=== PATIENT | female | born 1960 | race Caucasian/White ===

== ENCOUNTER → 2017-03-14 11:00 | Outpatient (POV) | payer MEDICAID, SELFPAY ==
[2017-03-14 11:15] VITALS: BP 161/52; PULSE 84; RESP 18; O2SAT 98; BMI 35.5
--- NOTE | 2017-03-14 11:36 | HMH.PAINSOAP ---
[facility] Pain Management SOAP Note Subjective:: Patient is a very pleasant 6-year-old white female that returns our pain clinic today with complaint of extreme pain in the left hip. She describes the pain as constant, sharp, stabbing. She rates pain 9/10. Patient reports the pain intensifies significantly when sitting. Also, when standing for any length of time. Patient was denied by insurance left SI joint injection. We will attempt approval again for left SI joint injection. She has extreme point tenderness over the left SI joint. She had significant relief in terms of her right hip pain after receiving right SI joint injection. Patient has tried and failed conservative measures such as physical therapy, care management assistant, NSAIDs. She continues with home exercise program. Objective:: Patient is awake alert oriented ?3. No acute distress. Flexion extension lumbar spine somewhat guarded secondary to pain. Deep tendon reflexes upper and lower extremities normal. Motor strength upper and lower extremities normal. There is no gross sensory deficit. Gait is normal. Assessment:: Degenerative disc disease lumbar spine multiple levels. Bilateral sacroiliitis per Plan:: We will plan left SI joint injection. Again, patient is failed conservative measures to help get rid of this pain. Patient's trying to continue working. However, due to the pain she has had a difficult time with this. She does continue with home exercise program.
== END ==
PROVIDERS: Family Provider Internal Medicine Adolescent Medicine; PCP Internal Medicine Adolescent Medicine; Visit Provider Nurse Anesthetist, Certified Registered
DX: M46.1 Sacroiliitis, not elsewhere classified (principal); M51.16 Intervertebral disc disorders with radiculopathy, lumbar region
CPT/HCPCS: 99212

== ENCOUNTER → 2017-04-29 15:59 | Day surgery (SDC) | payer MEDICAID, SELFPAY ==
[2017-04-29 16:53] VITALS: BP 161/65; PULSE 77; RESP 18; TEMP 36.7; O2SAT 98; BMI 35.5
[2017-04-29 16:57] LABS: POC Glucose,Bedside 106 mg/dL (70-110)
[2017-04-29 17:03] VITALS: BP 191/90; PULSE 98; RESP 18; O2SAT 100
[2017-04-29 17:04] VITALS: BP 149/88; BP 170/66; PULSE 86; PULSE 87; RESP 18; TEMP 36.6; O2SAT 98
--- NOTE | 2017-04-29 17:11 | P.PCN_ITS ---
- Procedure Date: 04/29/17 Time: 17:08 Anesthesiologist:: Case Yung MD Complications:: None Pre-procedure Diagnosis:: Sacroiliitis Post-procedure Diagnosis:: Same Indications for Procedure:: This patient is a pleasant 56-year-old white female who we are treating for left -sided hip pain. She is tender over her left SI joint. She has a positive Gavin's test on the left side. We will do a left SI joint injection under fluoroscopy to see if this gives her some relief. She did previously benefit from a right SI joint injection and has minimal to minimal pain over her right side. Procedure Details:: Left SI joint injection under fluoroscopy Informed consent was obtained and the risks and benefits of the procedure was going to the patient. Patient was taken to the procedure room. Patient was placed prone on the procedure table. The left hip was prepped using ChloraPrep. The skin and subcutaneous tissues were anesthetized using lidocaine. I placed a 22-gauge spinal needle into the inferior aspect of the left SI joint. Needle placement was confirmed with dye. After this we injected 5 mL bupivacaine 0.25% and Depo-Medrol 40 mg into the left SI joint. The patient tolerated the procedure well with no complication. Plan and Disposition:: We will follow-up with her in 2 weeks. We will reevaluate her symptoms at that time.
== END ==
PROVIDERS: Family Provider Internal Medicine Adolescent Medicine; PCP Internal Medicine Adolescent Medicine; Visit Provider Anesthesiology
DX: M46.1 Sacroiliitis, not elsewhere classified (principal)
CPT/HCPCS: 27096; 82962; G0260; J1040; Q9966

== ENCOUNTER → 2017-05-23 10:40 | Outpatient (POV) | payer MEDICAID, SELFPAY ==
[2017-05-23 11:33] VITALS: BP 185/51; PULSE 87; RESP 20; O2SAT 95; BMI 35.5
--- NOTE | 2017-05-23 16:31 | P.CONS_ITS ---
[facility] Pain Management SOAP Note Subjective:: This patient is a pleasant 56-year-old white female who we are treating for left -sided hip pain. She had previous left SI joint injections with good relief of her pain symptoms. She was 80% better for a few weeks. Her pain is just now starting to come back. We will seek approval and plan on a repeat left SI joint injection under fluoroscopy. She does have a positive Gavin's test on the left side. Objective:: Alert and oriented ?3 in no acute distress. Patient has an antalgic gait. She is tender over the left SI joint. Positive Gavin's test on left side. Motor strength of the lower extremities is 5/5. There is no gross sensory deficit. Assessment:: Sacroiliitis. Degenerative disc disease of lumbar spine multiple levels. Plan:: We will seek approval and plan on a repeat left SI joint injection under fluoroscopy.
== END ==
PROVIDERS: Family Provider Internal Medicine Adolescent Medicine; PCP Internal Medicine Adolescent Medicine; Visit Provider Anesthesiology
DX: M46.1 Sacroiliitis, not elsewhere classified (principal); M51.36 Other intervertebral disc degeneration, lumbar region
CPT/HCPCS: 99212

== ENCOUNTER → 2017-05-26 07:33 | Outpatient (CLI) | payer MEDICAID, SELFPAY ==
[2017-05-26 12:16] LABS: Basophils # 0.1 K/mm3 (0-0.2); Basophils % 0.9 % (0.1-2.0); Eosinophils # 0.4 K/mm3 (0.0-0.4); Eosinophils % 3.3 % (0.1-12.0); Hematocrit 32.2 % (37.0-47.0); Hemoglobin 9.3 g/dL (12.2-16.2); Lymphocytes # 3.6 K/mm3 (0.7-4.5); Lymphocytes % 34.1 K/mm3 (10-50); Mean Corpuscular HGB Conc 28.9 g/dL (31.8-35.4); Mean Corpuscular Hemoglobin 21.3 pg (27.0-31.2); Mean Corpuscular Volume 73.6 fl (81-99); Mean Platelet Volume 7.7 fl (7.4-10.4); Monocytes # 0.5 K/mm3 (0.1-1.0); Monocytes % 4.7 % (1.7-9.3); Neutrophils # 6.1 K/mm3 (1.8-7.8); Platelet Count 398 K/mm3 (142-424); Red Blood Count 4.38 M/mm3 (4.20-5.40); Red Cell Distribution Width 17.3 % (11.5-17.5); White Blood Count 10.7 K/mm3 (4.8-10.8)
[2017-05-26 12:27] LABS: Alanine Aminotransferase 23 U/L (12-78); Albumin Level 3.6 gm/dL (3.4-5.0); Albumin/Globulin Ratio 0.9 (1.1-1.8); Alkaline Phosphatase 117 U/L (46-116); Aspartate Amino Transferase 10 U/L (15-37); Bilirubin,Total 0.3 mg/dL (0.2-1.0); Blood Urea Nitrogen 14 mg/dL (7-18); Calcium 8.9 mg/dL (8.5-10.1); Carbon Dioxide 24 mmol/L (21.0-32.0); Chloride 104 mmol/L (98-107); Chol/HDL Ratio 2.9 (1-3.5); Cholesterol 173 mg/dL (140-200); Creatinine,Serum 0.64 mg/dL (0.55-1.02); Estimated Glomerular Filt Rate 96 ml/min (>60); GFR (African American) 116 ML/MIN (>60); Globulin 4.2 gm/dl (1.3-3.2); Glucose 122 mg/dL (74-106); HDL Cholesterol 59 mg/dL (29-89); LDL Cholesterol 91 mg/dL (0-130); Sodium 140 mmol/L (136-145); Total Protein,Serum 7.8 gm/dL (6.4-8.2); Triglycerides 113 mg/dL (30-200); VLDL Cholesterol 23 mg/dL (0-40)
== END ==
PROVIDERS: Visit Provider Internal Medicine Adolescent Medicine
DX: I25.10 Atherosclerotic heart disease of native coronary artery without angina pectoris (principal); E11.9 Type 2 diabetes mellitus without complications
CPT/HCPCS: 36415; 80053; 80061; 83036; 85025

== ENCOUNTER → 2017-06-20 06:42 | Outpatient (CLI) | payer MEDICAID, SELFPAY ==
--- NOTE | 2017-06-20 07:16 | NM_ITS ---
CARDIOLITE SPECT MYOCARDIAL PERFUSION SCAN, REST AND STRESS: EXERCISE STRESS [facility] REVIEW QGS EF AND WALL MOTION EVALUATION: QPS - PERFUSION EVALUATION HISTORY: CAD, HTN, DM, Tobacco use, Chest pain, SOB DOSE: 10.67 mCi technetium 99m mibi intravenously at rest followed by 29.7 mCi technetium 99m mibi following the intravenous ministration of 0.4 mg of Lexiscan. Resting blood pressure is 172/87. Stress blood pressure 181/94. FINDINGS: Ejection fraction is calculated to be 46%. Stress images reveal decreased activity throughout the inferior wall and inferior wall. There is severe left ventricular dilatation. Rest images reveal worsening activity in the anterior wall with improved activity in the inferior wall with mildly less left ventricular dilatation IMPRESSION: High risk abnormal stress test. Previous anterior myocardial infarction with reverse redistribution. Reversible ischemia in the inferior wall. Inferior and anterior wall hypokinesis with reduced ejection fraction
--- NOTE | 2017-06-20 07:36 | HMH.ITSHM ---
INVOKANA METOPROLOL ASA METFORMIN ASTROV OMEPRAZOLE SPIRIVA VENTOLIN MUSCLE RELAXER
== END ==
PROVIDERS: Family Provider Internal Medicine Adolescent Medicine; PCP Internal Medicine Adolescent Medicine; Visit Provider Internal Medicine Adolescent Medicine
DX: R07.9 Chest pain, unspecified (principal)
CPT/HCPCS: 78452; 93017; A9502; J2785

== ENCOUNTER → 2017-06-20 10:08 | Outpatient (POV) | payer MEDICAID, SELFPAY ==
[2017-06-20 10:31] VITALS: BP 144/74; PULSE 72; RESP 20; O2SAT 96; BMI 37.1
--- NOTE | 2017-06-20 12:20 | HMH.PAINSOAP ---
[facility] Pain Management SOAP Note Subjective:: She is a pleasant 56-year-old white female who we are treating for sacroiliitis. Patient is following up after left SI joint injection. Patient states she is doing significantly better. Patient states all of her pain is controlled with Tylenol. She had discussed potential epidural steroid injections however she would like to hold off on this until her pain worsens. Patient currently doing well rating her pain a 6 out of 10 today only because she did not take her Tylenol. ROS General: no recent weight change, no fever, no sleep disturbances Respiratory: no cough, no shortness of air, no recurring pulmonary infections Cardiovascular/Peripheral Vascular: No chest pain, No palpitations, no edema, no shortness of breath. Gastrointestinal: no incontinence, normal bowel movements reported Genitourinary: no incontinence Musculoskeletal: Sacroiliitis Psychiatric: normal mood/ affect, [denies depression], [denies anxiety] Neurological: [denies weakness in extremities], [denies balance issues] Objective:: Physical Exam General: Alert and oriented x3, no acute distress, pleasant and cooperative, [on room air] Lungs: Resps E/U, Symmetrical chest expansion, Eyes: PERRL Musculoskeletal: Flexion and extension of lumbar spine somewhat guarded secondary to pain, deep tendon reflexes normal, strength in upper and lower extremities [5/5], antalgic gait noted, tenderness over left SI joint Neurological: speech clear, manufacturing lab technician equal, no gross sensory deficits Assessment:: Sacroiliitis Plan:: We will follow-up with this patient on an as-needed basis. Patient is doing well after her last set of injections. Patient is uninterested in pursuing back injections at this time. Patient is currently managing her pain with Tylenol. This note was dictated using voice recognition software and may contain errors or omissions
--- NOTE | 2017-06-20 12:23 | P.CONS_ITS ---
[facility] [place] Pain Management SOAP Note Subjective:: She is a pleasant 56-year-old white female who we are treating for sacroiliitis. Patient is following up after left SI joint injection. Patient states she is doing significantly better. Patient states all of her pain is controlled with Tylenol. She had discussed potential epidural steroid injections however she would like to hold off on this until her pain worsens. Patient currently doing well rating her pain a 6 out of 10 today only because she did not take her Tylenol. ROS General: no recent weight change, no fever, no sleep disturbances Respiratory: no cough, no shortness of air, no recurring pulmonary infections Cardiovascular/Peripheral Vascular: No chest pain, No palpitations, no edema, no shortness of breath. Gastrointestinal: no incontinence, normal bowel movements reported Genitourinary: no incontinence Musculoskeletal: Sacroiliitis Psychiatric: normal mood/ affect, [denies depression], [denies anxiety] Neurological: [denies weakness in extremities], [denies balance issues] Objective:: Physical Exam General: Alert and oriented x3, no acute distress, pleasant and cooperative, [ on room air] Lungs: Resps E/U, Symmetrical chest expansion, Eyes: PERRL Musculoskeletal: Flexion and extension of lumbar spine somewhat guarded secondary to pain, deep tendon reflexes normal, strength in upper and lower extremities [5/5], antalgic gait noted, tenderness over left SI joint Neurological: speech clear, certified coder equal, no gross sensory deficits Assessment:: Sacroiliitis Plan:: We will follow-up with this patient on an as-needed basis. Patient is doing well after her last set of injections. Patient is uninterested in pursuing back injections at this time. Patient is currently managing her pain with Tylenol. This note was dictated using voice recognition software and may contain errors or omissions
== END ==
PROVIDERS: Family Provider Internal Medicine Adolescent Medicine; PCP Internal Medicine Adolescent Medicine; Visit Provider Clinical Nurse Specialist Family Health
DX: M46.1 Sacroiliitis, not elsewhere classified (principal)
CPT/HCPCS: 99212

== ENCOUNTER → 2017-07-11 12:27 | Outpatient (CLI) | payer MEDICAID, SELFPAY ==
[2017-07-11 13:57] LABS: Anion Gap 15.9 mEq/L (5-15); Blood Urea Nitrogen 22 mg/dL (7-18); Carbon Dioxide 23 mmol/L (21.0-32.0); Chloride 103 mmol/L (98-107); Creatinine,Serum 0.71 mg/dL (0.55-1.02); Estimated Glomerular Filt Rate 85 ml/min (>60); GFR (African American) 103 ML/MIN (>60); Glucose 145 mg/dL (74-106); Potassium 4.9 mmoL/L (3.5-5.1); Sodium 137 mmol/L (136-145)
== END ==
PROVIDERS: Visit Provider Nurse Practitioner Family
DX: R94.31 Abnormal electrocardiogram [ECG] [EKG] (principal); I10 Essential (primary) hypertension; I20.9 Angina pectoris, unspecified; I63.9 Cerebral infarction, unspecified; E11.8 Type 2 diabetes mellitus with unspecified complications; I25.118 Atherosclerotic heart disease of native coronary artery with other forms of angina pectoris; R06.09 Other forms of dyspnea; E78.4 Other hyperlipidemia
CPT/HCPCS: 36415; 80048

== ENCOUNTER → 2017-07-18 09:02 | Outpatient (CLI) | payer MEDICAID, SELFPAY ==
[2017-07-18 09:49] LABS: Anion Gap 16.5 mEq/L (5-15); Blood Urea Nitrogen 17 mg/dL (7-18); Carbon Dioxide 23 mmol/L (21.0-32.0); Chloride 104 mmol/L (98-107); Creatinine,Serum 0.76 mg/dL (0.55-1.02); Estimated Glomerular Filt Rate 78 ml/min (>60); GFR (African American) 95 ML/MIN (>60); Glucose 209 mg/dL (74-106); Potassium 4.5 mmoL/L (3.5-5.1); Sodium 139 mmol/L (136-145)
== END ==
PROVIDERS: Visit Provider Physician Assistant
DX: I10 Essential (primary) hypertension (principal); E78.5 Hyperlipidemia, unspecified; K21.9 Gastro-esophageal reflux disease without esophagitis; I63.9 Cerebral infarction, unspecified; E11.9 Type 2 diabetes mellitus without complications
CPT/HCPCS: 36415; 80048

== ENCOUNTER → 2017-07-22 16:21 | Outpatient (CLI) | payer MEDICAID, SELFPAY ==
[2017-07-22 17:07] LABS: Anion Gap 15.5 mEq/L (5-15); Blood Urea Nitrogen 21 mg/dL (7-18); Carbon Dioxide 24 mmol/L (21.0-32.0); Chloride 106 mmol/L (98-107); Estimated Glomerular Filt Rate 65 ml/min (>60); GFR (African American) 78 ML/MIN (>60); Glucose 141 mg/dL (74-106); Potassium 4.5 mmoL/L (3.5-5.1); Sodium 141 mmol/L (136-145)
== END ==
PROVIDERS: Visit Provider Physician Assistant
DX: E78.5 Hyperlipidemia, unspecified (principal); I10 Essential (primary) hypertension; E11.9 Type 2 diabetes mellitus without complications; I63.9 Cerebral infarction, unspecified; K21.9 Gastro-esophageal reflux disease without esophagitis
CPT/HCPCS: 36415; 80048

== ENCOUNTER → 2017-08-08 14:53 | Outpatient (CLI) | payer MEDICAID, SELFPAY ==
[2017-08-08 16:00] LABS: Alanine Aminotransferase 31 U/L (12-78); Albumin Level 3.9 gm/dL (3.4-5.0); Alkaline Phosphatase 118 U/L (46-116); Anion Gap 16.2 mEq/L (5-15); Aspartate Amino Transferase 18 U/L (15-37); Bilirubin,Total 0.2 mg/dL (0.2-1.0); Blood Urea Nitrogen 30 mg/dL (7-18); Calcium 9.6 mg/dL (8.5-10.1); Carbon Dioxide 22 mmol/L (21.0-32.0); Chloride 104 mmol/L (98-107); Creatinine,Serum 1.07 mg/dL (0.55-1.02); Estimated Glomerular Filt Rate 53 ml/min (>60); GFR (African American) 64 ML/MIN (>60); Globulin 3.8 gm/dl (1.3-3.2); Glucose 171 mg/dL (74-106); Potassium 5.2 mmoL/L (3.5-5.1); Sodium 137 mmol/L (136-145); Total Protein,Serum 7.7 gm/dL (6.4-8.2)
[2017-08-08 16:02] LABS: Basophils # 0.1 K/mm3 (0-0.2); Basophils % 0.8 % (0.1-2.0); Eosinophils # 0.3 K/mm3 (0.0-0.4); Eosinophils % 2.3 % (0.1-12.0); Hematocrit 34.9 % (37.0-47.0); Hemoglobin 9.7 g/dL (12.2-16.2); Lymphocytes # 4.5 K/mm3 (0.7-4.5); Mean Corpuscular HGB Conc 27.7 g/dL (31.8-35.4); Mean Corpuscular Hemoglobin 20.8 pg (27.0-31.2); Mean Platelet Volume 7.5 fl (7.4-10.4); Monocytes # 0.5 K/mm3 (0.1-1.0); Monocytes % 4.3 % (1.7-9.3); Neutrophils # 6.2 K/mm3 (1.8-7.8); Neutrophils % 53.6 % (37.0-80.0); Platelet Count 475 K/mm3 (142-424); Red Blood Count 4.66 M/mm3 (4.20-5.40); Red Cell Distribution Width 18.7 % (11.5-17.5); White Blood Count 11.5 K/mm3 (4.8-10.8)
[2017-08-08 16:44] LABS: Hemoglobin A1C 7.2 % (0.0-7.0)
== END ==
PROVIDERS: Visit Provider Internal Medicine Adolescent Medicine
DX: I25.10 Atherosclerotic heart disease of native coronary artery without angina pectoris (principal); E11.9 Type 2 diabetes mellitus without complications
CPT/HCPCS: 36415; 80053; 83036; 85025

== ENCOUNTER → 2017-11-29 09:18 | Outpatient (POV) | payer MEDICAID, SELFPAY ==
[2017-11-29 09:37] VITALS: BP 178/68; PULSE 70; RESP 18; O2SAT 98; BMI 37.1
--- NOTE | 2017-11-29 09:45 | HMH.PAINSOAP ---
[facility] Pain Management SOAP Note Subjective:: Patient is a pleasant 57-year-old white female who we are treating for sacroiliitis. Patient has done extremely well after her bilateral SI joint injections back in June. Patient states she is just starting to flare back up at this time. Patient states the pain is intermittent. She rates the pain a 7 out of 10 when it flared up. Patient is doing well otherwise. Patient states she had 90% relief of her SI joint pain over the last 4 months. Patient also was continuing home therapy with her swimming pool. ROS General: no recent weight change, no fever, no sleep disturbances Respiratory: no cough, no shortness of air, no recurring pulmonary infections Cardiovascular/Peripheral Vascular: No chest pain, No palpitations, no edema, no shortness of breath. Gastrointestinal: no incontinence, normal bowel movements reported Genitourinary: no incontinence Musculoskeletal: Sacroiliitis Psychiatric: normal mood/ affect Neurological: [denies weakness in extremities], [denies balance issues] Objective:: Physical Exam General: Alert and oriented x3, no acute distress, pleasant and cooperative, [on room air] Lungs: Resps E/U, Symmetrical chest expansion, Eyes: PERRL Musculoskeletal: Flexion and extension of lumbar spine somewhat guarded secondary to pain, deep tendon reflexes normal, strength in upper and lower extremities [5/5], slightly antalgic gait noted, positive Gavin's test bilaterally Neurological: speech clear, toddler caregiver equal, no gross sensory deficits Assessment:: Sacroiliitis Plan:: We will schedule a bilateral SI joint injection for the patient. Patient may determine that she just wants to do the left side if it acting up at the time. Patient states the pain is worse on the side. I will follow-up with the patient after her injection. I believe it would be beneficial given the efficacy of the last one. This note was dictated using voice recognition software and may contain errors or omissions
== END ==
PROVIDERS: Family Provider Internal Medicine Adolescent Medicine; PCP Internal Medicine Adolescent Medicine; Visit Provider Clinical Nurse Specialist Family Health
DX: M46.1 Sacroiliitis, not elsewhere classified (principal)
CPT/HCPCS: 99213

== ENCOUNTER 2018-02-22 08:52 | Inpatient (IN) ==
--- NOTE | 2018-02-22 09:10 | Emergency Department Note ---
ED Disposition Clinical Impression: Blood loss anemia, Precordial chest pain, Occult blood positive stool Disposition: Still a Patient Condition on Discharge: Fair Referrals: Cortez Gagnon MD [Primary Care Provider] - - Critical Care Critical Care Time: No Attestation: On , the high probability of a clinically significant, sudden or life threatening deterioration of the following system(s) required my full and direct attention, intervention and personal management. The time I documented below is in addition to time spent performing reported procedures but includes the following listed in this critical care notation. Medical Decision Making - Candelario Inquiry Pt receiving controlled substance: No Vital Signs: 02/22/18 08:55 Temperature 97.5 F L Temperature Source Oral Pulse Rate [Left Radial] 93 H Respiratory Rate 20 Blood Pressure [Right Arm] 143/99 H Blood Pressure Mean [Right Arm] 113 Blood Pressure Source [Right Arm] Automatic Cuff Blood Pressure Position [Right Arm] Sitting 02 Sat by Pulse Oximetry 99 Oxygen Delivery Method Room Air - Lab Data Lab Results 02/22/18 08:55: WBC 12.0 H, RBC 2.93 L, Hgb 5.0 L*, Hct 19.1 L*, MCV 65.3 L, MCH 17.0 L, MCHC 26.1 L, RDW 18.9 H, Plt Count 589 H, MPV 6.5 L, Neut % (Auto) 72.8, Lymph % (Auto) 22.4, [place] % (Auto) 3.5, Eos % (Auto) 0.5, Baso % (Auto) 0.8, Neut # (Auto) 8.7 H, Lymph # (Auto) 2.7, [place] # (Auto) 0.4, Eos # (Auto) 0.1, Baso # (Auto) 0.1 02/22/18 08:55: Sodium 135 L, Potassium 3.9, Chloride 100, Carbon Dioxide 16 L, Anion Gap 22.9 H, BUN 19 H, Creatinine 1.17 H, Estimated Creat Clear 86, Estimated GFR 48 L, Est GFR ( Amer) 57 L, Glucose 218 H, Calcium 8.8, Troponin I 0.03 02/22/18 09:30: Stool Occult Blood Positive A Result diagrams: 02/22/18 08:55 02/22/18 08:55 Orders (Tests/Meds): ED MEDICATIONS Discontinued Medications Generic Name Dose Route Start Last Admin Trade Name Caprice PRN Reason Stop Dose Admin Aspirin 243 mg 02/22/18 08:57 02/22/18 09:02 Aspirin 81mg Chewable Tablet PO 02/22/18 08:58 243 mg ONCE ONE Administration ORDERS Category Date Time Status Occult Blood,Stool Stat Lab 02/22/18 09:30 Ordered ECG Request by /Mnoy Stat Y 02/22/18 08:57 Ordered - Radiology Data #1 Image(s): Chest Image Reviewed: Yes I reviewed the patient's radiology image Preliminary Findings: Normal/NAD - ECG Data Tracing #1 EKG interpreted by Mich Talbot MD: Rhythm: sinus Rate: 100 [place]: normal Ectopy: Premature atrial contractions Conduction: normal ST Segment Changes: Nonspecific T Wave Changes: Nonspecific Q Waves: none Prior electrocardiagrams reviewed. No change from prior tracings. - Physician Consults Physician Consulted: Chelsi Time: 10:09 Reason -: Admission Comment/Response: Agrees to admit the patient to the hospital. We discussed the patient's clinical information, including history, exam, laboratory and radiology results and ED course. Per hospital procedure, I will write temporary bridge inpatient orders on the patient. Specific orders requested by the admitting physician: Surgery consult, transfuse 2 units packed red blood cells Additional Consult: Serge Time: 10:36 Reason -: Surgical Eval/Care Comment/Response: IV Protonix twice daily, clear liquids, then n.p.o. after midnight. Hold aspirin, may take other meds. Medical Decision Narrative: Reviewed prior results, mild anemia in the past, but not severe. No history of GI bleeds in the past. Discussed hemoglobin result with patient. Initially res istant to the idea of a transfusion, but eventually consents. Patient is not a drinker of alcohol, used to be on arthritis medications but none now. States that she takes an 81 mg aspirin daily. No vomiting of blood. Stool is a little dark for a week, but not black. No blood in urine, no vaginal bleeding. No history of prior transfusions. No history of GI bleed. General Adult HPI - General Chief complaint: Chest Pain Stated complaint: CHEST PAIN Time Seen by Provider: 02/22/18 09:25 Mode of Arrival: Wheelchair Limitations: No Limitations Description of Symptoms (Recalled from ER Triage Doc. by RN): Started with increased chest pain last night that goes into her left side of her neck and down her left neck with some SOA.She took nitro at home but states this has not helped. States when she sits up the pain would getting better but then come back. - History of Present Illness HPI narrative: Complains of chest pain that began yesterday. Constant until it went away 10 minutes ago. Describes a diffuse anterior chest pain going into her neck and down her arm. Short of breath. Nausea, but no vomiting. No diaphoresis. Lightheadedness for 1 year. - Related Data Home Medications Medication Instructions Recorded Confirmed albuterol sulfate HFA 90 2 puff INHALATION DAILY 25 Days #18 04/03/17 02/22/18 mcg/actuation aerosol inhaler aspirin 81 mg tablet,delayed 81 mg PO QDAY 90 Days #90 tab 04/03/17 02/22/18 release canagliflozin 300 mg tablet 300 mg PO QAM 04/03/17 02/22/18 metformin 1,000 mg tablet 1,000 mg PO BID 30 Days #60 tab 04/03/17 02/22/18 omeprazole 20 mg capsule,delayed 20 mg PO QDAY 30 Days #30 cap 04/03/17 02/22/18 release tiotropium bromide 1.25 2 puff INHALATION QDAY 04/03/17 02/22/18 mcg/actuation mist for inhalation tizanidine 4 mg tablet 4 mg PO QHS 30 Days #30 tab 04/03/17 02/22/18 acetaminophen 500 mg tablet 1,000 mg PO BID 06/24/17 02/22/18 diclofenac sodium 75 mg 75 mg PO BID PRN 06/24/17 02/22/18 tablet,delayed release atorvastatin 40 mg tablet 40 mg PO HS 30 Days #30 tab 11/28/17 02/22/18 Bisoprolol Fumarate [Bisoprolol 5 mg PO DAILY 01/23/18 02/22/18 5mg Tablet] Lisinopril [Prinivil 20mg Tablet] 10 mg PO DAILY 01/23/18 02/22/18 Varenicline Tartrate [Chantix 1mg 1 mg PO BID 01/23/18 02/22/18 tablet] Gabapentin [Gabapentin 100mg Cap] 100 mg PO TID 02/22/18 02/22/18 Previous Rx's Medication Instructions Recorded nitroglycerin 0.4 mg sublingual 0.4 mg SUBLINGUAL Q5M PRN #30 tab 06/27/17 tablet montelukast 10 mg tablet 10 mg PO QPM #90 tab 02/13/18 Allergies Allergy/AdvReac Type Severity Reaction Status Date / Time No Known Allergies Allergy Verified 12/29/17 14:31 [facility] History - Hepatitis A Screen Drug use history?: No High risk sexual behaviors?: No History of sexually transmitted infection?: No Currently employed?: No Childcare worker?: No Do you have indoor plumbing?: Yes Do you have electricity?: Yes Attestation statement:: This patient has been screened for Hepatitis A risk factors. I have reviewed the patient's past medical history: Yes Medical History: Reports:: Congestive Heart Failure, Chronic Obstructive Pu lmonary Disease (COPD), Diabetes Mellitus Type 2, Hyperlipidemia, Hypertension Denies:: Cancer, Diabetes Mellitus Type 1, Internal Pacemaker, MRSA, Seizures Other Medical History: Reports: Other. Denies: Blood Transfusion Reaction Laterality Cases: Bilateral: Other Other Surgeries: Yes: Angioplasty (06/29/17), Cardiac Catheterization, Cardiac Surgery, Cholecystectomy, Coronary Stent (heart x2), Tubal Ligation, Other. No: Pacemaker Amputation: No Fractures: No - Social History Smoking Status: Current every day smoker Tobacco Type: cigarettes # Packs/Day (cigarettes): 1 #Yrs smoked (if former smoker): 45 Alcohol Intake: never Alcohol Intake Frequency:: other Substance Use Type: denies use Occupational Status: unemployed Housing: house Household Members: significant other - Psychiatric History Expresses thoughts of harming self/others: None Suicide Plan Description: No Plan Family Hx:: Coronary Artery Disease, Heart Attack ROS Obtained: Yes All systems reviewed & no additional complaints - Constitutional Constitutional: Denies fever(s), Reports weakness - Cardiovascular Cardiovascular: Reports chest pain, Reports dyspnea on exertion - Respiratory Respiratory: Yes dyspnea - Gastrointestinal Gastrointestingal: Reports: dyspepsia. Denies: abdominal pain, vomiting blood, black, tarry stools Physical Exam - General General appearance: alert, in no apparent distress - Head Head exam: atraumatic, normocephalic, normal inspection - Eye Eye exam: Present: normal appearance, PERRL, EOMI, other (Pale conjunctiva) - ENT ENT exam: Present: mucous membranes moist - Neck Neck exam: Present: normal inspection, full ROM, trachea midline. Absent: meningismus, lymphadenopathy - Chest Chest inspection: Present: normal inspection, symmetric chest wall rise - Respiratory Respiratory exam: Present: normal lung sounds bilaterally. Absent: respiratory distress - Cardiovascular Cardiovascular exam: Present: regular rate, normal rhythm. Absent: JVD - Abdominal Exam Abdominal exam: Present: soft, normal bowel sounds. Absent: distention, tenderness, guarding - Rectal Exam Rectal exam: Present: normal inspection, normal rectal tone. Absent: black stool, bloody stool, fecal impaction, mass, tenderness - Extremities Exam Extremities exam: Present: normal inspection, full ROM, normal capillary refill. Absent: calf tenderness - Neurological Exam Neurological exam: Present: alert, oriented X3 - Psychiatric Psychiatric exam: Present: normal affect, normal mood - Skin Skin exam: Present: warm, dry, intact, pallor
[2018-02-22 09:15] LABS: Basophils # 0.1 K/mm3 (0-0.2); Basophils % 0.8 % (0.1-2.0); Eosinophils # 0.1 K/mm3 (0.0-0.4); Eosinophils % 0.5 % (0.1-12.0); Lymphocytes # 2.7 K/mm3 (0.7-4.5); Lymphocytes % 22.4 % (10-50); Mean Corpuscular HGB Conc 26.1 g/dL (31.8-35.4); Mean Corpuscular Volume 65.3 fl (81-99); Mean Platelet Volume 6.5 fl (7.4-10.4); Monocytes # 0.4 K/mm3 (0.1-1.0); Monocytes % 3.5 % (1.7-9.3); Neutrophils # 8.7 K/mm3 (1.8-7.8); Neutrophils % 72.8 % (37.0-80.0); Platelet Count 589 K/mm3 (142-424); Red Blood Count 2.93 M/mm3 (4.20-5.40); Red Cell Distribution Width 18.9 % (11.5-17.5)
[2018-02-22 09:22] LABS: Hematocrit 19.1 % (37.0-47.0)
[2018-02-22 09:30] LABS: Anion Gap 22.9 mEq/L (5-15); Calcium 8.8 mg/dL (8.5-10.1); Potassium 3.9 mmoL/L (3.5-5.1)
--- NOTE | 2018-02-22 13:18 | Pharmacy Consult Notes ---
[facility] Pharmacy VTE Monitoring - Patient Demographics Admission date: 02/22/18 Report Date: 02/22/18 Time: 13:18 Allergies/Adverse Reactions: Patient Allergies meloxicam Adverse Reaction (Verified 02/22/18 12:51) Height: 1.68 m Weight: 105.687 kg Patient Problems: Current Active Problems Blood loss anemia (Acute) Precordial chest pain (Acute) Occult blood positive stool (Acute) - VTE Risk Labs: VTE Related Lab Results Hgb 5.0 g/dL (12.2-16.2) L* 02/22/18 08:55 Hct 19.1 % (37.0-47.0) L* 02/22/18 08:55 Plt Count 589 K/mm3 (142-424) H 02/22/18 08:55 BUN 19 mg/dL (7-18) H 02/22/18 08:55 Creatinine 1.17 mg/dL (0.55-1.02) H 02/22/18 08:55 Estimated Creat Clear 86 mL/min (50-200) 02/22/18 08:55 Was VTE Risk Assessment Performed: Yes VTE Score: 2 VTE Risk Level: Low Risk Clinical Trial Participant: No - Prophylaxis VTE Prophylaxis Ordered?: Yes Types of VTE Prophylaxis: TEDS Knee High
--- NOTE | 2018-02-22 13:42 | Consult Report ---
*Admission Date: 02/22/18 *Chief complaint: Chest pain and shortness of air *History of present illness: This is a 57-year-old female seen in consultation from Dr. Gagnon after being admitted with severe anemia. She presented to the emergency department with vague chest pain, shortness of air and chronic weakness. Evaluation revealed Hemoccult positive stool and severe anemia. The surgical service was consulted for possible endoscopic evaluation. Review of Systems - Constitutional Reports weakness - Eyes Denies change in vision - ENT Denies change in voice - *Cardiovascular Reports chest pain - *Respiratory Reports shortness of breath with activity - *Gastrointestinal Reports nausea, Denies vomiting blood, Denies bright, red blood in stools, Denies black, tarry stools, Denies vomiting - *Genitourinary Denies abnormal vaginal bleeding - *Musculoskeletal Denies abnormal walking - Integumentary/Breasts Denies bleeding lesions - *Neurologic Reports weakness, Denies abnormal movements - Psychiatric Denies anxiety - Endocrine Denies flushing - Hematologic/Lymphatic Denies easy bleeding - Allergic/Immunologic Denies GI upset with certain foods [facility] History Medical History: Reports:: Congestive Heart Failure, Chronic Obstructive Pulmonary Disease (COPD), Diabetes Mellitus Type 2, Hyperlipidemia, Hypertension Denies:: Cancer, Diabetes Mellitus Type 1, Internal Pacemaker, MRSA, Seizures Other Medical History: Reports: Anemia, Other. Denies: Blood Transfusion Reaction Laterality Cases: Bilateral: Other Other Surgeries: Yes: Angioplasty (06/29/17), Cardiac Catheterization, Cardiac Surgery, Cholecystectomy, Coronary Stent (heart x2), Tubal Ligation, Other. No: Pacemaker Amputation: No Fractures: No - *Social History Smoking Status: Current every day smoker Tobacco Type: cigarettes # Packs/Day (cigarettes): 5 #Yrs smoked (if former smoker): 45 Alcohol Intake: never Alcohol Intake Frequency:: other Substance Use Type: denies use Occupational Status: unemployed Housing: house Household Members: significant other - Psychiatric History Expresses thoughts of harming self/others: None Suicide Plan Description: No Plan *Family Hx:: Anemia, Cancer, Coronary Artery Disease, Diabetes, Heart Attack, Hyperlipidemia, Hypertension, Stroke Meds Home Medications Medication Instructions Recorded Confirmed Type albuterol sulfate HFA 90 2 puff INHALATION DAILY 25 Days #18 04/03/17 02/22/18 History mcg/actuation aerosol inhaler aspirin 81 mg tablet,delayed 81 mg PO QDAY 90 Days #90 tab 04/03/17 02/22/18 History release canagliflozin 300 mg tablet 300 mg PO QAM 04/03/17 02/22/18 History metformin 1,000 mg tablet 1,000 mg PO BID 30 Days #60 tab 04/03/17 02/22/18 History omeprazole 20 mg capsule,delayed 20 mg PO QDAY 30 Days #30 cap 04/03/17 02/22/18 History release tiotropium bromide 1.25 2 puff INHALATION QDAY 04/03/17 02/22/18 History mcg/actuation mist for inhalation tizanidine 4 mg tablet 4 mg PO QHS 30 Days #30 tab 04/03/17 02/22/18 History acetaminophen 500 mg tablet 1,000 mg PO BID 06/24/17 02/22/18 History atorvastatin 40 mg tablet 40 mg PO HS 30 Days #30 tab 11/28/17 02/22/18 History Bisoprolol Fumarate [Bisoprolol 5 mg PO DAILY 01/23/18 02/22/18 History 5mg Tablet] Lisinopril [Prinivil 20mg Tablet] 10 mg PO DAILY 01/23/18 02/22/18 History Varenicline Tartrate [Chantix 1mg 1 mg PO BID 01/23/18 02/22/18 History tablet] Isosorbide Mononitrate [Isosorbide 30 mg PO DAILY 02/22/18 02/22/18 History Mononitrate ER] Allergies Allergy/AdvReac Type Severity Reaction Status Date / Time meloxicam AdvReac Verified 02/22/18 12:51 Exam Vital signs and Labs for Last 24 Hours: Temp Pulse Resp BP Pulse Ox 98.6 F 83 18 116/70 94 L 02/22/18 12:51 02/22/18 12:51 02/22/18 12:51 02/22/18 12:51 02/22/18 12:20 Laboratory Results - last 24 hr 02/22/18 08:55: WBC 12.0 H, RBC 2.93 L, Hgb 5.0 L*, Hct 19.1 L*, MCV 65.3 L, MCH 17.0 L, MCHC 26.1 L, RDW 18.9 H, Plt Count 589 H, MPV 6.5 L, Neut % (Auto) 72.8, Lymph % (Auto) 22.4, [place] % (Auto) 3.5, Eos % (Auto) 0.5, Baso % (Auto) 0.8, Neut # (Auto) 8.7 H, Lymph # (Auto) 2.7, [place] # (Auto) 0.4, Eos # (Auto) 0.1, Baso # (Auto) 0.1 02/22/18 08:55: Sodium 135 L, Potassium 3.9, Chloride 100, Carbon Dioxide 16 L, Anion Gap 22.9 H, BUN 19 H, Creatinine 1.17 H, Estimated Creat Clear 86, Estimated GFR 48 L, Est GFR ( Amer) 57 L, Glucose 218 H, Calcium 8.8, Troponin I 0.03 02/22/18 09:30: Stool Occult Blood Positive A 02/22/18 12:10: Blood Type O Positive, Antibody Screen Negative, Crossmatch (AHG) See Detail 02/22/18 13:20: POC Glucose 187 H I & O for Last 24 hours: Intake & Output 02/20/18 02/21/18 02/22/18 02/23/18 11:59 11:59 11:59 11:59 Intake Total 600 / 600 Balance 600 / 600 Weight 230 lb 233 lb - Constitutional no acute distress - *Routine Respiratory Exam Absent: respiratory distress - *Routine Cardiovascular Exam Present: RRR - *Routine Abdominal Exam Present: soft Results - Labs 02/22/18 08:55 02/22/18 08:55 Laboratory Results - last 24 hr 02/22/18 08:55: WBC 12.0 H, RBC 2.93 L, Hgb 5.0 L*, Hct 19.1 L*, MCV 65.3 L, MCH 17.0 L, MCHC 26.1 L, RDW 18.9 H, Plt Count 589 H, MPV 6.5 L, Neut % (Auto) 72.8, Lymph % (Auto) 22.4, [place] % (Auto) 3.5, Eos % (Auto) 0.5, Baso % (Auto) 0.8, Neut # (Auto) 8.7 H, Lymph # (Auto) 2.7, [place] # (Auto) 0.4, Eos # (Auto) 0.1, Baso # (Auto) 0.1 02/22/18 08:55: Sodium 135 L, Potassium 3.9, Chloride 100, Carbon Dioxide 16 L, Anion Gap 22.9 H, BUN 19 H, Creatinine 1.17 H, Estimated Creat Clear 86, Estimated GFR 48 L, Est GFR ( Amer) 57 L, Glucose 218 H, Calcium 8.8, Troponin I 0.03 02/22/18 09:30: Stool Occult Blood Positive A 02/22/18 12:10: Blood Type O Positive, Antibody Screen Negative, Crossmatch (AHG) See Detail 02/22/18 13:20: POC Glucose 187 H Assessment and Plan (1) Blood loss anemia Current visit: Yes Status: Acute Category: Medical Code(s): D50.0 - Iron deficiency anemia secondary to blood loss (chronic) Blood transfusion as per primary service PPI Clear liquids for now NPO after midnight for esophagogastroduodenoscopy in the morning (2) Occult blood positive stool Current visit: Yes Status: Acute Category: Medical Code(s): R19.5 - Other fecal abnormalities
--- NOTE | 2018-02-22 17:53 | History & Physical Report ---
*Admission Date: 02/22/18 *Chief complaint: Fatigue and chest pain *History of present illness: 57-year-old white female with known coronary disease, status post stent placement but relatively stable over the past several months who this morning woke up with anginal type chest pain spreading across her chest. This had resolved by the time she came to the emergency department but she noted that she been very fatigued and laboratory workup showed a hemoglobin of 5 g. She is admitted for transfusion and further evaluation. She reports dark/tarry stools. Reports some epigastric pain recently. She has been using NSAIDs in the past. He has a history of heavy smoking. [facility] History I have reviewed the patient's past medical history: Yes Medical History: Reports:: Congestive Heart Failure, Chronic Obstructive Pulmonary Disease (COPD), Diabetes Mellitus Type 2, Hyperlipidemia, Hypertension Denies:: Cancer, Diabetes Mellitus Type 1, Internal Pacemaker, MRSA, Seizures Other Medical History: Reports: Anemia, Other. Denies: Blood Transfusion Reaction Laterality Cases: Bilateral: Other Other Surgeries: Yes: Angioplasty (06/29/17), Cardiac Catheterization, Cardiac Surgery, Cholecystectomy, Coronary Stent (heart x2), Tubal Ligation, Other. No: Pacemaker Amputation: No Fractures: No - *Social History Smoking Status: Current every day smoker Tobacco Type: cigarettes # Packs/Day (cigarettes): 5 #Yrs smoked (if former smoker): 45 Alcohol Intake: never Alcohol Intake Frequency:: other Substance Use Type: denies use Occupational Status: unemployed Housing: house Household Members: significant other - Psychiatric History Expresses thoughts of harming self/others: None Suicide Plan Description: No Plan *Family Hx:: Anemia, Cancer, Coronary Artery Disease, Diabetes, Heart Attack, Hyperlipidemia, Hypertension, Stroke Review of Systems - Review of Systems Review of systems:: pertinent systems reviewed and negative unless documented below - Constitutional Reports anorexia, Denies body ache(s), Denies chills - Eyes Denies blind spots, Denies blurry vision, Denies change in vision - ENT Denies abnormal hearing, Denies bleeding gums, Denies change in voice - *Cardiovascular Reports chest pain, Reports chest pain at rest, Reports chest pain with activity, Reports shortness of breath, Reports shortness of breath with activity, Denies irregular heart rhythm, Denies leg swelling, Denies leg sores, Denies shortness of breath when lying down, Denies rapid, pounding, or irregular heartbeat - *Respiratory Denies change in phlegm color, Denies chest congestion, Denies excessive phlegm production - *Gastrointestinal Reports abdominal pain, Reports belching, Reports change in bowel habits, Reports change in stools - *Musculoskeletal Denies abnormal walking, Denies joint pain, Denies decreased muscle mass - *Neurologic Reports weakness, Denies abnormal walking, Denies abnormal movements - Psychiatric Denies abnormal sleep pattern - Endocrine Denies cold intolerance, Denies excessive sweating - Hematologic/Lymphatic Denies easy bleeding Meds Home Medications Medication Instructions Recorded Confirmed Type albuterol sulfate HFA 90 2 puff INHALATION QIDP PRN 25 Days 04/03/17 02/22/18 History mcg/actuation aerosol inhaler #18 aspirin 81 mg tablet,delayed 81 mg PO DAILY 90 Days #90 tab 04/03/17 02/22/18 History release canagliflozin 300 mg tablet 300 mg PO QAM 04/03/17 02/22/18 History metformin 1,000 mg tablet 1,000 mg PO BID 30 Days #60 tab 04/03/17 02/22/18 History omeprazole 20 mg capsule,delayed 20 mg PO DAILY 30 Days #30 cap 04/03/17 02/22/18 History release tiotropium bromide 1.25 2 puff INHALATION DAILY 04/03/17 02/22/18 History mcg/actuation mist for inhalation tizanidine 4 mg tablet 4 mg PO TIDP PRN 30 Days #30 tab 04/03/17 02/22/18 History acetaminophen 500 mg tablet 1,000 mg PO BID 06/24/17 02/22/18 History nitroglycerin 0.4 mg sublingual 0.4 mg SUBLINGUAL Q5M PRN #30 tab 06/27/1702/22 Rx tablet atorvastatin 40 mg tablet 40 mg PO HS 30 Days #30 tab 11/28/17 02/22/18 History Bisoprolol Fumarate [Bisoprolol 5 mg PO DAILY 01/23/18 02/22/18 History 5mg Tablet] Lisinopril [Prinivil 20mg Tablet] 10 mg PO DAILY 01/23/18 02/22/18 History Varenicline Tartrate [Chantix 1mg 1 mg PO BID 01/23/18 02/22/18 History tablet] Celecoxib 200 mg PO BID 02/22/18 02/22/18 History Fluticasone Propionate 1 spr NS BID 02/22/18 02/22/18 History Isosorbide Mononitrate [Isosorbide 30 mg PO DAILY 02/22/18 02/22/18 History Mononitrate ER] Montelukast Sodium [Montelukast 10 mg PO HS 02/22/18 02/22/18 History 10mg Tab] Allergies Allergy/AdvReac Type Severity Reaction Status Date / Time meloxicam AdvReac Verified 02/22/18 12:51 Exam Vital signs and Labs for Last 24 Hours: Temp Pulse Resp BP Pulse Ox 98.1 F 85 20 147/44 H 97 02/22/18 17:25 02/22/18 17:25 02/22/18 17:25 02/22/18 17:25 02/22/18 17:25 Laboratory Results - last 24 hr 02/22/18 08:55: WBC 12.0 H, RBC 2.93 L, Hgb 5.0 L*, Hct 19.1 L*, MCV 65.3 L, MCH 17.0 L, MCHC 26.1 L, RDW 18.9 H, Plt Count 589 H, MPV 6.5 L, Neut % (Auto) 72.8, Lymph % (Auto) 22.4, [place] % (Auto) 3.5, Eos % (Auto) 0.5, Baso % (Auto) 0.8, Neut # (Auto) 8.7 H, Lymph # (Auto) 2.7, [place] # (Auto) 0.4, Eos # (Auto) 0.1, Baso # (Auto) 0.1 02/22/18 08:55: Sodium 135 L, Potassium 3.9, Chloride 100, Carbon Dioxide 16 L, Anion Gap 22.9 H, BUN 19 H, Creatinine 1.17 H, Estimated Creat Clear 86, Estimated GFR 48 L, Est GFR ( Amer) 57 L, Glucose 218 H, Calcium 8.8, Troponin I 0.03 02/22/18 09:30: Stool Occult Blood Positive A 02/22/18 12:10: Blood Type O Positive, Antibody Screen Negative, Crossmatch (AHG) See Detail 02/22/18 13:20: Troponin I 0.09 H 02/22/18 13:20: Blood Type Confirm O Positive 02/22/18 13:20: POC Glucose 187 H 02/22/18 16:25: POC Glucose 121 H 02/22/18 16:45: Troponin I 0.16 H I & O for Last 24 hours: Intake & Output 02/20/18 02/21/18 02/22/18 02/23/18 11:59 11:59 11:59 11:59 Intake Total 870 / 870 Balance 870 / 870 Weight 230 lb 233 lb Narrative: Patient appears pale. Otherwise is in good spirits. Morbid obesity limits exam accuracy and complicates all aspects of her care. Pharynx slightly pale, no JVD. Lungs are clear. Heart rate regular with no murmurs. Abdomen is soft, nontender. Obese. No clubbing, no cyanosis. No edema. Cranial nerves intact, power is equal in all 4 extremities. Assessment and Plan (1) Blood loss anemia Current visit: Yes Status: Acute Category: Medical Code(s): D50.0 - Iron deficiency anemia secondary to blood loss (chronic) Appreciate surgical consultation. Transfusion through the day and evening. Agree with EGD tomorrow morning (2) Occult blood positive stool Current visit: Yes Status: Acute Category: Medical Code(s): R19.5 - Other fecal abnormalities (3) BMI 37.0-37.9, adult Current visit: Yes Status: Acute Category: Medical Code(s): Z68.37 - Body mass index (BMI) 37.0-37.9, adult Obesity complicates all aspects of her care (4) CAD (coronary artery disease) Current visit: No Status: Chronic Category: Medical Code(s): I25.10 - Atherosclerotic heart disease of [place] coronary artery without angina pectoris Chest pain is completely resolved with the initiation of transfusion. Possibly related to low flow state. Watch symptoms carefully (5) Diabetes mellitus type 2, noninsulin dependent Current visit: Yes Status: Acute Category: Medical Code(s): E11.9 - Type 2 diabetes mellitus without complications Hold p.o. medications. Sliding scale insulin while in hospital
[2018-02-22 20:53] LABS: Hematocrit 24.5 % (37.0-47.0)
[2018-02-22 20:59] LABS: Hemoglobin 6.9 g/dL (12.2-16.2)
[2018-02-23 05:26] LABS: Hemoglobin 8.9 g/dL (12.2-16.2)
--- NOTE | 2018-02-23 06:37 | Progress Note ---
Subjective Patient reports: feels better Exam Vital signs and Labs for Last 24 Hours: Temp Pulse Resp BP Pulse Ox 98.2 F 79 18 128/72 97 02/23/18 04:59 02/23/18 04:59 02/23/18 04:59 02/23/18 04:59 02/23/18 04:59 Laboratory Results - last 24 hr 02/22/18 08:55: WBC 12.0 H, RBC 2.93 L, Hgb 5.0 L*, Hct 19.1 L*, MCV 65.3 L, MCH 17.0 L, MCHC 26.1 L, RDW 18.9 H, Plt Count 589 H, MPV 6.5 L, Neut % (Auto) 72.8, Lymph % (Auto) 22.4, [place] % (Auto) 3.5, Eos % (Auto) 0.5, Baso % (Auto) 0.8, Neut # (Auto) 8.7 H, Lymph # (Auto) 2.7, [place] # (Auto) 0.4, Eos # (Auto) 0.1, Baso # (Auto) 0.1 02/22/18 08:55: Sodium 135 L, Potassium 3.9, Chloride 100, Carbon Dioxide 16 L, Anion Gap 22.9 H, BUN 19 H, Creatinine 1.17 H, Estimated Creat Clear 86, Estimated GFR 48 L, Est GFR ( Amer) 57 L, Glucose 218 H, Calcium 8.8, Troponin I 0.03 02/22/18 09:30: Stool Occult Blood Positive A 02/22/18 12:10: Blood Type O Positive, Antibody Screen Negative, Crossmatch (AHG) See Detail 02/22/18 13:20: Troponin I 0.09 H 02/22/18 13:20: Blood Type Confirm O Positive 02/22/18 13:20: POC Glucose 187 H 02/22/18 16:25: POC Glucose 121 H 02/22/18 16:45: Troponin I 0.16 H 02/22/18 20:16: Hgb 6.9 L* D, Hct 24.5 L 02/22/18 20:18: POC Glucose 135 H 02/23/18 05:05: Hgb 8.9 L D, Hct 29.0 L 02/23/18 05:05: POC Glucose 128 H I & O for Last 24 hours: Intake & Output 02/20/18 02/21/18 02/22/18 02/23/18 11:59 11:59 11:59 11:59 Intake Total 2600 / 2600 Balance 2600 / 2600 Weight 230 lb 233 lb - Constitutional no acute distress - *Routine Respiratory Exam Absent: respiratory distress - *Routine Cardiovascular Exam Present: RRR - *Routine Abdominal Exam Present: soft Progress Note: A&P (1) Blood loss anemia Status: Acute Current Visit: Yes (2) Occult blood positive stool Status: Acute Assessment and plan: The patient has responded nicely to 4 units packed red blood cells. She feels much better and her hemoglobin has responded appropriately. Continue current medical therapy. Esophagogastroduodenoscopy this a.m. Current Visit: Yes (3) BMI 37.0-37.9, adult Status: Acute Current Visit: Yes (4) CAD (coronary artery disease) Status: Chronic Current Visit: No (5) Diabetes mellitus type 2, noninsulin dependent Status: Acute Current Visit: Yes
--- NOTE | 2018-02-23 07:26 | Procedure Note ---
- Procedure: Date: 02/23/18 Procedure Performed:: Esophagogastroduodenoscopy with biopsy and polypectomy by means other than snare Indications:: Heme positive stool Anemia Performing Provider:: Hakeem Valentine MD Referring Provider:: Dr. Gagnon Sedation:: Monitored anesthesia care Procedure:: After informed consent was obtained the patient was taken to the endoscopy suite. Sedation ensued after the patient was transferred to the left lateral decubitus position. Pulse, blood pressure, and oxygen saturation were monitored throughout the procedure. The endoscope was advanced beyond the duodenal bulb. Retroflexion within the gastric lumen was accomplished. The gastroscope was carefully removed and the patient was transferred to recovery in stable condition. Please see "findings" and "specimens" below for detail. Findings:: Gastroesophageal junction at 40 cm Gastric cardia polyps Mild gastritis Mild bile reflux No obvious ulceration No sign of active or recent hemorrhage Specimens:: Antral biopsy Gastric cardia polyp Recommendations:: Follow-up pending pathology. Ongoing evaluation regarding heme positive stool and anemia (colonoscopy in near future). Complications:: No immediate Estimated blood obtained (mL): 1
--- NOTE | 2018-02-23 07:26 | Progress Note ---
[facility] Anesthesia Checklist - Patient Identification Patient Identification: Arm Band, Verbal (Name & ) - Structural Data Admitted From: Inpatient Planned Operative Procedure/s: EGD Consent for Planned Operative Procedure(s) Verified: Yes Verified Documents: Surgical Consent, History and Physical - NPO Status Verified Time NPO: 00:00 - Chart Verification Results Verified: H & H - Additional verifications Patient : No Anesthesia Reactions: No - Airway Assessment C-Spine Mobility Assessed: Yes TMJ Mobility Assessed: Yes Dentition: Edentulous - Neurological Assessment Level of Consciousness: Awake Hx Seizures: No Numbness or tingling in extremities: No - Anesthesia Plan Anesthesia Risk discussed: Yes Anesthesia Plan: Verified ASA Class: III Anesthesia Type: MAC [facility] History I have reviewed the patient's past medical history: Yes Medical History: Reports:: Congestive Heart Failure, Chronic Obstructive Pulmonary Disease (COPD), Diabetes Mellitus Type 2, Gastroesophageal Reflux Disease(GERD), Hyperlipidemia, Hypertension Denies:: Cancer, Diabetes Mellitus Type 1, Internal Pacemaker, MRSA, Seizures Other Medical History: Reports: Anemia, Unexplained Bleeding, Other. Denies: Blood Transfusion Reaction Laterality Cases: Bilateral: Other Other Surgeries: Yes: Angioplasty (06/29/17), Cardiac Catheterization, Cardiac Surgery, Cholecystectomy, Coronary Stent (heart x2), Tubal Ligation, Other. No: Pacemaker Amputation: No Fractures: No - *Social History Smoking Status: Current every day smoker Tobacco Type: cigarettes # Packs/Day (cigarettes): 5 #Yrs smoked (if former smoker): 45 Alcohol Intake: never Alcohol Intake Frequency:: other Substance Use Type: denies use Occupational Status: unemployed Housing: house Household Members: significant other - Psychiatric History Expresses thoughts of harming self/others: None Suicide Plan Description: No Plan *Family Hx:: Anemia, Cancer, Coronary Artery Disease, Diabetes, Heart Attack, Hyperlipidemia, Hypertension, Stroke
--- NOTE | 2018-02-23 08:47 | Progress Note ---
Internal Medicine - PN: Subj *Date: 02/23/18 *Time: 08:46 Interval history: Feels great after her endoscopy. Awake, alert. Eating breakfast vigorously. Exam Vital signs and Labs for Last 24 Hours: Temp Pulse Resp BP Pulse Ox 97.6 F 76 18 143/72 H 98 02/23/18 07:42 02/23/18 07:42 02/23/18 07:42 02/23/18 07:42 02/23/18 08:33 Laboratory Results - last 24 hr 02/22/18 08:55: WBC 12.0 H, RBC 2.93 L, Hgb 5.0 L*, Hct 19.1 L*, MCV 65.3 L, MCH 17.0 L, MCHC 26.1 L, RDW 18.9 H, Plt Count 589 H, MPV 6.5 L, Neut % (Auto) 72.8, Lymph % (Auto) 22.4, [place] % (Auto) 3.5, Eos % (Auto) 0.5, Baso % (Auto) 0.8, Neut # (Auto) 8.7 H, Lymph # (Auto) 2.7, [place] # (Auto) 0.4, Eos # (Auto) 0.1, Baso # (Auto) 0.1 02/22/18 08:55: Sodium 135 L, Potassium 3.9, Chloride 100, Carbon Dioxide 16 L, Anion Gap 22.9 H, BUN 19 H, Creatinine 1.17 H, Estimated Creat Clear 86, Estimated GFR 48 L, Est GFR ( Amer) 57 L, Glucose 218 H, Calcium 8.8, Troponin I 0.03 02/22/18 09:30: Stool Occult Blood Positive A 02/22/18 12:10: Blood Type O Positive, Antibody Screen Negative, Crossmatch (AHG) See Detail 02/22/18 13:20: Troponin I 0.09 H 02/22/18 13:20: Blood Type Confirm O Positive 02/22/18 13:20: POC Glucose 187 H 02/22/18 16:25: POC Glucose 121 H 02/22/18 16:45: Troponin I 0.16 H 02/22/18 20:16: Hgb 6.9 L* D, Hct 24.5 L 02/22/18 20:18: POC Glucose 135 H 02/23/18 05:05: Hgb 8.9 L D, Hct 29.0 L 02/23/18 05:05: POC Glucose 128 H I & O for Last 24 hours: Intake & Output 02/20/18 02/21/18 02/22/18 02/23/18 11:59 11:59 11:59 11:59 Intake Total 3050 / 3050 Balance 3050 / 3050 Weight 230 lb 233 lb Narrative: Color looks much better, lungs are clear, heart rate regular. Abdomen soft, oropharynx clear. Assessment and Plan (1) Blood loss anemia Current visit: Yes Status: Acute Category: Medical Code(s): D50.0 - Iron deficiency anemia secondary to blood loss (chronic) (2) Occult blood positive stool Current visit: Yes Status: Acute Category: Medical Code(s): R19.5 - Other fecal abnormalities (3) BMI 37.0-37.9, adult Current visit: Yes Status: Acute Category: Medical Code(s): Z68.37 - Body mass index (BMI) 37.0-37.9, adult (4) CAD (coronary artery disease) Current visit: No Status: Chronic Category: Medical Code(s): I25.10 - Atherosclerotic heart disease of [place] coronary artery without angina pectoris (5) Diabetes mellitus type 2, noninsulin dependent Current visit: Yes Status: Acute Category: Medical Code(s): E11.9 - Type 2 diabetes mellitus without complications - Assessment and plan all Dx Assessment and Plan for all problems:: EGD essentially nondiagnostic. Plan will be to check hemoglobin around 2:00 today. If stable
[2018-02-23 15:51] LABS: Basophils # 0.1 K/mm3 (0-0.2); Basophils % 0.6 % (0.1-2.0); Eosinophils # 0.1 K/mm3 (0.0-0.4); Eosinophils % 1.1 % (0.1-12.0); Hematocrit 30.6 % (37.0-47.0); Hemoglobin 9.1 g/dL (12.2-16.2); Lymphocytes # 2.7 K/mm3 (0.7-4.5); Lymphocytes % 28.2 % (10-50); Mean Corpuscular HGB Conc 29.8 g/dL (31.8-35.4); Mean Corpuscular Hemoglobin 22.5 pg (27.0-31.2); Mean Corpuscular Volume 75.5 fl (81-99); Mean Platelet Volume 6.7 fl (7.4-10.4); Monocytes # 0.5 K/mm3 (0.1-1.0); Monocytes % 5.2 % (1.7-9.3); Neutrophils # 6.2 K/mm3 (1.8-7.8); Neutrophils % 64.9 % (37.0-80.0); Platelet Count 370 K/mm3 (142-424); Red Blood Count 4.06 M/mm3 (4.20-5.40); Red Cell Distribution Width 22.2 % (11.5-17.5); White Blood Count 9.6 K/mm3 (4.8-10.8)
--- NOTE | 2018-02-23 16:10 | Discharge Summary ---
General - General Admission date:: 02/22/18 Discharge date: 02/23/18 HPI HPI: 57-year-old white female with known coronary disease, status post stent placement but relatively stable over the past several months who this morning woke up with anginal type chest pain spreading across her chest. This had resolved by the time she came to the emergency department but she noted that she been very fatigued and laboratory workup showed a hemoglobin of 5 g. She is admitted for transfusion and further evaluation. She reports dark/tarry stools. Reports some epigastric pain recently. She has been using NSAIDs in the past. He has a history of heavy smoking. Hospital Course Hospital Course: Patient was admitted to hospital, she received 4 units of packed red blood cells and hemoglobin kulwant to 8.9 g. She was subjected to EGD which was nondiagnostic as far as realistic sources of bleeding, gastric polyp was noted and was biopsied. She had no further episodes of bleeding, and her hemoglobin spontaneously kulwant to 9.1 g this afternoon. She feels much better and wishes to go home. I think that is reasonable. She is very reliable as far as follow-up goes and I made an appointment with her for tomorrow afternoon my office. We will get a CBC at that point. She will see surgery next week to follow-up for colonoscopy evaluation. Objective Vital signs: Temp Pulse Resp BP Pulse Ox 97.6 F 70 18 143/72 H 98 02/23/18 07:42 02/23/18 12:00 02/23/18 07:42 02/23/18 07:42 02/23/18 08:33 Narrative: Patient is pleasant, talkative, heart rate regular, lungs clear. Abdomen soft and nontender, no edema, no clubbing, much less pale. Neurologic exam intact. Results Labs on day of discharge: Labs from last 24 hours 02/23/18 02/23/18 02/23/18 14:00 05:05 05:05 WBC 9.6 RBC 4.06 L D Hgb 9.1 L 8.9 L D Hct 30.6 L 29.0 L MCV 75.5 L MCH 22.5 L D MCHC 29.8 L RDW 22.2 H Plt Count 370 D MPV 6.7 L Neut % (Auto) 64.9 Lymph % (Auto) 28.2 Kerr % (Auto) 5.2 Eos % (Auto) 1.1 Baso % (Auto) 0.6 Neut # (Auto) 6.2 Lymph # (Auto) 2.7 Kerr # (Auto) 0.5 Eos # (Auto) 0.1 Baso # (Auto) 0.1 POC Glucose 128 H Troponin I Blood Type Antibody Screen Crossmatch ([facility]) 02/22/18 02/22/18 02/22/18 20:18 20:16 16:45 WBC RBC Hgb 6.9 L* D Hct 24.5 L MCV MCH MCHC RDW Plt Count MPV Neut % (Auto) Lymph % (Auto) Kerr % (Auto) Eos % (Auto) Baso % (Auto) Neut # (Auto) Lymph # (Auto) Kerr # (Auto) Eos # (Auto) Baso # (Auto) POC Glucose 135 H Troponin I 0.16 H Blood Type Antibody Screen Crossmatch ([facility]) 02/22/18 02/22/18 16:25 12:10 WBC RBC Hgb Hct MCV MCH MCHC RDW Plt Count MPV Neut % (Auto) Lymph % (Auto) Kerr % (Auto) Eos % (Auto) Baso % (Auto) Neut # (Auto) Lymph # (Auto) Kerr # (Auto) Eos # (Auto) Baso # (Auto) POC Glucose 121 H Troponin I Blood Type O Positive Antibody Screen Negative Crossmatch ([facility]) See Detail DS: Diagnosis - Discharge Diagnosis (1) Blood loss anemia Status: Resolved (2) Occult blood positive stool Status: Acute (3) BMI 37.0-37.9, adult Status: Chronic (4) CAD (coronary artery disease) Status: Chronic (5) Diabetes mellitus type 2, noninsulin dependent Status: Chronic Discharge Plan - Patient Discharge Instructions ACTIVITY: Continue current activity DIET: continue same diet - Follow up Plan Follow up with: Hakeem Valentine MD [Staff Physician] - 03/01/18 Cortez Gagnon MD [Primary Care Provider] - 02/24/18 3:00 pm Disposition: Home, Self-Custodial Medications: Home Medications Medication Instructions Recorded Confirmed Type albuterol sulfate HFA 90 2 puff INHALATION QIDP PRN 25 Days 04/03/17 02/22/18 History mcg/actuation aerosol inhaler #18 aspirin 81 mg tablet,delayed 81 mg PO DAILY 90 Days #90 tab 04/03/17 02/22/18 History release canagliflozin 300 mg tablet 300 mg PO QAM 04/03/17 02/22/18 History metformin 1,000 mg tablet 1,000 mg PO BID 30 Days #60 tab 04/03/17 02/22/18 History omeprazole 20 mg capsule,delayed 20 mg PO DAILY 30 Days #30 cap 04/03/17 02/22/18 History release tiotropium bromide 1.25 2 puff INHALATION DAILY 04/03/17 02/22/18 History mcg/actuation mist for inhalation tizanidine 4 mg tablet 4 mg PO TIDP PRN 30 Days #30 tab 04/03/17 02/22/18 History acetaminophen 500 mg tablet 1,000 mg PO BID 06/24/17 02/22/18 History nitroglycerin 0.4 mg sublingual 0.4 mg SUBLINGUAL Q5M PRN #30 tab 06/27/17 02/22/18 Rx tablet atorvastatin 40 mg tablet 40 mg PO HS 30 Days #30 tab 11/28/17 02/22/18 History Bisoprolol Fumarate [Bisoprolol 5 mg PO DAILY 01/23/18 02/22/18 History 5mg Tablet] Lisinopril [Prinivil 20mg Tablet] 10 mg PO DAILY 01/23/18 02/22/18 History Celecoxib 200 mg PO BID 02/22/18 02/22/18 History Fluticasone Propionate 1 spr NS BID 02/22/18 02/22/18 History Isosorbide Mononitrate [Isosorbide 30 mg PO DAILY 02/22/18 02/22/18 History Mononitrate ER] Montelukast Sodium [Montelukast 10 mg PO HS 02/22/18 02/22/18 History 10mg Tab] Varenicline Tartrate [Chantix 1mg 1 mg PO BID #60 tablet 02/23/18 Rx tablet] Prescriptions/Medication Reconciliation: Continue metformin 1,000 mg tablet 1,000 mg PO BID 30 Days #60 tab aspirin 81 mg tablet,delayed release 81 mg PO DAILY 90 Days #90 tab tizanidine 4 mg tablet 4 mg PO TIDP PRN 30 Days #30 tab PRN Reason: MUSCLE SPASMS omeprazole 20 mg capsule,delayed release 20 mg PO DAILY 30 Days #30 cap albuterol sulfate HFA 90 mcg/actuation aerosol inhaler 2 puff INHALATION QIDP PRN 25 Days #18 PRN Reason: Shortness Of Breath tiotropium bromide 1.25 mcg/actuation mist for inhalation 2 puff INHALATION DAILY canagliflozin 300 mg tablet 300 mg PO QAM atorvastatin 40 mg tablet 40 mg PO HS 30 Days #30 tab acetaminophen 500 mg tablet 1,000 mg PO BID nitroglycerin 0.4 mg sublingual tablet 0.4 mg SUBLINGUAL Q5M PRN #30 tab PRN Reason: chest pain Bisoprolol Fumarate [Bisoprolol 5mg Tablet] 5 mg PO DAILY Isosorbide Mononitrate [Isosorbide Mononitrate ER] 30 mg PO DAILY Montelukast Sodium [Montelukast 10mg Tab] 10 mg PO HS Varenicline Tartrate [Chantix 1mg tablet] 1 mg PO BID #60 tablet Lisinopril [Prinivil 20mg Tablet] 10 mg PO DAILY Fluticasone Propionate 1 spr NS BID Discontinued Celecoxib 200 mg PO BID Other Amb Orders: Basic Metabolic Panel Time Frame: 1 Day, Location: None Selected Complete Blood Count Auto Diff Time Frame: 1 Day, Location: None Selected
== END 2018-02-23 16:45 | disposition home or self-care (01) ==
LOC: ER 08:52 → 2ND 11:10
PROVIDERS: ADMIT Internal Medicine Adolescent Medicine; ATTEND Internal Medicine Adolescent Medicine

== ENCOUNTER → 2018-02-24 14:03 | Outpatient (CLI) | payer MEDICAID, SELFPAY ==
[2018-02-24 15:46] LABS: Basophils # 0.1 K/mm3 (0-0.2); Basophils % 0.7 % (0.1-2.0); Eosinophils # 0.1 K/mm3 (0.0-0.4); Eosinophils % 1.2 % (0.1-12.0); Hematocrit 31.3 % (37.0-47.0); Hemoglobin 9.1 g/dL (12.2-16.2); Lymphocytes # 1.8 K/mm3 (0.7-4.5); Lymphocytes % 19.5 % (10-50); Mean Corpuscular Hemoglobin 21.9 pg (27.0-31.2); Mean Corpuscular Volume 75.3 fl (81-99); Mean Platelet Volume 7.4 fl (7.4-10.4); Monocytes # 0.5 K/mm3 (0.1-1.0); Monocytes % 5.3 % (1.7-9.3); Neutrophils # 6.7 K/mm3 (1.8-7.8); Neutrophils % 73.4 % (37.0-80.0); Platelet Count 406 K/mm3 (142-424); Red Blood Count 4.16 M/mm3 (4.20-5.40); Red Cell Distribution Width 22.3 % (11.5-17.5); White Blood Count 9.1 K/mm3 (4.8-10.8)
[2018-02-24 15:59] LABS: Anion Gap 15.2 mEq/L (5-15); Blood Urea Nitrogen 13 mg/dL (7-18); Calcium 8.6 mg/dL (8.5-10.1); Carbon Dioxide 22 mmol/L (21.0-32.0); Chloride 107 mmol/L (98-107); Creatinine,Serum 0.95 mg/dL (0.55-1.02); Estimated Glomerular Filt Rate 60 ml/min (>60); GFR (African American) 73 ML/MIN (>60); Glucose 136 mg/dL (74-106); Potassium 4.2 mmoL/L (3.5-5.1); Sodium 140 mmol/L (136-145)
== END ==
PROVIDERS: PCP Internal Medicine Adolescent Medicine; Visit Provider Internal Medicine Adolescent Medicine
DX: D50.0 Iron deficiency anemia secondary to blood loss (chronic) (principal)
CPT/HCPCS: 36415; 80048; 85025

== ENCOUNTER → 2018-03-24 15:07 | Outpatient (CLI) | payer MEDICAID, SELFPAY ==
--- NOTE | 2018-03-24 15:10 | MR_ITS ---
MR shoulder RT wo con Ordering Physician: Cortez Gagnon MD Patient Age: 57 years: Female HISTORY: ITS.REASON: INTERNAL IMPINGEMENT OF RIGHT SHOULDER, ROTATOR CUFF SYNDROM Right shoulder pain. Right scapula extends to right arm and down to right elbow. Limited range of motion with pain is severe. No known injury. TECHNIQUE: Multiplanar multisequence imaging on 1.5 Anjelica MRI COMPARISON :Plain films right shoulder from 01/24/1980 FINDINGS Prominent AC joint hypertrophy, arthropathy. There is spurring about the AC joint including inferiorly directed spurs which impinge upon the supraspinatus as it passes beneath of the AC joint through the medial outlet. . Only slight narrowing subacromial space of the subacromial space however remains generous at the 8 mm beneath tip of acromion. Appears to be Biceps tendinopathy.. There is notable thickening, enlargement the biceps tendon, with increased signal centrally throughout biceps tendon as it passes over the humeral head.., ( sagittal images 11-8 and corresponding coronal images). Rotator Cuff: Components: Mild supraspinatus tendinopathy only slight increased signal and thickness supraspinatus tendon. Slight increased signal at its insertion at its attachment upon tuberosity.Small insertional erosion, beneath this area area .. No definitive supraspinatus tendon tear.. Certainly no full-thickness tear. No fluid in subdeltoid subacromial bursa. . Subscapularis tendon with likely mild subscapularis tendinopathy noting increased signal at superior aspect subscapularis tendon. Infraspinatus tendon appears intac . muscles of rotator cuff are fairly well-maintained.No fluid in subdeltoid subacromial bursa to suggest RCT or bursitis here. Would note what appears to be slight increased in region of superior labrum. Question some mild irregularity possible some mild undercutting or fraying at its attachment.. Equivocal observation warrants clinical correlation.... (This region is just inferior to the generous inferior spurring at AC joint) The anterior and posterior labrum appear intact. Glenohumeral joint intact. . No significant joint effusion IMPRESSION . 1. No full-thickness rotator cuff tear nor retraction. . .... Would note Mild Supraspinatus tendinopathy . Adequate subacromial space ... Also Suspect Trace subscapularis tendinopathy.. 2.. Generous AC joint hypertrophy./Arthropathy. Notable Inferior spurring AC joint encroaches upon the supraspinatus at medial outlet 3... Biceps tendinopathy.. The biceps tendon appears enlarged with increased signal as it passes above the bicipital groove & over the humeral head. 4. Suggestion slight increased signal at the superior labrum. & towards biceps anchor . minor signal irregularity here may reflect fraying superior labrum, or possible minimal under cutting tear towards superior labrum. &,Near biceps anchor. . Equivocal observations here but noted. Requires Clinical correlation..
== END ==
PROVIDERS: PCP Internal Medicine Adolescent Medicine; Visit Provider Internal Medicine Adolescent Medicine
DX: M75.41 Impingement syndrome of right shoulder (principal); M75.101 Unspecified rotator cuff tear or rupture of right shoulder, not specified as traumatic
CPT/HCPCS: 73221

== ENCOUNTER → 2018-04-19 09:27 | Outpatient (CLI) | payer MEDICAID, SELFPAY ==
[2018-04-19 10:12] LABS: Hematocrit 36.6 % (37.0-47.0); Hemoglobin 11.2 g/dL (12.2-16.2)
== END ==
PROVIDERS: Visit Provider Surgery
DX: D50.0 Iron deficiency anemia secondary to blood loss (chronic) (principal)
CPT/HCPCS: 36415; 85014; 85018

== ENCOUNTER 2018-04-24 09:05 | Outpatient (RCR) | payer MEDICAID, SELFPAY | END 2018-04-24 09:10 | disposition home or self-care (01) | LOC: PT 09:05 | PROVIDERS: Visit Provider Orthopaedic Surgery | DX: M75.81 Other shoulder lesions, right shoulder (principal) | CPT/HCPCS: 97163 ==

== ENCOUNTER → 2018-05-25 10:47 | Outpatient (CLI) | payer MEDICAID, SELFPAY ==
[2018-05-25 11:22] LABS: Basophils % 0.5 % (0.1-2.0); Eosinophils # 0.2 K/mm3 (0.0-0.4); Eosinophils % 1.7 % (0.1-12.0); Hematocrit 32.9 % (37.0-47.0); Hemoglobin 10.3 g/dL (12.2-16.2); Lymphocytes # 2.9 K/mm3 (0.7-4.5); Lymphocytes % 30.6 % (10-50); Mean Corpuscular HGB Conc 31.5 g/dL (31.8-35.4); Mean Corpuscular Hemoglobin 27.1 pg (27.0-31.2); Mean Corpuscular Volume 86.2 fl (81-99); Mean Platelet Volume 7.9 fl (7.4-10.4); Monocytes # 0.3 K/mm3 (0.1-1.0); Monocytes % 3.7 % (1.7-9.3); Neutrophils % 63.5 % (37.0-80.0); Platelet Count 347 K/mm3 (142-424); Red Blood Count 3.82 M/mm3 (4.20-5.40); Red Cell Distribution Width 17.8 % (11.5-17.5); White Blood Count 9.4 K/mm3 (4.8-10.8)
[2018-05-25 12:33] LABS: Alanine Aminotransferase 25 U/L (12-78); Albumin Level 3.6 gm/dL (3.4-5.0); Alkaline Phosphatase 101 U/L (46-116); Anion Gap 15.8 mEq/L (5-15); Aspartate Amino Transferase 14 U/L (15-37); Bilirubin,Total 0.2 mg/dL (0.2-1.0); Blood Urea Nitrogen 18 mg/dL (7-18); Calcium 9.6 mg/dL (8.5-10.1); Carbon Dioxide 25 mmol/L (21.0-32.0); Chloride 106 mmol/L (98-107); Creatinine,Serum 0.86 mg/dL (0.55-1.02); Estimated Glomerular Filt Rate 68 ml/min (>60); GFR (African American) 82 ML/MIN (>60); Globulin 3.5 gm/dl (1.3-3.2); Glucose 137 mg/dL (74-106); Potassium 4.8 mmoL/L (3.5-5.1); Sodium 142 mmol/L (136-145); Total Protein,Serum 7.1 gm/dL (6.4-8.2)
== END ==
PROVIDERS: Visit Provider Internal Medicine Adolescent Medicine
DX: I25.10 Atherosclerotic heart disease of native coronary artery without angina pectoris (principal)
CPT/HCPCS: 36415; 80053; 85025

== ENCOUNTER → 2018-05-26 17:44 | Outpatient (CLI) | payer MEDICAID, SELFPAY ==
[2018-05-26 18:09] LABS: Basophils % 0.4 % (0.1-2.0); Eosinophils # 0.2 K/mm3 (0.0-0.4); Eosinophils % 1.7 % (0.1-12.0); Hemoglobin 10.3 g/dL (12.2-16.2); Lymphocytes # 3.3 K/mm3 (0.7-4.5); Lymphocytes % 32.8 % (10-50); Mean Corpuscular HGB Conc 32.2 g/dL (31.8-35.4); Mean Corpuscular Hemoglobin 27.3 pg (27.0-31.2); Mean Corpuscular Volume 84.7 fl (81-99); Mean Platelet Volume 7.8 fl (7.4-10.4); Monocytes # 0.4 K/mm3 (0.1-1.0); Monocytes % 3.5 % (1.7-9.3); Neutrophils # 6.3 K/mm3 (1.8-7.8); Neutrophils % 61.7 % (37.0-80.0); Platelet Count 347 K/mm3 (142-424); Red Blood Count 3.77 M/mm3 (4.20-5.40); Red Cell Distribution Width 17.9 % (11.5-17.5); White Blood Count 10.2 K/mm3 (4.8-10.8)
[2018-05-26 18:58] LABS: Alanine Aminotransferase 27 U/L (12-78); Albumin Level 3.7 gm/dL (3.4-5.0); Alkaline Phosphatase 104 U/L (46-116); Anion Gap 12.9 mEq/L (5-15); Aspartate Amino Transferase 16 U/L (15-37); Bilirubin,Total 0.2 mg/dL (0.2-1.0); Blood Urea Nitrogen 17 mg/dL (7-18); Calcium 9.4 mg/dL (8.5-10.1); Carbon Dioxide 27 mmol/L (21.0-32.0); Chloride 103 mmol/L (98-107); Creatinine,Serum 1.06 mg/dL (0.55-1.02); Estimated Glomerular Filt Rate 53 ml/min (>60); GFR (African American) 64 ML/MIN (>60); Globulin 3.6 gm/dl (1.3-3.2); Glucose 156 mg/dL (74-106); Potassium 3.9 mmoL/L (3.5-5.1); Sodium 139 mmol/L (136-145); Total Protein,Serum 7.3 gm/dL (6.4-8.2)
[2018-05-26 19:21] LABS: Erythrocyte Sedimentation Rate 56 mm/hr (0-30)
[2018-05-29 08:25] LABS: Vitamin B12 567 pg/mL (232-1245)
[2018-05-29 14:12] LABS: Anti-Centromere B Antibodies <0.2 AI (0.0-0.9); Anti-Jo-1 <0.2 AI (0.0-0.9); Anti-Smith Antibody <0.2 AI (0.0-0.9); Antichromatin Antibodies <0.2 AI (0.0-0.9); Antiscleroderma-70 Antibodies <0.2 AI (0.0-0.9); RNP Antibodies <0.2 AI (0.0-0.9); Sjogren's Anti-SS-A <0.2 AI (0.0-0.9); Sjogren's Anti-SS-B <0.2 AI (0.0-0.9)
[2018-05-30 06:47] LABS: Anti-DNA (DS) Ab Qn <1 IU/mL (0-9)
== END ==
PROVIDERS: Visit Provider Internal Medicine Adolescent Medicine
DX: R51 Headache (principal); M19.91 Primary osteoarthritis, unspecified site; G62.9 Polyneuropathy, unspecified
CPT/HCPCS: 36415; 80053; 82607; 84443; 85025; 85651; 86225; 86235

== ENCOUNTER → 2018-06-17 09:58 | Outpatient (CLI) | payer MEDICAID, SELFPAY ==
[2018-06-17 10:33] LABS: Basophils % 0.2 % (0.1-2.0); Eosinophils # 0.1 K/mm3 (0.0-0.4); Eosinophils % 0.5 % (0.1-12.0); Hematocrit 31.1 % (37.0-47.0); Hemoglobin 9.8 g/dL (12.2-16.2); Lymphocytes # 3.6 K/mm3 (0.7-4.5); Lymphocytes % 24.9 % (10-50); Mean Corpuscular HGB Conc 31.5 g/dL (31.8-35.4); Mean Corpuscular Hemoglobin 26.1 pg (27.0-31.2); Mean Platelet Volume 7.4 fl (7.4-10.4); Monocytes # 0.6 K/mm3 (0.1-1.0); Monocytes % 3.9 % (1.7-9.3); Neutrophils # 10.1 K/mm3 (1.8-7.8); Neutrophils % 70.5 % (37.0-80.0); Platelet Count 344 K/mm3 (142-424); Red Blood Count 3.75 M/mm3 (4.20-5.40); White Blood Count 14.4 K/mm3 (4.8-10.8)
[2018-06-17 12:06] LABS: Erythrocyte Sedimentation Rate 42 mm/hr (0-30)
[2018-06-17 12:43] LABS: Anion Gap 16.9 mEq/L (5-15); Blood Urea Nitrogen 25 mg/dL (7-18); Calcium 9.3 mg/dL (8.5-10.1); Carbon Dioxide 24 mmol/L (21.0-32.0); Chloride 103 mmol/L (98-107); Creatinine,Serum 1.05 mg/dL (0.55-1.02); Estimated Glomerular Filt Rate 54 ml/min (>60); GFR (African American) 65 ML/MIN (>60); Glucose 149 mg/dL (74-106); Potassium 3.9 mmoL/L (3.5-5.1); Sodium 140 mmol/L (136-145)
== END ==
PROVIDERS: Visit Provider Internal Medicine Adolescent Medicine
DX: M31.6 Other giant cell arteritis (principal)
CPT/HCPCS: 36415; 80048; 85025; 85651

== ENCOUNTER → 2018-08-02 12:52 | Outpatient (CLI) | payer MEDICAID, SELFPAY ==
[2018-08-02 13:59] LABS: Hemoglobin A1C 8.6 % (0.0-7.0)
[2018-08-02 14:46] LABS: Alanine Aminotransferase 37 U/L (12-78); Albumin Level 3.5 gm/dL (3.4-5.0); Albumin/Globulin Ratio 1.2 (1.1-1.8); Alkaline Phosphatase 85 U/L (46-116); Aspartate Amino Transferase 12 U/L (15-37); Bilirubin,Total 0.3 mg/dL (0.2-1.0); Blood Urea Nitrogen 19 mg/dL (7-18); Carbon Dioxide 22 mmol/L (21.0-32.0); Chloride 105 mmol/L (98-107); Creatinine,Serum 1.25 mg/dL (0.55-1.02); Estimated Glomerular Filt Rate 44 ml/min (>60); GFR (African American) 53 ML/MIN (>60); Glucose 219 mg/dL (74-106); Sodium 141 mmol/L (136-145); Total Protein,Serum 6.5 gm/dL (6.4-8.2)
== END ==
PROVIDERS: Visit Provider Internal Medicine Adolescent Medicine
DX: E11.9 Type 2 diabetes mellitus without complications (principal); Z79.84 Long term (current) use of oral hypoglycemic drugs
CPT/HCPCS: 36415; 80053; 83036

== ENCOUNTER → 2018-12-12 10:11 | Outpatient (CLI) | payer MEDICAID, SELFPAY | PROVIDERS: Visit Provider Internal Medicine Adolescent Medicine | DX: D50.0 Iron deficiency anemia secondary to blood loss (chronic) (principal) ==

== ENCOUNTER → 2019-03-13 09:52 | Outpatient (CLI) | payer OTHER, SELFPAY ==
[2019-03-13 10:44] LABS: Basophils # 0.1 K/mm3 (0-0.2); Basophils % 0.4 % (0.1-2.0); Eosinophils # 0.2 K/mm3 (0.0-0.4); Eosinophils % 0.9 % (0.1-12.0); Hematocrit 37.9 % (37.0-47.0); Hemoglobin 12.3 g/dL (12.2-16.2); Lymphocytes # 3.3 K/mm3 (0.7-4.5); Lymphocytes % 19.2 % (10-50); Mean Corpuscular HGB Conc 32.3 g/dL (31.8-35.4); Mean Corpuscular Hemoglobin 27.7 pg (27.0-31.2); Mean Corpuscular Volume 85.5 fl (81-99); Mean Platelet Volume 8.1 fl (7.4-10.4); Monocytes # 0.6 K/mm3 (0.1-1.0); Monocytes % 3.6 % (1.7-9.3); Neutrophils % 75.9 % (37.0-80.0); Platelet Count 441 K/mm3 (142-424); Red Blood Count 4.43 M/mm3 (4.20-5.40); Red Cell Distribution Width 15.3 % (11.5-17.5); White Blood Count 17.1 K/mm3 (4.8-10.8)
[2019-03-13 10:45] LABS: MANUAL DIFFERENTIAL MANUAL DIFFERENTIAL (MANUAL DIFF)
[2019-03-13 11:06] LABS: Eosinophils % 2 % (0-3); Lymphocytes % 16 % (10-50); Monocytes % 2 % (2-9); Neutrophils % 80 % (42-76); Total Cells Counted 100
[2019-03-13 11:07] LABS: RBC Morphology Normal
[2019-03-13 11:08] LABS: Platelet Estimate Slight Increase
[2019-03-13 11:40] LABS: Hemoglobin A1C 6.2 % (0.0-7.0)
[2019-03-13 11:47] LABS: Alanine Aminotransferase 16 U/L (12-78); Albumin Level 3.7 gm/dL (3.4-5.0); Albumin/Globulin Ratio 1.2 (1.1-1.8); Alkaline Phosphatase 105 U/L (46-116); Anion Gap 17.9 mEq/L (5-15); Aspartate Amino Transferase 6 U/L (15-37); Bilirubin,Total 0.2 mg/dL (0.2-1.0); Blood Urea Nitrogen 31 mg/dL (7-18); Calcium 9.2 mg/dL (8.5-10.1); Carbon Dioxide 25 mmol/L (21.0-32.0); Chloride 101 mmol/L (98-107); Chol/HDL Ratio 3.9 (1-3.5); Cholesterol 161 mg/dL (140-200); Estimated Glomerular Filt Rate 57 ml/min (>60); GFR (African American) 69 ML/MIN (>60); Glucose 118 mg/dL (74-106); HDL Cholesterol 41 mg/dL (29-89); LDL Cholesterol 63 mg/dL (0-130); Potassium 3.9 mmoL/L (3.5-5.1); Sodium 140 mmol/L (136-145); Total Protein,Serum 6.7 gm/dL (6.4-8.2); Triglycerides 283 mg/dL (30-200); VLDL Cholesterol 57 mg/dL (0-40)
== END ==
PROVIDERS: Visit Provider Internal Medicine Adolescent Medicine
DX: I25.10 Atherosclerotic heart disease of native coronary artery without angina pectoris (principal); E11.9 Type 2 diabetes mellitus without complications; Z79.84 Long term (current) use of oral hypoglycemic drugs
CPT/HCPCS: 36415; 80053; 80061; 83036; 85007; 85025

== ENCOUNTER → 2019-03-14 10:46 | Outpatient (CLI) | payer OTHER, SELFPAY ==
--- NOTE | 2019-03-14 10:52 | XR_ITS ---
PROCEDURE: XR KNEE LT 3V CLINICAL INDICATION: STRAIN OF LT KNEE Left knee pain COMPARISON: No exams were available for comparison FINDINGS: No fracture or dislocation. No lytic or blastic change. There is normal mineralization. There is only minimal decrease in the medial joint space and minimal spurring along the posterior patella Other findings:Soft tissue calcification is present superior to the patella along the anterior distal thigh nonspecific IMPRESSION: Minimal osteoarthritic change Dictated by: Tyree Vyas MD 03/14/2019 12:43 Electronically signed by Tyree Vyas MD in [place] 03/14/2019 12:43
== END ==
PROVIDERS: PCP Internal Medicine Adolescent Medicine; Visit Provider Internal Medicine Adolescent Medicine
DX: S86.912A Strain of unspecified muscle(s) and tendon(s) at lower leg level, left leg, initial encounter (principal)
CPT/HCPCS: 73562

== ENCOUNTER → 2019-04-25 10:16 | Outpatient (CLI) | payer OTHER, SELFPAY ==
[2019-04-25 11:35] LABS: Basophils # 0.1 K/mm3 (0-0.2); Basophils % 0.8 % (0.1-2.0); Eosinophils # 0.2 K/mm3 (0.0-0.4); Eosinophils % 1.6 % (0.1-12.0); Hematocrit 35.4 % (37.0-47.0); Hemoglobin 11.2 g/dL (12.2-16.2); Lymphocytes # 2.9 K/mm3 (0.7-4.5); Lymphocytes % 31.5 % (10-50); Mean Corpuscular HGB Conc 31.5 g/dL (31.8-35.4); Mean Corpuscular Volume 88.9 fl (81-99); Mean Platelet Volume 8.6 fl (7.4-10.4); Monocytes # 0.4 K/mm3 (0.1-1.0); Monocytes % 4.6 % (1.7-9.3); Neutrophils # 5.7 K/mm3 (1.8-7.8); Neutrophils % 61.5 % (37.0-80.0); Platelet Count 326 K/mm3 (142-424); Red Blood Count 3.98 M/mm3 (4.20-5.40); Red Cell Distribution Width 14.2 % (11.5-17.5); White Blood Count 9.3 K/mm3 (4.8-10.8)
[2019-04-25 11:54] LABS: Chloride 102 mmol/L (98-107); Potassium 5.2 mmoL/L (3.5-5.1); Sodium 138 mmol/L (136-145)
[2019-04-25 11:57] LABS: Alanine Aminotransferase 20 U/L (12-78); Albumin Level 4.3 g/dl (3.5-5.0); Albumin/Globulin Ratio 1.7 (1.1-1.8); Alkaline Phosphatase 78 U/L (38-126); Anion Gap 17.2 mEq/L (5-15); Aspartate Amino Transferase 24 U/L (14-36); Bilirubin,Total 0.3 mg/dl (0.2-1.3); Blood Urea Nitrogen 17 mg/dl (7-17); Carbon Dioxide 24 mmol/L (22.0-30.0); Estimated Glomerular Filt Rate 57 ml/min (>60); GFR (African American) 69 ML/MIN (>60); Globulin 2.5 g/dL (1.3-3.2); Total Protein,Serum 6.8 g/dl (6.3-8.2)
[2019-04-25 11:58] LABS: Calcium 9.9 mg/dl (8.4-10.2); Glucose 109 mg/dl (74-100)
== END ==
PROVIDERS: Visit Provider Internal Medicine Adolescent Medicine
DX: D72.829 Elevated white blood cell count, unspecified (principal)
CPT/HCPCS: 36415; 80053; 85025

== ENCOUNTER → 2019-05-02 06:47 | Outpatient (CLI) | payer OTHER, SELFPAY ==
--- NOTE | 2019-05-02 | CA_ITS ---
APPROVED REPORT Exam: Pharmacologic Technologist: Damari Harrison Ht: 5 ft 6 in Wt: 212 lbs BSA: 2.05 m2 HR: 76 bpm BP: 155/74 mmHg Indications: Chest pain Medical History Medications: Lisinopril,,,,, Omeprazole,,,,, Aspirin,,,,, Metformin,,,,, Atorvastatin,,,,, Albuterol,,,,, BisOPROLOL,,,,, BenzONATATE,,,,, Tizanidine,,,,, Nitroglycerin,,,,, Tiotropium [place],,,,, Caragliflozin,,,,, Stress Test Details Test: LEXISCAN HR Resting HR: 77 bpm Max Heart Rate (APMHR): 161 bpm Max HR Achieved: 120 bpm Target HR (85% APMHR): 136 bpm % of APMHR: 74 Recovery HR: 85 bpm BP Resting BP: 155.0/74.0 mmHg Max BP: 211.0/91.0 mmHg Recovery BP: 172.0/80.0 mmHg ECG Clinical Exercise duration: 04:00 min Highest Stage Achieved: Stress ECG Conclusion Resting ECG: Normal sinus rhythm, LVH, ST-T abnormalities consistent with strain pattern. Symptoms: Shortness of air, malaise, nausea/vomiting. No chest pain Arrhythmias/Ectopy: Rare PAC, occasional PVC ST-T Changes: Exaggeration of baseline ST-T abnormalities. Conclusion: Non-diagnostic Lexiscan stress. Myoview images reported separately. Test Summary RECOVERY 07:00 . . 85 . 194/ 81 . . REST 03:20 . . 77 . 155/ 74 . . Stage 1 . . . . . . . Myoview Injected Stage 1 01:00 . . 97 . . . . Stage 2 01:00 . . 100 . . . . Stage 3 01:00 . . 100 . 191/ 90 . . Stage 4 . . . . . . . Nausea Stage 4 01:00 . . 82 . 185/ 95 . Stop exercise at 04:00 RECOVERY 01:00 . . 111 . . . . RECOVERY 02:00 . . 119 . . . . RECOVERY 03:00 . . 108 . . . . RECOVERY 04:00 . . 102 . . . . RECOVERY 05:00 . . 98 . 211/ 91 . . RECOVERY 06:00 . . 88 . 194/ 81 . . RECOVERY 07:00 . . 85 . 194/ 81 . . RECOVERY 08:00 . . 84 . 172/ 80 . . RECOVERY 09:00 . . 79 . 172/ 80 . . RECOVERY 09:51 . . 85 . 152/ 78 . . Electronically signed by : Asad Murcia, 05/03/2019 15:22:19
--- NOTE | 2019-05-02 06:52 | NM_ITS ---
APPROVED REPORT Exam: Nuclear Stress Test Indication: CAD, 2 STENTS, HTN, D.M., HYPERLIPIDEMIA, TOB USE, FM. HX., C.P., FATIGUE Patient Location: Outpatient Stress Tech: Damari Harrison SD Tech:Kelsie Beasley, ARRT, RT (R)(N) Ht: 5 ft 6 in Wt: 212 lbs HR: 76 bpm BP: 155/74 mmHg BSA: 2.05 m2 BMI: 34.2 History: CAD, 2 STENTS, HTN, D.M., HYPERLIPIDEMIA, TOB USE, FM. HX., C.P., FATIGUE Procedure: Patient received a 0.4 mg of intravenous Lexiscan, resting heart rate 76 bpm, resting blood pressure 155/74 mmHg, with Lexiscan maximum heart rate achived was 103 bpm which is Less than 85 % of the maximum predicted heart rate and blood pressure was 191/90 mmHg. PAC, PVC Electrocardiogram Resting electrocardiogram shows sinus rhythm, with Lexiscan there is less than 1.[address] segment depression noted from the baseline EKG. The EKG portion of the Lexiscan Myoview is nondiagnostic. Cardiac Stress and Resting SPECT Images: Cardiac Stress and Resting SPECT images were obtained using technetium 99m Myoview 32.4 mCi stress and 10.24 mCi at rest. Gated SPECT with analysis of segmental wall motion and calculation of the ejection fraction also done. Cardiac stress and rest SPECT images show fixed defect involving the inferior and inferior apical wall consistent with area of myocardial scarring without significant pako-infarct ischemia. Computer derived ejection fraction is 41% with moderate inferior and inferior apical wall hypokinesis. Right ventricle is normal size and contractility. Conclusion: 1. The EKG portion of the Lexiscan Myoview is nondiagnostic. 2. Scintigraphic evidence of myocardial scarring involving the inferior and inferior apical wall, computer derived ejection fraction is 41% with segmental wall motion abnormality described above, right ventricle is normal size and contractility. 3. Abnormal Lexiscan Myoview study. Electronically signed by : Asad Murcia, 05/03/2019 15:44:00
--- NOTE | 2019-05-02 07:13 | HMH.ITSHM ---
Current Home Medications as stated by this patient Maryse Keith or practice representative. []TIZANIDINE TIOTROPIUM OMEPRAZOLE NITRO METFORMIN LISINOPRIL CANAGLIFLOZIN BISOPROLOL BENZONATATE ATORVASTATIN ASA ALBUTEROL CHANTIX ISOSORBIDE
== END ==
PROVIDERS: PCP Internal Medicine Adolescent Medicine; Visit Provider Internal Medicine Adolescent Medicine
DX: R07.9 Chest pain, unspecified (principal); I25.10 Atherosclerotic heart disease of native coronary artery without angina pectoris
CPT/HCPCS: 78452; 93017; A9502; J2785

== ENCOUNTER → 2019-06-25 10:47 | Outpatient (CLI) | payer OTHER, SELFPAY ==
[2019-06-25 11:37] LABS: Basophils # 0.1 K/mm3 (0-0.2); Basophils % 0.5 % (0.1-2.0); Eosinophils # 0.1 K/mm3 (0.0-0.4); Eosinophils % 1.1 % (0.1-12.0); Hemoglobin 11.4 g/dL (12.2-16.2); Lymphocytes # 2.4 K/mm3 (0.7-4.5); Lymphocytes % 28.1 % (10-50); Mean Corpuscular HGB Conc 32.4 g/dL (31.8-35.4); Mean Corpuscular Hemoglobin 27.7 pg (27.0-31.2); Mean Corpuscular Volume 85.5 fl (81-99); Mean Platelet Volume 8.2 fl (7.4-10.4); Monocytes # 0.4 K/mm3 (0.1-1.0); Monocytes % 4.6 % (1.7-9.3); Neutrophils # 5.7 K/mm3 (1.8-7.8); Neutrophils % 65.7 % (37.0-80.0); Platelet Count 330 K/mm3 (142-424); Red Cell Distribution Width 13.6 % (11.5-17.5); White Blood Count 8.6 K/mm3 (4.8-10.8)
[2019-06-25 12:24] LABS: Alanine Aminotransferase 20 U/L (12-78); Albumin Level 4.3 g/dl (3.5-5.0); Albumin/Globulin Ratio 1.7 (1.1-1.8); Alkaline Phosphatase 92 U/L (38-126); Anion Gap 15.4 mEq/L (5-15); Aspartate Amino Transferase 23 U/L (14-36); Bilirubin,Total 0.3 mg/dl (0.2-1.3); Blood Urea Nitrogen 19 mg/dl (7-17); Calcium 10.1 mg/dl (8.4-10.2); Carbon Dioxide 22 mmol/L (22.0-30.0); Chloride 104 mmol/L (98-107); Estimated Glomerular Filt Rate 64 ml/min (>60); GFR (African American) 78 ML/MIN (>60); Globulin 2.6 g/dL (1.3-3.2); Glucose 119 mg/dl (74-100); Potassium 4.4 mmoL/L (3.5-5.1); Sodium 137 mmol/L (136-145); Total Protein,Serum 6.9 g/dl (6.3-8.2)
[2019-06-25 12:53] LABS: Thyroid Stimulating Hormone 0.69 uIU/mL (0.465-4.68)
[2019-06-25 13:05] LABS: Hemoglobin A1C 5.8 % (4.0-6.0)
[2019-06-26 06:58] LABS: Vitamin D 25 Hydroxy 16.6 ng/mL (30.0-100.0)
[2019-06-26 09:30] LABS: Vitamin B12 480 pg/mL (232-1245)
[2019-06-30 11:16] LABS: Treponema pallidum Ab (FTA-ABS Non Reactive (Non Reactive)
== END ==
PROVIDERS: Visit Provider Internal Medicine Adolescent Medicine
DX: G60.9 Hereditary and idiopathic neuropathy, unspecified (principal); E55.9 Vitamin D deficiency, unspecified
CPT/HCPCS: 36415; 80053; 82607; 82652; 83036; 84443; 85025; 86780

== ENCOUNTER 2019-08-05 10:50 | Observation (INO) | payer OTHER, SELFPAY ==
[2019-08-05 11:01] VITALS: BP 158/93; PULSE 102; RESP 18; TEMP 37; O2SAT 97; BMI 33.9
--- NOTE | 2019-08-05 11:10 | CT_ITS ---
PROCEDURE: CT ABDOMEN PELVIS W CON CLINICAL INDICATION: LLQ PAIN, RECTAL BLEEDING Lower abdominal pain with cramping and rectal bleeding COMPARISON: ABDPELW/O CT ABD PELVIS W/O CONTRAST from 10/28/2016 TECHNIQUE: IV Contrast: 75ML OPTIRAY 350 Oral Contrast none Axial images obtained with sagittal and coronal reformats. All CT scans at the facility use one or more dose reduction, viz: automated exposure control, ma/kV adjustment per patient size (including targeted exams where dose is matched to indication, i.e. head), or iterative reconstruction technique. FINDINGS: LOWER THORAX: There is a 3 mm noncalcified nodule in the left lung base posteriorly. ABDOMEN & PELVIS: Status post cholecystectomy. The liver, spleen, right adrenal gland, and kidneys show no acute finding. There is nodular enlargement of the left adrenal gland not significantly changed. No renal or ureteral calculi. There is some nonspecific low-density changes within the uncinate process of the pancreas and may represent some fatty invagination having a somewhat similar appearance on 10/28/2016. There are some mildly prominent periportal lymph nodes measuring up to 2 cm not significantly changed Unremarkable appendix. There are some scattered fluid-filled loops of small bowel. There is moderate thickening of the descending and sigmoid colon with mild stranding of the pericolic fat. This is consistent with colitis. There is no evidence of diverticulitis. No intestinal obstruction or free air. There is trace amount of fluid in the pelvis. Degenerative changes are present in the lumbar spine with mild kyphosis at T11-T12 with degenerative disc disease at T11-T12. IMPRESSION: 1. Findings compatible with colitis of the descending and sigmoid colon. This could be ischemic or infectious. There are fluid-filled loops of small bowel as well which could also be related to enteritis. 2. Other nonacute findings as described above. Dictated by: Tyree Vyas MD 08/05/2019 12:30 Electronically signed by Tyree Vyas MD in [place] 08/05/2019 12:30
[2019-08-05 11:19] LABS: Microscopic, Urine URINE MICROSCOPIC (MICROSCOPIC)
[2019-08-05 11:27] LABS: Basophils # 0.1 K/mm3 (0-0.2); Basophils % 0.4 % (0.1-2.0); Eosinophils # 0.1 K/mm3 (0.0-0.4); Eosinophils % 0.4 % (0.1-12.0); Hematocrit 36.7 % (37.0-47.0); Hemoglobin 12.4 g/dL (12.2-16.2); Lymphocytes % 9.1 % (10-50); Mean Corpuscular HGB Conc 33.8 g/dL (31.8-35.4); Mean Corpuscular Hemoglobin 28.7 pg (27.0-31.2); Mean Corpuscular Volume 84.8 fl (81-99); Mean Platelet Volume 7.9 fl (7.4-10.4); Monocytes # 0.9 K/mm3 (0.1-1.0); Monocytes % 4.1 % (1.7-9.3); Neutrophils # 19.4 K/mm3 (1.8-7.8); Neutrophils % 86.1 % (37.0-80.0); Platelet Count 375 K/mm3 (142-424); Red Blood Count 4.33 M/mm3 (4.20-5.40); Red Cell Distribution Width 14.5 % (11.5-17.5); White Blood Count 22.6 K/mm3 (4.8-10.8)
[2019-08-05 11:29] LABS: Appearance,Urine CLEAR (Clear); Bilirubin,Urine Negative (Negative); Blood, Urine TRACE-I (Negative); Color,Urine YELLOW (Yellow); Glucose,Urine (UA) 2+ (Negative); Ketones,Urine Negative (Negative); Leukocyte Esterase,Urine Negative (Negative); Nitrate,Urine Negative (Negative); Protein,Urine Negative (Negative); Specific Gravity, Urine 1.025 (1.005-1.030); Urobilinogen,Urine 0.2 EU/dl (0.2)
[2019-08-05 11:29] LABS: MANUAL DIFFERENTIAL MANUAL DIFFERENTIAL (MANUAL DIFF)
[2019-08-05 11:31] LABS: Alanine Aminotransferase 24 U/L (12-78); Albumin Level 4.7 g/dl (3.5-5.0); Albumin/Globulin Ratio 1.4 (1.1-1.8); Alkaline Phosphatase 124 U/L (38-126); Amylase 76 U/L (30-110); Aspartate Amino Transferase 27 U/L (14-36); Bilirubin,Total 0.5 mg/dl (0.2-1.3); Blood Urea Nitrogen 16 mg/dl (7-17); Calcium 9.9 mg/dl (8.4-10.2); Carbon Dioxide 22 mmol/L (22.0-30.0); Chloride 104 mmol/L (98-107); Creatinine Clearance Estimated 101 mL/min (50-200); Estimated Glomerular Filt Rate 64 ml/min (>60); GFR (African American) 78 ML/MIN (>60); Globulin 3.3 g/dL (1.3-3.2); Glucose 151 mg/dl (74-100); Lipase 48 U/L (23-300); Sodium 137 mmol/L (136-145)
--- NOTE | 2019-08-05 11:31 | HMH.EDNVD ---
ED Disposition Clinical Impression: C. difficile colitis, Diabetes mellitus type 2, noninsulin dependent Disposition: Admitted As Inpatient Condition on Discharge: Good Instructions: DI for Acute Abdomen Referrals: Cortez Gagnon MD [Primary Care Provider] - - Critical Care Critical Care Time: No Attestation: On 08/05/19, the high probability of a clinically significant, sudden or life threatening deterioration of the following system(s) required my full and direct attention, intervention and personal management. The time I documented below is in addition to time spent performing reported procedures but includes the following listed in this critical care notation. Medical Decision Making - Medical Records Medical records reviewed: Yes: I reviewed the patient's medical records. - Candel[place] Inquiry Pt receiving controlled substance: No Vital Signs: 08/05/19 11:01 08/05/19 13:47 Temperature 98.6 F Temperature Source Oral Pulse Rate [Right Radial] 102 H 96 H Respiratory Rate 18 18 Blood Pressure [Right Arm] 158/93 H 166/94 H Blood Pressure Mean [Right Arm] 114 118 Blood Pressure Source [Right Arm] Automatic Cuff Automatic Cuff Blood Pressure Position [Right Arm] Sitting Sitting 02 Sat by Pulse Oximetry 97 97 Oxygen Delivery Method Room Air - Lab Data Lab results reviewed: Yes: I reviewed the patient's lab results. Lab Results 08/05/19 11:00: WBC 22.6 H*, RBC 4.33, Hgb 12.4, Hct 36.7 L, MCV 84.8, MCH 28.7, MCHC 33.8, RDW 14.5, Plt Count 375, MPV 7.9, Neut % (Auto) 86.1 H, Lymph % (Auto) 9.1 L, Pierce % (Auto) 4.1, Eos % (Auto) 0.4, Baso % (Auto) 0.4, Neut # (Auto) 19.4 H, Lymph # (Auto) 2.0, Pierce # (Auto) 0.9, Eos # (Auto) 0.1, Baso # (Auto) 0.1, Total Counted 100, Neutrophils % (Manual) 79 H, Band Neutrophils % 2.0, Lymphocytes % (Manual) 14, Monocytes % (Manual) 4, Metamyelocytes % 1.0, Platelet Estimate Normal, RBC Morphology Normal 08/05/19 11:00: Sodium 137, Potassium 4.0, Chloride 104, Carbon Dioxide 22, Anion Gap 15.0, BUN 16, Creatinine 0.90, Estimated Creat Clear 101, Estimated GFR 64, Est GFR ( Amer) 78, Glucose 151 H, Calcium 9.9, Total Bilirubin 0.5, AST 27, ALT 24, Alkaline Phosphatase 124, Total Protein 8.0, Albumin 4.7, Globulin 3.3 H, Albumin/Globulin Ratio 1.4, Amylase 76, Lipase 48 08/05/19 11:10: Urine Color Yellow, Urine Appearance Clear, Urine pH 5.0, Ur Specific [place] 1.025, Urine Protein Negative, Urine Glucose (UA) 2+, Urine Ketones Negative, Urine Blood Trace-i, Urine Nitrate Negative, Urine Bilirubin Negative, Urine Urobilinogen 0.2, Ur Leukocyte Esterase Negative, Urine RBC None, Urine WBC Occasional, Ur Squamous Epith Cells 5-10, Urine Bacteria Trace, Urine Yeast Occasional 08/05/19 11:36: Lactate 1.8 08/05/19 12:50: Stool Occult Blood Positive A 08/05/19 12:50: Stl Aeromonas (PCR) Not detected, Stl C. cayetanensis PCR Not detected, Stool Rotavirus (PCR) Not detected, Stl Adenov F 40/41 PCR Not detected, Stool Astrovirus (PCR) Not detected, Stool Campylobacter PCR Not detected, Stl C.difficile Tox PCR Detected A, Stool Cryptosporidium PCR Not detected, Stl E.coli Shiga Tox PCR Not detected, Stool E coli O157 PCR Not detected, Stl Enterotoxigenic E PCR Not detected, Stool EPEC (PCR) Not detected, Stool EAEC (PCR) Not detected, Stl E. histolytica PCR Not detected, Stool Giardia Lamblia PCR Not detected, Stool Salmonella PCR Not detected, Stool Sapovirus (PCR) Not detected, Stl P. shigelloides PCR Not detected, Stl Shigella/EIEC PCR Not detected, St Y.enterocolitica PCR Not detected, Stool Vibrio (PCR) Not detected, Stl Vibrio cholerae PCR Not detected, Stl Norovirus GI/GII PCR Not detected Result diagrams: 08/05/19 11:00 08/05/19 11:00 Orders (Tests/Meds): ED MEDICATIONS Generic Name Dose Route Start Last Admin Trade Name Freq PRN Reason Stop Dose Admin Sodium Chloride 1,000 mls @ 999 mls/hr 08/05/19 11:30 08/05/19 11:29 Sod Chlor 0.9% 1000ml Bag IV 08/05/19 12:30 999 mls/hr
[2019-08-05 11:39] LABS: Bacteria,Urine Trace /lpf; WBC,Urine Occasional #/hpf (0-3); Yeast,Urine Occasional /lpf
[2019-08-05 11:46] LABS: Lymphocytes % 14 % (10-50); Monocytes % 4 % (2-9); Neutrophils % 79 % (42-76); Platelet Estimate Normal; RBC Morphology Normal; Total Cells Counted 100
[2019-08-05 11:53] LABS: Lactic Acid 1.8 mmol/L (0.7-2.1)
--- NOTE | 2019-08-05 12:05 | PC.NURSE ---
PT RETURNED FROM CT
[2019-08-05 13:04] LABS: Campylobacter Not Detected (NotDetected); Plesimonas Shigalloides, PCR Not Detected (NotDetected); Salmonella, PCR Not Detected (NotDetected)
[2019-08-05 13:05] LABS: Adenovirus F 40/41, stool Not Detected (NotDetected); Astrovirus Not Detected (NotDetected); Cryptosporidium Not Detected (NotDetected); Cyclospora Cayetanesis Not Detected (NotDetected); Entamoeba histolytica Not Detected (NotDetected); Enteroaggregative E coli Not Detected (NotDetected); Enteropathogenic E coli Not Detected (NotDetected); Enterotoxigenic E coli Not Detected (NotDetected); Giardia lamblia Not Detected (NotDetected); Norovirus Not Detected (NotDetected); Rotavirus A Not Detected (NotDetected); Sapovirus Not Detected (NotDetected); Shiga-like toxin E coli Not Detected (NotDetected); Shigella Enterovasive E coli Not Detected (NotDetected); Vibrio Cholerae Not Detected (NotDetected); Vibrio, PCR Not Detected (NotDetected); Yersinia Entercolitica, PCR Not Detected (NotDetected)
[2019-08-05 13:09] LABS: Occult Blood,Stool Positive (Negative)
[2019-08-05 13:47] VITALS: BP 166/94; PULSE 96; RESP 18; O2SAT 97
[2019-08-05 14:54] LABS: Clostridium Difficile A/B, PCR Detected (NotDetected)
--- NOTE | 2019-08-05 15:05 | PC.NURSE ---
CALLED CHARGE NURSE FOR BED ASSIGNMENT. PATIENT WILL BE ADMITTED TO ROOM 203. ER STAFF NOTIFIED AT THIS TIME.
--- NOTE | 2019-08-05 15:07 | HMH.PHACONS ---
- Pharmacy Consult Date: 08/05/19 Time: 15:07 Referring provider: DR. MTZ Reason for Consult:: VANCOMYCIN DOSING Allergies and ADEs:: Allergies Allergy/AdvReac Type Severity Reaction Status Date / Time meloxicam AdvReac Verified 09/20/18 09:00 Home Medications:: Home Medications Medication Instructions Recorded Confirmed Type albuterol sulfate 90 mcg/actuation 2 puff INHALATION QIDP PRN 25 Days 04/03/17 12/21/18 History aerosol inhaler #18 aspirin 81 mg tablet,delayed 81 mg PO DAILY 90 Days #90 tab 04/03/17 12/21/18 History release metformin 1,000 mg tablet 1,000 mg PO BID 30 Days #60 tab 04/03/17 12/21/18 History omeprazole 20 mg capsule,delayed 20 mg PO DAILY 30 Days #30 cap 04/03/17 12/21/18 History release tiotropium bromide 1.25 2 puff INHALATION DAILY 04/03/17 12/21/18 History mcg/actuation mist for inhalation tizanidine 4 mg tablet 4 mg PO TIDP PRN 30 Days #30 tab 04/03/17 12/21/18 History nitroglycerin 0.4 mg sublingual 0.4 mg SUBLINGUAL Q5M PRN #30 tab 06/27/17 12/21/18 Rx tablet atorvastatin 40 mg tablet 40 mg PO HS 30 Days #30 tab 11/28/17 12/21/18 History Isosorbide Mononitrate [Isosorbide 30 mg PO DAILY 02/22/18 12/21/18 History Mononitrate ER] Varenicline Tartrate [Chantix 1mg 1 mg PO BID #60 tab 02/23/18 12/21/18 Rx tablet] bisoprolol fumarate 5 mg tablet 5 mg PO DAILY #30 tab 04/03/18 12/21/18 Rx lisinopril 20 mg tablet 10 mg PO DAILY #30 tab 05/07/19 Rx Gabapentin [Gabapentin 100mg Cap] 200 mg PO BID 08/05/19 08/05/19 History Varenicline Tartrate [Chantix 1mg 1 tab PO BID 08/05/19 08/05/19 History tablet] Height: 1.68 m Weight: 95.254 kg Laboratory Results:: Laboratory Results - last 24 hr 08/05/19 11:00: WBC 22.6 H*, RBC 4.33, Hgb 12.4, Hct 36.7 L, MCV 84.8, MCH 28.7, MCHC 33.8, RDW 14.5, Plt Count 375, MPV 7.9, Neut % (Auto) 86.1 H, Lymph % (Auto) 9.1 L, [place] % (Auto) 4.1, Eos % (Auto) 0.4, Baso % (Auto) 0.4, Neut # (Auto) 19.4 H, Lymph # (Auto) 2.0, [place] # (Auto) 0.9, Eos # (Auto) 0.1, Baso # (Auto) 0.1, Total Counted 100, Neutrophils % (Manual) 79 H, Band Neutrophils % 2.0, Lymphocytes % (Manual) 14, Monocytes % (Manual) 4, Metamyelocytes % 1.0, Platelet Estimate Normal, RBC Morphology Normal 08/05/19 11:00: Sodium 137, Potassium 4.0, Chloride 104, Carbon Dioxide 22, Anion Gap 15.0, BUN 16, Creatinine 0.90, Estimated Creat Clear 101, Estimated GFR 64, Est GFR ( Amer) 78, Glucose 151 H, Calcium 9.9, Total Bilirubin 0.5, AST 27, ALT 24, Alkaline Phosphatase 124, Total Protein 8.0, Albumin 4.7, Globulin 3.3 H, Albumin/Globulin Ratio 1.4, Amylase 76, Lipase 48 08/05/19 11:10: Urine Color Yellow, Urine Appearance Clear, Urine pH 5.0, Ur Specific [place] 1.025, Urine Protein Negative, Urine Glucose (UA) 2+, Urine Ketones Negative, Urine Blood Trace-i, Urine Nitrate Negative, Urine Bilirubin Negative, Urine Urobilinogen 0.2, Ur Leukocyte Esterase Negative, Urine RBC None, Urine WBC Occasional, Ur Squamous Epith Cells 5-10, Urine Bacteria Trace, Urine Yeast Occasional 08/05/19 11:36: Lactate 1.8 08/05/19 12:50: Stool Occult Blood Positive A 08/05/19 12:50: Stl Aeromonas (PCR) Not detected, Stl C. cayetanensis PCR Not detected, Stool Rotavirus (PCR) Not detected, Stl Adenov F 40/41 PCR Not detected, Stool Astrovirus (PCR) Not detected, Stool Campylobacter PCR Not detected, Stl C.difficile Tox PCR Detected A, Stool Cryptosporidium PCR Not detected, Stl E.coli Shiga Tox PCR Not detected, Stool E coli O157 PCR Not detected, Stl Enterotoxigenic E PCR Not detected, Stool EPEC (PCR) Not detected, Stool EAEC (PCR) Not detected, Stl E. histolytica PCR Not detected, Stool Giardia [place] PCR Not detected, Stool Salmonella PCR Not detected, Stool Sapovirus (PCR) Not detected, Stl P. shigelloides PCR Not detected, Stl Shigella/EIEC PCR Not detected, St Y.enterocolitica PCR Not detected, Stool Vibrio (PCR) Not detected, Stl Vibrio cholerae PCR Not detected, Stl Norovirus GI/GII PCR Not detected
[2019-08-05 15:53] VITALS: BP 122/87; PULSE 85; RESP 18; TEMP 36.6; O2SAT 98
[2019-08-05 16:00] VITALS: BP 183/90; PULSE 96; RESP 20; TEMP 37.5; O2SAT 94
[2019-08-05 16:21] VITALS: BMI 35.5
[2019-08-05 16:47] LABS: POC Glucose,Bedside 150 (70-110)
--- NOTE | 2019-08-05 18:25 | PC.NURSE ---
Currently lying in bed resting. PRN morphine given per MAR w/ adequate relief noted. Pt ambulates independently w/ no safety concerns. IVF infusing per MAR. Hospital policies and admission dx reviewed w/ pt as well as proper handwashing and prevention of spread of c. diff, pt verbalized understanding. Pt in contact-enteric precautions. No BM since arriving to floor. Voiding w/o difficulty. Will continue to monitor.
[2019-08-05 19:53] VITALS: BP 147/73; PULSE 96; RESP 16; TEMP 36.8; O2SAT 94
--- NOTE | 2019-08-05 19:56 | PC.NURSE ---
Care provided by Ana MORRIS under my supervision.
[2019-08-05 20:39] LABS: POC Glucose,Bedside 198 (70-110)
[2019-08-06 04:18] VITALS: BP 156/76; PULSE 90; RESP 18; TEMP 36.7; O2SAT 92
--- NOTE | 2019-08-06 04:19 | PC.NURSE ---
Pt has rested comfortably on and off t/o shift. Requested pain medication x2, medications given per MAR. Lung sounds clear and is tolerating RA appropriately. Bowel sounds are hyperactive in all 4 quadrants and abdomen is soft and tender to the touch. This RNA reinforced patient education on the importance of hand washing and how C. Diff is spread. Pt hasn't had a bowel movement during this shift, but has ambulated to the bathroom x3 to urinate. Call light is within reach and all safety precautions are in place. No complaints of discomfort at this time, will continue to monitor for any changes.
--- NOTE | 2019-08-06 05:14 | PC.NURSE ---
Pt has rested comfortably throughout shift. Pt has received Morphine x4 throughout shift per MAY and phenergan x2 per MAY. Pt has +3 edema in bilateral UE and they are both weeping and drainage was noted on pads underneath UE. IV site is still flushing appropriately and there are no signs of infiltration. Pt's family was educated on the importance of changing pt's position to prevent skin breakdown and to help decrease stiffness, but has still refused any care other than pain management and allowing nursing team to change the pads underneath pt's arms that were soaked from drainage. Pt is tolerating 1 L of O2 via NC appropriately and is showing no signs of distress or air hunger. Pt's daughter has remained at pt's bedside during the entire shift. Call light is within reach and all safety measures are in place. No complaints or signs of distress at this time, will continue to monitor for any changes.
[2019-08-06 06:24] LABS: Mean Corpuscular Volume 86.2 fl (81-99); Mean Platelet Volume 7.9 fl (7.4-10.4)
[2019-08-06 06:25] LABS: Chloride 105 mmol/L (98-107); Potassium 4.1 mmoL/L (3.5-5.1); Sodium 136 mmol/L (136-145)
[2019-08-06 06:28] LABS: Anion Gap 11.1 mEq/L (5-15); Blood Urea Nitrogen 12 mg/dl (7-17); Carbon Dioxide 24 mmol/L (22.0-30.0); Creatinine Clearance Estimated 119 mL/min (50-200); Estimated Glomerular Filt Rate 73 ml/min (>60); GFR (African American) 89 ML/MIN (>60); Glucose 144 mg/dl (74-100); Magnesium 1.9 mg/dl (1.6-2.3)
[2019-08-06 06:35] LABS: Basophils % 0.1 % (0.1-2.0); Hematocrit 32.9 % (37.0-47.0); Lymphocytes # 1.3 K/mm3 (0.7-4.5); Lymphocytes % 4.9 % (10-50); Mean Corpuscular HGB Conc 32.6 g/dL (31.8-35.4); Mean Corpuscular Hemoglobin 28.1 pg (27.0-31.2); Monocytes # 0.6 K/mm3 (0.1-1.0); Monocytes % 2.4 % (1.7-9.3); Neutrophils # 24.1 K/mm3 (1.8-7.8); Neutrophils % 92.5 % (37.0-80.0); Platelet Count 321 K/mm3 (142-424); Red Blood Count 3.82 M/mm3 (4.20-5.40); Red Cell Distribution Width 14.5 % (11.5-17.5)
[2019-08-06 06:36] LABS: Hemoglobin 10.7 g/dL (12.2-16.2)
[2019-08-06 06:38] LABS: MANUAL DIFFERENTIAL MANUAL DIFFERENTIAL (MANUAL DIFF)
--- NOTE | 2019-08-06 07:21 | P.CONPHA_ITS ---
[facility] Pharmacy VTE Monitoring - Patient Demographics Admission date: 08/05/19 Report Date: 08/06/19 Time: 07:21 Allergies/Adverse Reactions: Patient Allergies meloxicam Adverse Reaction (Verified 09/20/18 09:00) Height: 1.68 m Weight: 99.932 kg Patient Problems: Current Active Problems Diabetes mellitus type 2, noninsulin dependent (Chronic) C. difficile colitis (Acute) - VTE Risk Labs: VTE Related Lab Results Hgb 10.7 g/dL (12.2-16.2) L D 08/06/19 05:50 Hct 32.9 % (37.0-47.0) L 08/06/19 05:50 Plt Count 321 K/mm3 (142-424) 08/06/19 05:50 BUN 12 mg/dl (7-17) 08/06/19 05:50 Creatinine 0.80 mg/dl (0.52-1.04) 08/06/19 05:50 Estimated Creat Clear 119 mL/min (50-200) 08/06/19 05:50 Was VTE Risk Assessment Performed: Yes VTE Score: 7 VTE Risk Level: Moderate Risk Clinical Trial Participant: No - Prophylaxis VTE Prophylaxis Ordered?: Yes Types of VTE Prophylaxis: TEDS Knee High
[2019-08-06 07:52] VITALS: BP 155/77; PULSE 87; RESP 16; TEMP 36.6; O2SAT 95
--- NOTE | 2019-08-06 08:36 | HMH.HP ---
*Admission Date: 08/05/19 *Chief complaint: Left lower quadrant abdominal pain and hematochezia *History of present illness: 58-year-old white female with diabetes, cardiac disease and hyperlipidemia with obesity who presented to the emergency department with severe left lower quadrant abdominal pain after a couple of days of constipation which transitioned into a couple of hard stools with blood mixed in the stool. Came to the emergency department, found to have leukocytosis, slightly febrile, CT scan of abdomen showed evidence of colitis and stool sample was positive for C. difficile. Patient has no recent antibiotic exposure, unusual food or water exposure or travel exposure. Her is well. There are no other folks in the house. [facility] History I have reviewed the patient's past medical history: Yes Medical History: Reports:: Congestive Heart Failure, Chronic Obstructive Pulmonary Disease (COPD), Coronary Artery Disease, Diabetes Mellitus Type 2, Gastroesophageal Reflux Disease(GERD), Hyperlipidemia, Hypertension, Lung Disease, Myocardial Infarction Denies:: Cancer, Diabetes Mellitus Type 1, Internal Pacemaker, MRSA, Seizures *Have you ever received a pneumonia vaccine?: No *Have you received a flu vaccine this season?: Yes Other Medical History: Reports: Anemia, Unexplained Bleeding, Other. Denies: Blood Transfusion Reaction Laterality Cases: Bilateral: Other Other Surgeries: Yes: Angioplasty, Cardiac Catheterization, Cardiac Surgery, Cholecystectomy, Colonoscopy, Colostomy, Coronary Stent (heart x2), EGD, Tubal Ligation, Other. No: Pacemaker Amputation: No Fractures: No - *Social History Smoking Status: Current some day smoker Tobacco Type: cigarettes # Packs/Day (cigarettes): 1 #Yrs smoked (if former smoker): 45 Alcohol Intake: never Alcohol Intake Frequency:: other Substance Use Type: denies use *Occupational Status:: unemployed Housing: house Household Members: significant other *Travel in the last 8 weeks: None Family Hx:: Cancer, Coronary Artery Disease, Diabetes, Heart Attack, Stroke Review of Systems - Review of Systems Review of systems:: pertinent systems reviewed and negative unless documented below - *Neurologic Denies localized weakness, Denies seizure-like activity Meds Home Medications Medication Instructions Recorded Confirmed Type albuterol sulfate 90 mcg/actuation 2 puff INHALATION QIDP PRN 25 Days 04/03/17 08/05/19 History aerosol inhaler #18 aspirin 81 mg tablet,delayed 81 mg PO DAILY 90 Days #90 tab 04/03/17 08/05/19 History release metformin 1,000 mg tablet 1,000 mg PO BID 30 Days #60 tab 04/03/17 08/05/19 History omeprazole 20 mg capsule,delayed 20 mg PO DAILY 30 Days #30 cap 04/03/17 08/05/19 History release tiotropium bromide 1.25 2 puff INHALATION DAILY 04/03/17 08/05/19 History mcg/actuation mist for inhalation tizanidine 4 mg tablet 4 mg PO TIDP PRN 30 Days #30 tab 04/03/17 08/05/19 History nitroglycerin 0.4 mg sublingual 0.4 mg SUBLINGUAL Q5M PRN #30 tab 06/27/17 08/05/19 Rx tablet atorvastatin 40 mg tablet 40 mg PO HS 30 Days #30 tab 11/28/17 08/05/19 History Isosorbide Mononitrate [Isosorbide 30 mg PO DAILY 02/22/18 08/05/19 History Mononitrate ER] Varenicline Tartrate [Chantix 1mg 1 mg PO BID #60 tab 02/23/18 08/05/19 Rx tablet] bisoprolol fumarate 5 mg tablet 5 mg PO DAILY #30 tab 04/03/18 08/05/19 Rx lisinopril 20 mg tablet 10 mg PO DAILY #30 tab 05/07/19 08/05/19 Rx Gabapentin [Gabapentin 100mg Cap] 200 mg PO BID 08/05/19 08/05/19 History Varenicline Tartrate [Chantix 1mg 1 tab PO BID 08/05/19 08/05/19 History tablet] Allergies Allergy/AdvReac Type Severity Reaction Status Date / Time meloxicam AdvReac Verified 09/20/18 09:00 Exam Vital signs and Labs for Last 24 Hours: Temp Pulse Resp BP Pulse Ox 97.9 F 87 16 155/77 H 95 08/06/19 07:52 08/06/19 07:52 08/06/19 07:52 08/06/19 07:52 08/06/19 07:52 Laboratory Results -
[2019-08-06 09:51] VITALS: BMI 35.4
[2019-08-06 10:00] LABS: Lymphocytes % 4 % (10-50); Monocytes % 1 % (2-9); Neutrophils % 95 % (42-76); Total Cells Counted 100
--- NOTE | 2019-08-06 10:00 | HMH.PHAINT ---
MEDICATION RECONCILIATION COMPLETED ON PATIENT USING EXTERNAL FILL HISTORY FROM PHARMACY AND LIST FROM MD OFFICE. -ELVIE NIXD
[2019-08-06 10:01] LABS: Platelet Estimate Normal; RBC Morphology Normal
[2019-08-06 11:38] LABS: POC Glucose,Bedside 128 (70-110)
[2019-08-06 15:58] VITALS: BP 109/52; PULSE 85; RESP 18; TEMP 36.7; O2SAT 92
[2019-08-06 17:12] LABS: POC Glucose,Bedside 141 (70-110)
--- NOTE | 2019-08-06 18:03 | PC.NURSE ---
patient has done well this shift. minimal complaints of pain in abdomen. one dose of morphine and tylenol given. requested nicotine colten and stated it was okay to order so this was administered. she rings out as needed. independent in room. some complaints of feeling bloated. small bm this morning she states had some red blood in it. vitals stable will continue to monitor.
--- NOTE | 2019-08-06 19:07 | PC.NURSE ---
report given to suze
[2019-08-06 19:29] VITALS: BP 130/73; PULSE 82; RESP 16; TEMP 36.7; O2SAT 94
[2019-08-06 20:30] VITALS: O2SAT 94
[2019-08-06 21:06] LABS: POC Glucose,Bedside 171 (70-110)
--- NOTE | 2019-08-07 02:56 | PC.NURSE ---
A&OX4. PT HAS TOLERATED ROOM AIR WELL THROUGHOUT SHIFT. RESPIRATIONS UNLABORED AND REGULAR. LUNG SOUNDS BILATERALLY CLEAR. HAND SOFTWARE TECHNICIAN EQUAL. +2 PULSES NOTED THROUGHOUT. SOFT TENDER ABDOMEN. ACTIVE BOWEL SOUNDS HEARD IN ALL 4 QUADRANTS. PT REPORTS LAST BM 2 DAYS AGO. PT HASN'T HAD ANY ABDOMINAL PAIN THROUGHOUT SHIFT. SHE DID HAD AN EPISODE OF HAVING A BAD HEADACHE. TYLENOL WAS ADMINISTERED AND SHE STATED IT HELPED EASE THE HEADACHE. NO BM NOTED THIS SHIFT. NO COMPLAINTS OF NAUSEA OR VOMITING THIS SHIFT. PT REMAINED IN CONTACT ENTERIC ISOLATION. WAS EDUCATED ON USE OF PPE AND STRICT HAND WASHING. PT RESTING COMFORTABLY IN BED. BED IN LOWEST POSITION. CALL LIGHT WITHIN REACH. VSS. NO CONCERNS AT THIS TIME. WILL CONTINUE TO MONITOR.
[2019-08-07 03:26] VITALS: BP 139/88; PULSE 84; RESP 16; TEMP 36.8; O2SAT 93
[2019-08-07 05:06] VITALS: BMI 36.2
--- NOTE | 2019-08-07 05:06 | PC.NURSE ---
RN NOTIFIED OF WEIGHT GAIN
[2019-08-07 05:46] LABS: POC Glucose,Bedside 119 (70-110)
[2019-08-07 06:26] LABS: Basophils % 0.2 % (0.1-2.0); Eosinophils # 0.1 K/mm3 (0.0-0.4); Eosinophils % 0.4 % (0.1-12.0); Hematocrit 29.9 % (37.0-47.0); Hemoglobin 9.6 g/dL (12.2-16.2); Lymphocytes # 2.4 K/mm3 (0.7-4.5); Lymphocytes % 15.5 % (10-50); Mean Corpuscular Hemoglobin 28.4 pg (27.0-31.2); Mean Corpuscular Volume 88.5 fl (81-99); Mean Platelet Volume 8.9 fl (7.4-10.4); Monocytes # 0.5 K/mm3 (0.1-1.0); Monocytes % 3.1 % (1.7-9.3); Neutrophils # 12.5 K/mm3 (1.8-7.8); Neutrophils % 80.7 % (37.0-80.0); Platelet Count 274 K/mm3 (142-424); Red Blood Count 3.38 M/mm3 (4.20-5.40); Red Cell Distribution Width 14.4 % (11.5-17.5); White Blood Count 15.5 K/mm3 (4.8-10.8)
[2019-08-07 06:34] LABS: Chloride 107 mmol/L (98-107); Potassium 3.7 mmoL/L (3.5-5.1); Sodium 138 mmol/L (136-145)
[2019-08-07 06:37] LABS: Alanine Aminotransferase 13 U/L (12-78); Albumin Level 3.2 g/dl (3.5-5.0); Albumin/Globulin Ratio 1.2 (1.1-1.8); Alkaline Phosphatase 80 U/L (38-126); Anion Gap 7.7 mEq/L (5-15); Aspartate Amino Transferase 15 U/L (14-36); Bilirubin,Total 0.3 mg/dl (0.2-1.3); Blood Urea Nitrogen 16 mg/dl (7-17); Carbon Dioxide 27 mmol/L (22.0-30.0); Creatinine Clearance Estimated 109 mL/min (50-200); Estimated Glomerular Filt Rate 64 ml/min (>60); GFR (African American) 78 ML/MIN (>60); Globulin 2.7 g/dL (1.3-3.2); Total Protein,Serum 5.9 g/dl (6.3-8.2)
[2019-08-07 06:38] LABS: Calcium 8.5 mg/dl (8.4-10.2); Glucose 114 mg/dl (74-100)
[2019-08-07 06:39] LABS: MANUAL DIFFERENTIAL MANUAL DIFFERENTIAL (MANUAL DIFF)
[2019-08-07 07:28] VITALS: BP 159/76; PULSE 70; RESP 19; TEMP 36.6; O2SAT 97
--- NOTE | 2019-08-07 07:58 | PC.NURSE ---
md lamb aware of weight gain. no new orders.
--- NOTE | 2019-08-07 08:51 | HMH.ACPN2 ---
Internal Medicine - PN: Subj *Date: 08/07/19 *Time: 08:51 Interval history: Patient did well overnight. Still having some abdominal cramping but tolerating good p.o. intake. Afebrile. Having flatus with occasional stool leakage. Still passing stools that have dark blood in them. No bright red blood per rectum that she reports. Given her labs this morning, she has a decrease in her hemoglobin. Improved white cell count however. Shortness of breath, vomiting, chest pain. Overall feels weak. Exam Vital signs and Labs for Last 24 Hours: Temp Pulse Resp BP Pulse Ox 97.9 F 70 19 159/76 H 97 08/07/19 07:28 08/07/19 07:28 08/07/19 07:28 08/07/19 07:28 08/07/19 07:28 Laboratory Results - last 24 hr 08/06/19 05:50: Total Counted 100, Neutrophils % (Manual) 95 H, Lymphocytes % (Manual) 4 L, Monocytes % (Manual) 1 L, Platelet Estimate Normal, RBC Morphology Normal 08/06/19 11:02: POC Glucose 128 H 08/06/19 16:40: POC Glucose 141 H 08/06/19 20:25: POC Glucose 171 H 08/07/19 05:39: POC Glucose 119 H 08/07/19 06:12: WBC 15.5 H D, RBC 3.38 L, Hgb 9.6 L, Hct 29.9 L, MCV 88.5, MCH 28.4, MCHC 32.0, RDW 14.4, Plt Count 274, MPV 8.9, Neut % (Auto) 80.7 H, Lymph % (Auto) 15.5, [place] % (Auto) 3.1, Eos % (Auto) 0.4, Baso % (Auto) 0.2, Neut # (Auto) 12.5 H, Lymph # (Auto) 2.4, [place] # (Auto) 0.5, Eos # (Auto) 0.1, Baso # (Auto) 0.0 08/07/19 06:12: Sodium 138, Potassium 3.7, Chloride 107, Carbon Dioxide 27, Anion Gap 7.7, BUN 16 D, Creatinine 0.90, Estimated Creat Clear 109, Estimated GFR 64, Est GFR ( Amer) 78, Glucose 114 H, Calcium 8.5, Total Bilirubin 0.3, AST 15 D, ALT 13 D, Alkaline Phosphatase 80, Total Protein 5.9 L D, Albumin 3.2 L, Globulin 2.7, Albumin/Globulin Ratio 1.2 I & O for Last 24 hours: Intake & Output 08/04/19 08/05/19 08/06/19 08/07/19 23:59 23:59 23:59 23:59 Intake Total 2483 / 2483 3253 / 4174 1161 / 1161 Output Total 725 / 725 Balance 2483 / 2483 2528 / 3449 1161 / 1161 Weight 99.932 kg 100 kg 102.313 kg Narrative: - *Routine HEENT Exam Head: Present: normocephalic Eye: Present: EOMI, PERRL ENT: Present: mucous membranes moist - *Routine Neck Exam Present: supple. Absent: lymphadenopathy - *Routine Respiratory Exam Present: CTA bilaterally - *Routine Cardiovascular Exam Present: RRR - *Routine Abdominal Exam Present: soft, normoactive bowel sounds, diffuse nonfocal tenderness with minimal palpation. No referred pain. No flank pain. No periumbilical or flank bruising. No rebound or guarding. - *Routine Extremities Exam Absent: cyanosis, clubbing, edema - *Routine Skin Exam Present: warm. Absent: rash - *Routine Neurological Exam Present: alert, oriented X3 Assessment and Plan (1) C. difficile colitis Current visit: Yes Status: Acute Category: Medical Code(s): A04.72 - Enterocolitis due to Clostridium difficile, not specified as recurrent (2) Diabetes mellitus type 2, noninsulin dependent Current visit: Yes Status: Chronic Category: Medical Code(s): E11.9 - Type 2 diabetes mellitus without complications (3) BMI 37.0-37.9, adult Current visit: No Status: Chronic Category: Medical Code(s): Z68.37 - Body mass index (BMI) 37.0-37.9, adult (4) Anemia Current visit: Yes Status: Acute Category: Medical Code(s): D64.9 - Anemia, unspecified Acute on chronic. Blood loss in stool necessitates continued monitoring. Repeat labs in the morning - Assessment and plan all Dx Assessment and Plan for all problems:: Patient improving but not clinically ready for discharge home. Will stop IV fluids, monitor oral tolerance of meds and fluids. Repeat labs in the morning to assess for stable hemoglobin. If passing oral goals with stable hemoglobin, will discharge tomorrow to complete vancomycin regimen for C. difficile
[2019-08-07 09:44] LABS: Lymphocytes % 16 % (10-50); Monocytes % 3 % (2-9); Neutrophils % 81 % (42-76); RBC Morphology Normal; Total Cells Counted 100
[2019-08-07 09:45] LABS: Platelet Estimate Normal
[2019-08-07 11:33] LABS: POC Glucose,Bedside 102 (70-110)
[2019-08-07 15:53] VITALS: BP 139/66; PULSE 89; RESP 17; TEMP 37.1; O2SAT 97
[2019-08-07 16:52] LABS: POC Glucose,Bedside 95 (70-110)
--- NOTE | 2019-08-07 17:01 | PC.NURSE ---
pt has done well. she has passed flatuence this shift. states this has relieved the cramping pain she has. she has had one bm this shift, it was small and brown, and a very tor amount of blood was noted. pt has ambulated t/o room independently. remains in contact enteric. vss. will cont. to monitor.
[2019-08-07 20:00] VITALS: BP 147/74; PULSE 89; RESP 16; TEMP 36.8; O2SAT 97
[2019-08-07 22:25] LABS: POC Glucose,Bedside 136 (70-110)
[2019-08-08 03:52] VITALS: BP 154/78; PULSE 94; RESP 16; TEMP 37.8; O2SAT 93
--- NOTE | 2019-08-08 04:45 | PC.NURSE ---
A&OX4. PT TOLERATING RA WELL. PT UP INDEPENDENTLY IN ROOM. PT HAS HAD 1 LOOSE DARK BROWN BM THIS SHIFT. PT HAS HAD ABD CRAMPS T/O THIS SHIFT, TREATED WITH ZOFRAN AND PAIN MED PER MAY. PT ALSO WAS ENCOURAGED TO GET UP AND WALK AROUND FLOOR FOR 2 LAPS, PT TOLERATED WELL. PT HAS BEEN DRINKING WATER WHILE AWAKE. NO OTHER COMPLAINTS. VSS WILL CONTINUE TO MONITOR.
[2019-08-08 05:06] VITALS: BMI 36.3
[2019-08-08 05:41] LABS: POC Glucose,Bedside 147 (70-110)
[2019-08-08 07:09] LABS: Chloride 105 mmol/L (98-107); Potassium 3.5 mmoL/L (3.5-5.1); Sodium 137 mmol/L (136-145)
[2019-08-08 07:12] LABS: Alanine Aminotransferase 14 U/L (12-78); Albumin Level 3.2 g/dl (3.5-5.0); Albumin/Globulin Ratio 1.1 (1.1-1.8); Alkaline Phosphatase 85 U/L (38-126); Anion Gap 8.5 mEq/L (5-15); Aspartate Amino Transferase 16 U/L (14-36); Bilirubin,Total 0.4 mg/dl (0.2-1.3); Blood Urea Nitrogen 9 mg/dl (7-17); Carbon Dioxide 27 mmol/L (22.0-30.0); Creatinine Clearance Estimated 123 mL/min (50-200); Estimated Glomerular Filt Rate 73 ml/min (>60); GFR (African American) 89 ML/MIN (>60); Globulin 2.8 g/dL (1.3-3.2)
[2019-08-08 07:13] LABS: Basophils % 0.3 % (0.1-2.0); Calcium 8.3 mg/dl (8.4-10.2); Eosinophils # 0.1 K/mm3 (0.0-0.4); Eosinophils % 0.8 % (0.1-12.0); Glucose 129 mg/dl (74-100); Hematocrit 29.8 % (37.0-47.0); Hemoglobin 9.7 g/dL (12.2-16.2); Lymphocytes # 2.1 K/mm3 (0.7-4.5); Mean Corpuscular HGB Conc 32.5 g/dL (31.8-35.4); Mean Corpuscular Hemoglobin 27.7 pg (27.0-31.2); Mean Corpuscular Volume 85.2 fl (81-99); Monocytes # 0.6 K/mm3 (0.1-1.0); Monocytes % 4.3 % (1.7-9.3); Neutrophils # 11.2 K/mm3 (1.8-7.8); Neutrophils % 79.6 % (37.0-80.0); Platelet Count 306 K/mm3 (142-424); Red Cell Distribution Width 14.2 % (11.5-17.5); White Blood Count 14.1 K/mm3 (4.8-10.8)
--- NOTE | 2019-08-08 07:20 | HMH.ACPN ---
Internal Medicine - PN: Subj *Date: 08/08/19 *Time: 07:20 Exam Vital signs and Labs for Last 24 Hours: Temp Pulse Resp BP Pulse Ox 100.0 F H 94 H 16 154/78 H 93 L 08/08/19 03:52 08/08/19 03:52 08/08/19 03:52 08/08/19 03:52 08/08/19 03:52 Laboratory Results - last 24 hr 08/07/19 06:12: Total Counted 100, Neutrophils % (Manual) 81 H, Lymphocytes % (Manual) 16, Monocytes % (Manual) 3, Platelet Estimate Normal, RBC Morphology Normal 08/07/19 11:14: POC Glucose 102 08/07/19 16:44: POC Glucose 95 08/07/19 21:05: POC Glucose 136 H 08/08/19 05:31: POC Glucose 147 H 08/08/19 06:35: WBC 14.1 H, RBC 3.50 L, Hgb 9.7 L, Hct 29.8 L, MCV 85.2, MCH 27.7, MCHC 32.5, RDW 14.2, Plt Count 306, MPV 8.0, Neut % (Auto) 79.6, Lymph % (Auto) 15.0, [place] % (Auto) 4.3, Eos % (Auto) 0.8, Baso % (Auto) 0.3, Neut # (Auto) 11.2 H, Lymph # (Auto) 2.1, [place] # (Auto) 0.6, Eos # (Auto) 0.1, Baso # (Auto) 0.0 08/08/19 06:35: Sodium 137, Potassium 3.5, Chloride 105, Carbon Dioxide 27, Anion Gap 8.5, BUN 9 D, Creatinine 0.80, Estimated Creat Clear 123, Estimated GFR 73, Est GFR ( Amer) 89, Glucose 129 H, Calcium 8.3 L, Total Bilirubin 0.4, AST 16, ALT 14, Alkaline Phosphatase 85, Total Protein 6.0 L, Albumin 3.2 L, Globulin 2.8, Albumin/Globulin Ratio 1.1 I & O for Last 24 hours: Intake & Output 08/05/19 08/06/19 08/07/19 08/08/19 23:59 23:59 23:59 23:59 Intake Total 2483 / 2483 3253 / 4174 1881 / 1881 Output Total 725 / 725 800 / 800 Balance 2483 / 2483 2528 / 3449 1081 / 1081 Weight 99.932 kg 100 kg 102.313 kg 102.767 kg Microbiology Reports for the Last 24 Hours: Microbiology 08/05/19 11:36 Blood Blood Culture - Preliminary NO GROWTH AFTER 48 HOURS 08/05/19 11:36 Blood Blood Culture - Preliminary NO GROWTH AFTER 48 HOURS Assessment and Plan (1) C. difficile colitis Current visit: Yes Status: Acute Category: Medical Code(s): A04.72 - Enterocolitis due to Clostridium difficile, not specified as recurrent (2) Diabetes mellitus type 2, noninsulin dependent Current visit: Yes Status: Chronic Category: Medical Code(s): E11.9 - Type 2 diabetes mellitus without complications (3) BMI 37.0-37.9, adult Current visit: No Status: Chronic Category: Medical Code(s): Z68.37 - Body mass index (BMI) 37.0-37.9, adult (4) Anemia Current visit: Yes Status: Acute Category: Medical Code(s): D64.9 - Anemia, unspecified The patient's infection will respond to the chosen ABx?: Yes Is the patient receiving the right drug, dose, and route?: Yes Could a more targeted ABx be ordered?: No (PO VANC FOR C DIFF)
--- NOTE | 2019-08-08 07:53 | HMH.DCSUM ---
General - General Admission date:: 08/05/19 Discharge date: 08/08/19 HPI HPI: 58-year-old white female with diabetes, cardiac disease and hyperlipidemia with obesity who presented to the emergency department with severe left lower quadrant abdominal pain after a couple of days of constipation which transitioned into a couple of hard stools with blood mixed in the stool. Came to the emergency department, found to have leukocytosis, slightly febrile, CT scan of abdomen showed evidence of colitis and stool sample was positive for C. difficile. Patient has no recent antibiotic exposure, unusual food or water exposure or travel exposure. Her is well. There are no other folks in the house. Hospital Course Hospital Course: Patient was admitted, placed on p.o. vancomycin, tolerated this well. Had to receive some narcotic pain medication because of abdominal cramping. CT scan of abdomen showed no evidence of abscess formation. Over the next couple of days patient improved slowly in a stepwise fashion, leukocytosis resolved, she did have minimal anemia from blood loss but this also spontaneously stopped and hemoglobin stabilized this morning. Her exam improved and she will be discharged home with Tylenol 3 for pain, Flagyl and vancomycin and probiotics, and I will follow her in my office on Tuesday morning. Objective Vital signs: Temp Pulse Resp BP Pulse Ox 100.0 F H 94 H 16 154/78 H 93 L 08/08/19 03:52 08/08/19 03:52 08/08/19 03:52 08/08/19 03:52 08/08/19 03:52 no acute distress - *Routine HEENT Exam Head: Present: normocephalic Eye: Present: EOMI, PERRL ENT: Present: mucous membranes moist - *Routine Neck Exam Present: supple - *Routine Respiratory Exam Present: CTA bilaterally - *Routine Cardiovascular Exam Present: RRR - *Routine Abdominal Exam Present: soft, normoactive bowel sounds, tenderness Comments: Much improved tenderness in lower quadrant, minimal residual tenderness in the left lower side - *Routine Extremities Exam Absent: cyanosis, clubbing, edema - *Routine Skin Exam Present: warm. Absent: rash - Detailed Eye Exam Eyelids: Bilateral normal inspection Results Labs on day of discharge: Labs from last 24 hours 08/08/19 08/08/19 08/08/19 06:35 06:35 05:31 WBC 14.1 H RBC 3.50 L Hgb 9.7 L Hct 29.8 L MCV 85.2 MCH 27.7 MCHC 32.5 RDW 14.2 Plt Count 306 MPV 8.0 Neut % (Auto) 79.6 Lymph % (Auto) 15.0 [place] % (Auto) 4.3 Eos % (Auto) 0.8 Baso % (Auto) 0.3 Neut # (Auto) 11.2 H Lymph # (Auto) 2.1 [place] # (Auto) 0.6 Eos # (Auto) 0.1 Baso # (Auto) 0.0 Total Counted Neutrophils % (Manual) Lymphocytes % (Manual) Monocytes % (Manual) Platelet Estimate RBC Morphology Sodium 137 Potassium 3.5 Chloride 105 Carbon Dioxide 27 Anion Gap 8.5 BUN 9 D Creatinine 0.80 Estimated Creat Clear 123 Estimated GFR 73 Est GFR ( Amer) 89 Glucose 129 H POC Glucose 147 H Calcium 8.3 L Total Bilirubin 0.4 AST 16 ALT 14 Alkaline Phosphatase 85 Total Protein 6.0 L Albumin 3.2 L Globulin 2.8 Albumin/Globulin Ratio 1.1 08/07/19 08/07/19 08/07/19 21:05 16:44 11:14 WBC RBC Hgb Hct MCV MCH MCHC RDW Plt Count MPV Neut % (Auto) Lymph % (Auto) [place] % (Auto) Eos % (Auto) Baso % (Auto) Neut # (Auto) Lymph # (Auto) [place] # (Auto) Eos # (Auto) Baso # (Auto) Total Counted Neutrophils % (Manual) Lymphocytes % (Manual) Monocytes % (Manual) Platelet Estimate RBC Morphology Sodium Potassium Chloride Carbon Dioxide Anion Gap BUN Creatinine Estimated Creat Clear Estimated GFR Est GFR ( Amer) Glucose POC Glucose 136 H 95 102 Calcium Total Bilirubin AST ALT Alkaline Phosp
[2019-08-08 08:00] VITALS: BP 130/62; PULSE 89; RESP 17; TEMP 36.8; O2SAT 95
== END 2019-08-08 09:05 | disposition home or self-care (01) ==
LOC: ER 11:47 → 2ND 15:22
PROVIDERS: Internal Medicine Adolescent Medicine; Admitting Provider Emergency Medicine; Emergency Provider Emergency Medicine; PCP Internal Medicine Adolescent Medicine; Visit Provider Internal Medicine Adolescent Medicine
DX: A04.72 Enterocolitis due to Clostridium difficile, not specified as recurrent (principal); E11.9 Type 2 diabetes mellitus without complications; I25.10 Atherosclerotic heart disease of native coronary artery without angina pectoris; E78.5 Hyperlipidemia, unspecified; D64.9 Anemia, unspecified; J44.9 Chronic obstructive pulmonary disease, unspecified; I11.0 Hypertensive heart disease with heart failure; I50.9 Heart failure, unspecified; I25.2 Old myocardial infarction; Z95.5 Presence of coronary angioplasty implant and graft; Z72.0 Tobacco use; Z88.8 Allergy status to other drugs, medicaments and biological substances; Z79.4 Long term (current) use of insulin; Z79.82 Long term (current) use of aspirin; Z79.899 Other long term (current) drug therapy
CPT/HCPCS: 36415; 74177; 80048; 80053; 81001; 82150; 82272; 82962; 83605; 83690; 83735; 85007; 85025; 87040; 87506; 96365; 96366; 96375; 96376; 99285; G0328; G0378; J2405; J3370; Q9967

== ENCOUNTER → 2019-08-11 09:28 | Outpatient (CLI) | payer OTHER, SELFPAY ==
[2019-08-11 10:00] LABS: Basophils % 0.1 % (0.1-2.0); Eosinophils # 0.2 K/mm3 (0.0-0.4); Hematocrit 31.5 % (37.0-47.0); Hemoglobin 10.2 g/dL (12.2-16.2); Lymphocytes # 0.6 K/mm3 (0.7-4.5); Lymphocytes % 6.4 % (10-50); Mean Corpuscular HGB Conc 32.5 g/dL (31.8-35.4); Mean Corpuscular Volume 85.9 fl (81-99); Mean Platelet Volume 7.6 fl (7.4-10.4); Monocytes # 0.4 K/mm3 (0.1-1.0); Monocytes % 4.2 % (1.7-9.3); Neutrophils # 8.8 K/mm3 (1.8-7.8); Neutrophils % 87.4 % (37.0-80.0); Platelet Count 396 K/mm3 (142-424); Red Blood Count 3.66 M/mm3 (4.20-5.40); White Blood Count 10.1 K/mm3 (4.8-10.8)
[2019-08-11 10:35] LABS: Hemoglobin A1C 6.3 % (4.0-6.0)
[2019-08-11 10:45] LABS: MANUAL DIFFERENTIAL MANUAL DIFFERENTIAL (MANUAL DIFF)
[2019-08-11 11:04] LABS: Alanine Aminotransferase 50 U/L (12-78); Albumin Level 3.9 g/dl (3.5-5.0); Albumin/Globulin Ratio 1.4 (1.1-1.8); Alkaline Phosphatase 114 U/L (38-126); Anion Gap 17.3 mEq/L (5-15); Aspartate Amino Transferase 43 U/L (14-36); Bilirubin,Total 0.4 mg/dl (0.2-1.3); Blood Urea Nitrogen 15 mg/dl (7-17); Calcium 9.5 mg/dl (8.4-10.2); Carbon Dioxide 26 mmol/L (22.0-30.0); Chloride 98 mmol/L (98-107); Chol/HDL Ratio 2.8 (1-3.5); Cholesterol 122 mg/dl (140-200); Estimated Glomerular Filt Rate 73 ml/min (>60); GFR (African American) 89 ML/MIN (>60); Globulin 2.7 g/dL (1.3-3.2); Glucose 155 mg/dl (74-100); HDL Cholesterol 43 mg/dl (40-60); Potassium 4.3 mmoL/L (3.5-5.1); Sodium 137 mmol/L (136-145); Total Protein,Serum 6.6 g/dl (6.3-8.2); Triglycerides 215 mg/dl (30-150); VLDL Cholesterol 43 mg/dL (0-40)
[2019-08-11 11:13] LABS: Eosinophils % 1 % (0-3); Lymphocytes % 10 % (10-50); Monocytes % 2 % (2-9); Neutrophils % 87 % (42-76); Nucleated Red Blood Cells 1; RBC Morphology Normal; Total Cells Counted 100
[2019-08-11 11:14] LABS: Platelet Estimate Normal
[2019-08-11 11:16] LABS: Direct LDL Cholesterol 66.14 mg/dL (100-129)
== END ==
PROVIDERS: Visit Provider Internal Medicine Adolescent Medicine
DX: K52.9 Noninfective gastroenteritis and colitis, unspecified (principal); E11.9 Type 2 diabetes mellitus without complications; Z79.84 Long term (current) use of oral hypoglycemic drugs
CPT/HCPCS: 36415; 80053; 80061; 83036; 85007; 85025

== ENCOUNTER → 2019-09-28 12:49 | Outpatient (CLI) | payer OTHER, SELFPAY | LOC: LAB 12:49 → LAB.DROPOF 13:25 | PROVIDERS: Visit Provider Obstetrics & Gynecology | DX: Z01.419 Encounter for gynecological examination (general) (routine) without abnormal findings (principal) | CPT/HCPCS: 87086; 87088; 87186 ==

== ENCOUNTER → 2019-09-28 13:19 | Outpatient (CLI) | payer OTHER, SELFPAY | PROVIDERS: Visit Provider Surgery | DX: N39.0 Urinary tract infection, site not specified (principal) ==

== ENCOUNTER → 2019-10-03 08:35 | Outpatient (CLI) | payer OTHER, SELFPAY ==
[2019-10-03 12:23] LABS: Coronavirus 19 IgG Antibody Negative (Negative); Coronavirus 19 IgM Antibody Negative (Negative)
== END ==
PROVIDERS: Visit Provider Surgery
DX: Z01.818 Encounter for other preprocedural examination (principal)
CPT/HCPCS: 36415; 86328

== ENCOUNTER 2019-10-04 07:36 | Day surgery (SDC) | payer OTHER, SELFPAY ==
[2019-10-03 08:57] VITALS: BMI 32.4
[2019-10-04] VITALS (7 sets, daily range): BP systolic 80–111; BP diastolic 52–78; PULSE 67–78; RESP 16–18; TEMP 36.2–36.3; O2SAT 96–99
[2019-10-04 08:05] LABS: POC Glucose,Bedside 116 (70-110)
--- NOTE | 2019-10-04 08:27 | HMH.ANESCL ---
[facility] Anesthesia Checklist - Patient Identification Patient Identification: Arm Band - Structural Data Admitted From: Home Planned Operative Procedure/s: colonoscopy Consent for Planned Operative Procedure(s) Verified: Yes Verified Documents: Surgical Consent, History and Physical - NPO Status Verified Time NPO: 00:00 - Additional verifications Anesthesia Reactions: No Hx Blood Transfusions: No Blood Transfusion Reaction: No - Airway Assessment C-Spine Mobility Assessed: Yes (mp2) TMJ Mobility Assessed: Yes Dentition: Edentulous - Neurological Assessment Level of Consciousness: Awake, Alert - Anesthesia Plan Anesthesia Risk discussed: Yes Anesthesia Plan: Verified ASA Class: III Anesthesia Type: MAC [facility] History I have reviewed the patient's past medical history: Yes Medical History: Reports:: Congestive Heart Failure, Chronic Obstructive Pulmonary Disease (COPD), Coronary Artery Disease, Diabetes Mellitus Type 2, Gastroesophageal Reflux Disease(GERD), Hyperlipidemia, Hypertension, Lung Disease, Myocardial Infarction, Seizures Denies:: Cancer, Diabetes Mellitus Type 1, Internal Pacemaker, MRSA *Have you ever received a pneumonia vaccine?: No *Have you received a flu vaccine this season?: Yes Other Medical History: Reports: Anemia, Unexplained Bleeding, Other. Denies: Blood Transfusion Reaction Anesthesia experience/problems:: nac Laterality Cases: Bilateral: Other Other Surgeries: Yes: Angioplasty, Cardiac Catheterization, Cardiac Surgery, Cholecystectomy, Colonoscopy, Colostomy, Coronary Stent, EGD, Tubal Ligation, Other. No: Pacemaker Amputation: No Fractures: No - *Social History Last grade of school completed: GED Smoking Status: Light tobacco smoker Tobacco Type: cigarettes # Packs/Day (cigarettes): 1 #Yrs smoked (if former smoker): 45 Alcohol Intake: never Alcohol Intake Frequency:: other Substance Use Type: denies use *Occupational Status:: unemployed Housing: house Household Members: significant other *Travel in the last 8 weeks: None Family Hx:: Anemia, Asthma, Cancer, Coronary Artery Disease, Diabetes, Heart Attack, Hyperlipidemia, Hypertension, Stroke
--- NOTE | 2019-10-04 09:04 | HMH.SCOPE ---
- Procedure: Date: 10/04/19 Procedure Performed:: Colonoscopy with polypectomy Indications:: History of colon polyps [large complex tubulovillous adenoma at 23 cm] Diverticulosis Performing Provider:: Hakeem Valentine MD Referring Provider:: . Sedation:: Monitored anesthesia care Procedure:: After informed consent was obtained the patient was taken to the endoscopy suite. Sedation ensued after the patient was transferred to the left lateral decubitus position. Pulse, blood pressure, and oxygen saturation were monitored throughout the procedure. Digital rectal exam revealed no significant abnormality. The colonoscope was placed in position. The entire colon was evaluated. The colonoscope was carefully removed and the patient was transferred to recovery in stable condition. Please see findings and specimens below for detail. Findings:: Mild hemorrhoidal cushions Bowel preparation fair to moderate Scattered diverticulosis Area in and around tattoo site appeared relatively normal (site of prior large complex tubulovillous adenoma resection) Multiple complex polyps (see specimens) Specimens:: Right colon polyp Complex sessile somewhat ulcerated distal transverse colon polyp (snare) Sessile polyp at 65 cm (snare) Biopsy of sites of focal inflammation with tiny linear ulcerations (between 30 and 35 cm) Recommendations:: Timing of repeat colonoscopy is pending pathology but will likely be around 2 years secondary to history of large complex tubulovillous adenoma, multiple complex sessile polyps noted on this evaluation, and slight limitations in visualization. Complications:: No immediate Estimated blood obtained (mL): 1
== END 2019-10-04 09:48 | disposition home or self-care (01) ==
LOC: OUTP 07:37
PROVIDERS: PCP Internal Medicine Adolescent Medicine; Visit Provider Surgery
PROC: 0DJD8ZZ Inspection of Lower Intestinal Tract, Via Natural or Artificial Opening Endoscopic (ICD-10-PCS; CPT 45380; principal; 2019-10-04 08:30)
DX: K63.3 Ulcer of intestine (principal); Z12.11 Encounter for screening for malignant neoplasm of colon; K57.30 Diverticulosis of large intestine without perforation or abscess without bleeding; K63.5 Polyp of colon; Z86.010 Personal history of colon polyps; I11.0 Hypertensive heart disease with heart failure; I50.9 Heart failure, unspecified; J44.9 Chronic obstructive pulmonary disease, unspecified; I25.10 Atherosclerotic heart disease of native coronary artery without angina pectoris; E11.9 Type 2 diabetes mellitus without complications; E78.5 Hyperlipidemia, unspecified; I25.2 Old myocardial infarction
CPT/HCPCS: 45380; 45385; 82962; J2704

== ENCOUNTER → 2019-11-15 14:37 | Outpatient (POV) | payer OTHER, SELFPAY ==
[2019-11-15 15:14] VITALS: BP 142/65; PULSE 85; RESP 18; O2SAT 98; BMI 19.3
--- NOTE | 2019-11-15 16:26 | HMH.PAINSOAP ---
[facility] Pain Management SOAP Note Subjective:: Patient is a pleasant 59-year-old white female who presents today for follow-up. She has been treated for chronic low back pain. Patient says that she is currently having chronic low back pain that is been ongoing for many years. She says that the pain is worsening and she is now having heaviness and weakness in bilateral lower extremities. She says that she feels like she is going to fall most of the time due to the pain. She says leaning forward does give her relief. Walking and standing worsen her pain while sitting does improve the pain. She says she is unable to walk from her house to the mailbox without developing severe pain. He denies any numbness or tingling in her lower extremities at this time, however, says that it is rather the heaviness and weakness of the lower extremities that is bothersome to her. Patient says she has had intra-articular hip injections in the past in the clinic and is gotten relief. She does not have any imaging of her lumbar spine. She has tried physical therapy for greater than 6 weeks with no improvement. She is also tried ice and heat therapies as well as a continued home stretching program. Review of Systems General: No recent weight changes, no fever, no sleep disturbances Respiratory: No cough, no shortness of air, no recurring pulmonary infections Cardiovascular/peripheral vascular: No chest pain, no palpitations, no edema, no shortness of breath Gastrointestinal: No new onset incontinence, normal bowel movements reported Genitourinary: No new onset incontinence Musculoskeletal: Low back pain with bilateral lower extremity heaviness and weakness Psychiatric: Normal mood/affect Neurological: [Denies weakness in extremities], [denies balance issues] Objective:: Physical exam General: Alert and oriented x3, no acute distress, pleasant and cooperative, [on room air] Lungs: Respirations even and unlabored, symmetrical chest expansion Eyes: PERRL Musculoskeletal: Flexion and extension of lumbar spine somewhat guarded secondary to pain, deep tendon reflexes normal, strength in upper and lower extremities [5/5], [abnormal gait noted] Neurological: Speech clear, executive staff assistant equal, no gross sensory deficit Assessment:: Low back pain with lumbar radiculopathy symptoms Plan:: We will schedule the patient for an MRI of her lumbar spine. She has not had any recent imaging. We will see her back in the clinic after her imaging to reassess and discuss a further plan of care. The patient has been instructed to contact clinic if she has any concerns before her next appointment. The patient and I specifically discussed risk factors for COVID19. These risks include, but are not limited to age greater than 60, heart or lung disease, diabetes, immunosuppression, and travel. We also discussed NSAIDs may worsen COVID19 infection or symptoms. Patient should not use NSAIDs to treat COVID19 signs or symptoms. Patient was also informed that any type of corticosteroid of any form (oral or injection) will decrease the patient's immune system response and may increase the likelihood of COVID19 infection [address] symptoms[address] Yung has reviewed this note and agrees with this plan of care. This note was dictated using voice recognition software and make contain errors or omissions. [facility] History I have reviewed the patient's past medical history: Yes Medical History: Reports:: Congestive Heart Failure, Chronic Obstructive Pulmonary Disease (COPD), Coronary Artery Disease, Diabetes Mellitus Type 2, Gastroesophageal Reflux Disease(GERD), Hyperlipidemia, Hypertension, Lung Disease, Myocardial Infarction, Seizures Denies:: Cancer, Diabetes Mellitus Type 1, Internal Pacemaker, MRSA *Have you ever received a pneumonia vaccine?: No *Have you received a flu vaccine this season?: No Other Medical History: Reports: Anemia, Unexplained Bleeding, Other. Denies: Blood Transfusion Reaction
== END ==
PROVIDERS: PCP Internal Medicine Adolescent Medicine; Visit Provider Clinical Nurse Specialist Family Health
DX: M54.5 Low back pain (principal); M54.16 Radiculopathy, lumbar region
CPT/HCPCS: 99212

== ENCOUNTER → 2019-11-22 14:22 | Outpatient (CLI) | payer OTHER, SELFPAY ==
--- NOTE | 2019-11-22 14:25 | MR_ITS ---
PROCEDURE: MR LUMBAR SPINE WO CON CLINICAL INDICATION: BACK PAIN lt sided lbp with bilateral leg weakness. numbness in legs. symptoms x1yr. COMPARISON: No exams were available for comparison TECHNIQUE: Standard multiplanar multiecho sequences are performed without contrast. 3-D MIP and myelographic images are also rendered and reviewed FINDINGS: There is normal alignment. The spinal cord ends at the L1 level. T11-T12: Degenerative disc disease with mild kyphosis. T12-L1: Unremarkable. L1-L2: Minimal bulging disc. L2-L3: Mild bulging disc with mild retrolisthesis of L2 by 2 mm. Mild facet hypertrophic change. L3-L4: Degenerative disc disease with bulging disc along with facet and ligamentum hypertrophy. There is bilateral lateral recess narrowing along with moderate to severe foraminal narrowing. The ligamentum hypertrophy appears slightly worse on the right compared to the previous exam with increase in right lateral recess narrowing. Right foraminal narrowing is also worse. L4-5: Degenerative disc disease with bulging disc and small broad-based central disc protrusion. There is moderate facet and ligamentum hypertrophy greater on the left compared to the right with severe left-sided foraminal narrowing and mild right foraminal narrowing. This is not significantly changed. L5-S1: Degenerative disc disease with bulging disc per trophy with severe mid lead change. Small central disc protrusion also noted at this level not significantly changed. IMPRESSION: Multilevel lumbar spondylosis as detailed above with bulging disc, facet ligamentum hypertrophy with lateral recess and foraminal narrowing. Please see above for detailed description at each level. Dictated by: Tyree Vyas MD 11/29/2019 11:31 Tyree Vyas MD in [place] 11/29/2019 11:31
== END ==
PROVIDERS: PCP Internal Medicine Adolescent Medicine; Visit Provider Clinical Nurse Specialist Family Health
DX: M54.5 Low back pain (principal)
CPT/HCPCS: 72148; 76376

== ENCOUNTER → 2019-11-29 09:41 | Outpatient (POV) | payer OTHER, SELFPAY ==
[2019-11-29 10:06] VITALS: BP 132/57; PULSE 74; RESP 18; O2SAT 98; BMI 34.7
--- NOTE | 2019-12-10 08:42 | HMH.PAINSOAP ---
[facility] Pain Management SOAP Note Subjective:: Patient is a pleasant 59-year-old white female who presents today for follow-up. She is here today to review her MRI. Patient is being treated for low back pain with lumbar radiculopathy symptoms. Patient says her pain is primarily in her low back with radiation into her bilateral lower extremities. She says that the pain feels much better when she leans forward. She says that is the only way she is able to get relief. She says that she has had intra-articular hip injections in the past and has gotten approximately 70 to 80% relief with those injections to her hips, however, she does not get relief of her low back pain. Patient says she recently traveled to [place] for a week and says that over the last 4 days her pain is excruciating. Patient's pain is worse with standing and walking, improved with leaning forward. She has tried physical therapy with a continued home stretching program. She is also tried ice and heat therapies with no relief. Patient has also tried anti-inflammatories that have not been beneficial for her pain. Rates her pain a 6 out of 10. Review of Systems General: No recent weight changes, no fever, no sleep disturbances Respiratory: No cough, no shortness of air, no recurring pulmonary infections Cardiovascular/peripheral vascular: No chest pain, no palpitations, no edema, no shortness of breath Gastrointestinal: No new onset incontinence, normal bowel movements reported Genitourinary: No new onset incontinence Musculoskeletal: Low back pain with radiation into bilateral lower extremities Psychiatric: Normal mood/affect Neurological: [Denies weakness in extremities], [denies balance issues] Objective:: Physical exam General: Alert and oriented x3, no acute distress, pleasant and cooperative, [on room air] Lungs: Respirations even and unlabored, symmetrical chest expansion Eyes: PERRL Musculoskeletal: Flexion and extension of lumbar spine somewhat guarded secondary to pain, deep tendon reflexes normal, strength in upper and lower extremities [5/5], [abnormal gait noted] Neurological: Speech clear, msw equal, no gross sensory deficit Assessment:: Degenerative disc disease lumbar spine with lumbar radiculopathy symptoms, lumbar spinal stenosis with neurogenic claudication symptoms Plan:: Patient does have neurogenic claudication symptoms. Per her MRI report, she does have some ligamentum flavum hypertrophy. We will schedule the patient for a lumbar epidural steroid injection at L4-L5 along with an epidurogram. She is not on any anticoagulation therapy. We will plan to see her back in the clinic after her injection and epidurogram to re-evaluate further plan of care. She has been instructed to contact the clinic if she has any concerns before next appointment. The patient and I specifically discussed risk factors for COVID19. These risks include, but are not limited to age greater than 60, heart or lung disease, diabetes, immunosuppression, and travel. We also discussed NSAIDs may worsen COVID19 infection or symptoms. Patient should not use NSAIDs to treat COVID19 signs or symptoms. Patient was also informed that any type of corticosteroid of any form (oral or injection) will decrease the patient's immune system response and may increase the likelihood of COVID[address] Yung has reviewed this note and agrees with this plan of care. This note was dictated using voice recognition software and make contain errors or omissions. [facility] History I have reviewed the patient's past medical history: Yes Medical History: Reports:: Congestive Heart Failure, Chronic Obstructive Pulmonary Disease (COPD), Coronary Artery Disease, Diabetes Mellitus Type 2, Gastroesophageal Reflux Disease(GERD), Hyperlipidemia, Hypertension, Lung Disease, Myocardial Infarction, Seizures Denies:: Cancer, Diabetes Mellitus Type 1, Internal Pacemaker, MRSA *Have you e
== END ==
PROVIDERS: PCP Internal Medicine Adolescent Medicine; Visit Provider Clinical Nurse Specialist Family Health
DX: M51.16 Intervertebral disc disorders with radiculopathy, lumbar region (principal); M48.062 Spinal stenosis, lumbar region with neurogenic claudication
CPT/HCPCS: 99212

== ENCOUNTER 2019-12-21 10:20 | Day surgery (SDC) | payer OTHER, SELFPAY ==
[2019-12-21 10:49] VITALS: BP 179/94; PULSE 88; RESP 18; TEMP 36.7; O2SAT 99; BMI 34.7
[2019-12-21 11:13] VITALS: BP 142/78; PULSE 85; RESP 18; O2SAT 98
[2019-12-21 11:14] VITALS: BP 142/78; PULSE 85; RESP 18; O2SAT 98
--- NOTE | 2019-12-21 11:20 | P.PCN_ITS ---
- Procedure Date: 12/21/19 Time: 11:20 Anesthesiologist:: Case Yung MD Complications:: None Pre-procedure Diagnosis:: Degenerative disc disease of lumbar spine with lumbar spinal stenosis and neurogenic claudication symptoms Post-procedure Diagnosis:: Same Indications for Procedure:: This patient is a pleasant 59-year-old white female who we are treating for low back pain with lumbar radicular symptoms and neurogenic claudication symptoms. She does have significant spinal stenosis with ligamentum flavum hypertrophy. She has increasing pain while standing and walking. We will do a lumbar pleural steroid injection today and epidurogram to assess levels of stenosis and candidacy for minimally invasive lumbar decompression. Procedure Details:: Lumbar epidural steroid injection under fluoroscopy Informed consent was obtained and the risk and benefits of the procedure was explained to the patient. The patient was taken to the procedure room. The patient was placed prone on the procedure table. The patient was prepped and draped in sterile fashion. C-arm fluoroscopy was used to view the lumbar spine. Skin and subcutaneous tissues were anesthetized using lidocaine. I placed an 18-gauge epidural needle and advanced into the L4-L5 interspace using fluoroscopic guidance and [id number] to air. After confirmation of needle placement in the epidural space with dye I injected 2 mL of lidocaine 1.5% with Depo-Medrol 80 mg. Patient tolerated the procedure well with no complications. Plan and Disposition:: Based on epidurogram and MRI she does have significant stenosis at L3-4 and L4- L5. L3-L4: Degenerative disc disease with bulging disc along with facet and ligamentum hypertrophy. There is bilateral lateral recess narrowing along with moderate to severe foraminal narrowing. The ligamentum hypertrophy appears slightly worse on the right compared to the previous exam with increase in right lateral recess narrowing. Right foraminal narrowing is also worse. L4-5: Degenerative disc disease with bulging disc and small broad-based central disc protrusion. There is moderate facet and ligamentum hypertrophy greater on the left compared to the right with severe left-sided foraminal narrowing and mild right foraminal narrowing. This is not significantly changed. She does have significant ligamentum flavum hypertrophy at both of these levels. I do believe that she would benefit significantly from minimally invasive lumbar decompression of L3-4 and L4-L5 bilaterally.
[2019-12-21 11:26] VITALS: BP 181/97; PULSE 77; RESP 18; O2SAT 99
== END 2019-12-21 11:27 | disposition home or self-care (01) ==
LOC: SC.PAINP 10:22
PROVIDERS: PCP Internal Medicine Adolescent Medicine; Visit Provider Anesthesiology
DX: M48.062 Spinal stenosis, lumbar region with neurogenic claudication (principal); I10 Essential (primary) hypertension; I25.10 Atherosclerotic heart disease of native coronary artery without angina pectoris; E78.5 Hyperlipidemia, unspecified; K21.9 Gastro-esophageal reflux disease without esophagitis; J44.9 Chronic obstructive pulmonary disease, unspecified; Z86.73 Personal history of transient ischemic attack (TIA), and cerebral infarction without residual deficits; Z82.49 Family history of ischemic heart disease and other diseases of the circulatory system
CPT/HCPCS: 62323; J1040; Q9966

== ENCOUNTER → 2020-01-02 16:07 | Outpatient (CLI) | payer OTHER, SELFPAY ==
[2020-01-02 17:13] LABS: Basophils # 0.1 K/mm3 (0-0.2); Basophils % 0.6 % (0.1-2.0); Eosinophils # 0.1 K/mm3 (0.0-0.4); Eosinophils % 0.9 % (0.1-12.0); Hemoglobin 12.4 g/dL (12.2-16.2); Lymphocytes # 3.6 K/mm3 (0.7-4.5); Lymphocytes % 31.6 % (10-50); Mean Corpuscular HGB Conc 33.5 g/dL (31.8-35.4); Mean Corpuscular Hemoglobin 28.3 pg (27.0-31.2); Mean Corpuscular Volume 84.2 fl (81-99); Mean Platelet Volume 7.9 fl (7.4-10.4); Monocytes # 0.5 K/mm3 (0.1-1.0); Monocytes % 4.1 % (1.7-9.3); Neutrophils # 7.3 K/mm3 (1.8-7.8); Neutrophils % 62.8 % (37.0-80.0); Platelet Count 490 K/mm3 (142-424); Red Blood Count 4.39 M/mm3 (4.20-5.40); Red Cell Distribution Width 14.9 % (11.5-17.5); White Blood Count 11.5 K/mm3 (4.8-10.8)
[2020-01-02 17:45] LABS: Alanine Aminotransferase 19 U/L (12-78); Albumin Level 4.4 g/dl (3.5-5.0); Albumin/Globulin Ratio 1.6 (1.1-1.8); Alkaline Phosphatase 98 U/L (38-126); Anion Gap 15.8 mEq/L (5-15); Aspartate Amino Transferase 21 U/L (14-36); Bilirubin,Total 0.3 mg/dl (0.2-1.3); Blood Urea Nitrogen 20 mg/dl (7-17); Calcium 10.1 mg/dl (8.4-10.2); Carbon Dioxide 26 mmol/L (22.0-30.0); Chloride 104 mmol/L (98-107); Chol/HDL Ratio 3.4 (1-3.5); Cholesterol 176 mg/dl (140-200); Estimated Glomerular Filt Rate 64 ml/min (>60); GFR (African American) 77 ML/MIN (>60); Globulin 2.7 g/dL (1.3-3.2); Glucose 116 mg/dl (74-100); HDL Cholesterol 52 mg/dl (40-60); Magnesium 1.5 mg/dl (1.6-2.3); Potassium 4.8 mmoL/L (3.5-5.1); Sodium 141 mmol/L (136-145); Total Protein,Serum 7.1 g/dl (6.3-8.2); Triglycerides 245 mg/dl (30-150); VLDL Cholesterol 49 mg/dL (0-40)
[2020-01-02 17:55] LABS: Direct LDL Cholesterol 89.37 mg/dL (100-129)
[2020-01-02 18:15] LABS: Thyroid Stimulating Hormone 0.72 uIU/mL (0.465-4.68)
[2020-01-02 19:19] LABS: Hemoglobin A1C 6.5 % (4.0-6.0)
== END ==
PROVIDERS: Visit Provider Internal Medicine Adolescent Medicine
DX: R55 Syncope and collapse (principal); I25.10 Atherosclerotic heart disease of native coronary artery without angina pectoris; E11.9 Type 2 diabetes mellitus without complications; Z79.84 Long term (current) use of oral hypoglycemic drugs
CPT/HCPCS: 36415; 80053; 80061; 83036; 83735; 84443; 85025

== ENCOUNTER → 2020-01-03 08:43 | Outpatient (POV) | payer OTHER, SELFPAY ==
--- NOTE | 2020-01-03 | XR_ITS ---
PROCEDURE: XR LUMBAR SPINE 6V W BENDING CLINICAL INDICATION: Pain, chronic back pain COMPARISON: CR LS5 LUMBAR SPINE 5 VIEWS from 01/02/2016 FINDINGS: There is straightening of the lumbar lordosis. Multilevel degenerative disc disease is present from L1-S1 most severe at L3-L4 4 5 and L5-S1 and has progressed since 01/02/2016. No abnormal subluxation in flexion or extension. There is mild lumbar curvature convex left with facet arthritic changes from L3-S1. Degenerative disc disease is also present in the lower thoracic spine with kyphosis at T10-T11 and T11-T12. There is mild chronic wedging of T11. Other findings:None. IMPRESSION: Lower thoracic and lumbar spondylosis as detailed above which appears slightly worse from 01/02/2016. No abnormal subluxation in flexion or extension Chronic wedge compression changes of T11 Dictated by: Tyree Vyas MD 01/03/2020 13:40 Tyree Vyas MD in [place] 01/03/2020 13:40
[2020-01-03 08:56] VITALS: BP 123/85; PULSE 74; RESP 18; O2SAT 98; BMI 33.7
--- NOTE | 2020-01-03 09:14 | HMH.PAINSOAP ---
[facility] Pain Management SOAP Note Subjective:: Patient is a 59-year-old white female who presents today for follow-up. She is being treated for low back pain with lumbar radicular symptoms and neurogenic claudication symptoms. She does have significant spinal stenosis with ligamentum flavum hypertrophy. She has increasing pain while standing and walking. The patient has tried and failed conservative therapies of physical therapy for greater than 6 weeks along with a continued home stretching program. Patient is continuing to have falls due to significant weakness in her bilateral lower extremities. She is limited with her home stretching program as a result of this. She also uses ice and heat therapies and [id number] anti-inflammatories. None of these have been beneficial for her pain. Patient was scheduled for a minimally invasive lumbar decompression procedure, however, she was denied by her insurance. Patient has exhausted all conservative measures at this point. Injections give her approximately 70% relief, however, she only gets relief for 2 weeks at the longest. Patient was hopeful that she would be able to have the procedure so that she does not have to worry about falling and injuring herself. Unfortunately, she was denied and as a result, is here today to discuss other options for pain relief and prevention of injury. Patient does rate her pain a 7 out of 10 today. Review of Systems General: No recent weight changes, no fever, no sleep disturbances Respiratory: No cough, no shortness of air, no recurring pulmonary infections Cardiovascular/peripheral vascular: No chest pain, no palpitations, no edema, no shortness of breath Gastrointestinal: No new onset incontinence, normal bowel movements reported Genitourinary: No new onset incontinence Musculoskeletal: Low back pain with radiation into bilateral lower extremities causing numbness and tingling Psychiatric: Normal mood/affect Neurological: [Denies weakness in extremities], [denies balance issues] Objective:: Physical exam General: Alert and oriented x3, no acute distress, pleasant and cooperative, [on room air] Lungs: Respirations even and unlabored, symmetrical chest expansion Eyes: PERRL Musculoskeletal: Flexion and extension of lumbar spine somewhat guarded secondary to pain, deep tendon reflexes normal, strength in upper and lower extremities [5/5], [abnormal gait noted], positive straight leg test Neurological: Speech clear, set designer equal, no gross sensory deficit Assessment:: Degenerative disc disease lumbar spine with lumbar radiculopathy symptoms, spinal stenosis with neurogenic claudication symptoms Plan:: Patient does have imaging of her lumbar spine. The plan was for the patient to undergo a mild procedure at L3-L4 and L4-L5 bilaterally. Unfortunately, she was denied by her insurance. Patient I did discuss a Superion Vertiflex device at L3-L4 L4-L5 today. She was educated regarding the procedure. Patient is not considered a surgical candidate per neurosurgery at this time. She is undergone all other conservative therapies and has not gotten significant relief for more than 2 weeks. We will plan for the procedure at L3-L4 L4-L5. We will send her today for x-rays of her lumbar spine seated, flexion and extension, and AP. Dr. Andrew will review the x-rays and determine if the patient is a candidate for the procedure. The patient is not on any anticoagulation therapy. We will plan to see her back in the clinic after the procedure to reevaluate her pain. She has been instructed to contact the clinic if she has any concerns before next appointment. The patient and I specifically discussed risk factors for COVID19. These risks include, but are not limited to age greater than 60, heart or lung disease, diabetes, immunosuppression, and travel. We also discussed NSAIDs may worsen COVID19 infection or symptoms. Patient should not use NSAIDs to treat [place]
== END ==
PROVIDERS: PCP Internal Medicine Adolescent Medicine; Visit Provider Clinical Nurse Specialist Family Health
DX: M51.16 Intervertebral disc disorders with radiculopathy, lumbar region (principal); M48.062 Spinal stenosis, lumbar region with neurogenic claudication
CPT/HCPCS: 72114; 99212

== ENCOUNTER → 2020-01-17 09:56 | Outpatient (CLI) | payer OTHER, SELFPAY ==
[2020-01-17 10:28] LABS: Basophils # 0.1 K/mm3 (0-0.2); Basophils % 0.8 % (0.1-2.0); Eosinophils # 0.2 K/mm3 (0.0-0.4); Eosinophils % 1.6 % (0.1-12.0); Hematocrit 36.9 % (37.0-47.0); Hemoglobin 11.5 g/dL (12.2-16.2); Lymphocytes # 3.4 K/mm3 (0.7-4.5); Lymphocytes % 29.9 % (10-50); Mean Corpuscular HGB Conc 31.2 g/dL (31.8-35.4); Mean Corpuscular Hemoglobin 27.5 pg (27.0-31.2); Mean Corpuscular Volume 88.4 fl (81-99); Mean Platelet Volume 7.6 fl (7.4-10.4); Monocytes # 0.6 K/mm3 (0.1-1.0); Neutrophils # 7.1 K/mm3 (1.8-7.8); Neutrophils % 62.7 % (37.0-80.0); Platelet Count 336 K/mm3 (142-424); Red Blood Count 4.18 M/mm3 (4.20-5.40); Red Cell Distribution Width 14.2 % (11.5-17.5); White Blood Count 11.3 K/mm3 (4.8-10.8)
[2020-01-17 11:10] LABS: Chloride 102 mmol/L (98-107); Sodium 139 mmol/L (136-145)
[2020-01-17 11:11] LABS: Potassium 4.9 mmoL/L (3.5-5.1)
[2020-01-17 11:20] LABS: Blood Urea Nitrogen 20 mg/dl (7-17); Estimated Glomerular Filt Rate 57 ml/min (>60); GFR (African American) 68 ML/MIN (>60)
[2020-01-17 12:12] LABS: Coronavirus 19 IgG Antibody Negative (Negative); Coronavirus 19 IgM Antibody Negative (Negative)
[2020-01-17 18:25] LABS: Anion Gap 17.9 mEq/L (5-15); Calcium 9.7 mg/dl (8.4-10.2); Carbon Dioxide 24 mmol/L (22.0-30.0); Glucose 115 mg/dl (74-100)
== END ==
PROVIDERS: Visit Provider Anesthesiology
DX: Z01.818 Encounter for other preprocedural examination (principal); M48.00 Spinal stenosis, site unspecified
CPT/HCPCS: 36415; 80048; 85025; 86328

== ENCOUNTER → 2020-01-18 11:39 | Day surgery (SDC) | payer OTHER, SELFPAY ==
[2020-01-18] VITALS (9 sets, daily range): BP systolic 100–130; BP diastolic 40–83; PULSE 76–92; RESP 12–20; TEMP 36.1–36.4; O2SAT 95–99; BMI 33.9
[2020-01-18 12:08] LABS: POC Glucose,Bedside 131 (70-110)
--- NOTE | 2020-01-18 14:17 | HMH.OPNOTE ---
Date of procedure: 01/18/20 Pre-op Diagnosis:: Degenerative disc disease of lumbar spine with lumbar radiculopathy symptoms and lumbar spinal stenosis with neurogenic claudication symptoms Post-op Diagnosis:: Same Procedure performed:: Superion Vertiflex L3/4 and L4/5 Surgeon:: Case Yung MD [employer] PROGRAMMER:: Nick Kirkpatrick Anesthesia: GETA Estimated blood loss (mL): 5 Clinical Note:: Patient is a pleasant 59-year-old white female who we are treating for low back pain with lumbar radiculopathy symptoms and neurogenic claudication symptoms. She does have significant lumbar spinal stenosis with worse central and lateral stenosis with neuroforaminal narrowing at L3-L4 and L4-L5. We will plan on superion vertiflex plan at L3-4 and L4-L5 today. Patient has failed all previous conservative therapy including physical therapy, oral medications injections and she is not a candidate for invasive surgery. Operative findings:: None Operative note:: Informed consent was obtained and the risk and benefits of the procedure was explained to the patient. Patient was taken to the operating room. Patient was placed prone on the procedure table. She was prepped and draped in sterile fashion. C-arm fluoroscopy was used to view L3 and L4 and L4-L5 in AP and lateral view. The skin was anesthetized with lidocaine. A scalpel was used to make patient incision over the skin and subcutaneous tissues of L3-L4 and L4-L5. The scalpel was then used to make a stab incision down the supraspinous ligament of L4-L5. A vertiflex dilator was placed into the skin and advanced using intermittent fluoroscopic guidance in an alternating AP and lateral view to place a dilator into the lamina between L4 and L5. A series of dilators were used to place a working cannula in proper position, dorsal to the lamina. A measuring gauge was introduced to the proper depth and space was measured. The space was measured and found to be 10 mm. A 10 mm superion device was introduced and deployed at the correct depth and then advanced to the lamina of L4-L5. AP and lateral images were taken to confirm proper placement of the device. The same thing was done for L3-L4. A vertiflex dilator was placed into the skin and advanced using intermittent fluoroscopic guidance and an alternating AP and lateral view to place a dilator into the lamina between L3 and L4. A series of dilators were used to place a working cannula in proper position, dorsal to the lamina. A measuring gauge was introduced to the proper depth and space was measured. The space was measured and found to be 10 mm. A 10 mm superion device was introduced and deployed at the correct depth and then advanced to the lamina of L3-L4. AP and lateral images were taken to confirm proper placement of the device. Both incisions were then closed with 2-0 Vicryl followed by 4-0 nylon. Dressings were placed. Patient was taken recovery in stable condition. The patient tolerated the procedure well with no complications. Plan and disposition: We will follow-up with this patient in 2 weeks. We will reevaluate her symptoms at that time. Condition: stable Disposition: PACU Complications:: None
--- NOTE | 2020-01-18 14:40 | P.PN_ITS ---
[facility] Anesthesia Checklist - Structural Data Admitted From: Home Planned Operative Procedure/s: vertiflex Consent for Planned Operative Procedure(s) Verified: Yes - Additional verifications Anesthesia Reactions: No Hx Blood Transfusions: Yes Blood Transfusion Reaction: No - Airway Assessment C-Spine Mobility Assessed: Yes TMJ Mobility Assessed: Yes Dentition: Edentulous - Neurological Assessment Level of Consciousness: Awake, Alert, Appropriate - Anesthesia Plan Anesthesia Risk discussed: Yes Anesthesia Plan: Verified ASA Class: III Anesthesia Type: General [facility] History I have reviewed the patient's past medical history: Yes Medical History: Reports:: Congestive Heart Failure, Chronic Obstructive Pulmonary Disease (COPD), Coronary Artery Disease, Diabetes Mellitus Type 2, Gastroesophageal Reflux Disease(GERD), Hyperlipidemia, Hypertension, Lung Disease, Myocardial Infarction Denies:: Cancer, Diabetes Mellitus Type 1, Internal Pacemaker, MRSA, Seizures *Have you ever received a pneumonia vaccine?: Yes *Have you received a flu vaccine this season?: Yes Other Medical History: Reports: Anemia, Unexplained Bleeding, Other. Denies: Blood Transfusion Reaction Anesthesia experience/problems:: none Laterality Cases: Bilateral: Other Other Surgeries: Yes: Angioplasty, Cardiac Catheterization, Cardiac Surgery, Cholecystectomy, Colonoscopy (x2), Colostomy, Coronary Stent, EGD, Tubal Ligation, Other. No: Pacemaker Amputation: No Fractures: No - *Social History Last grade of school completed: GED Smoking Status: Current every day smoker Tobacco Type: cigarettes # Packs/Day (cigarettes): 1 #Yrs smoked (if former smoker): 45 Alcohol Intake: never Alcohol Intake Frequency:: other Substance Use Type: denies use *Occupational Status:: unemployed Housing: house Household Members: significant other *Travel in the last 8 weeks: None Family Hx:: Cancer, Coronary Artery Disease
--- NOTE | 2020-01-18 15:40 | HMH.ANESI ---
[facility] Anesthesia Record Part I Intake, IV Amount: 1,500 Estimated blood loss (mL): 0 Urine output (mL): 0 Blood Pressure: 130/75 SaO2: 99 Pulse Rate: 92 Respiratory Rate: 12 Temperature: 97.5 F Patient is:: Awake, Stable Stable to PACU at:: 15:40
--- NOTE | 2020-01-21 08:38 | HMH.ANESII ---
[facility] Anesthesia Record Part II Discharge Time: 16:10 [facility] assessment reviewed?: Yes Patient Condition:: Good Anesthesia Complications:: None Swallowing reflex intact?: Yes Cyanosis?: No Blood Pressure: 109/64 Pulse Rate: 76 Temperature: 97.5 F Mental Status: Alert & Oriented Pain level:: 0 Nausea and/or vomitting:: None Intake, IV Amount: 1,500
[2020-01-21 08:39] VITALS: BP 109/64; PULSE 76; TEMP 36.4
== END ==
PROVIDERS: PCP Internal Medicine Adolescent Medicine; Visit Provider Anesthesiology
PROC: (CPT 22869; principal; 2020-01-18 11:45)
DX: M48.062 Spinal stenosis, lumbar region with neurogenic claudication (principal); M51.16 Intervertebral disc disorders with radiculopathy, lumbar region; E11.9 Type 2 diabetes mellitus without complications; I11.0 Hypertensive heart disease with heart failure; I50.9 Heart failure, unspecified; K21.9 Gastro-esophageal reflux disease without esophagitis; J44.9 Chronic obstructive pulmonary disease, unspecified; Z88.8 Allergy status to other drugs, medicaments and biological substances; Z79.82 Long term (current) use of aspirin; Z79.84 Long term (current) use of oral hypoglycemic drugs; Z79.899 Other long term (current) drug therapy
CPT/HCPCS: 22869; 22870; 82962; 94640; 96374; C1821; J2405; J2710; J3370

== ENCOUNTER → 2020-02-04 13:37 | Outpatient (POV) | payer OTHER, SELFPAY ==
[2020-02-04 14:09] VITALS: BP 150/83; PULSE 84; RESP 18; TEMP 36.6; O2SAT 98; BMI 33.9
--- NOTE | 2020-02-04 14:29 | HMH.PAINSOAP ---
[facility] Pain Management SOAP Note Subjective:: She is pleasant 59-year-old white female who presents today for follow-up after a superior on implant. Patient stitches have been removed she is well-healed no sign symptoms of infection. Patient rates her pain today a 5 out of 10 she still having difficulty with low back pain along with walking. Patient did have a fall after surgery. Patient is having some inflammation. Patient is unable to take anti-inflammatories due to her cardiac conditions. Patient and I discussed a short term of prednisone. ROS General: no recent weight change, no fever, no sleep disturbances Respiratory: no cough, no shortness of air, no recurring pulmonary infections Cardiovascular/Peripheral Vascular: No chest pain, No palpitations, no edema, no shortness of breath. Gastrointestinal: no new onset incontinence, normal bowel movements reported Genitourinary: no new onset incontinence Musculoskeletal: Back pain Psychiatric: normal mood/ affect Neurological: Weakness with walking and standing long periods of time, [denies new onset balance issues] Objective:: Physical Exam General: Alert and oriented x3, no acute distress, pleasant and cooperative, [on room air] Lungs: Resps E/U, Symmetrical chest expansion, Eyes: PERRL Musculoskeletal: Flexion and extension of lumbar spine somewhat guarded secondary to pain, deep tendon reflexes normal, strength in upper and lower extremities [5/5], antalgic gait noted Neurological: speech clear, deputy k 9 equal, no gross sensory deficits Assessment:: Degenerative disc disease lumbar spine lumbar spinal stenosis with neurogenic claudication, back pain Plan:: We will start the patient on prednisone. Patient states she does not need a prescription for this that she has it at home I discussed 20 mg once daily for 2 weeks. I will follow-up with her in 3 weeks reassess her symptoms at that time she has been instructed to call the office if she has any issues prior to her next appointment. Dr. Yung has reviewed this note and agrees with this plan of care. This note was dictated using voice recognition software and may contain errors or omissions [facility] History I have reviewed the patient's past medical history: Yes Medical History: Reports:: Congestive Heart Failure, Chronic Obstructive Pulmonary Disease (COPD), Coronary Artery Disease, Diabetes Mellitus Type 2, Gastroesophageal Reflux Disease(GERD), Hyperlipidemia, Hypertension, Lung Disease, Myocardial Infarction Denies:: Cancer, Diabetes Mellitus Type 1, Internal Pacemaker, MRSA, Seizures *Have you ever received a pneumonia vaccine?: Yes *Have you received a flu vaccine this season?: Yes Other Medical History: Reports: Anemia, Unexplained Bleeding, Other. Denies: Blood Transfusion Reaction Laterality Cases: Bilateral: Other Other Surgeries: Yes: Angioplasty, Cardiac Catheterization, Cardiac Surgery, Cholecystectomy, Colonoscopy (x2), Colostomy, Coronary Stent, EGD, Tubal Ligation, Other. No: Pacemaker Amputation: No Fractures: No - *Social History Smoking Status: Current every day smoker Tobacco Type: cigarettes # Packs/Day (cigarettes): 1 #Yrs smoked (if former smoker): 45 Alcohol Intake: never Alcohol Intake Frequency:: other Substance Use Type: denies use *Occupational Status:: other Housing: house Household Members: significant other *Travel in the last 8 weeks: None Family Hx:: Cancer, Coronary Artery Disease
== END ==
PROVIDERS: PCP Internal Medicine Adolescent Medicine; Visit Provider Clinical Nurse Specialist Family Health
DX: M48.062 Spinal stenosis, lumbar region with neurogenic claudication (principal)
CPT/HCPCS: 99212

== ENCOUNTER → 2020-02-25 11:37 | Outpatient (POV) | payer OTHER, SELFPAY ==
[2020-02-25 12:00] VITALS: BP 133/71; PULSE 74; RESP 18; O2SAT 98; BMI 34.7
--- NOTE | 2020-02-25 12:19 | HMH.PAINSOAP ---
[facility] Pain Management SOAP Note Subjective:: She is a pleasant 59-year-old white female who presents today for follow-up after Vertiflex implant. Patient rates her pain today a 3 out of 10. She is doing better. Patient is having left SI joint pain. She states that it is constant. Patient has a positive Eliza test SI joint compression test and distraction test on the left side as well along with a positive Gavin's test on the left side. Patient would like to move forward with an injection ROS General: no recent weight change, no fever, no sleep disturbances Respiratory: no cough, no shortness of air, no recurring pulmonary infections Cardiovascular/Peripheral Vascular: No chest pain, No palpitations, no edema, no shortness of breath. Gastrointestinal: no new onset incontinence, normal bowel movements reported Genitourinary: no new onset incontinence Musculoskeletal: Left SI joint pain Psychiatric: normal mood/ affect Neurological: [denies new onset weakness in extremities], [denies new onset balance issues] Objective:: Physical Exam General: Alert and oriented x3, no acute distress, pleasant and cooperative, [on room air] Lungs: Resps E/U, Symmetrical chest expansion, Eyes: PERRL Musculoskeletal: Flexion and extension of lumbar spine somewhat guarded secondary to pain, deep tendon reflexes normal, strength in upper and lower extremities [5/5], [abnormal gait noted] Neurological: speech clear, refrigeration person equal, no gross sensory deficits Assessment:: Sacroiliitis, degenerative disc disease lumbar spine lumbar spinal stenosis with neurogenic claudication Plan:: We will schedule patient for left SI joint injection. I will follow-up with her after this reassess her symptoms at that time. She has been instructed to call the office if she has any issues prior to next appointment. Dr. Yung has reviewed this note and agrees with this plan of care. This note was dictated using voice recognition software and may contain errors or omissions [facility] History I have reviewed the patient's past medical history: Yes Medical History: Reports:: Congestive Heart Failure, Chronic Obstructive Pulmonary Disease (COPD), Coronary Artery Disease, Diabetes Mellitus Type 2, Gastroesophageal Reflux Disease(GERD), Hyperlipidemia, Hypertension, Lung Disease, Myocardial Infarction Denies:: Cancer, Diabetes Mellitus Type 1, Internal Pacemaker, MRSA, Seizures *Have you ever received a pneumonia vaccine?: Yes *Have you received a flu vaccine this season?: Yes Other Medical History: Reports: Anemia, Unexplained Bleeding, Other. Denies: Blood Transfusion Reaction Laterality Cases: Bilateral: Other Other Surgeries: Yes: Angioplasty, Cardiac Catheterization, Cardiac Surgery, Cholecystectomy, Colonoscopy (x2), Colostomy, Coronary Stent, EGD, Tubal Ligation, Other. No: Pacemaker Amputation: No Fractures: No - *Social History Smoking Status: Current every day smoker Tobacco Type: cigarettes # Packs/Day (cigarettes): 1 #Yrs smoked (if former smoker): 45 Alcohol Intake: never Alcohol Intake Frequency:: other Substance Use Type: denies use *Occupational Status:: other Housing: house Household Members: significant other *Travel in the last 8 weeks: None Family Hx:: Cancer, Coronary Artery Disease
== END ==
PROVIDERS: PCP Internal Medicine Adolescent Medicine; Visit Provider Clinical Nurse Specialist Family Health
DX: M48.062 Spinal stenosis, lumbar region with neurogenic claudication (principal); M46.1 Sacroiliitis, not elsewhere classified
CPT/HCPCS: 99212

== ENCOUNTER → 2020-03-03 15:04 | Day surgery (SDC) | payer OTHER, SELFPAY ==
[2020-03-03 15:15] VITALS: BP 159/75; PULSE 83; RESP 18; TEMP 36.4; O2SAT 98; BMI 33.6
[2020-03-03 15:45] VITALS: BP 132/74; BP 140/79; PULSE 85; PULSE 89; RESP 18; O2SAT 98
--- NOTE | 2020-03-03 15:46 | HMH.PMPROC ---
- Procedure Date: 03/03/20 Time: 15:46 Anesthesiologist:: Marilou Coronel APRN Complications:: None Pre-procedure Diagnosis:: Sacroiliitis Post-procedure Diagnosis:: Same Indications for Procedure:: Patient is a pleasant 59-year-old white female who presents today for follow-up. Patient has left SI joint pain. She has a positive Eliza test SI joint compression test Gavin's test and distraction test on the left side. She presents today for left SI joint injection. Procedure Details:: Informed consent was obtained and the risks and benefits of the procedure were explained to the patient. Patient was taken to the procedure room. Patient was placed prone on the procedure table. The left hip was prepped using ChloraPrep as a cleansing solution. The skin and subcutaneous tissues were anesthetized using lidocaine. Using fluoroscopic guidance I placed a 22-gauge spinal needle into the inferior aspect of the left SI joint. After this I injected 5 mL bupivacaine 0.25% and Depo-Medrol 40 mg into the left SI joint. The patient tolerated the procedure well with no complication. Plan and Disposition:: We will see the patient back in several weeks reassess her symptoms at that time she has been instructed to call the office if she has any issues prior to her next appointment. Dr. Yung has reviewed this note and agrees with this plan of care. This note was dictated using voice recognition software and may contain errors or omissions
[2020-03-03 16:03] VITALS: BP 161/75; PULSE 85; RESP 18; O2SAT 97
== END | disposition home or self-care (01) ==
PROVIDERS: PCP Internal Medicine Adolescent Medicine; Visit Provider Clinical Nurse Specialist Family Health
DX: M46.1 Sacroiliitis, not elsewhere classified (principal); I10 Essential (primary) hypertension; E11.9 Type 2 diabetes mellitus without complications
CPT/HCPCS: 27096; G0260; J1040; Q9966

== ENCOUNTER → 2020-03-18 10:31 | Outpatient (CLI) | payer OTHER, SELFPAY ==
[2020-03-18 11:30] LABS: Basophils # 0.1 K/mm3 (0-0.2); Eosinophils # 0.2 K/mm3 (0.0-0.4); Eosinophils % 1.6 % (0.1-12.0); Hematocrit 36.8 % (37.0-47.0); Hemoglobin 11.2 g/dL (12.2-16.2); Lymphocytes # 3.6 K/mm3 (0.7-4.5); Lymphocytes % 33.7 % (10-50); Mean Corpuscular HGB Conc 30.3 g/dL (31.8-35.4); Mean Corpuscular Volume 85.8 fl (81-99); Mean Platelet Volume 7.6 fl (7.4-10.4); Monocytes # 0.5 K/mm3 (0.1-1.0); Monocytes % 5.1 % (1.7-9.3); Neutrophils # 6.2 K/mm3 (1.8-7.8); Neutrophils % 58.5 % (37.0-80.0); Platelet Count 610 K/mm3 (142-424); Red Blood Count 4.29 M/mm3 (4.20-5.40); Red Cell Distribution Width 15.3 % (11.5-17.5); White Blood Count 10.6 K/mm3 (4.8-10.8)
[2020-03-18 11:51] LABS: Chloride 105 mmol/L (98-107); Potassium 4.6 mmoL/L (3.5-5.1); Sodium 142 mmol/L (136-145)
[2020-03-18 11:54] LABS: Alanine Aminotransferase 19 U/L (12-78); Albumin Level 4.5 g/dl (3.5-5.0); Albumin/Globulin Ratio 1.7 (1.1-1.8); Alkaline Phosphatase 94 U/L (38-126); Anion Gap 16.6 mEq/L (5-15); Aspartate Amino Transferase 21 U/L (14-36); Bilirubin,Total 0.3 mg/dl (0.2-1.3); Blood Urea Nitrogen 21 mg/dl (7-17); Carbon Dioxide 25 mmol/L (22.0-30.0); Cholesterol 187 mg/dl (140-200); Estimated Glomerular Filt Rate 57 ml/min (>60); GFR (African American) 68 ML/MIN (>60); Globulin 2.7 g/dL (1.3-3.2); Total Protein,Serum 7.2 g/dl (6.3-8.2); Triglycerides 172 mg/dl (30-150); VLDL Cholesterol 34 mg/dL (0-40)
[2020-03-18 11:55] LABS: Calcium 10.1 mg/dl (8.4-10.2); Chol/HDL Ratio 3.2 (1-3.5); Glucose 152 mg/dl (74-100); HDL Cholesterol 58 mg/dl (40-60)
[2020-03-18 12:05] LABS: Direct LDL Cholesterol 98.01 mg/dL (100-129)
[2020-03-18 12:43] LABS: Hemoglobin A1C 6.7 % (4.0-6.0)
== END ==
PROVIDERS: Visit Provider Internal Medicine Adolescent Medicine
DX: I25.10 Atherosclerotic heart disease of native coronary artery without angina pectoris (principal); E11.9 Type 2 diabetes mellitus without complications; Z79.84 Long term (current) use of oral hypoglycemic drugs
CPT/HCPCS: 36415; 80053; 80061; 83036; 85025

== ENCOUNTER → 2020-03-21 09:20 | Outpatient (CLI) | payer OTHER, SELFPAY ==
--- NOTE | 2020-03-21 09:24 | MR_ITS ---
PROCEDURE: MR ANGIO HEAD WO CON CLINICAL INDICATION: DIZZINESS AFTER EXTENSION OF NECK HEADACHES, DIZZINESS, NAUSEA, EYE PAIN. SYMPTOMS X3-4 MONTHS. COMPARISON: No exams were available for comparison TECHNIQUE: 3D [id number] images performed without contrast with multi slab reformats FINDINGS: No evidence of dissection. There appears to be a small aneurysm projecting laterally the right internal carotid artery at the clinoid portion anteriorly. This measures approximately 2-3 mm and is directed laterally and posteriorly. A similar areas noted on the left within the cavernous portion of the left ICA projecting laterally at approximately 2 mm. The vertebral basilar system has an unremarkable appearance. No evidence ends. No major branch occlusive change. Single-shot MRV is unremarkable. IMPRESSION: There are suspected small bilateral internal carotid artery aneurysms at 2-[address] angiogram for confirmation. No evidence of dissection Dictated by: Tyree Vyas MD 03/22/2020 07:56 Tyree Vyas MD in [place] 03/22/2020 07:56
== END ==
PROVIDERS: PCP Internal Medicine Adolescent Medicine; Visit Provider Internal Medicine Adolescent Medicine
DX: R42 Dizziness and giddiness (principal)
CPT/HCPCS: 70544

== ENCOUNTER → 2020-03-27 10:36 | Outpatient (POV) | payer OTHER, SELFPAY ==
[2020-03-27 10:54] VITALS: BP 125/78; PULSE 85; RESP 18; TEMP 36.9; O2SAT 98; BMI 35.2
--- NOTE | 2020-03-27 14:24 | HMH.PAINSOAP ---
[facility] Pain Management SOAP Note Subjective:: Patient is a pleasant 59-year-old white female who presents today for follow-up after SI joint injection. Patient has no pain in her lower back anymore. Patient's only pain is in her thoracic spine. She rates it a 7 out of 10. Patient states that she is able to stand and walk for longer than she was prior to her Vertiflex procedure. Patient does have palpable trigger reported in her right trapezius muscle. We discussed adding a muscle relaxer on a as needed basis. She is agreeable. Patient states that she does not have any imaging of her thoracic spine. I discussed moving forward with getting updated imaging. ROS General: no recent weight change, no fever, no sleep disturbances Respiratory: no cough, no shortness of air, no recurring pulmonary infections Cardiovascular/Peripheral Vascular: No chest pain, No palpitations, no edema, no shortness of breath. Gastrointestinal: no new onset incontinence, normal bowel movements reported Genitourinary: no new onset incontinence Musculoskeletal: Thoracic back pain Psychiatric: normal mood/ affect Neurological: [denies new onset weakness in extremities], [denies new onset balance issues] Objective:: Physical Exam General: Alert and oriented x3, no acute distress, pleasant and cooperative, [on room air] Lungs: Resps E/U, Symmetrical chest expansion, Eyes: PERRL Musculoskeletal: Flexion and extension of lumbar and thoracic spine somewhat guarded secondary to pain, deep tendon reflexes normal, strength in upper and lower extremities [5/5], slightly antalgic gait noted Neurological: speech clear, burr picker equal, no gross sensory deficits Assessment:: Degenerative disc disease lumbar spine lumbar spinal stenosis and thoracic back pain. Plan:: Prescribe the patient tizanidine 4 mg 1 p.o. twice daily to help with her muscle spasms. Also set her up for a thoracic spine MRI. She has been instructed to call the office if she has any issues prior to her next appointment. I will follow-up with the patient after her MRI reassess her symptoms at that time she has been instructed to call the office if she has any issues prior to her next appointment. Dr. Yung has reviewed this note and agrees with this plan of care. This note was dictated using voice recognition software and may contain errors or omissions [facility] History I have reviewed the patient's past medical history: Yes Medical History: Reports:: Congestive Heart Failure, Chronic Obstructive Pulmonary Disease (COPD), Coronary Artery Disease, Diabetes Mellitus Type 2, Gastroesophageal Reflux Disease(GERD), Hyperlipidemia, Hypertension, Lung Disease, Myocardial Infarction Denies:: Cancer, Diabetes Mellitus Type 1, Internal Pacemaker, MRSA, Seizures *Have you ever received a pneumonia vaccine?: Yes *Have you received a flu vaccine this season?: Yes Other Medical History: Reports: Anemia, Unexplained Bleeding, Other. Denies: Blood Transfusion Reaction Laterality Cases: Bilateral: Other Other Surgeries: Yes: Angioplasty, Cardiac Catheterization, Cardiac Surgery, Cholecystectomy, Colonoscopy (x2), Colostomy, Coronary Stent, EGD, Tubal Ligation, Other. No: Pacemaker Amputation: No Fractures: No - *Social History Smoking Status: Current some day smoker Tobacco Type: cigarettes # Packs/Day (cigarettes): 1 #Yrs smoked (if former smoker): 45 Alcohol Intake: never Alcohol Intake Frequency:: other Substance Use Type: denies use *Occupational Status:: other Housing: house Household Members: spouse *Travel in the last 8 weeks: None Family Hx:: Cancer, Coronary Artery Disease
== END ==
PROVIDERS: PCP Internal Medicine Adolescent Medicine; Visit Provider Clinical Nurse Specialist Family Health
DX: M48.062 Spinal stenosis, lumbar region with neurogenic claudication (principal); M54.6 Pain in thoracic spine
CPT/HCPCS: 99212; G0463

== ENCOUNTER → 2020-03-29 07:42 | Outpatient (CLI) | payer OTHER, SELFPAY ==
--- NOTE | 2020-03-29 07:45 | MR_ITS ---
PROCEDURE: MR THORACIC SPINE WO CON CLINICAL INDICATION: BACK PAIN PT C/O BACK PAIN WITH NO KNOWN INJURY OR TRAUMA. PT STATES SHE WALKS HUNCHED OVER AND SHE HAS HAD SURGRY ON HER LOW BACK. PRIOR T-SPINE XRAYS DONE 01/02/2016. COMPARISON: CR TSP THORACIC SPINE-3V SWIMMERS from 01/02/2016 TECHNIQUE: Routine multiplanar multi echo sequences are performed without gadolinium enhancement. FINDINGS: There is normal alignment. On the sagittal images in the lower cervical spine there is bulging disc at C6-C7 and C7-T1. This is not imaged in the axial plane. No acute fracture or dislocation is evident. There is mild decrease in the disc space is within the thoracic spine consistent with mild degenerative disc disease. No acute fracture or dislocation is evident. There is mild bulging disc at T8-T9. There are small anterior osteophytes in the lower thoracic spine. Degenerative disc disease T11-T12 with mild wedging of T11 which appears chronic. There is a small right paracentral disc osteophyte complex with mild flattening of the anterior right aspect of the cord at this area. There is mild kyphosis at T11-T12. There is a small left paracentral disc protrusion at T12-L1 without impingement. IMPRESSION: 1. Mild multilevel thoracic spondylosis as detailed above with mild chronic wedging of T11. 2. Degenerative disc disease with small right paracentral disc osteophyte complex at T11-T12 and minimal flattening of the anterior right aspect of the cord 3. Small left paracentral disc protrusion at T12-L1 without impingement. 4. Mild bulging disc at C6-C7 and C7-T1 Dictated by: Tyree Vyas MD 04/01/2020 09:51 Tyree Vyas MD in [place] 04/01/2020 09:51
== END ==
PROVIDERS: PCP Internal Medicine Adolescent Medicine; Visit Provider Clinical Nurse Specialist Family Health
DX: M54.6 Pain in thoracic spine (principal)
CPT/HCPCS: 72146

== ENCOUNTER → 2020-04-02 13:00 | Outpatient (CLI) | payer OTHER, SELFPAY ==
[2020-04-02 13:57] LABS: Blood Urea Nitrogen 18 mg/dl (7-17); Estimated Glomerular Filt Rate 51 ml/min (>60); GFR (African American) 61 ML/MIN (>60)
== END ==
PROVIDERS: Visit Provider Internal Medicine Adolescent Medicine
DX: Z01.812 Encounter for preprocedural laboratory examination (principal); I65.23 Occlusion and stenosis of bilateral carotid arteries; I72.0 Aneurysm of carotid artery
CPT/HCPCS: 36415; 82565; 84520

== ENCOUNTER → 2020-04-03 10:33 | Outpatient (CLI) | payer OTHER, SELFPAY ==
--- NOTE | 2020-04-03 10:48 | CT_ITS ---
Procedure: CT ANGIO NECK CLINICAL HISTORY: CAROTIN STENOSIS,CAROTIN ARTERY ANEURYSM Headaches x4-5 months, was dizzy stopped lisinopril dizziness Used 100ml of isovue 370 and 40ml of saline COMPARISON: No exams were available for comparison TECHNIQUE: IV Contrast: 100ml Isovue 370 Axial images obtained with sagittal and coronal reformats. All CT scans at the facility use one or more dose reduction, viz: automated exposure control, ma/kV adjustment per patient size (including targeted exams where dose is matched to indication, i.e. head), or iterative reconstruction technique. FINDINGS: The aortic arch and great vessels have an unremarkable appearance. Right carotid: Fibrocalcific plaque is present at the distal common carotid with moderate stenosis of approximately 50 percent. The internal carotid has an unremarkable appearance. Left carotid: Small eccentric area of fibrocalcific plaque in the mid aspect of the left common carotid causing approximately 30 percent stenosis. Calcific plaque is present at the left carotid bulb with [id number] stenosis of approximately 40 percent. Calcific plaque is present in the proximal left ICA with 20 percent stenosis. The right vertebral has an unremarkable appearance. The left vertebral region aches from the aortic arch as a normal variant. No stenotic lesions are evident. No evidence of dissection or aneurysm is within the extracranial circulation. The thyroid gland is enlarged greater on the right at the isthmus. There is a 17 mm partially calcified nodule of the isthmus with peripheral coarse calcification. A 10 mm and a 9 mm partially calcified nodule noted of the right lobe of the thyroid gland. The trachea is slightly deviated toward the left. IMPRESSION: 1. Moderate stenosis of the distal right common carotid of 50 percent. 2. Mild to moderate stenosis of the left carotid bulb of 40 percent and 20 percent proximal left ICA stenosis. 3. Multinodular goiter Dictated by: Tyree Vyas MD 04/04/2020 09:52 Tyree Vyas MD in [facility] 04/04/2020 09:52
--- NOTE | 2020-04-03 11:52 | CT_ITS ---
Procedure: CT ANGIO HEAD CLINICAL HISTORY: CAROTID ARTERY ANEURYSM Headaches x4-5 months, dizziness, was dizzy stopped lisinopril Used 100ml of isovue 370 and 40ml saline COMPARISON: CT HDWO CT HEAD W/O CONTRAST from 03/06/2016 MR MR ANGIO HEAD WO CON from 03/21/[address] ANGIO NECK from 04/03/2020 TECHNIQUE: IV Contrast: 100ml Isovue 370 Axial images obtained with sagittal and coronal reformats. All CT scans at the facility use one or more dose reduction, viz: automated exposure control, ma/kV adjustment per patient size (including targeted exams where dose is matched to indication, i.e. head), or iterative reconstruction technique. FINDINGS: Atherosclerotic calcification involves the cavernous portion of both ICAs with approximately 50 percent stenosis the right ICA cavernous portion. Just distal to this area of stenosis in the right clinoid area there is some minimal protrusion the ICA laterally corresponding to the suspected small area of aneurysm on the MRA consistent with a small aneurysm pointing anterior laterally. The base of the aneurysm measures approximately 2.5 mm in witdh. On the left side calcific plaque is present within the cavernous portion of the ICA. There was a question of a small aneurysm at the clinoid portion on the left. This is related to an adjacent vessel and not an aneurysm. No definite aneurysm apparent. No AVM or dissection. The posterior fossa has an unremarkable appearance. No enhancing lesions are evident. Delayed images show no evidence of sinus thrombosis. IMPRESSION: 1. There does appear to be a small area of protrusion of the clinoid portion of the right ICA suggesting a small aneurysm at 2.5 mm in width projecting anteriorly and laterally best detected on series 2, image 398 and series 602, image 44. This may even be related to poststenotic dilatation as this is just distal to the ICA stenosis. Consider 3 to six-month follow-up to confirm short term stability. 2. Otherwise negative CT of the brain 3. Moderate atheromatous changes of the ICAs on both sides with up to 50 percent stenosis of the cavernous portion of the right ICA with some poststenotic dilatation the Dictated by: Tyree Vyas MD 04/04/2020 10:17 Tyree Vyas MD in [place] 04/04/2020 10:17
== END ==
PROVIDERS: PCP Internal Medicine Adolescent Medicine; Visit Provider Internal Medicine Adolescent Medicine
DX: I65.23 Occlusion and stenosis of bilateral carotid arteries (principal); I72.0 Aneurysm of carotid artery
CPT/HCPCS: 70496; 70498; Q9967

== ENCOUNTER → 2020-04-03 11:28 | Outpatient (POV) | payer OTHER, SELFPAY ==
[2020-04-03 11:31] VITALS: BP 133/79; PULSE 85; RESP 18; TEMP 36.6; O2SAT 98; BMI 35.2
--- NOTE | 2020-04-03 11:42 | HMH.PAINSOAP ---
[facility] Pain Management SOAP Note Subjective:: Patient is a pleasant 59-year-old white female who presents today for follow-up after thoracic MRI. The results of the MRI were gone over with the patient. She does have a T8-T9 mild bulging disc. Patient however at this time is doing extremely well with her muscle relaxers. She rates her pain a 2 out of 10 she is sleeping better. ROS General: no recent weight change, no fever, no sleep disturbances Respiratory: no cough, no shortness of air, no recurring pulmonary infections Cardiovascular/Peripheral Vascular: No chest pain, No palpitations, no edema, no shortness of breath. Gastrointestinal: no new onset incontinence, normal bowel movements reported Genitourinary: no new onset incontinence Musculoskeletal: Back pain Psychiatric: normal mood/ affect Neurological: [denies new onset weakness in extremities], [denies new onset balance issues] Objective:: Physical Exam General: Alert and oriented x3, no acute distress, pleasant and cooperative, [on room air] Lungs: Resps E/U, Symmetrical chest expansion, Eyes: PERRL Musculoskeletal: Flexion and extension of thoracic spine somewhat guarded secondary to pain, deep tendon reflexes normal, strength in upper and lower extremities [5/5], normal gait noted Neurological: speech clear, umbrella repairer 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 twice daily. We will see her back in 2 months reassess her symptoms at that time she has been instructed to call the office if she has any issues prior to her next appointment. Dr. Yung has reviewed this note and agrees with this plan of care. This note was dictated using voice recognition software and may contain errors or omissions [facility] History I have reviewed the patient's past medical history: Yes Medical History: Reports:: Congestive Heart Failure, Chronic Obstructive Pulmonary Disease (COPD), Coronary Artery Disease, Diabetes Mellitus Type 2, Gastroesophageal Reflux Disease(GERD), Hyperlipidemia, Hypertension, Lung Disease, Myocardial Infarction Denies:: Cancer, Diabetes Mellitus Type 1, Internal Pacemaker, MRSA, Seizures *Have you ever received a pneumonia vaccine?: Yes *Have you received a flu vaccine this season?: Yes Other Medical History: Reports: Anemia, Unexplained Bleeding, Other. Denies: Blood Transfusion Reaction Laterality Cases: Bilateral: Other Other Surgeries: Yes: Angioplasty, Cardiac Catheterization, Cardiac Surgery, Cholecystectomy, Colonoscopy (x2), Colostomy, Coronary Stent, EGD, Tubal Ligation, Other. No: Pacemaker Amputation: No Fractures: No - *Social History Smoking Status: Current some day smoker Tobacco Type: cigarettes # Packs/Day (cigarettes): 1 #Yrs smoked (if former smoker): 45 Alcohol Intake: never Alcohol Intake Frequency:: other Substance Use Type: denies use *Occupational Status:: other Housing: house Household Members: spouse *Travel in the last 8 weeks: None Family Hx:: Cancer, Coronary Artery Disease
== END ==
PROVIDERS: PCP Internal Medicine Adolescent Medicine; Visit Provider Clinical Nurse Specialist Family Health
DX: M51.14 Intervertebral disc disorders with radiculopathy, thoracic region (principal); M48.062 Spinal stenosis, lumbar region with neurogenic claudication
CPT/HCPCS: 99212; G0463

== ENCOUNTER → 2020-06-02 10:40 | Outpatient (POV) | payer OTHER, SELFPAY ==
[2020-06-02 10:56] VITALS: BP 142/78; PULSE 90; RESP 18; O2SAT 98; BMI 34.7
--- NOTE | 2020-06-02 11:07 | P.CONS_ITS ---
[facility] Pain Management SOAP Note Subjective:: Pleasant 59-year-old white female who presents today for follow-up. Patient is currently on tizanidine 4 mg 1 p.o. twice daily she states that this is very beneficial for her. He denies side effects from medication. She rates her pain a 5 out of 10 mostly in her left SI joint. Patient has had SI joint injections in the past with 80% relief for over 3 months. Her pain is beginning to return and she would like to repeat an SI joint injection on the left side. She has a positive Eliza test distraction test Gavin's test and SI joint compression test positive on the left side. ROS General: no recent weight change, no fever, no sleep disturbances Respiratory: no cough, no shortness of air, no recurring pulmonary infections Cardiovascular/Peripheral Vascular: No chest pain, No palpitations, no edema, no shortness of breath. Gastrointestinal: no new onset incontinence, normal bowel movements reported Genitourinary: no new onset incontinence Musculoskeletal: SI joint joint pain Psychiatric: normal mood/ affect, Neurological: [denies new onset weakness in extremities], [denies new onset balance issues] Objective:: Physical Exam General: Alert and oriented x3, no acute distress, pleasant and cooperative, [on room air] Lungs: Resps E/U, Symmetrical chest expansion, Eyes: PERRL Musculoskeletal: Flexion and extension of lumbar spine somewhat guarded secondary to pain, deep tendon reflexes normal, strength in upper and lower extremities [5/5], [abnormal gait noted] Neurological: 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 twice daily we will also set her up for left SI joint injection given her symptomology I do believe it would benefit her. She has been instructed to call the office if she has any issues prior to her next appointment. Dr. Yung has reviewed this note and agrees with this plan of care. This note was dictated using voice recognition software and may contain errors or omissions [facility] History I have reviewed the patient's past medical history: Yes Medical History: Reports:: Congestive Heart Failure, Chronic Obstructive Pulmonary Disease (COPD), Coronary Artery Disease, Diabetes Mellitus Type 2, Gastroesophageal Reflux Disease(GERD), Hyperlipidemia, Hypertension, Lung Disease, Myocardial Infarction Denies:: Cancer, Diabetes Mellitus Type 1, Internal Pacemaker, MRSA, Seizures *Have you ever received a pneumonia vaccine?: Yes *Have you received a flu vaccine this season?: Yes Other Medical History: Reports: Anemia, Unexplained Bleeding, Other. Denies: Blood Transfusion Reaction Laterality Cases: Bilateral: Other Other Surgeries: Yes: Angioplasty, Cardiac Catheterization, Cardiac Surgery, Cholecystectomy, Colonoscopy (x2), Colostomy, Coronary Stent, EGD, Tubal Ligation, Other. No: Pacemaker Amputation: No Fractures: No - *Social History Smoking Status: Current some day smoker Tobacco Type: cigarettes # Packs/Day (cigarettes): 1 #Yrs smoked (if former smoker): 45 Alcohol Intake: never Alcohol Intake Frequency:: other Substance Use Type: denies use *Occupational Status:: retired Housing: house Household Members: spouse *Travel in the last 8 weeks: None Family Hx:: Cancer, Coronary Artery Disease
== END ==
PROVIDERS: Visit Provider Clinical Nurse Specialist Family Health
DX: M46.1 Sacroiliitis, not elsewhere classified (principal); M51.14 Intervertebral disc disorders with radiculopathy, thoracic region
CPT/HCPCS: 99212; G0463

== ENCOUNTER 2020-06-06 13:46 | Day surgery (SDC) | payer OTHER, SELFPAY ==
[2020-06-06 13:49] VITALS: BP 171/69; PULSE 83; RESP 18; TEMP 35.9; O2SAT 97; BMI 34.7
[2020-06-06 14:09] VITALS: BP 132/85; PULSE 85; RESP 18; O2SAT 98
[2020-06-06 14:11] VITALS: BP 132/89; PULSE 89; RESP 18
--- NOTE | 2020-06-06 14:13 | P.PCN_ITS ---
- Procedure Date: 06/06/20 Time: 14:13 Anesthesiologist:: Case Yung MD Complications:: None Pre-procedure Diagnosis:: Sacroiliitis Post-procedure Diagnosis:: Same Indications for Procedure:: Patient is a pleasant 59-year-old white female who we are treating for left- sided hip pain. She has gotten relief from SI joint injections in the past. She did not get much relief from an epidural steroid injection. She is tender over the left SI joint. She has a positive Gavin's test on left side. She has positive SI joint compression test on the left side. She has a positive distraction test on the left side. We will do a left SI joint injection under fluoroscopy today to help with pain symptoms. Procedure Details:: Left SI joint injection under fluoroscopy Informed consent was obtained and the risks and benefits of the procedure was explained to the patient. Patient was taken to the procedure room. Patient was placed prone on the procedure table. The left hip was prepped using ChloraPrep. The skin and subcutaneous tissues were anesthetized using lidocaine. I placed a 22-gauge spinal needle into the inferior aspect of the left SI joint. Needle placement was confirmed with dye. After this we injected 5 mL bupivacaine 0.25% and Depo-Medrol 40 mg into the left SI joint. The patient tolerated the procedure well with no complication. Plan and Disposition:: We will follow-up with her in 2 weeks. Will reevaluate symptoms at that time.
[2020-06-06 14:30] VITALS: BP 140/78; PULSE 73; RESP 18; O2SAT 97
== END 2020-06-06 14:30 | disposition home or self-care (01) ==
LOC: SC.PAINP 13:47
PROVIDERS: PCP Internal Medicine Adolescent Medicine; Visit Provider Anesthesiology
DX: M46.1 Sacroiliitis, not elsewhere classified (principal); J44.9 Chronic obstructive pulmonary disease, unspecified; E11.9 Type 2 diabetes mellitus without complications; I50.9 Heart failure, unspecified; I25.10 Atherosclerotic heart disease of native coronary artery without angina pectoris; K21.9 Gastro-esophageal reflux disease without esophagitis; Z72.0 Tobacco use; I11.0 Hypertensive heart disease with heart failure; E78.5 Hyperlipidemia, unspecified; G43.909 Migraine, unspecified, not intractable, without status migrainosus; Z79.82 Long term (current) use of aspirin; Z79.899 Other long term (current) drug therapy
CPT/HCPCS: 27096; G0260; J1040; Q9966

== ENCOUNTER → 2020-07-03 12:59 | Outpatient (POV) | payer OTHER, SELFPAY ==
--- NOTE | 2020-07-03 13:20 | HMH.PAINSOAP ---
[facility] Pain Management SOAP Note Subjective:: Patient is a pleasant 59-year-old white female who presents today for follow-up after SI joint injection. Patient had good relief with her injection over 80%. Patient states that her pain is higher today due to the rain. Patient overall doing well. She like to follow-up on an as-needed basis. ROS General: no recent weight change, no fever, no sleep disturbances Respiratory: no cough, no shortness of air, no recurring pulmonary infections Cardiovascular/Peripheral Vascular: No chest pain, No palpitations, no edema, no shortness of breath. Gastrointestinal: no new onset incontinence, normal bowel movements reported Genitourinary: no new onset incontinence Musculoskeletal: Back pain, SI joint pain Psychiatric: normal mood/ affect Neurological: [denies new onset weakness in extremities], [denies new onset balance issues] Objective:: Physical Exam General: Alert and oriented x3, no acute distress, pleasant and cooperative, [on room air] Lungs: Resps E/U, Symmetrical chest expansion, Eyes: PERRL Musculoskeletal: Flexion and extension of lumbar spine somewhat guarded secondary to pain, deep tendon reflexes normal, strength in upper and lower extremities [5/5], antalgic gait noted Neurological: speech clear, caustic room operator 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 She is going to call our office when her pain begins to return. Dr. Yung has reviewed this note and agrees with this plan of care. This note was dictated using voice recognition software and may contain errors or omissions [facility] History I have reviewed the patient's past medical history: Yes Medical History: Reports:: Carotid Stenosis, Congestive Heart Failure, Chronic Obstructive Pulmonary Disease (COPD), Coronary Artery Disease, Diabetes Mellitus Type 2, Gastroesophageal Reflux Disease(GERD), Hyperlipidemia, Hypertension, Lung Disease, Myocardial Infarction Denies:: Cancer, Diabetes Mellitus Type 1, Internal Pacemaker, MRSA, Seizures *Have you ever received a pneumonia vaccine?: No *Have you received a flu vaccine this season?: No Other Medical History: Reports: Anemia, Unexplained Bleeding, Other. Denies: Blood Transfusion Reaction Laterality Cases: Bilateral: Other Other Surgeries: Yes: Angioplasty, Cardiac Catheterization, Cardiac Surgery, Cholecystectomy, Colonoscopy, Colostomy, Coronary Stent, EGD, Tubal Ligation, Other. No: Pacemaker Amputation: No Fractures: No - *Social History Smoking Status: Current every day smoker Tobacco Type: cigarettes # Packs/Day (cigarettes): 1 #Yrs smoked (if former smoker): 45 Alcohol Intake: never Alcohol Intake Frequency:: other Substance Use Type: denies use *Occupational Status:: unemployed Housing: house Household Members: spouse *Travel in the last 8 weeks: None Family Hx:: Cancer, Coronary Artery Disease
[2020-07-03 13:29] VITALS: BP 138/71; PULSE 83; RESP 18; O2SAT 98; BMI 34.7
== END ==
PROVIDERS: PCP Internal Medicine Adolescent Medicine; Visit Provider Clinical Nurse Specialist Family Health
DX: M46.1 Sacroiliitis, not elsewhere classified (principal)
CPT/HCPCS: 99212; G0463

== ENCOUNTER → 2020-07-17 11:26 | Outpatient (CLI) | payer OTHER, SELFPAY ==
[2020-07-17 12:09] LABS: Basophils # 0.1 K/mm3 (0-0.2); Basophils % 0.8 % (0.1-2.0); Eosinophils # 0.2 K/mm3 (0.0-0.4); Eosinophils % 1.4 % (0.1-12.0); Hematocrit 35.1 % (37.0-47.0); Hemoglobin 10.9 g/dL (12.2-16.2); Lymphocytes # 3.2 K/mm3 (0.7-4.5); Lymphocytes % 29.7 % (10-50); Mean Corpuscular HGB Conc 31.1 g/dL (31.8-35.4); Mean Corpuscular Hemoglobin 25.5 pg (27.0-31.2); Mean Corpuscular Volume 81.8 fl (81-99); Monocytes # 0.5 K/mm3 (0.1-1.0); Monocytes % 4.1 % (1.7-9.3); Neutrophils # 6.9 K/mm3 (1.8-7.8); Neutrophils % 63.9 % (37.0-80.0); Platelet Count 398 K/mm3 (142-424); Red Blood Count 4.29 M/mm3 (4.20-5.40); Red Cell Distribution Width 16.1 % (11.5-17.5); White Blood Count 10.7 K/mm3 (4.8-10.8)
[2020-07-17 12:35] LABS: Alanine Aminotransferase 22 U/L (12-78); Albumin Level 4.5 g/dl (3.5-5.0); Albumin/Globulin Ratio 1.8 (1.1-1.8); Alkaline Phosphatase 98 U/L (38-126); Anion Gap 13.8 mEq/L (5-15); Aspartate Amino Transferase 25 U/L (14-36); Bilirubin,Total 0.5 mg/dl (0.2-1.3); Blood Urea Nitrogen 17 mg/dl (7-17); Carbon Dioxide 26 mmol/L (22.0-30.0); Chloride 103 mmol/L (98-107); Chol/HDL Ratio 3.8 (1-3.5); Cholesterol 175 mg/dl (140-200); Estimated Glomerular Filt Rate 73 ml/min (>60); GFR (African American) 89 ML/MIN (>60); Globulin 2.5 g/dL (1.3-3.2); Glucose 121 mg/dl (74-100); HDL Cholesterol 46 mg/dl (40-60); Potassium 4.8 mmoL/L (3.5-5.1); Sodium 138 mmol/L (136-145); Triglycerides 224 mg/dl (30-150); VLDL Cholesterol 45 mg/dL (0-40)
[2020-07-17 12:46] LABS: Direct LDL Cholesterol 90.38 mg/dL (100-129)
[2020-07-17 13:24] LABS: Hemoglobin A1C 6.9 % (4.0-6.0)
== END ==
PROVIDERS: Visit Provider Internal Medicine Adolescent Medicine
DX: I10 Essential (primary) hypertension (principal); E78.5 Hyperlipidemia, unspecified; E11.9 Type 2 diabetes mellitus without complications; Z79.84 Long term (current) use of oral hypoglycemic drugs
CPT/HCPCS: 80053; 80061; 83036; 85025

== ENCOUNTER → 2020-08-14 12:40 | Outpatient (POV) | payer OTHER, SELFPAY ==
[2020-08-14 12:48] VITALS: BP 150/85; PULSE 80; RESP 18; O2SAT 95; BMI 35.5
--- NOTE | 2020-08-14 12:56 | HMH.PAINSOAP ---
[facility] Pain Management SOAP Note Subjective:: Patient is a 5-year-old white female who presents today for complaints of left low back pain with radiation into her left hip. Patient has undergone left SI joint injections in the past for which she gets up to 3 months of relief. She says after the injection she is more functional and able to do more activity without pain. Her pain is a 6 out of 10 today. Her pain is worse with standing and walking and improves with sitting. She has undergone physical therapy in the past for greater than 6 weeks and does continue with home stretching and anti-inflammatories. She has had a mild procedure in our clinic in the past as well. Review of Systems General: No recent weight changes, no fever, no sleep disturbances Respiratory: No cough, no shortness of air, no recurring pulmonary infections Cardiovascular/peripheral vascular: No chest pain, no palpitations, no edema, no shortness of breath Gastrointestinal: No new onset incontinence, normal bowel movements reported Genitourinary: No new onset incontinence Musculoskeletal: Left low back pain with radiation into left buttock Psychiatric: Normal mood/affect Neurological: [Denies weakness in extremities], [denies balance issues] Objective:: Physical exam General: Alert and oriented x3, no acute distress, pleasant and cooperative, [on room air] Lungs: Respirations even and unlabored, symmetrical chest expansion Eyes: PERRL Musculoskeletal: Flexion and extension of lumbar spine somewhat guarded secondary to pain, deep tendon reflexes normal, strength in upper and lower extremities [5/5], [abnormal gait noted], positive Gavin's test, positive distraction test, positive compression test Neurological: Speech clear, director telehealth equal, no gross sensory deficit Assessment:: Low back pain, sacroiliitis left Plan:: Patient is having tenderness noted over her left SI joint and left buttock today. She is positive for Gavin's, compression, distraction test on the left side. We will schedule her for a left SI joint injection. She has had these injections in the past and gets up to 80 to 90% relief for 3 months. We will follow-up with her after her injection for reevaluation of her symptoms. Risks and benefits of the procedure have been explained to the patient. Patient would like to proceed with the procedure. Patient has been instructed to contact the clinic with any concerns before the next appointment. Dr. Yung has reviewed this note and agrees with this plan of care. This note was dictated using voice recognition software and make contain errors or omissions. [facility] History I have reviewed the patient's past medical history: Yes Medical History: Reports:: Carotid Stenosis, Congestive Heart Failure, Chronic Obstructive Pulmonary Disease (COPD), Coronary Artery Disease, Diabetes Mellitus Type 2, Gastroesophageal Reflux Disease(GERD), Hyperlipidemia, Hypertension, Lung Disease, Myocardial Infarction Denies:: Cancer, Diabetes Mellitus Type 1, Internal Pacemaker, MRSA, Seizures *Have you ever received a pneumonia vaccine?: Yes *Have you received a flu vaccine this season?: Yes Other Medical History: Reports: Anemia, Unexplained Bleeding, Other. Denies: Blood Transfusion Reaction Laterality Cases: Bilateral: Other Other Surgeries: Yes: Angioplasty, Cardiac Catheterization, Cardiac Surgery, Cholecystectomy, Colonoscopy, Colostomy, Coronary Stent, EGD, Tubal Ligation, Other. No: Pacemaker Amputation: No Fractures: No - *Social History Smoking Status: Current every day smoker Tobacco Type: cigarettes # Packs/Day (cigarettes): 1 #Yrs smoked (if former smoker): 45 Alcohol Intake: never Alcohol Intake Frequency:: other Substance Use Type: denies use *Occupational Status:: unemployed Housing: house Household Members: spouse *Travel in the last 8 weeks: None Family Hx:: Cancer, Coronary Artery Disease
== END ==
PROVIDERS: Visit Provider Clinical Nurse Specialist Family Health
DX: M54.5 Low back pain (principal); M46.1 Sacroiliitis, not elsewhere classified
CPT/HCPCS: 99212; G0463

== ENCOUNTER 2020-08-22 10:30 | Day surgery (SDC) | payer OTHER, SELFPAY ==
[2020-08-22 10:54] VITALS: BP 174/77; PULSE 82; RESP 18; TEMP 36.7; O2SAT 97; BMI 35.5
[2020-08-22 11:36] VITALS: BP 199/99; PULSE 70; RESP 20; O2SAT 96
[2020-08-22 11:38] VITALS: BP 179/99; PULSE 80; RESP 20; O2SAT 98
[2020-08-22 15:24] VITALS: BP 172/85; PULSE 81; RESP 18; TEMP 36.7; O2SAT 97
--- NOTE | 2020-08-22 16:36 | P.PCN_ITS ---
- Procedure Date: 08/22/20 Time: 16:36 Anesthesiologist:: Octavia Seaman MD Complications:: None Pre-procedure Diagnosis:: Left-sided sacroiliitis, left sided hip pain Post-procedure Diagnosis:: Same Indications for Procedure:: This patient is a very pleasant 59-year-old female who presents today with left- sided low back pain and left-sided hip pain related to the above diagnosis. She has previously undergone his injections and notes significant pain relief and increased functionality. She has trialed conservative treatment including oral pain medications and physical therapy with minimal relief. Plan for today is for her to undergo repeat left-sided SI joint injections. Procedure Details:: Left SI joint injection under fluoroscopy Informed consent was obtained and the risks and benefits of the procedure was explained to the patient. Patient was taken to the procedure room. Patient was placed prone on the procedure table. The left hip was prepped using ChloraPrep. The skin and subcutaneous tissues were anesthetized using lidocaine. I placed a 22-gauge spinal needle into the inferior aspect of the left SI joint. Needle placement was confirmed with dye. After this we injected 5 mL bupivacaine 0.25% and Depo-Medrol 40 mg into the left SI joint. The patient tolerated the procedure well with no complication. Plan and Disposition:: Follow-up with the patient in 2 to 3 weeks. Will reevaluate pain symptoms at that time.
== END 2020-08-22 11:45 | disposition home or self-care (01) ==
LOC: SC.PAINP 10:31
PROVIDERS: PCP Internal Medicine Adolescent Medicine; Visit Provider Anesthesiology Pain Medicine
DX: M46.1 Sacroiliitis, not elsewhere classified (principal); E78.5 Hyperlipidemia, unspecified; I11.0 Hypertensive heart disease with heart failure; I50.9 Heart failure, unspecified; I25.10 Atherosclerotic heart disease of native coronary artery without angina pectoris; I25.2 Old myocardial infarction; J44.9 Chronic obstructive pulmonary disease, unspecified; E11.9 Type 2 diabetes mellitus without complications; K21.9 Gastro-esophageal reflux disease without esophagitis; D64.9 Anemia, unspecified; Z72.0 Tobacco use; Z79.899 Other long term (current) drug therapy
CPT/HCPCS: 27096; G0260; J1040; Q9966

== ENCOUNTER → 2020-09-18 09:34 | Outpatient (POV) | payer OTHER, SELFPAY ==
[2020-09-18 10:17] VITALS: BP 153/86; PULSE 78; RESP 18; O2SAT 96; BMI 35.5
--- NOTE | 2020-09-18 12:36 | P.CONS_ITS ---
[facility] Pain Management SOAP Note Subjective:: Patient is a 59-year-old white female who presents today for follow-up after a left SI joint injection. Patient says that she got up to 70% relief and is now at 3 out of 10 pain. She is continuing to get relief. Patient undergoes SI joint injections periodically, every 3 to 4 months and says that she gets excellent relief with the injections. She is much more functional and able to do more activity with less pain. Today her pain is a 3 out of 10. She is doing well overall. She is continue with home stretching and anti-inflammatories. Review of Systems General: No recent weight changes, no fever, no sleep disturbances Respiratory: No cough, no shortness of air, no recurring pulmonary infections Cardiovascular/peripheral vascular: No chest pain, no palpitations, no edema, no shortness of breath Gastrointestinal: No new onset incontinence, normal bowel movements reported Genitourinary: No new onset incontinence Musculoskeletal: Intermittent low back pain, intermittent left hip pain Psychiatric: Normal mood/affect Neurological: [Denies weakness in extremities], [denies balance issues] Objective:: Physical exam General: Alert and oriented x3, no acute distress, pleasant and cooperative, [on room air] Lungs: Respirations even and unlabored, symmetrical chest expansion Eyes: PERRL Musculoskeletal: Flexion and extension of [] lumbar spine somewhat guarded secondary to pain, deep tendon reflexes normal, strength in upper and lower extremities [5/5], [abnormal gait noted], positive Gavin's test today Neurological: Speech clear, 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 We will plan to follow-up with her in December for reevaluation of symptoms. She can contact clinic before then if she has any problems patient has been instructed to contact the clinic with any concerns before the next appointment. Dr. Yung has reviewed this note and agrees with this plan of care. This note was dictated using voice recognition software and make contain errors or omissions. [facility] History I have reviewed the patient's past medical history: Yes Medical History: Reports:: Carotid Stenosis, Congestive Heart Failure, Chronic Obstructive Pulmonary Disease (COPD), Coronary Artery Disease, Diabetes Mellitus Type 2, Gastroesophageal Reflux Disease(GERD), Hyperlipidemia, Hypertension, Lung Disease, Myocardial Infarction Denies:: Cancer, Diabetes Mellitus Type 1, Internal Pacemaker, MRSA, Seizures *Have you ever received a pneumonia vaccine?: Yes *Have you received a flu vaccine this season?: Yes Other Medical History: Reports: Anemia, Unexplained Bleeding, Other. Denies: Blood Transfusion Reaction Laterality Cases: Bilateral: Other Other Surgeries: Yes: Angioplasty, Cardiac Catheterization, Cardiac Surgery, Cholecystectomy, Colonoscopy, Colostomy, Coronary Stent, EGD, Tubal Ligation, Other. No: Pacemaker Amputation: No Fractures: No - *Social History Smoking Status: Current every day smoker Tobacco Type: cigarettes # Packs/Day (cigarettes): 1 #Yrs smoked (if former smoker): 45 Alcohol Intake: never Alcohol Intake Frequency:: other Substance Use Type: denies use *Occupational Status:: unemployed Housing: house Household Members: spouse *Travel in the last 8 weeks: None Family Hx:: Cancer, Coronary Artery Disease
== END ==
PROVIDERS: PCP Internal Medicine Adolescent Medicine; Visit Provider Clinical Nurse Specialist Family Health
DX: M46.1 Sacroiliitis, not elsewhere classified (principal)
CPT/HCPCS: 99212; G0463

== ENCOUNTER → 2020-11-17 10:45 | Outpatient (CLI) | payer OTHER, SELFPAY ==
[2020-11-17 11:18] LABS: Basophils # 0.1 K/mm3 (0-0.2); Basophils % 0.8 % (0.1-2.0); Eosinophils # 0.2 K/mm3 (0.0-0.4); Eosinophils % 1.6 % (0.1-12.0); Hematocrit 35.5 % (37.0-47.0); Hemoglobin 11.2 g/dL (12.2-16.2); Lymphocytes % 33.8 % (10-50); Mean Corpuscular HGB Conc 31.5 g/dL (31.8-35.4); Mean Corpuscular Hemoglobin 26.9 pg (27.0-31.2); Mean Corpuscular Volume 85.4 fl (81-99); Mean Platelet Volume 7.8 fl (7.4-10.4); Monocytes # 0.5 K/mm3 (0.1-1.0); Monocytes % 5.1 % (1.7-9.3); Neutrophils # 5.2 K/mm3 (1.8-7.8); Neutrophils % 58.6 % (37.0-80.0); Platelet Count 364 K/mm3 (142-424); Red Blood Count 4.16 M/mm3 (4.20-5.40); Red Cell Distribution Width 15.7 % (11.5-17.5); White Blood Count 8.9 K/mm3 (4.8-10.8)
[2020-11-17 12:08] LABS: Hemoglobin A1C 7.6 % (4.0-6.0)
[2020-11-17 12:25] LABS: Alanine Aminotransferase 22 U/L (12-78); Albumin Level 4.1 g/dl (3.5-5.0); Albumin/Globulin Ratio 1.6 (1.1-1.8); Alkaline Phosphatase 102 U/L (38-126); Anion Gap 15.9 mEq/L (5-15); Aspartate Amino Transferase 22 U/L (14-36); Bilirubin,Total 0.3 mg/dl (0.2-1.3); Blood Urea Nitrogen 20 mg/dl (7-17); Calcium 9.4 mg/dl (8.4-10.2); Carbon Dioxide 25 mmol/L (22.0-30.0); Chloride 104 mmol/L (98-107); Chol/HDL Ratio 3.7 (1-3.5); Cholesterol 161 mg/dl (140-200); Estimated Glomerular Filt Rate 64 ml/min (>60); GFR (African American) 77 ML/MIN (>60); Globulin 2.6 g/dL (1.3-3.2); Glucose 144 mg/dl (74-100); HDL Cholesterol 44 mg/dl (40-60); Potassium 4.9 mmoL/L (3.5-5.1); Sodium 140 mmol/L (136-145); Total Protein,Serum 6.7 g/dl (6.3-8.2); Triglycerides 193 mg/dl (30-150); VLDL Cholesterol 39 mg/dL (0-40)
== END ==
PROVIDERS: Visit Provider Internal Medicine Adolescent Medicine
DX: I25.10 Atherosclerotic heart disease of native coronary artery without angina pectoris (principal); E11.9 Type 2 diabetes mellitus without complications; Z79.84 Long term (current) use of oral hypoglycemic drugs
CPT/HCPCS: 36415; 80053; 80061; 83036; 85025

== ENCOUNTER → 2020-12-25 08:29 | Outpatient (POV) | payer OTHER, SELFPAY ==
[2020-12-25 08:35] VITALS: RESP 18; BMI 34.7
--- NOTE | 2020-12-25 09:14 | P.CONS_ITS ---
[facility] Pain Management SOAP Note Subjective:: Patient is a 60-year-old white female who presents today for follow-up. Patient was seen on 09/18/2020 for follow-up after left SI joint injection. Patient reports that she got excellent relief with the injection and is continuing to get relief. She does rate her pain a 1 out of 10. Overall she is doing well. She reports she recently got a puppy and is much more active since getting her new pet. She says that she feels this is also contributing to alleviation of pain. Review of Systems General: No recent weight changes, no fever, no sleep disturbances Respiratory: No cough, no shortness of air, no recurring pulmonary infections Cardiovascular/peripheral vascular: No chest pain, no palpitations, no edema, no shortness of breath Gastrointestinal: No new onset incontinence, normal bowel movements reported Genitourinary: No new onset incontinence Musculoskeletal: No pain at this time Psychiatric: [Normal mood/affect] Neurological: [Denies weakness in extremities], [denies balance issues] Objective:: Physical exam General: Alert and oriented x3, no acute distress, pleasant and cooperative Lungs: Respirations even and unlabored, symmetrical chest expansion Eyes: PERRL Musculoskeletal: Flexion and extension of [] [spine] nonguarded normal gait noted Neurological: Speech clear, no gross sensory deficit Assessment:: Sacroiliitis left Plan:: Patient is doing well overall. She has no pain today. We will plan to follow- up with her as needed if the pain does return. Patient has been instructed to contact the clinic with any concerns before the next appointment. Dr. Yung has reviewed this note and agrees with this plan of care. This note was dictated using voice recognition software and make contain errors or omissions. [facility] History I have reviewed the patient's past medical history: Yes Medical History: Reports:: Carotid Stenosis, Congestive Heart Failure, Chronic Obstructive Pulmonary Disease (COPD), Coronary Artery Disease, Diabetes Mellitus Type 2, Gastroesophageal Reflux Disease(GERD), Hyperlipidemia, Hypertension, Lung Disease, Myocardial Infarction Denies:: Cancer, Diabetes Mellitus Type 1, Internal Pacemaker, MRSA, Seizures *Have you ever received a pneumonia vaccine?: Yes *Have you received a flu vaccine this season?: Yes Other Medical History: Reports: Anemia, Unexplained Bleeding, Other. Denies: Blood Transfusion Reaction Laterality Cases: Bilateral: Other Other Surgeries: Yes: Angioplasty, Cardiac Catheterization, Cardiac Surgery, Cholecystectomy, Colonoscopy, Colostomy, Coronary Stent, EGD, Tubal Ligation, Other. No: Pacemaker Amputation: No Fractures: No - *Social History Smoking Status: Current every day smoker Tobacco Type: cigarettes # Packs/Day (cigarettes): 1 #Yrs smoked (if former smoker): 45 Alcohol Intake: never Alcohol Intake Frequency:: other Substance Use Type: denies use *Occupational Status:: unemployed Housing: house Household Members: spouse *Travel in the last 8 weeks: None Family Hx:: Cancer, Coronary Artery Disease
== END ==
PROVIDERS: Visit Provider Clinical Nurse Specialist Family Health
DX: M46.1 Sacroiliitis, not elsewhere classified (principal)
CPT/HCPCS: 99212; G0463

== ENCOUNTER → 2021-01-01 12:57 | Outpatient (CLI) | payer OTHER, SELFPAY ==
--- NOTE | 2021-01-01 13:00 | XR_ITS ---
PROCEDURE: XR KNEE RT 3V CLINICAL INDICATION: RT KNEE PAIN COMPARISON: No exams were available for comparison FINDINGS: No fracture or dislocation. No lytic or blastic change. There is normal mineralization. The joint spaces are well-preserved. No significant degenerative/arthritic changes. No erosive changes evident. Other findings:None. IMPRESSION: No acute findings. Dictated by: Dr. Carter Nixon MD 01/02/2021 10:26 Dr. Carter Nixon MD in [place] 01/02/2021 10:26
== END ==
PROVIDERS: PCP Internal Medicine Adolescent Medicine; Visit Provider Internal Medicine Adolescent Medicine
DX: M25.561 Pain in right knee (principal)
CPT/HCPCS: 73562

== ENCOUNTER → 2021-02-09 10:01 | Outpatient (POV) | payer OTHER, SELFPAY ==
[2021-02-09 10:09] VITALS: BP 171/75; PULSE 83; RESP 18; O2SAT 98; BMI 34.7
--- NOTE | 2021-02-09 10:24 | HMH.PAINSOAP ---
[facility] Pain Management SOAP Note Subjective:: Patient is a 60-year-old white female who presents today for follow-up. The patient is here today with complaints of bilateral knee pain. She says that the pain is worse with standing and walkin and does not improve with sitting. She did undergo a left SI joint injection for which she got up to 100% relief with Dr. Seaman. Patient states her pain is primarily in her bilateral knees. Dr. García did send the patient for x-rays bilateral knees. She is here today to discuss options for treatment. She has tried diclofenac gel which is given minimal relief. She has also tried oral medications with minimal relief. The patient says that she is also having swelling to bilateral knees. She does have cramping behind both knees. She has tried physical therapy in the past as well as continued home stretching. She is not interested in corticosteroid injections. She is not interested and blocks or RFA at this time. Patient says that she would like to have the pain only without injective therapy. She does rate her pain an 8 out of 10. The pain is worse to the right knee today. Review of Systems General: No recent weight changes, no fever, no sleep disturbances Respiratory: No cough, no shortness of air, no recurring pulmonary infections Cardiovascular/peripheral vascular: No chest pain, no palpitations, no edema, no shortness of breath Gastrointestinal: No new onset incontinence, normal bowel movements reported Genitourinary: No new onset incontinence Musculoskeletal: Bilateral knee pain Psychiatric: [Normal mood/affect] Neurological: [Denies weakness in extremities], [denies balance issues] Objective:: Physical exam General: Alert and oriented x3, no acute distress, pleasant and cooperative Lungs: Respirations even and unlabored, symmetrical chest expansion Eyes: PERRL Musculoskeletal: Flexion and extension of bilateral lower extremities somewhat guarded secondary to pain, [antalgic gait noted], generalized edema noted bilateral knees Neurological: Speech clear, no gross sensory deficit Assessment:: Bilateral knee pain Plan:: The patient is here today for bilateral knee pain. She did have imaging that was ordered by Dr. Gagnon. X-rays bilateral knees are unremarkable per the report. We did discuss injective therapy, but patient is not interested in injections at this time. She would like referral to orthopedics for further evaluation. We discussed compounding cream as well. Patient will contact the clinic if she does decide to have compounding cream ordered for her. We will refer the patient to orthopedics with Dr. May for further work-up bilateral knee pain. We will follow-up with her after that appointment to discuss further plan of care if warranted. Patient has been instructed to contact the clinic with any concerns before the next appointment. Dr. Yung has reviewed this note and agrees with this plan of care. This note was dictated using voice recognition software and make contain errors or omissions. [facility] History I have reviewed the patient's past medical history: Yes Medical History: Reports:: Carotid Stenosis, Congestive Heart Failure, Chronic Obstructive Pulmonary Disease (COPD), Coronary Artery Disease, Diabetes Mellitus Type 2, Gastroesophageal Reflux Disease(GERD), Hyperlipidemia, Hypertension, Lung Disease, Myocardial Infarction Denies:: Cancer, Diabetes Mellitus Type 1, Internal Pacemaker, MRSA, Seizures *Have you ever received a pneumonia vaccine?: Yes *Have you received a flu vaccine this season?: Yes Other Medical History: Reports: Anemia, Unexplained Bleeding, Other. Denies: Blood Transfusion Reaction Laterality Cases: Bilateral: Other Other Surgeries: Yes: Angioplasty, Cardiac Catheterization, Cardiac Surgery, Cholecystectomy, Colonoscopy, Colostomy, Coronary Stent, EGD, Tubal Ligation, Other. No: Pacemaker Amputation: No Fractures: No - *Social Hist
== END ==
PROVIDERS: Visit Provider Clinical Nurse Specialist Family Health
DX: M25.561 Pain in right knee (principal); M25.562 Pain in left knee
CPT/HCPCS: 99212; G0463

== ENCOUNTER → 2021-03-25 17:20 | Outpatient (CLI) | payer OTHER, SELFPAY ==
[2021-03-25 18:43] LABS: Basophils # 0.1 K/mm3 (0-0.2); Basophils % 0.8 % (0.1-2.0); Eosinophils # 0.1 K/mm3 (0.0-0.4); Eosinophils % 1.2 % (0.1-12.0); Hematocrit 35.2 % (37.0-47.0); Hemoglobin 11.4 g/dL (12.2-16.2); Lymphocytes # 3.1 K/mm3 (0.7-4.5); Lymphocytes % 30.6 % (10-50); Mean Corpuscular HGB Conc 32.4 g/dL (31.8-35.4); Mean Corpuscular Hemoglobin 26.9 pg (27.0-31.2); Mean Corpuscular Volume 82.8 fl (81-99); Mean Platelet Volume 8.6 fl (7.4-10.4); Monocytes # 0.5 K/mm3 (0.1-1.0); Neutrophils # 6.4 K/mm3 (1.8-7.8); Neutrophils % 62.4 % (37.0-80.0); Platelet Count 385 K/mm3 (142-424); Red Blood Count 4.25 M/mm3 (4.20-5.40); Red Cell Distribution Width 16.4 % (11.5-17.5); White Blood Count 10.2 K/mm3 (4.8-10.8)
[2021-03-25 19:09] LABS: Hemoglobin A1C 6.6 % (4.0-6.0)
[2021-03-25 19:46] LABS: Alanine Aminotransferase 18 U/L (12-78); Albumin Level 4.4 g/dl (3.5-5.0); Albumin/Globulin Ratio 1.7 (1.1-1.8); Alkaline Phosphatase 111 U/L (38-126); Aspartate Amino Transferase 24 U/L (14-36); Bilirubin,Total 0.3 mg/dl (0.2-1.3); Blood Urea Nitrogen 16 mg/dl (7-17); Calcium 9.8 mg/dl (8.4-10.2); Carbon Dioxide 24 mmol/L (22.0-30.0); Chloride 102 mmol/L (98-107); Chol/HDL Ratio 3.4 (1-3.5); Cholesterol 168 mg/dl (140-200); Estimated Glomerular Filt Rate 56 ml/min (>60); GFR (African American) 68 ML/MIN (>60); Globulin 2.6 g/dL (1.3-3.2); Glucose 105 mg/dl (74-100); HDL Cholesterol 50 mg/dl (40-60); Sodium 136 mmol/L (136-145); Triglycerides 199 mg/dl (30-150); VLDL Cholesterol 40 mg/dL (0-40)
[2021-03-25 19:57] LABS: Direct LDL Cholesterol 91.66 mg/dL (100-129)
[2021-03-25 20:14] LABS: Anion Gap 14.4 mEq/L (5-15); Potassium 4.4 mmoL/L (3.5-5.1)
== END ==
PROVIDERS: Visit Provider Internal Medicine Adolescent Medicine
DX: I25.10 Atherosclerotic heart disease of native coronary artery without angina pectoris (principal); E11.9 Type 2 diabetes mellitus without complications; Z79.84 Long term (current) use of oral hypoglycemic drugs
CPT/HCPCS: 36415; 80053; 80061; 83036; 85025

== ENCOUNTER → 2021-04-01 09:07 | Outpatient (CLI) | payer OTHER, SELFPAY ==
--- NOTE | 2021-04-01 09:11 | XR_ITS ---
FINAL REPORT CLINICAL HISTORY: right knee pain FINDINGS: RIGHT KNEE 4 views of the right knee obtained. There is no acute fracture or dislocation. The joint spaces are intact.. There is no soft tissue abnormality. IMPRESSION: No acute fracture Reviewed, Interpreted and Dictated by Dillan Fuentes MD Transcribed by Ivette Valadez Authenticated by Dillan Fuentes MD on 04/01/2021 10:40:25 AM [facility]
--- NOTE | 2021-04-01 09:11 | XR_ITS ---
FINAL REPORT CLINICAL HISTORY: LEFT KNEE PAIN FINDINGS: LEFT KNEE 4 views of the left knee obtained. There is no acute fracture or dislocation. The joint spaces are intact. There are some osteophytes along the undersurface of the patella. There is moderate vascular calcification. IMPRESSION: No acute process. Reviewed, Interpreted and Dictated by Dillan Fuentes MD Transcribed by Ivette Valadez Authenticated by Dillan Fuentes MD on 04/01/2021 10:40:22 AM [facility]
== END ==
PROVIDERS: PCP Internal Medicine Adolescent Medicine; Visit Provider Orthopaedic Surgery
DX: M25.562 Pain in left knee (principal); M25.561 Pain in right knee
CPT/HCPCS: 73564

== ENCOUNTER → 2021-05-11 09:54 | Outpatient (POV) | payer OTHER, SELFPAY ==
[2021-05-11 10:42] VITALS: BP 148/75; PULSE 87; RESP 20; TEMP 36.6; O2SAT 96; BMI 34.5
--- NOTE | 2021-05-11 11:11 | HMH.PAINSOAP ---
[facility] Pain Management SOAP Note Subjective:: Patient is a pleasant 60-year-old female who comes in here today for follow-up. We are currently treating this patient for left sacroiliitis. Patient had an SI injection 6 months ago that provided her significant relief of about 100%. Today, she is complaining that this pain is back and would like to schedule another left SI injection. She describes her pain to be constant on the left side that radiates to her left leg and does not cross her left knee. She denies any recent traumas or falls. Additionally, patient also has bilateral knee pain. She is not interested in doing any injections or any interventional pain management on these knees at the moment. She is currently taking gabapentin 100 mg 4 times a day that is prescribed by Dr. García. Rates her pain as 6 out of 10. [facility] #[id number] with a morphine equivalent of 0 has been reviewed and appropriate. Review of Systems General: No recent weight changes, no fever, no sleep disturbances Respiratory: No cough, no shortness of air, no recurring pulmonary infections Cardiovascular/peripheral vascular: No chest pain, no palpitations, no edema, no shortness of breath Gastrointestinal: No new onset incontinence, normal bowel movements reported Genitourinary: No new onset incontinence Musculoskeletal: Left hip pain, bilateral knee pain Psychiatric: [Normal mood/affect] Neurological: [Denies weakness in extremities], [denies balance issues] Objective:: Physical exam General: Alert and oriented x3, no acute distress, pleasant and cooperative Lungs: Respirations even and unlabored, symmetrical chest expansion Eyes: PERRL Musculoskeletal: Left hip has positive Gavin, Manohar's, compression, and distraction Neurological: Speech clear, no gross sensory deficit Assessment:: Left sacroiliitis Left greater trochanteric bursitis Plan:: Patient has had a left SI injection 6 months ago that provided 100% of relief. She has tried and failed conservative therapy such as oral medication, physical therapy, and at home exercise program in 6 weeks. We will schedule the patient for a left SI injection and left greater trochanteric bursa injection. Risk and benefits of these procedures have been discussed with the patient. Patient would like to proceed with the procedure. Patient has been instructed to contact the clinic with any concerns before the next appointment. This note was dictated using voice recognition software and may contain errors or omissions. [facility] History Medical History: Reports:: Carotid Stenosis, Congestive Heart Failure, Chronic Obstructive Pulmonary Disease (COPD), Coronary Artery Disease, Diabetes Mellitus Type 2, Gastroesophageal Reflux Disease(GERD), Hyperlipidemia, Hypertension, Lung Disease, Myocardial Infarction Denies:: Cancer, Diabetes Mellitus Type 1, Internal Pacemaker, MRSA, Seizures *Have you ever received a pneumonia vaccine?: Yes *Have you received a flu vaccine this season?: Yes Other Medical History: Reports: Anemia, Unexplained Bleeding, Other. Denies: Blood Transfusion Reaction Laterality Cases: Bilateral: Other Other Surgeries: Yes: Angioplasty, Cardiac Catheterization, Cardiac Surgery, Cholecystectomy, Colonoscopy, Colostomy, Coronary Stent, EGD, Tubal Ligation, Other. No: Pacemaker Amputation: No Fractures: No - *Social History Smoking Status: Current every day smoker Tobacco Type: cigarettes # Packs/Day (cigarettes): 1 #Yrs smoked (if former smoker): 45 Alcohol Intake: never Alcohol Intake Frequency:: other Substance Use Type: denies use *Occupational Status:: other Housing: house Household Members: spouse *Travel in the last 8 weeks: None Family Hx:: Cancer, Coronary Artery Disease
== END ==
PROVIDERS: Visit Provider Student in an Organized Health Care Education/Training Program
DX: M46.1 Sacroiliitis, not elsewhere classified (principal); M70.62 Trochanteric bursitis, left hip
CPT/HCPCS: 99212; G0463

== ENCOUNTER 2021-05-22 09:41 | Day surgery (SDC) | payer OTHER, SELFPAY ==
[2021-05-22 09:51] VITALS: BP 130/73; BP 139/83; BP 154/70; PULSE 81; PULSE 89; PULSE 92; RESP 18; RESP 20; TEMP 36.4; O2SAT 96; O2SAT 98
[2021-05-22 10:22] VITALS: BP 149/71; PULSE 78; RESP 20; O2SAT 95
--- NOTE | 2021-05-22 10:22 | HMH.PMPROC ---
- Procedure Date: 05/22/21 Time: 10:22 Anesthesiologist:: Case Yung MD Complications:: None Pre-procedure Diagnosis:: Sacroiliitis Post-procedure Diagnosis:: Same Indications for Procedure:: Patient is a pleasant 60-year-old white female who we have been treating for sacroiliitis. She is tender over the left SI joint. She gets about 90 to 100% relief after these injections for 4 to 6 months. Her last injection was approximately 6 months ago. Pain is just now starting to return. We will plan on a repeat left SI joint injection under fluoroscopy today. Procedure Details:: Left SI joint injection under fluoroscopy Informed consent was obtained and the risks and benefits of the procedure was explained to the patient. Patient was taken to the procedure room. Patient was placed prone on the procedure table. The left hip was prepped using ChloraPrep. The skin and subcutaneous tissues were anesthetized using lidocaine. I placed a 22-gauge spinal needle into the inferior aspect of the left SI joint. Needle placement was confirmed with dye. After this we injected 5 mL bupivacaine 0.25% and Depo-Medrol 40 mg into the left SI joint. The patient tolerated the procedure well with no complication. Plan and Disposition:: We will follow-up with her in 2 weeks. Will reevaluate symptoms at that time.
== END 2021-05-22 10:23 | disposition home or self-care (01) ==
LOC: SC.PAINP 09:41
PROVIDERS: PCP Internal Medicine Adolescent Medicine; Visit Provider Anesthesiology
DX: M46.1 Sacroiliitis, not elsewhere classified (principal); M70.62 Trochanteric bursitis, left hip; I65.29 Occlusion and stenosis of unspecified carotid artery; J44.9 Chronic obstructive pulmonary disease, unspecified; I25.10 Atherosclerotic heart disease of native coronary artery without angina pectoris; E11.9 Type 2 diabetes mellitus without complications; K21.9 Gastro-esophageal reflux disease without esophagitis; E78.5 Hyperlipidemia, unspecified; I11.0 Hypertensive heart disease with heart failure; I50.9 Heart failure, unspecified; I25.2 Old myocardial infarction; D64.9 Anemia, unspecified; Z72.0 Tobacco use
CPT/HCPCS: 27096; G0260; J1040; Q9966

== ENCOUNTER → 2021-06-18 09:47 | Outpatient (POV) | payer OTHER, SELFPAY ==
[2021-06-18 09:54] VITALS: BP 148/60; PULSE 84; RESP 18; TEMP 36.2; O2SAT 96; BMI 35.5
--- NOTE | 2021-06-18 10:35 | HMH.PAINSOAP ---
[facility] Pain Management SOAP Note Subjective:: Patient is a pleasant 60-year-old female who presents today for follow-up after a left SI injection on May 22, 2021. Patient is currently being treated for sacroiliitis. After the procedure, patient had minimal relief. She rates her pain today 7 out of 10. Patient states that lumbar flexion and standing for long periods of time makes her pain worse. We previously have tried left SI injection with this patient that lasted her 6 months. She had 90-100% relief at that time. She is also taking gabapentin 100 mg 4 times a day that is prescribed by Dr. Gagnon. Denies any recent falls or traumas. [facility] #[id number] with an active morphine equivalent of 0. Review of Systems: General: No recent weight changes, no fever, no sleep disturbances Respiratory: No cough, no shortness of air, no recurring pulmonary infections Cardiovascular/peripheral vascular: No chest pain, no palpitations, no edema, no shortness of breath Gastrointestinal: No new onset incontinence, normal bowel movements reported Genitourinary: No new onset incontinence Musculoskeletal: Low back pain Psychiatric: [Normal mood/affect] Neurological: [Denies weakness in extremities], [denies balance issues] Objective:: Physical Exam: General: Alert and oriented x3, no acute distress, pleasant and cooperative, [on room air] Lungs: Respirations even and unlabored, symmetrical chest expansion Eyes: PERRL Musculoskeletal: Flexion and extension of lumbar [spine] somewhat guarded secondary to pain, [antalgic gait noted]; left SI is positive for CLARIBEL, Manohar's, Blanco's, Gaenslen's, compression, and distraction. Neurological: Speech clear, no gross sensory deficit Assessment:: Left sacroiliitis Degenerative disc disease of lumbar spine Facet arthropathy Lumbar spondylosis Plan:: Patient had temporary relief after the injection. Patient previously had significant relief after her left SI injection. Patient has tried and failed other conservative therapy such as physical therapy and at home exercise return in 6 weeks. We will schedule the patient for a left SI injection. Risks and benefits of the procedure have been explained to the patient. Patient would like to proceed with the procedure. If the patient gets temporary relief from this injection, we will consider repeating her MRI lumbar. Her previous MRI shows moderate to severe facet arthropathy at L3-L4 and L4-L5. She states that she had epidural injections before that did not provide any relief. Patient has been instructed to contact the clinic with any concerns before the next appointment. Dr. Yung has reviewed this note and agrees with this plan of care. This note was dictated using voice recognition software and make contain errors or omissions. [facility] History Medical History: Reports:: Carotid Stenosis, Congestive Heart Failure, Chronic Obstructive Pulmonary Disease (COPD), Coronary Artery Disease, Diabetes Mellitus Type 2, Gastroesophageal Reflux Disease(GERD), Hyperlipidemia, Hypertension, Lung Disease, Myocardial Infarction Denies:: Cancer, Diabetes Mellitus Type 1, Internal Pacemaker, MRSA, Seizures *Have you ever received a pneumonia vaccine?: Yes *Have you received a flu vaccine this season?: Yes Other Medical History: Reports: Anemia, Arthritis, Unexplained Bleeding, Other. Denies: Blood Transfusion Reaction Laterality Cases: Bilateral: Other Other Surgeries: Yes: Angioplasty, Cardiac Catheterization, Cardiac Surgery, Cholecystectomy, Colonoscopy, Colostomy, Coronary Stent, EGD, Tubal Ligation, Other. No: Pacemaker Amputation: No Fractures: No - *Social History Smoking Status: Current every day smoker Tobacco Type: cigarettes # Packs/Day (cigarettes): 1 #Yrs smoked (if former smoker): 45 Alcohol Intake: never Alcohol Intake Frequency:: other Substance Use Type: denies use *Occupational Status:: unemployed Housing: house Household Members: spouse *Travel in t
== END ==
PROVIDERS: Visit Provider Student in an Organized Health Care Education/Training Program
DX: M46.1 Sacroiliitis, not elsewhere classified (principal); M51.36 Other intervertebral disc degeneration, lumbar region; M54.06 Panniculitis affecting regions of neck and back, lumbar region; M47.816 Spondylosis without myelopathy or radiculopathy, lumbar region
CPT/HCPCS: 99212; G0463

== ENCOUNTER 2021-06-26 08:55 | Day surgery (SDC) | payer OTHER, SELFPAY ==
[2021-06-26 09:07] VITALS: BP 173/66; PULSE 79; RESP 22; TEMP 36.5; O2SAT 98; BMI 35.5
[2021-06-26 09:19] VITALS: BP 196/85; PULSE 95; RESP 18; O2SAT 98
[2021-06-26 09:20] VITALS: BP 187/70; PULSE 90; RESP 18; O2SAT 99
[2021-06-26 09:27] VITALS: BP 161/79; PULSE 73; RESP 20; O2SAT 97
--- NOTE | 2021-06-26 09:32 | P.PCN_ITS ---
- Procedure Date: 06/26/21 Time: 09:33 Anesthesiologist:: Low Guadalupe CRNA Complications:: None Pre-procedure Diagnosis:: Left sacroiliitis Post-procedure Diagnosis:: Same Indications for Procedure:: Patient is a 60-year-old white female that we have been treating for quite some time in our clinic for different issues. Today she presents for left SI joint injection. She is responded very well to the SI joint injection in the past. Procedure Details:: Procedure: Left sacroiliac injection under fluoroscopy Informed consent was obtained and the risk and benefits of the procedure were explained to the patient.~ The patient was taken to the procedure room and noninvasive monitors were placed including noninvasive blood pressure cuff and pulse oximeter.~ The patient was placed prone on the procedure table.~ The~ left hip was cleansed using Chlorhexidine as a cleansing solution.~ C-arm fluorosocpy was used to view the left SI joint.~ The skin and subcutaneous tissues were anesthetized using Lidocaine 1.5% and a 25-gauge needle.~ After this, a 22-gauge spinal needle was inserted under fluoroscopic guidance into the inferior aspect of the left SI joint.~After this, approximately 5 mL of bupivacaine 0.25% and Depo-Medrol 40 mg was incrementally injected into the sacroiliac joint.~ The patient tolerated the procedure well with no complications.~ The patient was observed in the Pain Clinic for a period of 30-45 minutes, then discharged home neurologically intact.~ Plan and Disposition:: Patient was discharged without difficulty. She will return to see us on an as- needed basis.
== END 2021-06-26 09:28 | disposition home or self-care (01) ==
LOC: SC.PAINP 08:56
PROVIDERS: PCP Internal Medicine Adolescent Medicine; Visit Provider Nurse Anesthetist, Certified Registered
DX: M46.1 Sacroiliitis, not elsewhere classified (principal); I65.29 Occlusion and stenosis of unspecified carotid artery; I50.9 Heart failure, unspecified; J44.9 Chronic obstructive pulmonary disease, unspecified; I25.10 Atherosclerotic heart disease of native coronary artery without angina pectoris; E11.9 Type 2 diabetes mellitus without complications; K21.9 Gastro-esophageal reflux disease without esophagitis; E78.5 Hyperlipidemia, unspecified; I11.0 Hypertensive heart disease with heart failure; I25.2 Old myocardial infarction; D64.9 Anemia, unspecified; M19.90 Unspecified osteoarthritis, unspecified site
CPT/HCPCS: 27096; G0260; J1040

== ENCOUNTER → 2021-07-25 08:41 | Outpatient (CLI) | payer OTHER, SELFPAY ==
[2021-07-25 09:06] LABS: Basophils # 0.1 K/mm3 (0-0.2); Basophils % 1.2 % (0.1-2.0); Eosinophils # 0.1 K/mm3 (0.0-0.4); Eosinophils % 0.9 % (0.1-12.0); Hematocrit 30.1 % (37.0-47.0); Hemoglobin 9.5 g/dL (12.2-16.2); Lymphocytes # 3.2 K/mm3 (0.7-4.5); Lymphocytes % 30.2 % (10-50); Mean Corpuscular HGB Conc 31.5 g/dL (31.8-35.4); Mean Corpuscular Hemoglobin 24.1 pg (27.0-31.2); Mean Corpuscular Volume 76.4 fl (81-99); Mean Platelet Volume 8.5 fl (7.4-10.4); Monocytes # 0.5 K/mm3 (0.1-1.0); Monocytes % 4.8 % (1.7-9.3); Neutrophils # 6.6 K/mm3 (1.8-7.8); Neutrophils % 62.9 % (37.0-80.0); Platelet Count 526 K/mm3 (142-424); Red Blood Count 3.94 M/mm3 (4.20-5.40); White Blood Count 10.5 K/mm3 (4.8-10.8)
[2021-07-25 09:36] LABS: Alanine Aminotransferase 28 U/L (12-78); Albumin Level 3.9 g/dl (3.5-5.0); Albumin/Globulin Ratio 1.7 (1.1-1.8); Alkaline Phosphatase 101 U/L (38-126); Anion Gap 12.5 mEq/L (5-15); Aspartate Amino Transferase 29 U/L (14-36); Bilirubin,Total < 0.1 mg/dl (0.2-1.3); Blood Urea Nitrogen 12 mg/dl (7-17); Calcium 9.2 mg/dl (8.4-10.2); Carbon Dioxide 22 mmol/L (22.0-30.0); Chloride 108 mmol/L (98-107); Estimated Glomerular Filt Rate 85 ml/min (>60); GFR (African American) 103 ML/MIN (>60); Globulin 2.3 g/dL (1.3-3.2); Glucose 152 mg/dl (74-100); Magnesium 1.5 mg/dl (1.6-2.3); Potassium 4.5 mmoL/L (3.5-5.1); Sodium 138 mmol/L (136-145); Total Protein,Serum 6.2 g/dl (6.3-8.2)
[2021-07-25 09:53] LABS: 25-OH Vitamin D, Total 75.3 ng/mL (30-100)
[2021-07-25 09:54] LABS: Free Thyroxine Index 3.2 ug/dL (5.93-13.13); T4 (Thyroxine) 9.7 ug/dl (5.53-11.0); Triiodothryronine (T3) Uptake 33 % (23.5-40.5)
[2021-07-25 10:07] LABS: Thyroid Stimulating Hormone 1.45 uIU/mL (0.465-4.68)
[2021-07-25 10:28] LABS: Vitamin B12 > 1000 pg/mL (239-931)
== END ==
PROVIDERS: PCP Internal Medicine Adolescent Medicine; Visit Provider Internal Medicine Adolescent Medicine
DX: I25.10 Atherosclerotic heart disease of native coronary artery without angina pectoris (principal); R53.81 Other malaise; R53.83 Other fatigue; E66.9 Obesity, unspecified; Z68.34 Body mass index [BMI] 34.0-34.9, adult
CPT/HCPCS: 36415; 80053; 82306; 82607; 83735; 84436; 84443; 84479; 85025

== ENCOUNTER → 2021-07-30 13:38 | Outpatient (POV) | payer OTHER, SELFPAY ==
[2021-07-30 14:16] VITALS: BP 140/62; PULSE 82; RESP 18; TEMP 35.9; O2SAT 94; BMI 35.2
--- NOTE | 2021-07-30 15:21 | HMH.PAINSOAP ---
[facility] Pain Management SOAP Note Subjective:: Patient is a pleasant 60-year-old female who presents today for follow-up after a left SI injection on June 26, 2021. Patient is currently being treated for sacroiliitis. After her injection, patient had significant relief of 80 to 90% that lasted for 2 weeks. Denies any issues after this procedure. In the past, patient had this injection that provided almost 6 months of relief. This is the patient's second SI injection. She has tried and failed other conservative therapies such as oral medication, physical therapy, and home exercises for greater than 6 weeks. She continues to have increasing upper buttock pain that radiates down to bilateral lower extremities. She cannot tolerate any prolonged activity such as sitting, standing, and walking. She rates her pain today as 7 out of 10. She is prescribed gabapentin 100 mg 4 times a day by Dr. Gagnon. [facility] [phone] with an active morphine equivalent of 0. Review of Systems: General: No recent weight changes, no fever, no sleep disturbances Respiratory: No cough, no shortness of air, no recurring pulmonary infections Cardiovascular/peripheral vascular: No chest pain, no palpitations, no edema, no shortness of breath Gastrointestinal: No new onset incontinence, normal bowel movements reported Genitourinary: No new onset incontinence Musculoskeletal: Bilateral hip pain Psychiatric: [Normal mood/affect] Neurological: [Denies weakness in extremities], [denies balance issues] Objective:: Physical Exam: General: Alert and oriented x3, no acute distress, pleasant and cooperative Lungs: Respirations even and unlabored, symmetrical chest expansion Eyes: PERRL Musculoskeletal: Bilateral SI are positive for CLARIBEL, Manohar's, Draper's, Gaenslen's, compression, and distraction. Neurological: Speech clear, no gross sensory deficit Assessment:: Sacroiliitis Plan:: Patient has had 2 SI injections that provided 80 to 90% relief. Her most recent injection only provided 2 weeks of relief. I have discussed with the patient that since she has had 2 successful SI injections, she is a good candidate for a sacroiliac joint stabilization procedure. I have discussed this procedure in detail with the patient. Risk and benefits have also been discussed with the patient. Patient would like to proceed with this procedure. We will schedule the patient for a left sided sacroiliac joint stabilization procedure with the omnia system. Patient is not on any blood thinners. Patient has been instructed to contact the clinic with any concerns before the next appointment. Dr. Yung has reviewed this note and agrees with this plan of care. This note was dictated using voice recognition software and make contain errors or omissions. [facility] History Medical History: Reports:: Carotid Stenosis, Congestive Heart Failure, Chronic Obstructive Pulmonary Disease (COPD), Coronary Artery Disease, Diabetes Mellitus Type 2, Gastroesophageal Reflux Disease(GERD), Hyperlipidemia, Hypertension, Lung Disease, Myocardial Infarction Denies:: Cancer, Diabetes Mellitus Type 1, Internal Pacemaker, MRSA, Seizures *Have you ever received a pneumonia vaccine?: Yes *Have you received a flu vaccine this season?: Yes Other Medical History: Reports: Anemia, Arthritis, Unexplained Bleeding, Other. Denies: Blood Transfusion Reaction Laterality Cases: Bilateral: Other Other Surgeries: Yes: Angioplasty, Cardiac Catheterization, Cardiac Surgery, Cholecystectomy, Colonoscopy, Colostomy, Coronary Stent, EGD, Tubal Ligation, Other. No: Pacemaker Amputation: No Fractures: No - *Social History Smoking Status: Current every day smoker Tobacco Type: cigarettes # Packs/Day (cigarettes): 1 #Yrs smoked (if former smoker): 45 Alcohol Intake: never Alcohol Intake Frequency:: other Substance Use Type: denies use *Occupational Status:: unemployed Housing: house Household Members: spouse *Travel in the last 8 weeks: N
== END ==
PROVIDERS: Visit Provider Student in an Organized Health Care Education/Training Program
DX: M46.1 Sacroiliitis, not elsewhere classified (principal)
CPT/HCPCS: 99212; G0463

== ENCOUNTER → 2021-07-30 15:21 | Outpatient (CLI) | payer OTHER, SELFPAY ==
[2021-07-30 15:36] LABS: MANUAL DIFFERENTIAL MANUAL DIFFERENTIAL (MANUAL DIFF)
[2021-07-30 16:55] LABS: Iron 38 ug/dL (37-170)
[2021-07-30 16:57] LABS: Basophils # 0.1 K/mm3 (0-0.2); Basophils % 1.1 % (0.1-2.0); Eosinophils # 0.1 K/mm3 (0.0-0.4); Eosinophils % 0.7 % (0.1-12.0); Hematocrit 29.5 % (37.0-47.0); Hemoglobin 9.3 g/dL (12.2-16.2); Lymphocytes # 2.4 K/mm3 (0.7-4.5); Lymphocytes % 21.7 % (10-50); Mean Corpuscular HGB Conc 31.6 g/dL (31.8-35.4); Mean Corpuscular Hemoglobin 24.4 pg (27.0-31.2); Mean Corpuscular Volume 77.1 fl (81-99); Mean Platelet Volume 8.6 fl (7.4-10.4); Monocytes # 0.5 K/mm3 (0.1-1.0); Monocytes % 4.5 % (1.7-9.3); Neutrophils % 72.1 % (37.0-80.0); Platelet Count 569 K/mm3 (142-424); Red Blood Count 3.83 M/mm3 (4.20-5.40); Reticulocyte % (Auto) 2.5 % (0.9-3.2); White Blood Count 11.1 K/mm3 (4.8-10.8)
[2021-07-30 17:04] LABS: Total Iron Binding Capacity 420 ug/dL (265-497)
[2021-07-30 19:04] LABS: Eosinophils % 1 % (0-3); Hypochromasia 1+; Lymphocytes % 26 % (10-50); Monocytes % 4 % (2-9); Neutrophils % 68 % (42-76); Platelet Estimate Moderate Increase; Total Cells Counted 100
[2021-08-01 15:23] LABS: Peripheral Smear Review Scanned Result
== END ==
PROVIDERS: PCP Internal Medicine Adolescent Medicine; Visit Provider Internal Medicine Adolescent Medicine
DX: D50.9 Iron deficiency anemia, unspecified (principal)
CPT/HCPCS: 36415; 82728; 83540; 83550; 85007; 85025; 85044

== ENCOUNTER → 2021-09-10 13:32 | Outpatient (CLI) | payer OTHER, SELFPAY ==
[2021-09-10 14:25] LABS: Basophils # 0.1 K/mm3 (0-0.2); Basophils % 1.1 % (0.1-2.0); Eosinophils # 0.2 K/mm3 (0.0-0.4); Eosinophils % 2.1 % (0.1-12.0); Hematocrit 31.4 % (37.0-47.0); Hemoglobin 9.3 g/dL (12.2-16.2); Lymphocytes # 2.4 K/mm3 (0.7-4.5); Mean Corpuscular HGB Conc 29.6 g/dL (31.8-35.4); Mean Corpuscular Hemoglobin 22.6 pg (27.0-31.2); Mean Corpuscular Volume 76.2 fl (81-99); Mean Platelet Volume 8.1 fl (7.4-10.4); Monocytes # 0.5 K/mm3 (0.1-1.0); Monocytes % 5.2 % (1.7-9.3); Neutrophils # 6.4 K/mm3 (1.8-7.8); Neutrophils % 66.6 % (37.0-80.0); Platelet Count 487 K/mm3 (142-424); Red Blood Count 4.12 M/mm3 (4.20-5.40); Red Cell Distribution Width 18.7 % (11.5-17.5); White Blood Count 9.6 K/mm3 (4.8-10.8)
[2021-09-10 14:53] LABS: Iron 21 ug/dL (37-170)
[2021-09-10 15:04] LABS: Total Iron Binding Capacity 362 ug/dL (265-497)
[2021-09-10 15:30] LABS: Ferritin 11.8 ng/ml (11.1-264)
[2021-09-12 08:30] LABS: Haptoglobin 271 mg/dL (37-355)
== END ==
PROVIDERS: PCP Internal Medicine Adolescent Medicine; Visit Provider Internal Medicine Medical Oncology
DX: D50.8 Other iron deficiency anemias (principal)
CPT/HCPCS: 36415; 82728; 83010; 83540; 83550; 85025

== ENCOUNTER 2021-09-23 09:52 | Outpatient (CLI) | payer OTHER, SELFPAY ==
[2021-09-23 10:40] VITALS: BP 118/61; PULSE 74; RESP 16; O2SAT 98
[2021-09-23 11:15] VITALS: BP 134/64; PULSE 67; RESP 16
== END 2021-09-23 11:30 | disposition home or self-care (01) ==
LOC: INF 09:53
PROVIDERS: PCP Internal Medicine Adolescent Medicine; Visit Provider Internal Medicine Medical Oncology
DX: D50.9 Iron deficiency anemia, unspecified (principal)
CPT/HCPCS: 96365; J1439

== ENCOUNTER 2021-09-30 09:21 | Outpatient (CLI) | payer OTHER, SELFPAY ==
[2021-09-30 09:50] VITALS: BP 142/72; PULSE 67; RESP 18; O2SAT 98
[2021-09-30 10:20] VITALS: BP 156/72; PULSE 66; RESP 18
== END 2021-09-30 10:30 | disposition home or self-care (01) ==
LOC: INF 09:22
PROVIDERS: PCP Internal Medicine Adolescent Medicine; Visit Provider Internal Medicine Medical Oncology
DX: D50.8 Other iron deficiency anemias (principal)
CPT/HCPCS: 96365; J1439

== ENCOUNTER → 2021-12-02 09:50 | Outpatient (POV) | payer OTHER, SELFPAY ==
[2021-12-02 11:19] VITALS: BP 150/91; PULSE 76; RESP 18; TEMP 36.4; O2SAT 96; BMI 34.7
--- NOTE | 2021-12-02 12:09 | EXP.PAIN.SOA ---
[facility] Pain Management SOAP Note Subjective:: Patient is a pleasant 61-year-old female who presents today for follow-up. We are currently treating the patient for chronic bilateral sacroiliitis. Today she rates her pain a 10 out of 10. She states the pain is all in her low back that radiates into her bilateral lower extremities. Patient describes this as a aching, throbbing sensation that is worse with increased activity. Patient states this affects her activities of daily living and she cannot tolerate prolonged sitting, standing, walking due to the pain. Patient denies any new trauma or injury. She states this has been going on for years however it just seems like it is progressively gotten worse over time. She states she feels it is primarily worse on the left side. In the past the patient has had injective therapy that provided significant improvement of her symptoms. She stated her last injection provided 80 to 90% relief and lasted approximately 4 months. Patient was denied by insurance for the SI stabilization procedure in the past. Patient does take Tylenol as needed for the pain however this provides minimal improvement of her symptoms. She is also tried ice with no long-term relief and heat as well as a topical cream of CBD inflammatory medication that does help some for her knees but has not provided any improvement of her low back and radiating symptoms. Patient has been to a chiropractor that did provide a little improvement of her symptoms. She is currently managed with gabapentin 100 mg 4 times [address] day [address] Dr. Johnson's office. Patient denies any side effects from this medication. She states this medication is adequately helping manage her pain symptoms. Her Candelario is [phone]. It has been reviewed and appropriate. Review of Systems: General: No recent weight changes, no fever, no sleep disturbances Respiratory: No cough, no shortness of air, no recurring pulmonary infections Cardiovascular/peripheral vascular: No chest pain, no palpitations, no edema, no shortness of breath Gastrointestinal: No new onset incontinence, normal bowel movements reported Genitourinary: No new onset incontinence Musculoskeletal: Low back pain, bilateral leg pain Psychiatric: [Normal mood/affect] Neurological: [Denies weakness in extremities], [denies balance issues] Objective:: Physical Exam: General: Alert and oriented x3, no acute distress, pleasant and cooperative Lungs: Respirations even and unlabored, symmetrical chest expansion Eyes: PERRL Musculoskeletal: Flexion and extension of lumbar [spine] somewhat guarded secondary to pain, [antalgic gait noted]. Extreme point tenderness at bilateral SI's and positive bilateral Gavin's, Manohar's, Gaenslen's, compression and distraction exam Neurological: Speech clear, no gross sensory deficit Assessment:: chronic bilateral sacroiliitis Plan:: Patient is experiencing significant pain in her low back that radiates into her bilateral lower extremities. Patient had limited range of motion of her lumbar spine and extreme point tenderness along bilateral SI's. She also had a positive bilateral Gavin's, Manohar's, Gaenslen's, compression and distraction exam during today's visit. Patient has had multiple SI injections in the past that have provided significant improvement of more than 80% relief. I have discussed with the patient regarding bilateral SI ablation. Risk and benefits were discussed with the patient. She would like to proceed forward with this procedure. I will also refill the patient's type tizanidine and provide a 3 month supply of this medication. We will schedule the patient for a bilateral SI RFA. Patient has been instructed to contact the clinic with any concerns before the next appointment. Dr. Yung has reviewed this note and agrees with this plan of care. This note was dictated using voice recognition software and make contain errors or omissions. [facility] Medical History (Updated 08/07/19 @
== END | disposition home or self-care (01) ==
PROVIDERS: PCP Internal Medicine Adolescent Medicine; Visit Provider Nurse Practitioner Family
DX: M46.1 Sacroiliitis, not elsewhere classified (principal)
CPT/HCPCS: 99212; G0463

== ENCOUNTER 2021-12-18 13:10 | Day surgery (SDC) | payer OTHER, SELFPAY ==
[2021-12-18 13:21] VITALS: BP 147/53; PULSE 73; RESP 18; TEMP 36.6; O2SAT 94; BMI 33.0
[2021-12-18 13:32] VITALS: BP 179/82; PULSE 81; RESP 18
[2021-12-18 13:33] VITALS: RESP 20; O2SAT 99
[2021-12-18 14:00] VITALS: BP 126/82; PULSE 65; RESP 20; O2SAT 96
--- NOTE | 2021-12-18 15:19 | EXP.PAIN.PRO ---
Procedure Date: 12/18/21 Time: 15:19 Anesthesiologist:: Case Yung MD Complications:: None Pre-procedure Diagnosis:: Sacroiliitis Post-procedure Diagnosis:: Sacroiliitis Indications for Procedure:: This patient is a pleasant 61-year-old white female who we have been treating for bilateral sacroiliitis. She has chronic left SI joint pain. She presents for left SI joint RFA today. She is done well with injections in the past however they have not been long-lasting. Procedure Details:: Left SI joint RFA Informed consent was obtained the risk and benefits of the procedure were explained the patient. Patient was taken to the procedure room placed prone on the procedure table. She was prepped and draped in sterile fashion. C-arm fluoroscopy was used to view the left SI joint. A 20-gauge RF needle was placed into the left SI joint. Will place a total of 4 needles encompassing the entire left SI joint. We underwent sensory stimulation. There is good sensory stimulation at all needles at 0.8 V. We then underwent motor stimulation. There was no motor stimulation at all needles at 3 V. We then anesthetized all needles with lidocaine and Depo-Medrol. We then burned each needle for 4 minutes at 80 ?C encompassing the entire left SI joint. Patient tolerated the procedure well with no complications. Plan and Disposition:: We will follow-up with this patient 2 weeks. Will reevaluate symptoms at that time.
== END 2021-12-18 14:00 | disposition home or self-care (01) ==
LOC: SC.PAINP 13:10
PROVIDERS: PCP Internal Medicine Adolescent Medicine; Visit Provider Anesthesiology
DX: M46.1 Sacroiliitis, not elsewhere classified (principal); Z72.0 Tobacco use
CPT/HCPCS: 64625; J1040

== ENCOUNTER → 2022-01-01 11:51 | Outpatient (POV) | payer OTHER, SELFPAY ==
[2022-01-01 13:00] VITALS: BP 156/70; PULSE 72; RESP 20; TEMP 36.5; O2SAT 96; BMI 33.2
--- NOTE | 2022-01-01 14:46 | A.OFFVIS_ITS ---
[facility] Pain Management SOAP Note Subjective:: This patient is a pleasant 61-year-old white female who is status post left SI joint RFA. She did very well from this. She is 80 to 90% better. She has minimal pain on the right side. She was scheduled for right SI joint RFA however at this time she does not feel like she needs it. Objective:: Alert and oriented x3 no acute distress. Patient does have an antalgic gait. Motor strength of lower extremities is 5/5. There is no gross sensory deficit. Assessment:: Sacroiliitis Plan:: We will follow-up with her in 1 month. We will reevaluate her symptoms at that time. I am very pleased with her results after the left SI joint RFA. [facility] Medical History CAD (coronary artery disease) HHD (hypertensive heart disease) Social History (Updated 12/18/21 @ 14:37 by Brie Astorga RN) Smoking Status: Current every day smoker tobacco type: cigarettes packs per day: 1 second hand exposure: Yes alcohol intake: never substance use type: denies use current occupational status: other Travel in the last 8 weeks: None household members: spouse housing: house current occupational exposures/hazards: No caffeine: Yes
== END ==
PROVIDERS: PCP Internal Medicine Adolescent Medicine; Visit Provider Anesthesiology
DX: M46.1 Sacroiliitis, not elsewhere classified (principal); Z72.0 Tobacco use
CPT/HCPCS: 99212; G0463

== ENCOUNTER → 2022-01-26 09:37 | Outpatient (POV) | payer OTHER, SELFPAY ==
[2022-01-26 09:52] VITALS: BP 134/68; PULSE 72; RESP 18; O2SAT 97; BMI 33.9
--- NOTE | 2022-01-26 10:08 | EXP.PAIN.SOA ---
[facility] Pain Management SOAP Note Subjective:: Patient is a pleasant 61-year-old female who presents today for follow-up. We are currently treating the patient for bilateral sacroiliitis, Low back pain. Today she rates her pain a 6 out of 10. She states the pain is all along her right side of her low back that radiates down her right leg. Patient denies any new trauma or injury. Patient denies any change location or type of pain she experiences. Patient has done injective therapy in the past on her left SI that provided significant improvement of her symptoms as well as a left RFA that continues to still give relief. Patient does state that she takes ibuprofen as needed to help with her pain symptoms and does use topical creams as needed. Patient is currently managed with gabapentin 100 mg 4 times a day from Dr. Jhonson's office. Patient denies any side effects from this medication. She states this medication does help some of her pain symptoms. Her Candelario is [phone]. It has been reviewed and appropriate. Review of Systems: General: No recent weight changes, no fever, no sleep disturbances Respiratory: No cough, no shortness of air, no recurring pulmonary infections Cardiovascular/peripheral vascular: No chest pain, no palpitations, no edema, no shortness of breath Gastrointestinal: No new onset incontinence, normal bowel movements reported Genitourinary: No new onset incontinence Musculoskeletal: Low back pain Psychiatric: [Normal mood/affect] Neurological: [Denies weakness in extremities], [denies balance issues] Objective:: Physical Exam: General: Alert and oriented x3, no acute distress, pleasant and cooperative Lungs: Respirations even and unlabored, symmetrical chest expansion Eyes: PERRL Musculoskeletal: Flexion and extension of lumbar [spine] somewhat guarded secondary to pain, [antalgic gait noted]. Extreme point tenderness along right SI and positive right Gavin's, Manohar's, Gaenslen's, compression and distraction exam Neurological: Speech clear, no gross sensory deficit Assessment:: Bilateral sacroiliitis, low back pain Plan:: Patient is experiencing significant pain in her low back along the right side that radiates into her right lower extremity. Patient did have limited range of motion of her lumbar spine and extreme point tenderness along her right SI as well as positive right Gavin's, Manohar's, Gaenslen's, compression and distraction exam. I have discussed with the patient that she may benefit from a right SI injection. Risk and benefits were discussed with the patient. She would like to proceed forward with this plan of care. We will schedule her for a right SI injection. Patient has been instructed to contact the clinic with any concerns before the next appointment. Dr. Yung has reviewed this note and agrees with this plan of care. This note was dictated using voice recognition software and make contain errors or omissions. [facility] Medical History CAD (coronary artery disease) HHD (hypertensive heart disease) Social History (Updated 12/18/21 @ 14:37 by Brie Astorga RN) Smoking Status: Current every day smoker tobacco type: cigarettes packs per day: 1 second hand exposure: Yes alcohol intake: never substance use type: denies use current occupational status: retired Travel in the last 8 weeks: None household members: spouse housing: house current occupational exposures/hazards: No caffeine: Yes
== END ==
PROVIDERS: PCP Internal Medicine Adolescent Medicine; Visit Provider Nurse Practitioner Family
DX: M46.1 Sacroiliitis, not elsewhere classified (principal); M54.50 Low back pain, unspecified
CPT/HCPCS: 99212; G0463

== ENCOUNTER 2022-02-02 12:27 | Day surgery (SDC) | payer OTHER, SELFPAY ==
[2022-02-02 12:50] VITALS: BP 154/74; PULSE 84; RESP 18; TEMP 36.7; O2SAT 98; BMI 36.0
[2022-02-02 12:52] VITALS: BP 148/71; PULSE 90; RESP 18; O2SAT 97
[2022-02-02 12:53] VITALS: BP 148/71; PULSE 90; RESP 18; O2SAT 97
--- NOTE | 2022-02-02 12:53 | EXP.PAIN.PRO ---
Procedure Date: 02/02/22 Time: 12:57 Anesthesiologist:: Low Guadalupe CRNA Complications:: None Pre-procedure Diagnosis:: Low back pain, bilateral sacroiliitis Post-procedure Diagnosis:: Same Indications for Procedure:: Patient is a pleasant 61-year-old female who presents today for right SI injection. We are currently treating the patient for bilateral sacroiliitis, low back pain. Today the patient rates her pain a 6 out of 10. Patient denies any new trauma or injury. Patient denies any change to the location or type of pain she experiences. Patient does state this is a aching sensation that is worse with increased activity. Patient does manage her pain with ibuprofen and topical creams. Patient is managed with gabapentin 100 mg 4 times a day from Dr. Gagnon's office. General: Alert and oriented x3, no acute distress, pleasant and cooperative Lungs: Respiration even unlabored, symmetrical chest expansion Eyes: PERRL Musculoskeletal: Flexion and extension of lumbar spine somewhat guarded secondary to pain, antalgic gait noted. Point tenderness along right SI Neurological: Speech clear, no gross sensory deficit Procedure Details:: Informed consent was obtained and the risks and benefits of the procedure were explained to the patient.~ The patient was taken to the procedure room and noninvasive monitors were placed including a noninvasive blood pressure cuff and pulse oximeter.~ The patient was placed prone on the procedure table. Patient's right buttocks/hip were cleansed using Betadine as a cleansing solution. C-arm fluoroscopy was used to view the right sacroiliac joint.~ The skin and subcutaneous tissues were anesthetized using lidocaine 1.5% and a 25-gauge needle.~ After this, a 22-gauge spinal needle was inserted under fluoroscopic guidance into the inferior aspect of the right sacroiliac joint.~ Omnipaque dye was injected and good spread was seen throughout the joint.~ After this, approximately 5 mL of bupivacaine, 0.25% and Depo-Medrol, 40 mg was incrementally injected into the right sacroiliac joint. The patient tolerated the procedure well with no complications. The patient was observed in the Pain Clinic and then was discharged home neurologically intact. Plan and Disposition:: We will see the patient back in clinic in 2 weeks for follow-up and reevaluation of symptoms. Patient has been instructed to contact the clinic with any questions or concerns before the next appointment date. Dr. Yung has read this note and agrees with this plan of care. This note was dictated using voice recognition software and may contain errors or omissions.
[2022-02-02 12:59] VITALS: BP 135/62; PULSE 85; RESP 18; O2SAT 98
== END 2022-02-02 12:59 | disposition home or self-care (01) ==
PROVIDERS: PCP Internal Medicine Adolescent Medicine; Visit Provider Nurse Anesthetist, Certified Registered
DX: M46.1 Sacroiliitis, not elsewhere classified (principal); M54.50 Low back pain, unspecified
CPT/HCPCS: 27096; G0260; J1040

== ENCOUNTER → 2022-02-15 15:10 | Outpatient (POV) | payer OTHER, SELFPAY ==
[2022-02-15 15:20] VITALS: BP 148/80; PULSE 77; RESP 18; O2SAT 97; BMI 34.3
--- NOTE | 2022-02-15 15:44 | EXP.PAIN.SOA ---
[facility] Pain Management SOAP Note Subjective:: Patient is a pleasant 61-year-old female who presents today for follow-up of right SI injection on 02/02/2022. We are currently treating the patient for bilateral sacroiliitis and low back pain. Today the patient states that she has had 800% improvement along her low back on the right side following this injection and feels like it still continuing to provide relief. Today she does states she has 10 out of 10 pain all along her left side. Patient states that around Tuesday or Tuesday of last week she had gotten groceries and felt a pulling sensation however she states it did not cause significant pain. Patient states a few days later while she was in the shower she bent over and had a popping sensation that caused significant pain. Patient states she is now experiencing difficulty walking due to the pain. Patient states the pain is all in her low back along the left side into her buttocks. Patient states she has had sharp pain sensations that frequently cause dizziness and nausea. Patient states she is prescribed muscle relaxers however these knocked her out and just caused her to sleep. Patient is managed with gabapentin 100 mg 4 times a day from her primary care doctor's office. Patient denies any side effects from this medication. Patient states this medication does adequately help manage some of her pain symptoms. Her Candelario is [phone]. It is been reviewed and appropriate. Review of Systems: General: No recent weight changes, no fever, no sleep disturbances Respiratory: No cough, no shortness of air, no recurring pulmonary infections Cardiovascular/peripheral vascular: No chest pain, no palpitations, no edema, no shortness of breath Gastrointestinal: No new onset incontinence, normal bowel movements reported Genitourinary: No new onset incontinence Musculoskeletal: Low back pain, left buttocks pain Psychiatric: [Normal mood/affect] Neurological: [Denies weakness in extremities], [denies balance issues] Objective:: Physical Exam: General: Alert and oriented x3, no acute distress, pleasant and cooperative Lungs: Respirations even and unlabored, symmetrical chest expansion Eyes: PERRL Musculoskeletal: Flexion and extension of lumbar [spine] somewhat guarded secondary to pain, [antalgic gait noted] extreme point tenderness along left SI with positive left Gavin's, Manohar's, Gaenslen's, compression and distraction exam. Extreme point tenderness along left lumbar paraspinous muscles Neurological: Speech clear, no gross sensory deficit Assessment:: Bilateral sacroiliitis, low back pain, myofascial pain of lumbar paraspinous muscles Plan:: Patient is experiencing significant pain in her low back that radiates into her buttocks and down her left leg. Patient did have limited range of motion of her lumbar spine and extreme point tenderness along her left SI and left lumbar paraspinous muscles. Patient also had a positive left Gavin's, Manohar's, Gaenslen's, compression and distraction exam. I have discussed with the patient that she may benefit from a diagnostic left SI injection. Risk and benefits were discussed with the patient. She would like to proceed forward with this plan of care. I will also order the patient compounding cream at today's visit. I will order her prednisone 20 mg twice daily for a 5-day dose. I have also counseled the patient that she may benefit from trigger point injections of her left lumbar paraspinous muscles in the future. We will schedule the patient for a left SI injection. Patient has been instructed to contact the clinic with any concerns before the next appointment. Dr. Yung has reviewed this note and agrees with this plan of care. This note was dictated using voice recognition software and make contain errors or omissions. [facility] Disclaimer: The information contained in this section may have been updated after the patient was seen, as this information can be updated by
== END | disposition home or self-care (01) ==
PROVIDERS: PCP Internal Medicine Adolescent Medicine; Visit Provider Nurse Practitioner Family
DX: M46.1 Sacroiliitis, not elsewhere classified (principal); M54.50 Low back pain, unspecified; M79.18 Myalgia, other site
CPT/HCPCS: 99212; G0463

== ENCOUNTER 2022-03-05 08:26 | Day surgery (SDC) | payer OTHER, SELFPAY ==
[2022-03-05 08:10] VITALS: BP 154/78; PULSE 77; RESP 18; TEMP 36.3; O2SAT 96; BMI 34.7
[2022-03-05 08:44] VITALS: BP 173/78; PULSE 85; RESP 18; O2SAT 98
[2022-03-05 08:49] VITALS: BP 166/79; PULSE 72; RESP 18; O2SAT 96
--- NOTE | 2022-03-05 08:55 | EXP.PAIN.PRO ---
Procedure Date: 03/05/22 Time: 08:40 Anesthesiologist:: Low Gudaalupe CRNA Complications:: None Pre-procedure Diagnosis:: Left sacroiliitis Post-procedure Diagnosis:: Same Indications for Procedure:: Patient is a pleasant 61-year-old female that comes our clinic today for left sacroiliac joint injection. She has extreme point tenderness over the left sacroiliac joint upon examination. She rates her pain 7/10. Procedure Details:: Procedure: Left sacroiliac injection under fluoroscopy Informed consent was obtained and the risk and benefits of the procedure were explained to the patient.~ The patient was taken to the procedure room and noninvasive monitors were placed including noninvasive blood pressure cuff and pulse oximeter.~ The patient was placed prone on the procedure table.~ The~ left hip was cleansed using Betadine as a cleansing solution.~ C-arm fluorosocpy was used to view the left SI joint.~ The skin and subcutaneous tissues were anesthetized using Lidocaine 1.5% and a 25-gauge needle.~ After this, a 22-gauge spinal needle was inserted under fluoroscopic guidance into the inferior aspect of the left SI joint.~ Omnipaque dye was injected and a good spread was seen throughout the joint.~ After this, approximately 5 mL of bupivacaine 0.25% and Depo-Medrol 40 mg was incrementally injected into the sacroiliac joint.~ The patient tolerated the procedure well with no complications.~ The patient was observed in the Pain Clinic for a period of 30-45 minutes, then discharged home neurologically intact.~ Plan and Disposition:: Patient was discharged without incident
== END 2022-03-05 08:49 | disposition home or self-care (01) ==
PROVIDERS: PCP Internal Medicine Adolescent Medicine; Visit Provider Nurse Practitioner Family
DX: M46.1 Sacroiliitis, not elsewhere classified (principal)
CPT/HCPCS: 27096; G0260; J1040

== ENCOUNTER → 2022-03-22 11:08 | Outpatient (POV) | payer OTHER, SELFPAY ==
[2022-03-22 11:19] VITALS: BP 130/53; PULSE 81; RESP 18; O2SAT 98; BMI 34.7
--- NOTE | 2022-03-22 11:26 | EXP.PAIN.SOA ---
[facility] Pain Management SOAP Note Subjective:: Patient is a pleasant 61-year-old female who presents today for follow-up of left SI injection on 03/05/2022. We are currently treating the patient for bilateral sacroiliitis, low back pain with lumbar radiculopathy symptoms. Patient states she has had at least 60% improvement following this injection and feels like it still continuing to provide relief. Patient does rate her pain today a 1 out of 10. Patient denies any new trauma or injury. Patient denies any change location or type of pain she experiences. Patient is currently prescribed gabapentin 100 mg 4 times a day from her primary care doctor and tizanidine 4 mg twice daily. Patient denies any side effects from these medications. She states these medications do help. Patient does state occasionally she will take 8 mg of tizanidine at bedtime for additional improvement. Patient denies needing any additional refills during today's visit. Her Candelario is [phone]. Its been reviewed and appropriate. Review of Systems: General: No recent weight changes, no fever, no sleep disturbances Respiratory: No cough, no shortness of air, no recurring pulmonary infections Cardiovascular/peripheral vascular: No chest pain, no palpitations, no edema, no shortness of breath Gastrointestinal: No new onset incontinence, normal bowel movements reported Genitourinary: No new onset incontinence Musculoskeletal: Low back pain Psychiatric: [Normal mood/affect] Neurological: [Denies weakness in extremities], [denies balance issues] Objective:: Physical Exam: General: Alert and oriented x3, no acute distress, pleasant and cooperative Lungs: Respirations even and unlabored, symmetrical chest expansion Eyes: PERRL Musculoskeletal: Flexion and extension of lumbar [spine] somewhat guarded secondary to pain, [antalgic gait noted] Neurological: Speech clear, no gross sensory deficit ORT score updated with low risk Assessment:: Patient has had significant improvement following her left SI injection and does not require any additional injective therapy at this time. Patient will return to clinic in 1 month for reevaluation of symptoms and follow-up. Patient has been instructed to contact the clinic with any concerns before the next appointment. Dr. Yung has reviewed this note and agrees with this plan of care. This note was dictated using voice recognition software and make contain errors or omissions. [facility] Disclaimer: The information contained in this section may have been updated after the patient was seen, as this information can be updated by other users. Medical History CAD (coronary artery disease) HHD (hypertensive heart disease) Family History Other No significant family history Social History Smoking Status: Current every day smoker tobacco type: cigarettes packs per day: 1 second hand exposure: Yes alcohol intake: never substance use type: denies use current occupational status: retired Travel in the last 8 weeks: None household members: spouse housing: house current occupational exposures/hazards: No caffeine: Yes
== END ==
PROVIDERS: PCP Internal Medicine Adolescent Medicine; Visit Provider Nurse Practitioner Family
DX: M46.1 Sacroiliitis, not elsewhere classified (principal); M54.50 Low back pain, unspecified; M54.16 Radiculopathy, lumbar region; F17.210 Nicotine dependence, cigarettes, uncomplicated
CPT/HCPCS: 99212; G0463

== ENCOUNTER → 2022-04-26 08:49 | Outpatient (POV) | payer OTHER, SELFPAY ==
[2022-04-26 08:59] VITALS: BP 135/74; PULSE 90; RESP 18; O2SAT 97; BMI 34.3
--- NOTE | 2022-04-26 09:05 | EXP.PAIN.SOA ---
[facility] Pain Management SOAP Note Subjective:: Patient is a pleasant 61-year-old female who presents today for follow-up. We are currently treating the patient for bilateral sacroiliitis, low back pain with lumbar radiculopathy symptoms. Today the patient rates her pain a 7 out of 10. Patient denies any new trauma or injury. Patient denies any change location or type of pain she experiences. Patient states that starting around last week she did have significant pain along her low back at the right side with symptoms radiating into her right upper thigh. Patient describes this as a aching, sharp sensation with certain ambulation. Patient states that she was on vacation to see her new granddaughter when this occurred. Patient states it does significantly interfere with her ability to perform activities of daily living such as cooking and cleaning or even ambulation. Patient states she does have difficulty with prolonged standing, sitting, walking. Patient states that her prior injection on 03/05/2022 for her left SI still seems to be providing significant relief. Patient did rates it at least a 60% improvement in her left SI. Patient is prescribed gabapentin 100 mg 4 times a day and tizanidine 4 mg twice a day from her primary care doctor. Patient denies any side effects from this medication. Her Candelario is [id number]. Its been reviewed and appropriate. Review of Systems: General: No recent weight changes, no fever, no sleep disturbances Respiratory: No cough, no shortness of air, no recurring pulmonary infections Cardiovascular/peripheral vascular: No chest pain, no palpitations, no edema, no shortness of breath Gastrointestinal: No new onset incontinence, normal bowel movements reported Genitourinary: No new onset incontinence Musculoskeletal: Low back pain, right leg pain Psychiatric: [Normal mood/affect] Neurological: [Denies weakness in extremities], [denies balance issues] Objective:: Physical Exam: General: Alert and oriented x3, no acute distress, pleasant and cooperative Lungs: Respirations even and unlabored, symmetrical chest expansion Eyes: PERRL Musculoskeletal: Flexion and extension of lumbar [spine] somewhat guarded secondary to pain, [antalgic gait noted] extreme point tenderness along right SI and positive right Gavin's, Manohar's, Gaenslen's, compression and distraction exam Neurological: Speech clear, no gross sensory deficit Assessment:: Bilateral sacroiliitis, low back pain with lumbar radiculopathy symptoms Plan:: Patient is experiencing significant pain in her low back along the right side with limited range of motion. Patient did have extreme point tenderness of her right SI and positive right Gavin's, Manohar's, Gaenslen's, compression and distraction exam during today's visit. I have discussed with the patient that she may benefit from right SI injections. Risk and benefits of these injections were discussed with the patient and she would like to proceed forward with this plan of care. Patient has had multiple SI injections in the past that provided significant improvement for several months. We will schedule her for right SI injection. Patient has been instructed to contact the clinic with any concerns before the next appointment. Dr. Yung has reviewed this note and agrees with this plan of care. This note was dictated using voice recognition software and make contain errors or omissions. [facility] Disclaimer: The information contained in this section may have been updated after the patient was seen, as this information can be updated by other users. Medical History CAD (coronary artery disease) HHD (hypertensive heart disease) Family History Other No significant family history Social History Smoking Status: Current every day smoker tobacco type
== END ==
PROVIDERS: PCP Internal Medicine Adolescent Medicine; Visit Provider Nurse Practitioner Family
DX: M54.16 Radiculopathy, lumbar region (principal); M54.50 Low back pain, unspecified; M46.1 Sacroiliitis, not elsewhere classified; F17.210 Nicotine dependence, cigarettes, uncomplicated
CPT/HCPCS: 99212; G0463

== ENCOUNTER 2022-05-11 10:38 | Day surgery (SDC) | payer OTHER, SELFPAY ==
[2022-05-11 10:50] VITALS: BP 153/71; PULSE 79; RESP 18; TEMP 36.6; O2SAT 97; BMI 34.7
[2022-05-11 10:55] VITALS: BP 142/75; PULSE 79; RESP 18; O2SAT 97
[2022-05-11 11:02] VITALS: BP 144/74; PULSE 78; RESP 18; O2SAT 97
--- NOTE | 2022-05-11 12:10 | EXP.PAIN.PRO ---
Procedure Date: 05/11/22 Time: 11:05 Anesthesiologist:: Low Guadalupe CRNA Complications:: None Pre-procedure Diagnosis:: Right sacroiliitis Post-procedure Diagnosis:: Same Indications for Procedure:: Very pleasant 61-year-old female that presents to our clinic today for right sacroiliac joint injection. She has extreme point tenderness over the right sacroiliac joint. She rates her pain 7/10. Procedure Details:: Procedure: Right sacroliliac joint injection under fluoroscopy Informed consent was obtained and the risk and benefits of the procedure were explained to the patient.~ The patient was taken to the procedure room and noninvasive monitors were placed including noninvasive blood pressure cuff and pulse oximeter.~ The patient was placed prone on the procedure table.~ The~ right hip was cleansed using Betadine as a cleansing solution.~ C-arm fluorosocpy was used to view the right SI joint.~ The skin and subcutaneous tissues were anesthetized using Lidocaine 1.5% and a 25-gauge needle.~ After this, a 22-gauge spinal needle was inserted under fluoroscopic guidance into the inferior aspect of the right SI joint.~ Omnipaque dye was injected and a good spread was seen throughout the joint.~ After this, approximately 5 mL of bupivacaine 0.25% and Depo-Medrol 40 mg was incrementally injected into the sacroiliac joint.~ The patient tolerated the procedure well with no complications.~ The patient was observed in the Pain Clinic, then discharged home neurologically intact.~ Plan and Disposition:: Patient was discharged without incident.
== END 2022-05-11 11:02 | disposition home or self-care (01) ==
LOC: SC.PAINP 10:39
PROVIDERS: PCP Internal Medicine Adolescent Medicine; Visit Provider Nurse Anesthetist, Certified Registered
DX: M46.1 Sacroiliitis, not elsewhere classified (principal)
CPT/HCPCS: 27096; G0260; J1040

== ENCOUNTER → 2022-05-31 13:52 | Outpatient (POV) | payer OTHER, SELFPAY ==
--- NOTE | 2022-05-31 14:05 | EXP.PAIN.SOA ---
[facility] Pain Management SOAP Note Subjective:: Patient is a pleasant 61-year-old female who presents today for follow-up of right SI injection on 05/11/2022. We are currently treating the patient for chronic sacroiliitis, low back pain with lumbar radiculopathy symptoms. Today she states her pain is a 5 out of 10. Patient denies any new trauma or injury. Patient denies any change location or type of pain she experiences. Patient states she has had roughly 60% improvement following this injection and feels like it is still continuing to provide relief. She does state that she feels like she has pinching in her left low back/buttocks area. She does describe this as a aching, throbbing sensation that is worse with increased activity. She states the pinching sensation is only with certain movements such as going up the stairs or increased walking or overdoing it with activity. She does state occasionally she feels like it is a jabbing/sharp pain sensation. Patient cannot tolerate prolonged sitting, standing, walking due to her symptoms. Patient has had multiple injections at her bilateral SIs that did provide significant relief of at least 60% or more. She does state that typically her right side is worse however that her left side has started becoming more problematic. She is currently managed with gabapentin 100 mg 4 times a day and tizanidine 4 mg twice a day. Patient denies any side effects from this medication. Her Candelario is [id number]. Its been reviewed and appropriate. Injections: Right SI 05/11/2022 to 60% relief Left SI 03/05/2022 60% relief Right SI 02/02/2022 80% relief Left SI 12/18/2021 80 to 90% relief Left SI 06/26/2021 80 to 90% relief Left SI 05/22/2021 90 to 100% relief Left SI 08/22/2020 70% relief Left SI 06/06/2020 80% relief Left SI 03/03/2020 LESI L4-L5 12/21/2019 Review of Systems: General: No recent weight changes, no fever, no sleep disturbances Respiratory: No cough, no shortness of air, no recurring pulmonary infections Cardiovascular/peripheral vascular: No chest pain, no palpitations, no edema, no shortness of breath Gastrointestinal: No new onset incontinence, normal bowel movements reported Genitourinary: No new onset incontinence Musculoskeletal: Low back pain, left buttocks pain Psychiatric: [Normal mood/affect] Neurological: [Denies weakness in extremities], [denies balance issues] Objective:: Physical Exam: General: Alert and oriented x3, no acute distress, pleasant and cooperative Lungs: Respirations even and unlabored, symmetrical chest expansion Eyes: PERRL Musculoskeletal: Flexion and extension of lumbar [spine] somewhat guarded secondary to pain, [antalgic gait noted] extreme point tenderness along left SI and point tenderness at right SI with positive bilateral Gavin's, Manohar's, Gaenslen's, compression and distraction exam. Neurological: Speech clear, no gross sensory deficit Assessment:: Chronic sacroiliitis, low back pain with lumbar radiculopathy symptoms Plan:: Patient continues to have chronic sacroiliitis that does interfere with her ability to perform activities of daily living. Patient did have limited range of motion of her lumbar spine with extreme point tenderness at her left SI and point tenderness at her right SI during today's visit. Patient also had a positive bilateral Gavin's, Manohar's, Gaenslen's, compression and distraction exam. I have discussed with the patient that she may benefit from SI stabilization. Patient does have chronic sacroiliitis and has had multiple injections in the past that provided upwards of 60% to 100% relief. Risk and benefits of the SI stabilization and educational handouts were given during today's visit. She would like to proceed forward with this plan of care. I will also refill the patient's tizanidine 4 mg twice daily and provide a 3-month supply of this medication. Patient has stated that her right side is more bothersome than the left and would like to start with that
[2022-05-31 14:08] VITALS: BP 150/71; PULSE 77; RESP 18; O2SAT 98; BMI 34.3
== END | disposition home or self-care (01) ==
PROVIDERS: PCP Internal Medicine Adolescent Medicine; Visit Provider Nurse Practitioner Family
DX: M46.1 Sacroiliitis, not elsewhere classified (principal); M54.50 Low back pain, unspecified; M54.16 Radiculopathy, lumbar region
CPT/HCPCS: 99212; G0463

== ENCOUNTER → 2022-06-25 08:13 | Outpatient (POV) | payer OTHER, SELFPAY ==
[2022-06-25 08:21] VITALS: BP 164/74; PULSE 78; RESP 18; O2SAT 97; BMI 34.3
--- NOTE | 2022-06-25 08:30 | A.OFFVIS_ITS ---
[facility] Pain Management SOAP Note Subjective:: This patient is a very pleasant 61-year-old female comes our clinic today for follow-up visit after receiving denial from her insurance company for SI joint stabilization procedure. She has extreme point tenderness over the bilateral sacroiliac joints. Right greater than left. She has positive Gavin's test bilaterally. Positive bilateral sacroiliac joint compression test. Positive Gaenslen's test. Patient has difficulty transitioning from sitting to standing. She has difficulty with ambulation due to increased pain in the posterior hip area bilaterally. She rates her pain today 9/10. Objective:: Patient is awake alert Pike x3. In no acute distress. Flexion-extension lumbar spine somewhat guarded secondary to pain. Deep tendon reflexes upper and lower extremities normal. Motor strength upper and lower extremities normal. There is no gross sensory deficit. Gait is normal. Assessment:: Bilateral sacroiliitis. Degenerative disc disease lumbar spine multilevels. Lumbar radiculopathy. Plan:: Discussed in detail with the patient regarding treatment options following denial from [employer] insurance. We will proceed with bilateral sacroiliac joint injections. This is the only thing that has brought her relief in terms of her posterior hip pain in the past. [facility] Disclaimer: The information contained in this section may have been updated after the patient was seen, as this information can be updated by other users. Medical History CAD (coronary artery disease) HHD (hypertensive heart disease) Family History Other No significant family history Social History Smoking Status: Current every day smoker tobacco type: cigarettes packs per day: 1 second hand exposure: Yes alcohol intake: never substance use type: denies use current occupational status: retired Travel in the last 8 weeks: None household members: spouse housing: house current occupational exposures/hazards: No caffeine: Yes
== END ==
PROVIDERS: PCP Internal Medicine Adolescent Medicine; Visit Provider Nurse Anesthetist, Certified Registered
DX: M51.16 Intervertebral disc disorders with radiculopathy, lumbar region (principal); M46.1 Sacroiliitis, not elsewhere classified
CPT/HCPCS: 99212; G0463

== ENCOUNTER → 2022-07-12 10:20 | Outpatient (POV) | payer OTHER, SELFPAY ==
[2022-07-12 11:07] VITALS: BP 165/78; PULSE 78; RESP 18; O2SAT 97; BMI 34.7
--- NOTE | 2022-07-12 12:36 | EXP.PAIN.SOA ---
[facility] Pain Management SOAP Note Subjective:: Patient is a pleasant 61-year-old female who presents today for follow-up of bilateral SI injection denial.? We are currently treating the patient for chronic sacroiliitis, low back pain with lumbar radiculopathy symptoms.? Her denial letter did state that it was denied due to not having at least 70% improvement from her diagnostic SI injection. She states that she typically always gets significant relief that typically is upwards of 90% and typically last a few months. Today she states her pain is a 8 out of 10.? Patient denies any new trauma or injury.? Patient denies any change location or type of pain she experiences.? She continues to have chronic sacroiliitis issues. She does describe this as a aching, throbbing sensation that is worse with increased activity.? Patient cannot tolerate prolonged sitting, standing or walking due to the pain. She frequently still continues to have pinching sensations when walking up stairs or with other similar activities. She has intermittent, jabbing, sharp sensations. She does also state that she continues to have bilateral leg numbness and will occasionally have falls that may be related to tripping over her dog but also due to numbness in her legs that they can just give out. ?Patient has had multiple injections at her bilateral SIs that did provide significant relief of at least 60% or more.? She does state that typically her right side is worse however that her left side has started becoming more problematic.? She is currently managed with gabapentin 100 mg 4 times a day and tizanidine 4 mg twice a day.? Patient denies any side effects from this medication. Her Candelario is [id number].? Its been reviewed and appropriate. Injections: Right SI 05/11/2022 to 60%-70% relief Left SI 03/05/2022 60%-70%% relief Right SI 02/02/2022 80% relief Left SI 12/18/2021 80 to 90% relief Left SI 06/26/2021 80 to 90% relief Left SI 05/22/2021 90 to 100% relief Left SI 08/22/2020 70% relief Left SI 06/06/2020 80% relief Left SI 03/03/2020 LESI L4-L5 12/21/2019 Review of Systems: General: No recent weight changes, no fever, no sleep disturbances Respiratory: No cough, no shortness of air, no recurring pulmonary infections Cardiovascular/peripheral vascular: No chest pain, no palpitations,? no edema, no shortness of breath Gastrointestinal: No new onset incontinence, normal bowel movements reported Genitourinary: No new onset incontinence Musculoskeletal: Low back pain, buttocks pain Psychiatric: [Normal mood/affect] Neurological: [Denies weakness in extremities], [denies balance issues] Objective:: General: Alert and oriented x3, no acute distress, pleasant and cooperative Lungs: Respirations even and unlabored, symmetrical chest expansion Eyes: PERRL Musculoskeletal: Flexion and extension of lumbar [spine] somewhat guarded secondary to pain, [antalgic gait noted] extreme point tenderness along bilateral SIs with positive bilateral Gavin's, Manohar's, Gaenslen's, compression and distraction exam. Neurological: Speech clear,? no gross sensory deficit Assessment:: Chronic sacroiliitis, low back pain with lumbar radiculopathy symptoms Plan:: Patient continues to have debilitating pain around her bilateral SIs. She did have limited range of motion of her lumbar spine with extreme point tenderness at her bilateral SIs with a positive bilateral Gavin's, Manohar's, Gaenslen's, compression and distraction exam.? She has had multiple injections in the past that provided significant relief of her SI symptoms. I have discussed with the patient that she may benefit from a repeat SI injection. Risk and benefits were discussed with the patient and she would like to proceed forward with this plan of care. We have also discussed about SI stabilization for her however she gets such significant relief with the injections she was wanting to do the least invasive plan of care. In future visits we will address if bari perry
== END ==
PROVIDERS: PCP Internal Medicine Adolescent Medicine; Visit Provider Nurse Practitioner Family
DX: M54.16 Radiculopathy, lumbar region (principal); M54.50 Low back pain, unspecified; M46.1 Sacroiliitis, not elsewhere classified
CPT/HCPCS: 99212; G0463

== ENCOUNTER 2022-07-20 10:26 | Day surgery (SDC) | payer OTHER, SELFPAY ==
[2022-07-20 10:34] VITALS: BP 196/90; PULSE 87; RESP 18; TEMP 36.4; O2SAT 94; BMI 34.7
[2022-07-20 10:45] VITALS: BP 147/84; PULSE 81; RESP 18; O2SAT 97
[2022-07-20 10:46] VITALS: BP 147/84; PULSE 81; RESP 18; O2SAT 97
[2022-07-20 10:50] VITALS: BP 165/61; PULSE 70; RESP 18; O2SAT 94
--- NOTE | 2022-07-20 10:51 | P.PCN_ITS ---
Procedure Date: 07/20/22 Time: 10:45 Anesthesiologist:: Low Guadalupe CRNA Complications:: None Pre-procedure Diagnosis:: Bilateral sacroiliitis. Post-procedure Diagnosis:: Same. Indications for Procedure:: Patient is a very pleasant 61-year-old female comes our clinic today for bilateral sacroiliac joint injections. Patient has extreme point tenderness upon examination over the bilateral sacroiliac joints. Patient rates her pain 7/10. She has had bilateral sacroiliac joints injected in the past with significant improvement. Procedure Details:: Procedure: Bilateral sacroiliac joint injections under fluoroscopy Informed consent was obtained and the risks and benefits of the procedure were explained to the patient.~ The patient was taken to the procedure room and noninvasive monitors were placed including a noninvasive blood pressure cuff and pulse oximeter.~ The patient was placed prone on the procedure table. Both hips were cleansed using Betadine as a cleansing solution. C-arm fluoroscopy was used to view the right sacroiliac joint.~ The skin and subcutaneous tissues were anesthetized using lidocaine 1.5% and a 25-gauge needle.~ After this, a 22-gauge spinal needle was inserted under fluoroscopic guidance into the inferior aspect of the right sacroiliac joint.~ Omnipaque dye was injected and good spread was seen throughout the joint.~ After this, approximately 5 mL of bupivacaine, 0.25% and Depo-Medrol, 40 mg was incrementally injected into the right sacroiliac joint. We then moved to the left sacroiliac joint.~ The skin and subcutaneous tissues were anesthetized using lidocaine 1.5% and a 25-gauge needle.~ After this, a 22- gauge spinal needle was inserted under fluoroscopic guidance into the inferior aspect of the left sacroiliac joint.~ Omnipaque dye was injected and good spread was seen throughout the joint. After this, approximately 5 mL of bupivacaine, 0.25% and Depo-Medrol, 40 mg was incrementally injected into the left sacroiliac joint.~ The patient tolerated the procedure well with no complications. The patient was observed in the Pain Clinic and then was discharged home neurologically intact. Plan and Disposition:: Patient was discharged without incident.
== END 2022-07-20 10:50 | disposition home or self-care (01) ==
PROVIDERS: PCP Internal Medicine Adolescent Medicine; Visit Provider Nurse Anesthetist, Certified Registered
DX: M46.1 Sacroiliitis, not elsewhere classified (principal)
CPT/HCPCS: 27096; G0260; J1040

== ENCOUNTER → 2022-08-11 10:37 | Outpatient (POV) | payer OTHER, SELFPAY ==
[2022-08-11 11:12] VITALS: BP 153/70; PULSE 75; RESP 18; O2SAT 98; BMI 34.2
--- NOTE | 2022-08-11 11:27 | EXP.PAIN.SOA ---
[facility] Pain Management SOAP Note Subjective:: Patient is a pleasant 61-year-old female who presents today for follow-up of bilateral SI injections on 07/20/2022.? We are currently treating the patient for chronic sacroiliitis, low back pain with lumbar radiculopathy symptoms.? Today she rates her pain an 8 out of 10. Patient denies any new trauma or injury. Patient denies any change to location or type of pain she experiences. She does state following these injections that her right side improved by at least 80% and is still currently helping. She states her pain that is bothering her now is all along the left side that radiates down to her left foot. Patient does describe this as an aching, throbbing sensation that is worse with increased activity. She states it interferes with her ability to perform activities of daily living such as cooking and cleaning. Patient has had multiple injections in the past including epidurals and SI injections. She is interested in possibly scheduling an injection for her current pain. She is managed with gabapentin 100 mg 4 times [address] day [address] Dr. Gagnon's office and tizanidine 4 mg twice a day from our office.? She states she does not need any refills at this time. Patient denies any side effects from this medication. Her Candelario is [phone].? Its been reviewed and appropriate. Injections: Right SI 05/11/2022 to 60%-70% relief Left SI 03/05/2022 60%-70%% relief Right SI 02/02/2022 80% relief Left SI 12/18/2021 80 to 90% relief Left SI 06/26/2021 80 to 90% relief Left SI 05/22/2021 90 to 100% relief Left SI 08/22/2020 70% relief Left SI 06/06/2020 80% relief Left SI 03/03/2020 LESI L4-L5 12/21/2019 Review of Systems: General: No recent weight changes, no fever, no sleep disturbances Respiratory: No cough, no shortness of air, no recurring pulmonary infections Cardiovascular/peripheral vascular: No chest pain, no palpitations,? no edema, no shortness of breath Gastrointestinal: No new onset incontinence, normal bowel movements reported Genitourinary: No new onset incontinence Musculoskeletal: Low back pain, buttocks pain Psychiatric: [Normal mood/affect] Neurological: [Denies weakness in extremities], [denies balance issues] Objective:: Physical Exam: General: Alert and oriented x3, no acute distress, pleasant and cooperative Lungs: Respirations even and unlabored, symmetrical chest expansion Eyes: PERRL Musculoskeletal: Flexion and extension of lumbar [spine] somewhat guarded secondary to pain, [antalgic gait noted] Neurological: Speech clear, no gross sensory deficit PROCEDURE:? MR LUMBAR SPINE WO CON CLINICAL INDICATION:? BACK PAIN lt sided lbp with bilateral leg weakness. numbness in legs. symptoms x1yr. COMPARISON:? No exams were available for comparison TECHNIQUE:? Standard multiplanar multiecho sequences are performed without contrast. 3-D MIP and myelographic images are also rendered and reviewed FINDINGS: There is normal alignment. The spinal cord ends at the L1 level. T11-T12: Degenerative disc disease with mild kyphosis. T12-L1: Unremarkable. L1-L2: Minimal bulging disc. L2-L3: Mild bulging disc with mild retrolisthesis of L2 by 2 mm. Mild facet hypertrophic change. L3-L4: Degenerative disc disease with bulging disc along with facet and ligamentum hypertrophy. There is bilateral lateral recess narrowing along with moderate to severe foraminal narrowing. The ligamentum hypertrophy appears slightly worse on the right compared to the previous exam with increase in right lateral recess narrowing. Right foraminal narrowing is also worse. L4-5: Degenerative disc disease with bulging disc and small broad-based central disc protrusion. There is moderate facet and ligamentum hypertrophy greater on the left compared to the right with severe left-sided foraminal narrowing and mild right foraminal narrowing. This is not significantly changed. L5-S1: Degenerative disc disease with bulging disc per trophy with severe
== END ==
PROVIDERS: PCP Internal Medicine Adolescent Medicine; Visit Provider Nurse Practitioner Family
DX: M51.16 Intervertebral disc disorders with radiculopathy, lumbar region (principal); M46.1 Sacroiliitis, not elsewhere classified
CPT/HCPCS: 99212; G0463

== ENCOUNTER → 2022-08-12 06:32 | Outpatient (CLI) | payer OTHER, SELFPAY ==
--- NOTE | 2022-08-12 06:38 | CT_ITS ---
FINAL REPORT CLINICAL HISTORY: nicotine dependence current smoker 1ppd x51 years FINDINGS: Axial images were obtained from the lung apex to the mid abdomen by computed tomography. Low-dose protocol was utilized. CTDl vol(mGy): 2.90 DLP (mGy-cm): 104.46 FINDINGS: There is no axillary adenopathy. There is no hilar or mediastinal adenopathy. The heart size is normal. Severe coronary artery calcifications are noted. There is no pericardial or pleural effusion. Limited images of the upper abdomen are unremarkable. Lung window images demonstrate no suspicious infiltrate or nodule. IMPRESSION: No suspicious pulmonary mass or nodule. Lung RADS category 1S. Recommend 12 month follow-up low-dose chest CT. Severe coronary artery calcifications. Lung RADS modifier S Reviewed, Interpreted and Dictated by Prema Curran MD Transcribed by Sheryl Lamb Authenticated and . [facility]
== END ==
PROVIDERS: PCP Internal Medicine Adolescent Medicine; Visit Provider Internal Medicine Adolescent Medicine
DX: Z87.891 Personal history of nicotine dependence (principal); Z12.2 Encounter for screening for malignant neoplasm of respiratory organs
CPT/HCPCS: 71271

== ENCOUNTER 2022-08-17 09:29 | Day surgery (SDC) | payer OTHER, SELFPAY ==
[2022-08-17 09:57] VITALS: BP 157/70; PULSE 91; RESP 18; TEMP 36.4; O2SAT 96; BMI 34.2
[2022-08-17 10:14] VITALS: BP 165/89; PULSE 80; RESP 18; O2SAT 97
[2022-08-17 10:16] VITALS: BP 165/89; PULSE 86; RESP 18; O2SAT 97
[2022-08-17 10:24] VITALS: BP 166/57; PULSE 70; RESP 18; O2SAT 96
--- NOTE | 2022-08-17 10:25 | P.PCN_ITS ---
Procedure Date: 08/17/22 Time: 10:25 Anesthesiologist:: Low Guadalupe CRNA Complications:: None Pre-procedure Diagnosis:: Degenerative disc lumbar spine multilevels. Lumbar radiculopathy. Lumbar disc bulge L4-5, L5-S1. Post-procedure Diagnosis:: Same. Indications for Procedure:: Patient is a very pleasant 61-year-old female that comes our clinic today for left L4-5, L5-S1 transforaminal epidural steroid injection. Patient has disc bulge L4-5 and L5-S1. She is experiencing left hip and leg radicular symptoms to the foot. Procedure Details:: Details of the procedure were explained to the patient. The patient was taken the procedure room placed in the prone position. The area of the lumbar spine was cleansed using chlorhexidine as a cleansing solution. At this time using fluoroscopy guidance markers were placed on the left lateral border of the L4 and L5 vertebral body. The skin and subcutaneous tissue was anesthetized using 1% lidocaine and 25-gauge needle. At this time using a 22-gauge 3-1/2 inch spinal needle the right upper one third of the L4-5 foramen was accessed. The same was done at the left L5-S1 foramen. Needle positions were confirmed and a lateral view using fluoroscopy and contrast dye. At this time 1 cc of 1% lidocaine +20 mg of Depo-Medrol was injected at each level after negative aspiration. [place] were removed. Band-Aid applied. Patient tolerated the procedure without difficulty. There are no complications. Plan and Disposition:: Patient was discharged without incident.
== END 2022-08-17 10:24 | disposition home or self-care (01) ==
PROVIDERS: PCP Internal Medicine Adolescent Medicine; Visit Provider Nurse Anesthetist, Certified Registered
DX: M51.16 Intervertebral disc disorders with radiculopathy, lumbar region (principal)
CPT/HCPCS: 64483; 64484; J1030; Q9966

== ENCOUNTER → 2022-09-15 14:15 | Outpatient (POV) | payer OTHER, SELFPAY ==
--- NOTE | 2022-09-15 14:31 | A.OFFVIS_ITS ---
[facility] Pain Management SOAP Note Subjective:: Patient is a pleasant 61-year-old female who presents today for follow-up of left transforaminal epidural steroid injection L4-L5 and L5-S1 on 08/17/2022. We are currently treating the patient for degenerative disc disease of lumbar spine with lumbar radiculopathy symptoms, sacroiliitis. Today she rates her pain a 1 out of 10. Patient states she has had at least 98% improvement following this injection and feels like it is still continuing to provide additional relief. Patient denies any new injuries or trauma. She states she has been able to increase her activity with decreased pain and has overall better function. Patient is currently managed with gabapentin 100 mg 4 times a day from Dr. García's office and tizanidine 4 mg twice a day from our office. Patient states she does not need refills at this time. Her Candelario is [phone]. Its been reviewed and appropriate. Review of Systems: General: No recent weight changes, no fever, no sleep disturbances Respiratory: No cough, no shortness of air, no recurring pulmonary infections Cardiovascular/peripheral vascular: No chest pain, no palpitations, no edema, no shortness of breath Gastrointestinal: No new onset incontinence, normal bowel movements reported Genitourinary: No new onset incontinence Musculoskeletal: Low back pain Psychiatric: [Normal mood/affect] Neurological: [Denies weakness in extremities], [denies balance issues] Objective:: Physical Exam: General: Alert and oriented x3, no acute distress, pleasant and cooperative Lungs: Respirations even and unlabored, symmetrical chest expansion Eyes: PERRL Musculoskeletal: Flexion and extension of lumbar [spine] somewhat guarded secondary to pain, [antalgic gait noted] Neurological: Speech clear, no gross sensory deficit Assessment:: Degenerative disc disease of lumbar spine with lumbar radiculopathy symptoms, sacroiliitis Plan:: Patient has had significant improvement following her transforaminal epidural steroid injection and does not require any additional injective therapy at this time. Patient will return to clinic in 1 month for reevaluation of symptoms and plan of care. Patient has been instructed to contact the clinic with any concerns before the next appointment. Dr. Yung has reviewed this note and agrees with this plan of care. This note was dictated using voice recognition software and make contain errors or omissions. [facility] Disclaimer: The information contained in this section may have been updated after the patient was seen, as this information can be updated by other users. Medical History CAD (coronary artery disease) HHD (hypertensive heart disease) Family History Other No significant family history Social History Smoking Status: Current every day smoker tobacco type: cigarettes packs per day: 1 second hand exposure: Yes alcohol intake: never substance use type: denies use current occupational status: retired Travel in the last 8 weeks: None household members: spouse housing: house current occupational exposures/hazards: No caffeine: Yes
[2022-09-15 15:04] VITALS: BP 138/61; PULSE 77; RESP 18; O2SAT 96; BMI 34.0
== END ==
PROVIDERS: PCP Internal Medicine Adolescent Medicine; Visit Provider Nurse Practitioner Family
DX: M51.16 Intervertebral disc disorders with radiculopathy, lumbar region (principal); M46.1 Sacroiliitis, not elsewhere classified
CPT/HCPCS: 99212; G0463

== ENCOUNTER 2022-09-30 16:59 | Emergency (ER) | payer OTHER, SELFPAY ==
[2022-09-30 17:13] VITALS: BP 164/72; PULSE 79; RESP 17; TEMP 36.8; O2SAT 97; BMI 33.0
[2022-09-30 17:31] VITALS: BP 142/70; PULSE 79; O2SAT 98
--- NOTE | 2022-09-30 17:42 | HMH.EDGENADL ---
Discharge Plan Disposition Patient Disposition: Home, Self-Care Prescriptions Prescriptions: New valacyclovir 1 gram tablet 1,000 mg PO TID 10 Days Qty: 30 0RF No Action atorvastatin 40 mg tablet 40 mg PO HS 30 Days Qty: 30 escitalopram oxalate 20 mg tablet 20 mg PO DAILY bisoprolol fumarate 10 mg tablet 10 mg PO DAILY Patient Comments: TAKE ONE TABLET BY MOUTH EVERY DAY metformin 1,000 mg tablet 1,000 mg PO BID 30 Days Qty: 60 Patient Comments: aspirin 81 mg tablet,delayed release (DR/EC) 81 mg PO DAILY 90 Days Qty: 90 Patient Comments: omeprazole 20 mg capsule,delayed release(DR/EC) 20 mg PO DAILY 30 Days Qty: 30 Patient Comments: albuterol sulfate 90 mcg/actuation HFA aerosol inhaler 2 puff IH QIDP PRN (Reason: Shortness Of Breath) 25 Days Qty: 18 Patient Comments: isosorbide mononitrate 30 MG tablet 30 mg PO BID umeclidinium-vilanterol 1 EACH blister with device 1 puff IH DAILY gabapentin 100 mg capsule 200 mg PO .2 tabs,qam, 2 qhs magnesium oxide 400 MG capsule 400 mg PO BID ertugliflozin 15 MG tablet 15 mg PO DAILY tizanidine 4 MG tablet 4 mg PO BID Qty: 60 2RF semaglutide 1 MG/0.75 ML pen injector 1 mg SQ WEEKLY prednisone 20 mg tablet 20 mg PO BID Referrals Follow up/Referrals: Cortez Gagnon MD [Primary Care Provider] - See instructions Activity Restrictions/Add. Instructions Additional Instructions/Restrictions: Take valacyclovir 3 times daily for 10 days. If you have any worsening signs or symptoms, return promptly to the ER or your family doctor for further evaluation. Take Tylenol 1000 mg every 6 hours (4 times daily) and ibuprofen 400 mg every 6 hours (4 times daily) as needed with food and water to prevent GI upset and kidney damage. Clinical Impressions Clinical Impression: Acute herpes zoster neuropathy, Eyelid lesion Discharge ED Provider: Andrea Whelan General Adult HPI General Chief complaint: Eye Problems Stated complaint: white spot RT eye, painful and itchy Time Seen by Provider: 09/30/22 17:14 Mode of Arrival: Ambulatory Source of Information: Patient Limitations: No Limitations Description of Symptoms (Recalled from ER Triage Doc. by RN): pt presents with c/o right eyelid swelling, itchyness, pain. pt reports 2 days ago she began to notice swelling and a white bump on her eyelid. History of Present Illness HPI narrative: Is a 61-year-old female with no relevant medical history presenting with facial pain and swelling. Patient states that 2 days prior to arrival, she started have a burning pain across the right side of her face near her forehead. Since that time, burning has largely subsided and is a mild throb. She has since developed a couple of bumps on her upper eyelid. Since 1 day prior to arrival, 2 or 3 bumps have coalesced into 1 larger pustule. Because of this, came to the ER for further evaluation. Denies fevers, chills, photophobia, vision changes, drainage from her eye or ear, any other neurologic deficits, or any other concerns. Has received shingles vaccine, had chickenpox as a kid, however. Related Data Home Medications Medication Instructions Recorded Confirmed albuterol sulfate 90 mcg/actuation 2 puff inhalation QIDP PRN 04/03/17 09/15/22 aerosol inhaler Shortness Of Breath 25 days ##18 aspirin 81 mg tablet,delayed 81 mg PO DAILY HEART HEALTH 90 04/03/17 09/15/22 release days #90 tabs metformin 1,000 mg tablet 1,000 mg PO BID Diabetes 30 days 04/03/17 09/15/22 #60 tabs omeprazole 20 mg capsule,delayed 20 mg PO DAILY GERD 30 days #30 04/03/17 09/15/22 release caps atorvastatin 40 mg tablet 40 mg PO HS Cholesterol 30 days 11/28/17 09/15/22 #30 tabs isosorbide mononitrate 30 mg 30 mg PO BID ANGINA 08/06/19 09/15/22 tablet,extended release 24 hr umeclidinium 62.5 mcg-vilanterol 1 puff inhalation DAILY COPD
[2022-09-30 17:52] VITALS: BP 142/70; PULSE 75; RESP 18; TEMP 36.7
== END 2022-09-30 18:00 | disposition home or self-care (01) ==
PROVIDERS: Emergency Provider Emergency Medicine; PCP Internal Medicine Adolescent Medicine
DX: B02.23 Postherpetic polyneuropathy (principal); I25.10 Atherosclerotic heart disease of native coronary artery without angina pectoris; I11.9 Hypertensive heart disease without heart failure; F17.210 Nicotine dependence, cigarettes, uncomplicated
CPT/HCPCS: 87252; 99283

== ENCOUNTER 2022-10-14 07:55 | Outpatient (CLI) | payer OTHER, SELFPAY ==
[2022-10-14] VITALS (19 sets, daily range): BP systolic 130–167; BP diastolic 48–80; PULSE 61–70; RESP 16–17; TEMP 36.1–36.4; O2SAT 93–96; BMI 34.3
[2022-10-14 08:29] LABS: Hematocrit 23.5 % (37.0-47.0); Hemoglobin 7.5 g/dL (12.2-16.2)
--- NOTE | 2022-10-14 10:38 | PC.NURSE ---
BLOOD TRANSFUSION STARTED AT 1032 AT 100 ML/HR.
--- NOTE | 2022-10-14 11:30 | PC.NURSE ---
1102-INCREASED RATE TO 150 ML/HR AT THIS TIME.
--- NOTE | 2022-10-14 11:41 | PC.NURSE ---
1132-INCREASED RATE TO 200 ML/HR AT THIS TIME.
--- NOTE | 2022-10-14 12:55 | PC.NURSE ---
1252-BLOOD TRANSFUSION STARTED AT 100 ML/HR AT THIS TIME.
--- NOTE | 2022-10-14 13:56 | PC.NURSE ---
1322-INCREASED RATE TO 150 ML/HR AT THIS TIME.
--- NOTE | 2022-10-14 14:00 | PC.NURSE ---
1352-INCREASED RATE TO 200 ML/HR AT THIS TIME.
--- NOTE | 2022-10-14 14:02 | PC.NURSE ---
0810-PT ARRIVES TODAY FOR 2 UNITS PRBC'S FOR SYMPTOMATIC ANEMIA. PT STATES SHE HAS BEEN WEAK, FATIGUED, AND HAS BEEN HEARING POUNDING IN HER EARS. 0820-HGB/HCT DRAWN WITH TYPE AND CROSSMATCH. HGB 7.5 AND HCT 23.5.
== END 2022-10-14 15:38 | disposition home or self-care (01) ==
LOC: INF 07:55
PROVIDERS: PCP Nurse Practitioner Family; Visit Provider Nurse Practitioner Family
DX: D64.9 Anemia, unspecified (principal)
CPT/HCPCS: 36430; 85014; 85018; 86850; P9016

== ENCOUNTER 2022-10-16 17:38 | Emergency (ER) | payer OTHER, SELFPAY ==
[2022-10-16 17:39] VITALS: BP 173/87; PULSE 82; RESP 20; TEMP 36.6; O2SAT 94; BMI 34.0
--- NOTE | 2022-10-16 17:54 | HMH.EDGENADL ---
Discharge Plan Disposition Patient Disposition: Home, Self-Care Condition: Good Prescriptions Prescriptions: New furosemide [Lasix] 20 mg tablet 20 mg PO DAILY Qty: 7 0RF guaifenesin 200 mg/5 mL liquid 200 mg PO Q6H PRN (Reason: cough) Qty: 118 0RF No Action atorvastatin 40 mg tablet 40 mg PO HS 30 Days Qty: 30 escitalopram oxalate 20 mg tablet 20 mg PO DAILY bisoprolol fumarate 10 mg tablet 10 mg PO DAILY Patient Comments: TAKE ONE TABLET BY MOUTH EVERY DAY metformin 1,000 mg tablet 1,000 mg PO BID 30 Days Qty: 60 Patient Comments: aspirin 81 mg tablet,delayed release (DR/EC) 81 mg PO DAILY 90 Days Qty: 90 Patient Comments: omeprazole 20 mg capsule,delayed release(DR/EC) 20 mg PO DAILY 30 Days Qty: 30 Patient Comments: albuterol sulfate 90 mcg/actuation HFA aerosol inhaler 2 puff IH QIDP PRN (Reason: Shortness Of Breath) 25 Days Qty: 18 Patient Comments: isosorbide mononitrate 30 MG tablet 30 mg PO BID gabapentin 100 mg capsule 200 mg PO BID magnesium oxide 400 MG capsule 400 mg PO BID ertugliflozin 15 MG tablet 15 mg PO DAILY tizanidine 4 MG tablet 4 mg PO BID Qty: 60 2RF semaglutide 1 MG/0.75 ML pen injector 1 mg SQ WEEKLY Trelegy Ellipta 200-62.5-25 mcg Blister With Device 1 inh INHALATION DAILY Referrals Follow up/Referrals: Cortez Gagnon MD [Primary Care Provider] - See instructions Activity Restrictions/Add. 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 Please return with new or worsening symptoms. Clinical Impressions Clinical Impression: Pulmonary edema Qualifiers: Chronicity: acute Qualified Code(s): J81.0 - Acute pulmonary edema Instructions Patient Instructions: Furosemide Discharge ED Provider: Hammad,Lokesh General Adult HPI General Chief complaint: Shortness of Breath/Dyspnea Stated complaint: SOA,congestion Time Seen by Provider: 10/16/22 17:51 Mode of Arrival: Ambulatory Source of Information: Patient Limitations: No Limitations Description of Symptoms (Recalled from ER Triage Doc. by RN): SOA normally all the time however worse today, pt has hx of copd, denies rubia fever n/v, does have pain when she coughs History of Present Illness HPI narrative: Patient presents for evaluation of shortness of breath and nonproductive cough Onset: 1 month ago Aggravating factors: Laying flat Alleviating factors: Sitting up Radiation: None Timing: Constant Severity: Moderate Previous therapies: None Pertinent positives and negatives: Denies family history of pulmonary embolism, denies hemoptysis, describes associated mild bilateral lower extremity swelling, no associated tachypnea, no palpitations, no unilateral pain or swelling, no fevers or chills or nausea or vomiting. No exertional dyspnea Patient does describe history of idiopathic anemia currently being worked up on outpatient basis, transfusion several days ago Related Data Home Medications Medication Instructions Recorded Confirmed albuterol sulfate 90 mcg/actuation 2 puff inhalation QIDP PRN 04/03/17 10/14/22 aerosol inhaler Shortness Of Breath 25 days ##18 aspirin 81 mg tablet,delayed 81 mg PO DAILY HEART HEALTH 90 04/03/17 10/14/22 release days #90 tabs metformin 1,000 mg tablet 1,000 mg PO BID Diabetes 30 days 04/03/17 10/14/22 #60 tabs omeprazole 20 mg capsule,delayed 20 mg PO DAILY GERD 30 days #30 04/03/17
--- NOTE | 2022-10-16 17:58 | PC.NURSE ---
ER MD Cueva at
[2022-10-16 18:01] VITALS: BP 165/73; PULSE 79; O2SAT 96
--- NOTE | 2022-10-16 18:09 | XR_ITS ---
PROCEDURE INFORMATION: Exam: XR Chest Exam date and time: 10/16/2022 6:07 PM Age: 61 years old Clinical indication: Shortness of breath; Additional info: Concern for pulmonary edema, b lines on pocus TECHNIQUE: Imaging protocol: Radiologic exam of the chest. Views: 2 views. COMPARISON: CT LUNG SCREENING 08/12/2022 6:39 AM FINDINGS: Lungs: Unremarkable. No consolidation. Pleural spaces: Tiny bilateral pleural effusions. Heart/Mediastinum: Unremarkable. No cardiomegaly. Bones/joints: Unremarkable. IMPRESSION: Tiny bilateral pleural effusions.
[2022-10-16 18:17] LABS: Basophils # 0.1 K/mm3 (0-0.2); Basophils % 0.6 % (0.1-2.0); Eosinophils # 0.2 K/mm3 (0.0-0.4); Eosinophils % 1.8 % (0.1-12.0); Hematocrit 30.5 % (37.0-47.0); Hemoglobin 9.6 g/dL (12.2-16.2); Lymphocytes # 2.7 K/mm3 (0.7-4.5); Lymphocytes % 23.1 % (10-50); Mean Corpuscular HGB Conc 31.6 g/dL (31.8-35.4); Mean Corpuscular Hemoglobin 25.1 pg (27.0-31.2); Mean Corpuscular Volume 79.6 fl (81-99); Mean Platelet Volume 7.5 fl (7.4-10.4); Monocytes # 0.6 K/mm3 (0.1-1.0); Monocytes % 4.8 % (1.7-9.3); Neutrophils # 8.1 K/mm3 (1.8-7.8); Neutrophils % 69.7 % (37.0-80.0); Platelet Count 371 K/mm3 (142-424); Red Blood Count 3.83 M/mm3 (4.20-5.40); White Blood Count 11.6 K/mm3 (4.8-10.8)
[2022-10-16 18:23] LABS: Alanine Aminotransferase 27 U/L (12-78); Albumin Level 4.3 g/dl (3.5-5.0); Albumin/Globulin Ratio 1.4 (1.1-1.8); Alkaline Phosphatase 106 U/L (38-126); Anion Gap 13.8 mEq/L (5-15); Aspartate Amino Transferase 33 U/L (14-36); Bilirubin,Total 0.4 mg/dl (0.2-1.3); Blood Urea Nitrogen 11 mg/dl (7-17); Carbon Dioxide 21 mmol/L (22.0-30.0); Chloride 109 mmol/L (98-107); Creatinine Clearance Estimated 88 mL/min (50-200); Estimated Glomerular Filt Rate 73 ml/min (>60); GFR (African American) 88 ML/MIN (>60); Globulin 3.1 g/dL (1.3-3.2); Glucose 141 mg/dl (74-100); Potassium 3.8 mmoL/L (3.5-5.1); Sodium 140 mmol/L (136-145); Total Protein,Serum 7.4 g/dl (6.3-8.2)
[2022-10-16 18:28] LABS: D-Dimer 1.42 ug/mL (0.0-0.5)
[2022-10-16 18:30] VITALS: BP 171/71; PULSE 83; O2SAT 97
--- NOTE | 2022-10-16 18:32 | CT_ITS ---
PROCEDURE INFORMATION: Exam: CTA Chest With Contrast Exam date and time: 10/16/2022 6:44 PM Age: 61 years old Clinical indication: Shortness of breath; Additional info: Pe suspected, elevated dimer TECHNIQUE: Imaging protocol: Computed tomographic angiography of the chest with contrast. Exam focused on the arteries. 3D rendering (Not supervised by radiologist): MIP and/or 3D reconstructed images were created by the technologist. Radiation optimization: All CT scans at this facility use at least one of these dose optimization techniques: automated exposure control; mA and/or kV adjustment per patient size (includes targeted exams where dose is matched to clinical indication); or iterative reconstruction. Contrast material: ISOVUE; Contrast volume: 70 ml; Contrast route: INTRAVENOUS (IV); REPORTING DATA: Count of CT and Cardiac NM exams in prior 12 months: This patient has received [address] and 0 known cardiac nuclear medicine studies in the 12 months prior to the current study. COMPARISON: CT LUNG SCREENING 08/12/2022 6:39 AM FINDINGS: Pulmonary arteries: No central or segmental pulmonary arterial intraluminal filling defect identified. Aorta: Atherosclerotic calcification of thoracic aorta. Thyroid: Scattered thyroid calcification. Lungs: Compressive subsegmental atelectasis. Mild interstitial prominence. Pulmonary vasculature redistribution. Pleural spaces: Small bilateral pleural effusions. Heart: Unremarkable. No cardiomegaly. No pericardial effusion. Coronary arteries: Atherosclerotic calcification of coronary arteries. Lymph nodes: Unremarkable. No enlarged lymph nodes. Bones/joints: Unremarkable. No acute fracture. Soft tissues: Unremarkable. IMPRESSION: 1. No central or segmental pulmonary arterial embolism by CT criteria. 2. Bilateral pleural effusions and pulmonary vasculature redistribution. Query symptoms of CHF/pulmonary edema. 3. Nonspecific thyroid calcification. Consider further imaging evaluation with nonurgent sonogram ultrasound.
[2022-10-16 18:37] LABS: NT Pro Brain Natriuretic Pep. 2200 pg/mL (0-125)
--- NOTE | 2022-10-16 18:42 | PC.NURSE ---
pt to CT
[2022-10-16 18:48] LABS: Troponin I < 0.01 ng/ml (0.00-0.034)
[2022-10-16 19:59] VITALS: BP 187/99; PULSE 72; RESP 18; TEMP 36.9
--- NOTE | 2022-10-16 20:00 | ECG_ITS ---
APPROVED REPORT Exam: Resting ECG HR:77 bpm ECG Measurements Heart Rate 77 AXES NH 146 P 66 QRSd 109 QRS 84 QT 411 T 51 QTc 443 Conclusion SINUS RHYTHM MINIMAL VOLTAGE CRITERIA FOR LVH, CONSIDER NORMAL VARIANT [MEETS CRITERIA IN ONE OF: R(aVL), S(V1), R(V5), R(V5/V6)+S(V1)] NONSPECIFIC ST & T-WAVE ABNORMALITY BORDERLINE ECG UNCONFIRMED REPORT Electronically signed by : Cortez Gagnon MD 10/18/2022 14:05:33
--- NOTE | 2022-10-18 14:33 | PC.NURSE ---
pt came in to registration today stating her medication was not sent in. After reviewing her d/c papers, it appears the medicine was sent to [facility] pharmacy in [place]. Pt reports she wanted it to be sent to Clinic pharmacy. I offered to have the medicine switched to her pharmacy o choice and she reported I have to go to [facility] or other things too . I apologized for the inconvenience of this issue.
== END 2022-10-16 20:07 | disposition home or self-care (01) ==
PROVIDERS: Emergency Provider Emergency Medicine; PCP Internal Medicine Adolescent Medicine
DX: J81.0 Acute pulmonary edema (principal); J44.9 Chronic obstructive pulmonary disease, unspecified; I25.10 Atherosclerotic heart disease of native coronary artery without angina pectoris; I11.9 Hypertensive heart disease without heart failure; F17.210 Nicotine dependence, cigarettes, uncomplicated
CPT/HCPCS: 71046; 71275; 80053; 83880; 84484; 85025; 85378; 93005; 93041; 96374; 99285; Q9967

== ENCOUNTER → 2022-10-18 14:00 | Outpatient (POV) | payer OTHER, SELFPAY ==
--- NOTE | 2022-10-18 14:19 | EXP.PAIN.SOA ---
[facility] Pain Management SOAP Note Subjective:: Patient is a pleasant 61-year-old female who presents for 1 month follow-up. We are currently treating the patient for degenerative disc disease of lumbar spine with lumbar radiculopathy symptoms, sacroiliitis. Today she rates her pain a 1 out of 10. Patient states that she is continued to have significant relief following her left transforaminal epidural steroid injection L4-L5 and L5-S1 back on August 17. Patient states she has been able to increase her activity with decreased pain symptoms. She is currently managed with gabapentin 100 mg 4 times a day from her primary care doctor and tizanidine 4 mg twice a day from our office. She denies any side effects from these medications. Her Candelario is [phone]. Its been reviewed and appropriate. Review of Systems: General: No recent weight changes, no fever, no sleep disturbances Respiratory: No cough, no shortness of air, no recurring pulmonary infections Cardiovascular/peripheral vascular: No chest pain, no palpitations, no edema, no shortness of breath Gastrointestinal: No new onset incontinence, normal bowel movements reported Genitourinary: No new onset incontinence Musculoskeletal: Low back pain Psychiatric: [Normal mood/affect] Neurological: [Denies weakness in extremities], [denies balance issues] Objective:: Physical Exam: General: Alert and oriented x3, no acute distress, pleasant and cooperative Lungs: Respirations even and unlabored, symmetrical chest expansion Eyes: PERRL Musculoskeletal: Flexion and extension of lumbar [spine] somewhat guarded secondary to pain, [antalgic gait noted] Neurological: Speech clear, no gross sensory deficit Assessment:: Degenerative disc disease of lumbar spine with lumbar radiculopathy symptoms, sacroiliitis Plan:: Patient continues to get significant relief from her transforaminal epidural and does not require any additional injective therapy. I will refill her tizanidine 4 mg twice daily and provide a 3-month supply of this medication. Patient will return to clinic in 3 months for reevaluation of symptoms and plan of care. Patient has been instructed to contact the clinic with any concerns before the next appointment. Dr. Yung has reviewed this note and agrees with this plan of care. This note was dictated using voice recognition software and make contain errors or omissions. [facility] Disclaimer: The information contained in this section may have been updated after the patient was seen, as this information can be updated by other users. Medical History CAD (coronary artery disease) HHD (hypertensive heart disease) Family History Other No significant family history Social History Smoking Status: Current every day smoker tobacco type: cigarettes packs per day: 1 second hand exposure: Yes alcohol intake: never substance use type: denies use current occupational status: retired Travel in the last 8 weeks: None household members: spouse housing: house current occupational exposures/hazards: No caffeine: Yes
[2022-10-18 14:44] VITALS: BP 176/70; PULSE 72; RESP 18; O2SAT 93; BMI 34.0
== END | disposition home or self-care (01) ==
PROVIDERS: PCP Internal Medicine Adolescent Medicine; Visit Provider Nurse Practitioner Family
DX: M51.16 Intervertebral disc disorders with radiculopathy, lumbar region (principal); M46.1 Sacroiliitis, not elsewhere classified
CPT/HCPCS: 99212; G0463

== ENCOUNTER 2022-12-20 13:44 | Outpatient (CLI) | payer OTHER, SELFPAY ==
[2022-12-20 14:00] VITALS: BP 153/69; PULSE 71; RESP 18; O2SAT 97
[2022-12-20 14:40] VITALS: BP 150/66; PULSE 70
== END 2022-12-20 14:45 | disposition home or self-care (01) ==
LOC: INF 13:45
PROVIDERS: PCP Internal Medicine Adolescent Medicine; Visit Provider Internal Medicine Medical Oncology
DX: D50.9 Iron deficiency anemia, unspecified (principal)
CPT/HCPCS: 96365; J1756

== ENCOUNTER 2022-12-27 13:33 | Outpatient (CLI) | payer OTHER, SELFPAY ==
[2022-12-27 13:55] VITALS: BP 112/65; PULSE 84; RESP 18; O2SAT 99
[2022-12-27 14:39] VITALS: BP 123/50; PULSE 75; RESP 18; O2SAT 98
== END 2022-12-27 14:44 | disposition home or self-care (01) ==
LOC: INF 13:34
PROVIDERS: PCP Internal Medicine Adolescent Medicine; Visit Provider Internal Medicine Medical Oncology
DX: D50.8 Other iron deficiency anemias (principal)
CPT/HCPCS: 96365; J1756

== ENCOUNTER 2023-01-03 09:20 | Outpatient (CLI) | payer OTHER, SELFPAY ==
[2023-01-03 09:45] VITALS: BP 151/73; PULSE 71; RESP 18; O2SAT 99
[2023-01-03 10:15] VITALS: BP 141/65; PULSE 68
== END 2023-01-03 10:20 | disposition home or self-care (01) ==
LOC: INF 09:21
PROVIDERS: PCP Internal Medicine Adolescent Medicine; Visit Provider Internal Medicine Medical Oncology
DX: D50.8 Other iron deficiency anemias (principal)
CPT/HCPCS: 96365; J1756

== ENCOUNTER 2023-01-10 07:30 | Outpatient (CLI) | payer OTHER, SELFPAY ==
[2023-01-10 08:31] VITALS: BP 153/72; PULSE 68; RESP 18; TEMP 36.8; O2SAT 98
[2023-01-10 09:05] VITALS: BP 152/74; PULSE 73; RESP 18; O2SAT 99
== END 2023-01-10 09:10 | disposition home or self-care (01) ==
LOC: INF 07:30
PROVIDERS: PCP Internal Medicine Adolescent Medicine; Visit Provider Internal Medicine Medical Oncology
DX: D50.9 Iron deficiency anemia, unspecified (principal)
CPT/HCPCS: 96365; J1756

== ENCOUNTER 2023-01-17 08:06 | Outpatient (CLI) | payer OTHER, SELFPAY ==
[2023-01-17 08:52] VITALS: BP 146/79; PULSE 69; RESP 18; O2SAT 97
[2023-01-17 09:05] VITALS: BP 131/66; PULSE 65; RESP 18; O2SAT 97
== END 2023-01-17 09:05 | disposition home or self-care (01) ==
LOC: INF 08:06
PROVIDERS: PCP Internal Medicine Adolescent Medicine; Visit Provider Internal Medicine Medical Oncology
DX: D50.8 Other iron deficiency anemias (principal); T45.4X5A Adverse effect of iron and its compounds, initial encounter
CPT/HCPCS: 96365; J1756

== ENCOUNTER → 2023-01-17 09:12 | Outpatient (POV) | payer OTHER, SELFPAY ==
[2023-01-17 09:21] VITALS: BP 142/69; PULSE 68; RESP 18; O2SAT 96; BMI 32.9
--- NOTE | 2023-01-17 09:25 | EXP.PAIN.SOA ---
[facility] Pain Management SOAP Note Subjective:: Patient is a pleasant 62-year-old female who presents today for 3-month follow-up. We are currently treating the patient for degenerative disc disease of the lumbar spine with lumbar radiculopathy symptoms, sacroiliitis. Today she rates her pain a 5 out of 10. Patient denies any new trauma or injury. She does state from our last visit that her pain has started to come back. Patient does state it still the same pain of what she was having prior and that it does run down her entire left leg. Patient does describe this is an aching, throbbing sensation that is worse with increased activity and does interfere with her ability to perform activities of daily living such as cooking and cleaning. Patient did have a previous left transforaminal epidural back in August that provided 98% improvement lasting up until the last couple of weeks. She states during the time that that injection was helping she was able to increase her activity with decreased pain symptoms and felt overall more functional. Patient is interested in repeating this injection. Patient is also managed with tizanidine 4 mg twice a day from our office and gabapentin 100 mg 4 times a day from her PCP. Patient denies any side effects from this medication. Her Candelario has been reviewed and is appropriate. Review of Systems: General: No recent weight changes, no fever, no sleep disturbances Respiratory: No cough, no shortness of air, no recurring pulmonary infections Cardiovascular/peripheral vascular: No chest pain, no palpitations, no edema, no shortness of breath Gastrointestinal: No new onset incontinence, normal bowel movements reported Genitourinary: No new onset incontinence Musculoskeletal: Low back pain, left leg pain Psychiatric: [Normal mood/affect] Neurological: [Denies weakness in extremities], [denies balance issues] Objective:: Physical Exam: General: Alert and oriented x3, no acute distress, pleasant and cooperative Lungs: Respirations even and unlabored, symmetrical chest expansion Eyes: PERRL Musculoskeletal: Flexion and extension of lumbar [spine] somewhat guarded secondary to pain, [antalgic gait noted] positive left leg raise with decreased sensation to light touch and decreased reflexes Neurological: Speech clear, no gross sensory deficit Assessment:: Degenerative disc disease of lumbar spine with lumbar radiculopathy symptoms, sacroiliitis Plan:: Patient is experiencing worsening pain in her low back and left leg with limited range of motion. Patient did have a positive left leg raise with decreased sensation to light touch and decreased reflexes during today's exam. I have discussed with the patient that she may benefit from a repeat left transforaminal epidural steroid injection. Risk and benefits were discussed with the patient and she would like to proceed forward with this plan of care. Patient is not on any blood thinners. I will also send in a refill of her tizanidine 4 mg twice a day and provide a 3-month supply of this medication. Patient will be scheduled for left transforaminal epidural steroid injection L4-L5 and L5-S1. Patient did previously have 98% improvement lasting 4-1/2 months. Patient has been instructed to contact the clinic with any concerns before the next appointment. Dr. Yung has reviewed this note and agrees with this plan of care. This note was dictated using voice recognition software and make contain errors or omissions. [facility] Disclaimer: The information contained in this section may have been updated after the patient was seen, as this information can be updated by other users. Medical History Allergic rhinitis CAD (coronary artery disease) COPD mixed type Encounter for screening for malignant neoplasm of lung HHD (hypertensive heart disease) Pleural effusion Smoking greater than 30 pack years Surgical History (Updated 01/14/23 @ 10:01 by Rimma Duenas) History of cholecystectomy Hi
== END | disposition home or self-care (01) ==
PROVIDERS: PCP Internal Medicine Adolescent Medicine; Visit Provider Nurse Practitioner Family
DX: M51.16 Intervertebral disc disorders with radiculopathy, lumbar region (principal); M46.1 Sacroiliitis, not elsewhere classified
CPT/HCPCS: 99212; G0463

== ENCOUNTER 2023-02-01 07:43 | Day surgery (SDC) | payer OTHER, SELFPAY ==
[2023-02-01 08:23] VITALS: BP 144/73; PULSE 69; RESP 18; TEMP 36.5; O2SAT 96; BMI 33.9
[2023-02-01 08:57] VITALS: BP 162/62; PULSE 81; RESP 18; O2SAT 96
[2023-02-01 09:00] VITALS: BP 162/62; PULSE 79; RESP 18; O2SAT 96
[2023-02-01 09:06] VITALS: BP 148/48; PULSE 69; RESP 16; O2SAT 96
--- NOTE | 2023-02-01 09:32 | P.PCN_ITS ---
Procedure Date: 02/01/23 Time: 08:45 Anesthesiologist:: Low Guadalupe CRNA Complications:: None Pre-procedure Diagnosis:: Degenerative disc lumbar spine multilevels. Lumbar radiculopathy. Lumbar postlaminectomy syndrome. Disc bulge L4-5, L5-S1. Post-procedure Diagnosis:: Same. Indications for Procedure:: Patient is a very pleasant 62-year-old female who comes our clinic today for left L4-5 and L5-S1 transforaminal epidural steroid injection. Patient had significant improvement terms of her overall low back pain as well as left hip and leg radicular symptoms with a previous injection at the same levels 6 months ago. Patient describes left hip and leg radicular symptoms as constant, dull, aching. She rates her pain 7/10. Patient also reports low back pain left greater than right Procedure Details:: Details of the procedure were explained to the patient. The patient was taken the procedure room placed in the prone position. The area of the lumbar spine was cleansed using chlorhexidine as a cleansing solution. At this time using fluoroscopy guidance markers were placed on the left lateral border of the L4 and L5 vertebral body. The skin and subcutaneous tissue was anesthetized using 1% lidocaine and 25-gauge needle. At this time using a 22-gauge 3-1/2 inch spinal needle the left upper one third of the L4-5 foramen was accessed. The same was done at the left L5-S1 foramen. Needle positions were confirmed and a lateral view using fluoroscopy and contrast dye. At this time 1 cc of 1% lidocaine +20 mg of Depo-Medrol was injected at each level after negative aspiration. [place] were removed. Band-Aid applied. Patient tolerated the procedure without difficulty. There are no complications. Plan and Disposition:: Patient was discharged without incident.
== END 2023-02-01 09:06 | disposition home or self-care (01) ==
PROVIDERS: PCP Internal Medicine Adolescent Medicine; Visit Provider Nurse Anesthetist, Certified Registered
DX: M51.16 Intervertebral disc disorders with radiculopathy, lumbar region (principal); M96.1 Postlaminectomy syndrome, not elsewhere classified; M51.26 Other intervertebral disc displacement, lumbar region
CPT/HCPCS: 64483; 64484; J1030

== ENCOUNTER → 2023-02-16 13:54 | Outpatient (POV) | payer OTHER, SELFPAY ==
--- NOTE | 2023-02-16 14:17 | EXP.PAIN.SOA ---
[facility] Pain Management SOAP Note Subjective:: Patient is a pleasant 62-year-old female who presents today for follow-up of left transforaminal epidural steroid injection L4-L5 and L5-S1 on 02/01/2023. We are currently treating the patient for degenerative disc disease of lumbar spine with lumbar radiculopathy symptoms, sacroiliitis. Today she rates her pain a 5 out of 10. Patient denies any new trauma or injury. She does state that she has had at least 50% improvement following this injection and it is still providing significant relief. She states she has been able to increase her activity with decreased pain symptoms however she is having worsening pain in and around her left hip. Patient states the pain does go into her buttocks and has some numbness. Patient states that certain movements such as going up and down stairs or prolonged sitting or standing aggravates this pain. Patient states it does make ADLs difficult to where she cannot perform cooking and cleaning exercises around her home. Patient is currently managed with gabapentin 100 mg 4 times a day from her primary care provider and tizanidine 4 mg twice a day from our office. Patient denies any side effects from this medication. She does state that it helps. She does not think she needs any refills on her muscle relaxer at this time. Her Candelario has been reviewed and is appropriate. Review of Systems: General: No recent weight changes, no fever, no sleep disturbances Respiratory: No cough, no shortness of air, no recurring pulmonary infections Cardiovascular/peripheral vascular: No chest pain, no palpitations, no edema, no shortness of breath Gastrointestinal: No new onset incontinence, normal bowel movements reported Genitourinary: No new onset incontinence Musculoskeletal: Left hip pain/buttocks pain Psychiatric: [Normal mood/affect] Neurological: [Denies weakness in extremities], [denies balance issues] Objective:: Physical Exam: General: Alert and oriented x3, no acute distress, pleasant and cooperative Lungs: Respirations even and unlabored, symmetrical chest expansion Eyes: PERRL Musculoskeletal: Flexion and extension of lumbar [spine] somewhat guarded secondary to pain, [antalgic gait noted] point tenderness along left SI with positive left Gavin's, Manohar's, Gaenslen's, compression and distraction exam Neurological: Speech clear, no gross sensory deficit Assessment:: Degenerative disc disease of lumbar spine with lumbar radiculopathy symptoms, sacroiliitis Plan:: Patient is experiencing worsening symptoms into her left hip with limited range of motion. Patient did have point tenderness along her left SI and a positive left Gavin's, Manohar's, Gaenslen's, compression and distraction exam. I have discussed with the patient that she may benefit from a left SI injection. Risk and benefits were discussed with the patient and she would like to proceed forward with this plan of care. Patient does have a history of chronic sacroiliitis and has had significant relief of more than 80% in the past. Patient will be scheduled for a left SI injection under fluoroscopy. Patient has been instructed to contact the clinic with any concerns before the next appointment. Dr. Yung has reviewed this note and agrees with this plan of care. This note was dictated using voice recognition software and make contain errors or omissions. [facility] Disclaimer: The information contained in this section may have been updated after the patient was seen, as this information can be updated by other users. Medical History Allergic rhinitis CAD (coronary artery disease) COPD mixed type Encounter for screening for malignant neoplasm of lung HHD (hypertensive heart disease) Pleural effusion Smoking greater than 30 pack years Surgical History History of cholecystectomy History of colonoscopy History of heart artery stent History of lumbar surgery Hi
[2023-02-16 14:26] VITALS: BP 147/69; PULSE 74; RESP 18; O2SAT 97; BMI 32.5
== END ==
PROVIDERS: PCP Internal Medicine Adolescent Medicine; Visit Provider Nurse Practitioner Family
DX: M51.16 Intervertebral disc disorders with radiculopathy, lumbar region (principal); M46.1 Sacroiliitis, not elsewhere classified
CPT/HCPCS: 99212; G0463

== ENCOUNTER 2023-03-04 09:06 | Day surgery (SDC) | payer OTHER, SELFPAY ==
[2023-03-04 09:16] VITALS: BP 159/72; PULSE 64; RESP 16; TEMP 36.6; O2SAT 99; BMI 33.0
[2023-03-04] MEDS: LIDOCAINE 1% 5ML PF VIAL 5 ML (09:24)
[2023-03-04] MEDS: BUPIVACAINE 0.25% 10ML INJ 25 MG IJ (09:24)
[2023-03-04 09:25] VITALS: BP 121/73; PULSE 77; RESP 18; O2SAT 98
[2023-03-04] MEDS: methylPREDNISolone ACETATE 80MG/ML VIAL 80 MG (09:25)
[2023-03-04 09:26] VITALS: BP 121/73; PULSE 77; RESP 18; O2SAT 98
--- NOTE | 2023-03-04 09:29 | EXP.PAIN.PRO ---
Procedure Date: 03/04/23 Time: 09:10 Anesthesiologist:: Low Guadalupe CRNA Complications:: None Pre-procedure Diagnosis:: Left sacroiliitis. Post-procedure Diagnosis:: Same. Indications for Procedure:: Patient is a very pleasant 62-year-old female comes our clinic today for repeat left sacroiliac joint injection. Patient describes left posterior hip pain as constant, dull, sharp, stabbing. Patient reports difficulty transitioning from sitting to standing. Ambulation increases pain in the left posterior hip area. She rates her pain 7/10. Procedure Details:: Procedure: Left sacroiliac injection under fluoroscopy Informed consent was obtained and the risk and benefits of the procedure were explained to the patient.~ The patient was taken to the procedure room and noninvasive monitors were placed including noninvasive blood pressure cuff and pulse oximeter.~ The patient was placed prone on the procedure table.~ The~ left hip was cleansed using Betadine as a cleansing solution.~ C-arm fluorosocpy was used to view the left SI joint.~ The skin and subcutaneous tissues were anesthetized using Lidocaine 1.5% and a 25-gauge needle.~ After this, a 22-gauge spinal needle was inserted under fluoroscopic guidance into the inferior aspect of the left SI joint.~ Omnipaque dye was injected and a good spread was seen throughout the joint.~ After this, approximately 5 mL of bupivacaine 0.25% and Depo-Medrol 40 mg was incrementally injected into the sacroiliac joint.~ The patient tolerated the procedure well with no complications.~ The patient was observed in the Pain Clinic for a period of 30-45 minutes, then discharged home neurologically intact.~ Plan and Disposition:: Patient was discharged without incident.
[2023-03-04 09:38] VITALS: BP 156/72; PULSE 72; RESP 16; O2SAT 99
== END 2023-03-04 09:38 | disposition home or self-care (01) ==
PROVIDERS: PCP Internal Medicine Adolescent Medicine; Visit Provider Nurse Anesthetist, Certified Registered
DX: M46.1 Sacroiliitis, not elsewhere classified (principal)
CPT/HCPCS: 27096; G0260; J1040

== ENCOUNTER → 2023-03-16 11:05 | Outpatient (POV) | payer OTHER, SELFPAY ==
--- NOTE | 2023-03-16 11:34 | A.OFFVIS_ITS ---
[facility] Pain Management SOAP Note Subjective:: Patient is a pleasant 62-year-old female who presents today for follow-up of left SI injection 03/04/2023. We are currently treating the patient for degenerative disc disease of lumbar spine with lumbar radiculopathy symptoms, sacroiliitis. Today she rates her pain a 2 out of 10. Patient states that she has had at least 75% improvement following this injection. Patient states that she feels like it is still continuing to provide relief and that occasionally she will have a twinge of pain however it is much more manageable. Patient states she has been able to increase her activity with decreased pain symptoms and feels overall more functional. Patient denies any new injury or trauma. Patient is currently managed with gabapentin 100 mg 4 times a day from her PCP and tizanidine 4 mg twice a day from our office. Patient states she is unsure if she needs any refills. Her [place] has been reviewed and is appropriate. Review of Systems: General: No recent weight changes, no fever, no sleep disturbances Respiratory: No cough, no shortness of air, no recurring pulmonary infections Cardiovascular/peripheral vascular: No chest pain, no palpitations, no edema, no shortness of breath Gastrointestinal: No new onset incontinence, normal bowel movements reported Genitourinary: No new onset incontinence Musculoskeletal: Low back pain Psychiatric: [Normal mood/affect] Neurological: [Denies weakness in extremities], [denies balance issues] Objective:: Physical Exam: General: Alert and oriented x3, no acute distress, pleasant and cooperative Lungs: Respirations even and unlabored, symmetrical chest expansion Eyes: PERRL Musculoskeletal: Flexion and extension of lumbar [spine] somewhat guarded secondary to pain, [antalgic gait noted] Neurological: Speech clear, no gross sensory deficit Assessment:: Degenerative disc disease of lumbar spine with lumbar radiculopathy symptoms, sacroiliitis Plan:: Patient has had significant improvement following her SI injection and does not require any additional injection therapy at this time. Patient was given a 3- month supply of her muscle relaxer at her visit back in January and does not require any additional refills until next month. Patient will return to clinic in 1 month for reevaluation of symptoms and plan of care. Patient has been instructed to contact the clinic with any concerns before the next appointment. Dr. Yung has reviewed this note and agrees with this plan of care. This note was dictated using voice recognition software and make contain errors or omissions. [facility] Disclaimer: The information contained in this section may have been updated after the patient was seen, as this information can be updated by other users. Medical History Allergic rhinitis CAD (coronary artery disease) COPD mixed type Encounter for screening for malignant neoplasm of lung HHD (hypertensive heart disease) Pleural effusion Smoking greater than 30 pack years Surgical History History of cholecystectomy History of colonoscopy History of heart artery stent History of lumbar surgery History of tubal ligation Family History Other Asthma COPD (chronic obstructive pulmonary disease) Cancer Diabetes Heart attack Hypertension Stroke Social History Smoking Status: Current every day smoker tobacco type: cigarettes packs per day: 1 second hand exposure: Yes alcohol intake: never substance use type: denies use current occupational status: retired Travel in the last 8 weeks: None household members: spouse housing: house current occupational exposures/hazards: No caffeine: Yes
[2023-03-16 11:53] VITALS: BP 155/58; PULSE 68; RESP 18; O2SAT 94; BMI 33.0
== END ==
LOC: SC.PAIN 11:05
PROVIDERS: PCP Internal Medicine Adolescent Medicine; Visit Provider Nurse Practitioner Family
DX: M51.16 Intervertebral disc disorders with radiculopathy, lumbar region (principal); M46.1 Sacroiliitis, not elsewhere classified
CPT/HCPCS: 99212; G0463

== ENCOUNTER 2023-03-22 10:08 | Outpatient (CLI) | payer OTHER, SELFPAY ==
[2023-03-22 10:34] LABS: Basophils # 0.1 K/mm3 (0-0.2); Basophils % 0.8 % (0.1-2.0); Eosinophils # 0.2 K/mm3 (0.0-0.4); Eosinophils % 1.7 % (0.1-12.0); Hematocrit 34.4 % (37.0-47.0); Hemoglobin 10.4 g/dL (12.2-16.2); Lymphocytes # 2.7 K/mm3 (0.7-4.5); Lymphocytes % 30.9 % (10-50); Mean Corpuscular HGB Conc 30.3 g/dL (31.8-35.4); Mean Corpuscular Volume 79.2 fl (81-99); Mean Platelet Volume 8.2 fl (7.4-10.4); Monocytes # 0.4 K/mm3 (0.1-1.0); Monocytes % 4.3 % (1.7-9.3); Neutrophils # 5.4 K/mm3 (1.8-7.8); Neutrophils % 62.2 % (37.0-80.0); Platelet Count 334 K/mm3 (142-424); Red Blood Count 4.34 M/mm3 (4.20-5.40); Red Cell Distribution Width 16.9 % (11.5-17.5); White Blood Count 8.7 K/mm3 (4.8-10.8)
[2023-03-22 11:17] LABS: Iron 31 ug/dL (37-170)
[2023-03-22 11:26] LABS: Total Iron Binding Capacity 405 ug/dL (265-497)
== END 2023-03-22 23:59 ==
LOC: LAB 10:09
PROVIDERS: PCP Internal Medicine Adolescent Medicine; Visit Provider Internal Medicine Medical Oncology
DX: D50.9 Iron deficiency anemia, unspecified (principal)
CPT/HCPCS: 36415; 82728; 83540; 83550; 85025

== ENCOUNTER → 2023-04-14 08:09 | Outpatient (POV) | payer OTHER, SELFPAY ==
--- NOTE | 2023-04-14 08:48 | A.OFFVIS_ITS ---
[facility] Pain Management SOAP Note Subjective:: Patient is a pleasant 62-year-old female who presents today for 1 month follow- up. We are currently treating the patient for degenerative disc disease of lumbar spine with lumbar radiculopathy symptoms, sacroiliitis, lumbar facet hypertrophy and ligamentum flavum hypertrophy. Today she rates her pain a 6 out of 10. Patient denies any new trauma or injury since our last visit. Patient does state that she is experiencing more pain at her low back and denies radiating symptoms into her legs. Patient states this is an aching, throbbing sensation that is worse with certain movements such as bending, twisting or lifting. Patient does state the pain interferes with her ability perform ac tivities of daily living such as cooking and cleaning. Patient has had injection therapy in the past that has provided significant relief and she would like to see about injection therapy for this pain. Patient is currently managed with gabapentin 100 mg 4 times a day from her primary care provider and tizanidine 4 mg twice a day from our office. Patient denies any side effects from this medication. Her [place] has been reviewed and is appropriate. Review of Systems: General: No recent weight changes, no fever, no sleep disturbances Respiratory: No cough, no shortness of air, no recurring pulmonary infections Cardiovascular/peripheral vascular: No chest pain, no palpitations, no edema, no shortness of breath Gastrointestinal: No new onset incontinence, normal bowel movements reported Genitourinary: No new onset incontinence Musculoskeletal: Low back pain Psychiatric: [Normal mood/affect] Neurological: [Denies weakness in extremities], [denies balance issues] Objective:: Physical Exam: General: Alert and oriented x3, no acute distress, pleasant and cooperative Lungs: Respirations even and unlabored, symmetrical chest expansion Eyes: PERRL Musculoskeletal: Flexion and extension of lumbar [spine] somewhat guarded secondary to pain, [antalgic gait noted] positive Kemps test Neurological: Speech clear, no gross sensory deficit There is normal alignment. The spinal cord ends at the L1 level. T11-T12: Degenerative disc disease with mild kyphosis. T12-L1: Unremarkable. L1-L2: Minimal bulging disc. L2-L3: Mild bulging disc with mild retrolisthesis of L2 by 2 mm. Mild facet hypertrophic change. L3-L4: Degenerative disc disease with bulging disc along with facet and ligamentum hypertrophy. There is bilateral lateral recess narrowing along with moderate to severe foraminal narrowing. The ligamentum hypertrophy appears slightly worse on the right compared to the previous exam with increase in right lateral recess narrowing. Right foraminal narrowing is also worse. L4-5: Degenerative disc disease with bulging disc and small broad-based central disc protrusion. There is moderate facet and ligamentum hypertrophy greater on the left compared to the right with severe left-sided foraminal narrowing and mild right foraminal narrowing. This is not significantly changed. L5-S1: Degenerative disc disease with bulging disc per trophy with severe mid lead change. Small central disc protrusion also noted at this level not significantly changed. IMPRESSION: Multilevel lumbar spondylosis as detailed above with bulging disc, facet ligamentum hypertrophy with lateral recess and foraminal narrowing. Please see above for detailed description at each level. Assessment:: Degenerative disc disease of lumbar spine with lumbar radiculopathy symptoms, chronic sacroiliitis, lumbar facet hypertrophy and ligamentum flavum hypertrophy Plan:: Patient is experiencing significant pain in her low back with limited range of motion and a positive Kemps test. I have discussed with the patient that she may benefit from a lumbar medial branch block. Risk and benefits were discussed with the patient and she would like to proceed forward with this plan of care. Patient has tried and failed conservative treatment such as oral medication, heat and ice, topicals, physical therapy in the past, at home stretching exercise for longer than 6 weeks. I will also refill the patient's tizanidine 4 mg twice a day and provide a 3-month supply of this medication. Patient will be scheduled for a lumbar medial branch block bilaterally L3-L4 and L4-L5. Patient has been instructed to contact the clinic with any concerns before the next appointment. Dr. Yung has reviewed this note and agrees with this plan of care. This note was dictated using voice recognition software and make contain errors or omissions. [facility] Disclaimer: The information contained in this section may have been updated after the corey ent was seen, as this information can be updated by other users. Medical History Allergic rhinitis CAD (coronary artery disease) COPD mixed type Encounter for screening for malignant neoplasm of lung HHD (hypertensive heart disease) Pleural effusion Smoking greater than 30 pack years Surgical History History of cholecystectomy History of colonoscopy History of heart artery stent History of lumbar surgery History of tubal ligation Family History Other Asthma COPD (chronic obstructive pulmonary disease) Cancer Diabetes Heart attack Hypertension Stroke Social History Smoking Status: Current every day smoker tobacco type: cigarettes packs per day: 1 second hand exposure: Yes alcohol intake: never substance use type: denies use current occupational status: retired Travel in the last 8 weeks: None household members: spouse housing: house current occupational exposures/hazards: No caffeine: Yes
[2023-04-14 08:50] VITALS: BP 146/75; PULSE 76; RESP 18; O2SAT 96; BMI 32.5
== END | disposition home or self-care (01) ==
PROVIDERS: PCP Internal Medicine Adolescent Medicine; Visit Provider Nurse Practitioner Family
DX: M51.16 Intervertebral disc disorders with radiculopathy, lumbar region (principal); M46.1 Sacroiliitis, not elsewhere classified; G89.29 Other chronic pain; M47.26 Other spondylosis with radiculopathy, lumbar region
CPT/HCPCS: 99212; G0463

== ENCOUNTER 2023-05-03 10:43 | Day surgery (SDC) | payer OTHER, SELFPAY ==
[2023-05-03 11:26] VITALS: BP 119/52; PULSE 72; RESP 18; TEMP 36.1; O2SAT 97; BMI 33.9
[2023-05-03] MEDS: LACTATED RINGERS 1000ML 1,000 ML 25 ML IV (11:32)
[2023-05-03 11:37] LABS: POC Glucose,Bedside 139 (70-110)
--- NOTE | 2023-05-03 12:03 | P.PCN_ITS ---
Procedure: Date: 05/03/23 Patient Date of :: 1960 Procedure Performed:: Limited flexible sigmoidoscopy (colonoscopy aborted) Indications:: History of colon polyps Chronic anemia Note: Most recent colonoscopy in September 2019 was somewhat complicated by moderate bowel preparation and tortuosity. Hemorrhoidal cushions and diverticulosis noted. Multiple complex adenomas of the right colon, distal transverse colon, and at 65 cm excised. A prior tubulovillous adenoma at 23 cm was excised in 2018 at which time a tattoo was placed. Tattoo site appeared normal in September 2019. A 2-year follow-up recommended; however, the patient did not maintain this follow-up. She also has a history of chronic anemia dating back multiple years for which she continues to receive iron infusion. Performing Provider:: Hakeem Valentine MD Referring Provider:: . Sedation:: Monitored anesthesia care Procedure:: After informed consent was obtained the patient was taken to the endoscopy suite. Sedation ensued after the patient was transferred to the left lateral decubitus position. Pulse, blood pressure, and oxygen saturation were monitored throughout the procedure. Digital rectal exam revealed no significant abnor mality. The colonoscope was placed in position. Large stool burden immediately encountered. Advancement to approximately 30 cm completed without evidence of stool clearing . The decision was made to forego additional attempts at colonoscope advancement. The colonoscope was carefully removed and the patient was transferred to recovery in stable condition. Please see findings and specimens below for detail. Findings:: Bowel preparation exceptionally poor Colonoscopy aborted secondary to exceptionally poor bowel preparation Specimens:: None Recommendations:: Short-term repeat colonoscopy with extended bowel preparation warranted (possibl y deferred to the gastroenterology service) Consider gastroenterology consultation secondary to possible irritable bowel with chronic constipation Consider esophagogastroduodenoscopy (possibly deferred to the gastroenterology service) Consider UGI/SBFT followed by capsule endoscopy Complications:: Exceedingly poor bowel preparation Colonoscopy aborted Estimated blood obtained (mL): 0 Colonoscopy Component Colonoscopy Component Was a colonoscopy performed during today's procedure?: Yes Recommended follow up colonoscopy of at least 10 years?: No If no, follow up colonoscopy recommended in ___ years?: (See above) Reason for not recommending >/= 10 yr follow-up interval?: (See above)
--- NOTE | 2023-05-03 12:13 | EXP.ANES.CKL ---
[facility] Disclaimer: The information contained in this section may have been updated after the patient was seen, as this information can be updated by other users. Medical History Allergic rhinitis CAD (coronary artery disease) COPD mixed type Encounter for screening for malignant neoplasm of lung HHD (hypertensive heart disease) Pleural effusion Smoking greater than 30 pack years Surgical History History of cholecystectomy History of colonoscopy History of heart artery stent History of lumbar surgery History of tubal ligation Family History Other Asthma COPD (chronic obstructive pulmonary disease) Cancer Diabetes Heart attack Hypertension Stroke Social History Smoking Status: Current every day smoker tobacco type: cigarettes packs per day: 1 second hand exposure: Yes alcohol intake: never substance use type: denies use current occupational status: retired Travel in the last 8 weeks: None household members: spouse housing: house current occupational exposures/hazards: No caffeine: Yes [facility] Anesthesia Checklist Patient Identification Patient Identification: Arm Band and Verbal (Name & ) Structural Data Admitted From: Home Planned Operative Procedure/s: Colonoscopy Consent for Planned Operative Procedure(s) Verified: Yes NPO Status Verified Time NPO: 10:30 Additional verifications Anesthesia Reactions: No Hx Blood Transfusions: No Blood Transfusion Reaction: No Airway Assessment Mallampati Score:: Class III C-Spine Mobility Assessed: Yes TMJ Mobility Assessed: Yes Dentition: Edentulous Neurological Assessment Level of Consciousness: Awake Hx Seizures: No Numbness or tingling in extremities: No Anesthesia Plan Anesthesia Risk discussed: Yes Anesthesia Plan: Verified ASA Class: III Anesthesia Type: MAC
[2023-05-03 12:25] VITALS: O2SAT 97
[2023-05-03 12:46] VITALS: BP 96/56; PULSE 84; RESP 17; TEMP 36.6; O2SAT 92
[2023-05-03 12:56] VITALS: BP 114/62; PULSE 74; RESP 18; O2SAT 93
[2023-05-03 13:06] VITALS: BP 114/62; PULSE 79; RESP 17; O2SAT 94
[2023-05-03 13:19] VITALS: BP 122/62; PULSE 76; RESP 17; O2SAT 93
== END 2023-05-03 13:20 | disposition home or self-care (01) ==
PROVIDERS: PCP Internal Medicine Adolescent Medicine; Visit Provider Surgery
PROC: 0DJD8ZZ Inspection of Lower Intestinal Tract, Via Natural or Artificial Opening Endoscopic (ICD-10-PCS; CPT 45330; principal; 2023-05-03 12:30)
DX: Z91.199 Patient's noncompliance with other medical treatment and regimen due to unspecified reason (principal); Z86.010 Personal history of colon polyps; Z12.11 Encounter for screening for malignant neoplasm of colon; E11.9 Type 2 diabetes mellitus without complications
CPT/HCPCS: 45378; 82962; J2704

== ENCOUNTER 2023-05-04 08:21 | Outpatient (CLI) | payer OTHER, SELFPAY ==
[2023-05-04] MEDS: IRON SUCROSE COMPLEX 200 MG in 0.9 % SODIUM CHLORIDE 100 ML 220 MG IV (08:30)
[2023-05-04] MEDS: SODIUM CHLORIDE 0.9% 50ML BAG 50 ML IV (08:30)
[2023-05-04 08:45] VITALS: BP 118/51; PULSE 71; RESP 18; TEMP 36.6; O2SAT 97
[2023-05-04 09:20] VITALS: BP 103/58; PULSE 70; RESP 18; TEMP 36.6; O2SAT 97
== END 2023-05-04 09:30 | disposition home or self-care (01) ==
LOC: INF 08:22
PROVIDERS: PCP Internal Medicine Adolescent Medicine; Visit Provider Internal Medicine Medical Oncology
DX: D50.9 Iron deficiency anemia, unspecified (principal)
CPT/HCPCS: 96365; J1756

== ENCOUNTER 2023-05-10 07:49 | Day surgery (SDC) | payer OTHER, SELFPAY ==
[2023-05-10 08:24] VITALS: BP 154/69; PULSE 73; RESP 18; TEMP 36.6; O2SAT 98; BMI 32.3
[2023-05-10] MEDS: LIDOCAINE 1% 5ML PF VIAL 5 ML (08:52)
[2023-05-10] MEDS: BUPIVACAINE 0.25% 10ML INJ 25 MG IJ (08:52)
[2023-05-10] MEDS: methylPREDNISolone ACETATE 80MG/ML VIAL 80 MG (08:52)
[2023-05-10 08:53] VITALS: BP 146/56; PULSE 84; RESP 18; O2SAT 96
[2023-05-10 08:54] VITALS: BP 146/56; PULSE 85; RESP 18; O2SAT 97
[2023-05-10 09:00] VITALS: BP 149/72; PULSE 77; RESP 16; O2SAT 98
--- NOTE | 2023-05-10 09:09 | EXP.PAIN.PRO ---
Procedure Date: 05/10/23 Time: 08:45 Anesthesiologist:: Low Guadalupe CRNA Complications:: None Pre-procedure Diagnosis:: Degenerative disc lumbar spine multilevels. Lumbar radiculopathy. Lumbar postlaminectomy syndrome. Post-procedure Diagnosis:: Same. Indications for Procedure:: Patient is a very pleasant 62-year-old female comes our clinic today for medial branch block L3-4, L4-5. Patient complaining of difficulty with flexion, extension, left and right rotation in terms of lumbar spine. Patient rates her pain 8/10. Procedure Details:: Informed consent was obtained and the risk and benefits of the procedure was explained to the patient. Patient was taken to the procedure room where noninvasive monitors were placed, including noninvasive blood pressure cuff as well as pulse oximeter. The area over the lumbar spine was cleansed using chlorhexidine as a cleansing solution. I anesthetized the skin and subcutaneous tissues with 1% Lidocaine. I placed 22-gauge spinal needles into the facet joint/ medial branches of [L3-L4, L4-L5 bilaterally. Needle placement was confirmed with fluoroscopy. After confirmation of needle placement, each site was injected with 1 mL of 1% lidocaine and 0.25 % Marcaine and 10 mg of Depo-Medrol. A total of 80 mg of depo medrol was used for bilateral medial branch blocks of [L3-L4, L4-L5,bilaterally. Patient tolerated the procedure without difficulty. There were no complications. Plan and Disposition:: Patient was discharged without incident.
[2023-05-10] MEDS: IRON SUCROSE COMPLEX 200 MG in 0.9 % SODIUM CHLORIDE 100 ML 220 MG IV (09:27)
[2023-05-10] MEDS: SODIUM CHLORIDE 0.9% 10ML FLUSH SYRINGE 10 ML IV (09:27)
[2023-05-10] MEDS: 0.9 % SODIUM CHLORIDE 50 ML 100 ML IV (09:27)
== END 2023-05-10 09:00 | disposition home or self-care (01) ==
LOC: SC.PAINP 09:04 → INF 09:05
PROVIDERS: PCP Internal Medicine Adolescent Medicine; Visit Provider Nurse Anesthetist, Certified Registered
DX: M51.16 Intervertebral disc disorders with radiculopathy, lumbar region (principal); M96.1 Postlaminectomy syndrome, not elsewhere classified
CPT/HCPCS: 64493; 64494; 96365; J1040; J1756

== ENCOUNTER 2023-05-18 08:08 | Outpatient (CLI) | payer OTHER, SELFPAY ==
[2023-05-18 08:20] VITALS: BP 124/61; PULSE 71; RESP 18; O2SAT 98
[2023-05-18] MEDS: IRON SUCROSE COMPLEX 200 MG in 0.9 % SODIUM CHLORIDE 100 ML 220 MG IV (08:22)
[2023-05-18] MEDS: SODIUM CHLORIDE 0.9% 50ML BAG 50 ML IV (08:23)
[2023-05-18] MEDS: SODIUM CHLORIDE 0.9% 10ML FLUSH SYRINGE 10 ML IV (08:23)
[2023-05-18 08:55] VITALS: BP 126/72; PULSE 76
== END 2023-05-18 09:00 | disposition home or self-care (01) ==
LOC: INF 08:09
PROVIDERS: PCP Internal Medicine Adolescent Medicine; Visit Provider Internal Medicine Medical Oncology
DX: T45.4X5A Adverse effect of iron and its compounds, initial encounter; D50.8 Other iron deficiency anemias
CPT/HCPCS: 96365; J1756

== ENCOUNTER 2023-05-23 10:11 | Outpatient (POV) | payer OTHER, SELFPAY ==
--- NOTE | 2023-05-23 10:28 | EXP.PAIN.SOA ---
[facility] Pain Management SOAP Note Subjective:: Patient is a pleasant 62-year-old female who presents today for follow-up of her lumbar MBB bilaterally L3-L4 and L4-L5 on 05/10/2023. Today she rates her pain a 8 out of 10. She denies any new trauma or injury since our last visit. She states that she had at least 80% following this injection and felt like it was working wonderful. She states she has been doing things around her home that she has not been able to do for months including cleaning out her garage. She states she felt like she had improved function and was not even having to take her medication as much due to the overall pain improvement. Patient does state that she feels like she may have overdone it and that she has been experiencing more pain at her low back and denies radiating symptoms into her legs. She states this is an aching, throbbing sensation that is worse with certain movements such as bending, twisting or lifting. Patient does state the pain interferes with her ability perform activities of daily living such as cooking and cleaning. Patient had such good relief with her last injection she is not interested in repeating this. She is currently managed with gabapentin 100 mg 4 times a day from her primary care provider and tizanidine 4 mg twice a day from our office. Patient denies any side effects from this medication. Her Candelario has been reviewed and is appropriate. Review of Systems: General: No recent weight changes, no fever, no sleep disturbances Respiratory: No cough, no shortness of air, no recurring pulmonary infections Cardiovascular/peripheral vascular: No chest pain, no palpitations, no edema, no shortness of breath Gastrointestinal: No new onset incontinence, normal bowel movements reported Genitourinary: No new onset incontinence Musculoskeletal: Low back pain Psychiatric: [Normal mood/affect] Neurological: [Denies weakness in extremities], [denies balance issues] Objective:: Physical Exam: General: Alert and oriented x3, no acute distress, pleasant and cooperative Lungs: Respirations even and unlabored, symmetrical chest expansion Eyes: PERRL Musculoskeletal: Flexion and extension of lumbar [spine] somewhat guarded secondary to pain, [antalgic gait noted] positive Kemps test Neurological: Speech clear, no gross sensory deficit Assessment:: Degenerative disc disease of lumbar spine with lumbar radiculopathy symptoms, lumbar postlaminectomy syndrome, sacroiliitis, ligamentum flavum hypertrophy Plan:: Patient is experiencing significant pain in her low back. Patient had limited range of motion of her lumbar spine and a positive Kemps test. I have discussed with the patient that she may benefit from a second lumbar medial branch block. Patient did get more than 80% relief with her first lumbar medial branch block and did feel like she had overall more function and was able to increase her activity with decrease medications. Risk and benefits were discussed with the patient and she would like to proceed forward with this plan of care. Patient is not on any blood thinners. Patient has tried and failed conservative treatment such as oral medication, heat and ice, topicals, physical therapy in the past, at home stretching exercise for longer than 6 weeks. Patient does not need any refills at this time on her muscle relaxer. Patient will be scheduled for her second lumbar medial branch block bilaterally L3-L4 and L4-L5. Patient has also been counseled that she does get significant relief with this injection we will plan on doing a lumbar RFA in the future. Patient states that Dr. Yung did already discussed this with her and did state that we can do light sedation when we get to this point to minimize worsening pain of the procedure. Patient has been instructed to contact the clinic with any concerns before the next appointment. Dr. Yung has reviewed this note and agrees with this plan of care. This note was dictated using voice recognition software and make contain errors or omissions. [facility] Disclaimer: The information contained in this section may have been updated after the patient was seen, as this information can be updated by other users. Medical History Allergic rhinitis COPD mixed type Pleural effusion Encounter for screening for malignant neoplasm of lung Smoking greater than 30 pack years HHD (hypertensive heart disease) CAD (coronary artery disease) Surgical History History of lumbar surgery History of tubal ligation History of colonoscopy History of cholecystectomy History of heart artery stent Family History Other Asthma COPD (chronic obstructive pulmonary disease) Cancer Diabetes Heart attack Hypertension Stroke Social History Smoking Status: Current every day smoker tobacco type: cigarettes packs per day: 1 second hand exposure: Yes alcohol intake: never substance use type: denies use current occupational status: retired Travel in the last 8 weeks: None household members: spouse housing: house current occupational exposures/hazards: No caffeine: Yes
[2023-05-23 10:45] VITALS: BP 173/73; PULSE 68; RESP 18; O2SAT 98; BMI 33.0
== END 2023-05-23 23:59 ==
LOC: SC.PAIN 10:11
PROVIDERS: PCP Internal Medicine Adolescent Medicine; Visit Provider Nurse Practitioner Family
DX: M51.16 Intervertebral disc disorders with radiculopathy, lumbar region (principal); M96.1 Postlaminectomy syndrome, not elsewhere classified; M46.1 Sacroiliitis, not elsewhere classified; M24.28 Disorder of ligament, vertebrae
CPT/HCPCS: 99212; G0463

== ENCOUNTER 2023-06-02 12:27 | Outpatient (CLI) | payer OTHER, SELFPAY ==
[2023-06-02 13:40] VITALS: PULSE 72; PULSE 74
[2023-06-02] MEDS: ALBUTEROL 0.083% 2.5 MG/3 ML NEB IH (13:40)
== END 2023-06-02 23:59 ==
LOC: RT 12:28
PROVIDERS: PCP Internal Medicine Adolescent Medicine; Visit Provider Internal Medicine Pulmonary Disease
DX: R06.02 Shortness of breath (principal); J44.9 Chronic obstructive pulmonary disease, unspecified; R05.9 Cough, unspecified
CPT/HCPCS: 94060; 94618; 94640; 94727; 94729

== ENCOUNTER 2023-06-14 09:20 | Day surgery (SDC) | payer OTHER, SELFPAY ==
[2023-06-14 09:34] VITALS: BP 164/83; PULSE 77; RESP 18; TEMP 36.2; O2SAT 97; BMI 33.0
[2023-06-14 09:40] VITALS: BP 160/80; PULSE 71; RESP 18; O2SAT 97
[2023-06-14] MEDS: LIDOCAINE 1% 5ML PF VIAL 5 ML (09:40)
[2023-06-14] MEDS: methylPREDNISolone ACETATE 80MG/ML VIAL 80 MG (09:40)
[2023-06-14] MEDS: BUPIVACAINE 0.25% 10ML INJ 25 MG IJ (09:40)
[2023-06-14 09:41] VITALS: BP 160/80; PULSE 74; RESP 18; O2SAT 97
[2023-06-14 09:45] VITALS: BP 164/83; PULSE 77; RESP 18; O2SAT 97
--- NOTE | 2023-06-14 09:47 | P.PCN_ITS ---
Procedure Date: 06/14/23 Time: 09:30 Anesthesiologist:: Low Guadalupe CRNA Complications:: None Pre-procedure Diagnosis:: Degenerative disc lumbar spine multilevels. Lumbar radiculopathy. Lumbar spondylosis. Multilevel lumbar facet arthropathy. Lumbar postlaminectomy syndrome. Post-procedure Diagnosis:: Same. Indications for Procedure:: Patient is a very pleasant 62-year-old female comes our clinic today for bilateral medial branch blocks/facet injections L3-4, L4-5. Patient has re sponded very well to this block in the same locations previously. She describes low back pain as constant, dull, aching. She reports difficulty with lumbar flexion, extension, left and right rotation. She rates her pain 7/10 Procedure Details:: Informed consent was obtained and the risk and benefits of the procedure was explained to the patient. Patient was taken to the procedure room where noninvasive monitors were placed, including noninvasive blood pressure cuff as well as pulse oximeter. The area over the lumbar spine was cleansed using c hlorhexidine as a cleansing solution. I anesthetized the skin and subcutaneous tissues with 1% Lidocaine. I placed 22-gauge spinal needles into the facet joint/ medial branches of [L3-L4, L4-L5, bilaterally. Needle placement was confirmed with fluoroscopy. After confirmation of needle placement, each site was injected with 1 mL of 1% lidocaine and 0.25 % Marcaine and 10 mg of Depo- Medrol. A total of 80 mg of depo medrol was used for bilateral medial branch blocks of [L3-L4, L4-L5, bilaterally. Patient tolerated the procedure without difficulty. There were no complications. Plan and Disposition:: Patient was discharged without incident.
== END 2023-06-14 09:45 | disposition home or self-care (01) ==
PROVIDERS: PCP Internal Medicine Adolescent Medicine; Visit Provider Nurse Anesthetist, Certified Registered
DX: M47.896 Other spondylosis, lumbar region (principal); M51.16 Intervertebral disc disorders with radiculopathy, lumbar region; M96.1 Postlaminectomy syndrome, not elsewhere classified
CPT/HCPCS: 64493; 64494; J1010

== ENCOUNTER 2023-06-27 06:58 | Outpatient (CLI) | payer OTHER, SELFPAY ==
[2023-06-27 07:14] LABS: Basophils # 0.1 K/mm3 (0-0.2); Basophils % 1.1 % (0.1-2.0); Eosinophils # 0.2 K/mm3 (0.0-0.4); Eosinophils % 1.5 % (0.1-12.0); Hematocrit 38.5 % (37.0-47.0); Lymphocytes # 3.1 K/mm3 (0.7-4.5); Lymphocytes % 29.5 % (10-50); Mean Corpuscular HGB Conc 31.2 g/dL (31.8-35.4); Mean Corpuscular Hemoglobin 27.9 pg (27.0-31.2); Mean Corpuscular Volume 89.4 fl (81-99); Mean Platelet Volume 8.5 fl (7.4-10.4); Monocytes # 0.5 K/mm3 (0.1-1.0); Monocytes % 5.2 % (1.7-9.3); Neutrophils # 6.5 K/mm3 (1.8-7.8); Neutrophils % 62.7 % (37.0-80.0); Platelet Count 300 K/mm3 (142-424); Red Blood Count 4.31 M/mm3 (4.20-5.40); Red Cell Distribution Width 21.1 % (11.5-17.5); White Blood Count 10.4 K/mm3 (4.8-10.8)
[2023-06-27 07:49] LABS: Iron 76 ug/dL (37-170)
[2023-06-27 08:01] LABS: Total Iron Binding Capacity 370 ug/dL (265-497)
== END 2023-06-27 23:59 | disposition home or self-care (01) ==
PROVIDERS: PCP Internal Medicine Adolescent Medicine; Visit Provider Internal Medicine Medical Oncology
DX: D50.9 Iron deficiency anemia, unspecified (principal)
CPT/HCPCS: 36415; 82728; 83540; 83550; 85025

== ENCOUNTER 2023-06-29 08:58 | Outpatient (POV) | payer OTHER, SELFPAY ==
[2023-06-29 09:02] VITALS: BP 146/62; PULSE 73; RESP 18; O2SAT 98; BMI 33.4
--- NOTE | 2023-06-29 09:26 | A.OFFVIS_ITS ---
[facility] Pain Management SOAP Note Subjective:: Patient is a pleasant 62-year-old female who presents today for follow-up of her second lumbar medial branch block bilaterally L3-L4 and L4-L5 on 06/14/2023. Today she rates her pain a 5 out of 10. Patient denies any new trauma or injury. She does state that she continues to have chronic pain at her low back that does radiate across onto her sides. Patient does state that she did have 2 days of 100% improvement following this injection however it then started to come back slowly and she is back to her baseline today. She describes this as a aching, throbbing sensation that is worse with certain movements such as bending, twisting or lifting. Patient does state the pain interferes with her ability perform activities of daily living such as cooking and cleaning. Patient does state that she did have a random cramp in her left buttocks 1 night however this did resolve and has not had any additional issues since. Patient did previously have her first lumbar medial branch block with 80% relief with overall improvement in function and decrease pain. Patient is currently managed with gabapentin from her primary care and tizanidine 4 mg twice a day from our office. She denies any side effects from these medications. She is requesting a refill at today's visit. Her Candelario has been reviewed and is appropriate. Review of Systems: General: No recent weight changes, no fever, no sleep disturbances Respiratory: No cough, no shortness of air, no recurring pulmonary infections Cardiovascular/peripheral vascular: No chest pain, no palpitations, no edema, no shortness of breath Gastrointestinal: No new onset incontinence, normal bowel movements reported Genitourinary: No new onset incontinence Musculoskeletal: Low back pain Psychiatric: [Normal mood/affect] Neurological: [Denies weakness in extremities], [denies balance issues] Objective:: Physical Exam: General: Alert and oriented x3, no acute distress, pleasant and cooperative Lungs: Respirations even and unlabored, symmetrical chest expansion Eyes: PERRL Musculoskeletal: Flexion and extension of lumbar [spine] somewhat guarded secondary to pain, [antalgic gait noted] positive Kemps test Neurological: Speech clear, no gross sensory deficit Assessment:: Degenerative disc disease of lumbar spine with lumbar radiculopathy symptoms, lumbar postlaminectomy syndrome, sacroiliitis, ligamentum flavum hypertrophy, lumbar facet arthropathy Plan:: Patient has had 2 successful lumbar medial branch blocks with the first 1 providing 80% relief and lasting for several weeks until the patient did overdo it. Patient has gotten 100% relief with her second block however only lasting 2 days. I have discussed with the patient that she may benefit from an lumbar RFA due to her continued limited range of motion of her lumbar spine and positive Kemps test. Patient has had a lumbar RFA in the past and was a successful procedure with significant improvement. Patient does state that the procedure itself was very painful and that Dr. Yung did discuss with the patient that in the future we would not do the lumbar RFA again without conscious sedation. Patient does state that she would like to proceed forward with this plan of care as long as she does have light sedation. Risk and benefits were reviewed over with the patient and she agrees with this plan of care. I will also order the patient a compounding cream and refill her tizanidine 4 mg twice daily and provide a 3-month supply of this medication. Patient will be scheduled for lumbar RFA bilaterally at L3-L4 and L4-L5 under fluoroscopy with conscious sedation. Patient has been instructed to contact the clinic with any concerns before the next appointment. Dr. Yung has reviewed this note and agrees with this plan of care. This note was dictated using voice recognition software and make contain errors or omissions. [facility] Disclaimer: The information contained in this section may have been updated after the patient was seen, as this information can be updated by other users. Medical History Allergic rhinitis COPD mixed type Pleural effusion Encounter for screening for malignant neoplasm of lung Smoking greater than 30 pack years HHD (hypertensive heart disease) CAD (coronary artery disease) Surgical History History of lumbar surgery History of tubal ligation History of colonoscopy History of cholecystectomy History of heart artery stent Family History Other Asthma COPD (chronic obstructive pulmonary disease) Cancer Diabetes Heart attack Hypertension Stroke Social History Smoking Status: Current every day smoker tobacco type: cigarettes packs per day: 1 second hand exposure: Yes alcohol intake: never substance use type: denies use current occupational status: other Travel in the last 8 weeks: None household members: spouse housing: house current occupational exposures/hazards: No caffeine: Yes
== END 2023-06-29 23:59 | disposition home or self-care (01) ==
PROVIDERS: PCP Internal Medicine Adolescent Medicine; Visit Provider Nurse Practitioner Family
DX: M51.16 Intervertebral disc disorders with radiculopathy, lumbar region (principal); M96.1 Postlaminectomy syndrome, not elsewhere classified; M46.1 Sacroiliitis, not elsewhere classified; M24.28 Disorder of ligament, vertebrae; M47.26 Other spondylosis with radiculopathy, lumbar region
CPT/HCPCS: 99212; G0463

== ENCOUNTER → 2023-09-02 11:58 | Day surgery (SDC) | payer OTHER, SELFPAY ==
[2023-09-02] VITALS (10 sets, daily range): BP systolic 103–164; BP diastolic 57–77; PULSE 68–81; RESP 18; O2SAT 94–100
[2023-09-02 12:31] LABS: POC Glucose,Bedside 126 (70-110)
[2023-09-02] MEDS: LIDOCAINE 1% 30ML PF VIAL 30 ML (12:49)
[2023-09-02] MEDS: methylPREDNISolone ACETATE 80MG/ML VIAL 80 MG (12:50)
[2023-09-02] MEDS: BUPIVACAINE 0.25% 10ML INJ 25 MG IJ (12:51)
--- NOTE | 2023-09-02 13:55 | P.PCN_ITS ---
Procedure Date: 09/02/23 Time: 13:55 Anesthesiologist:: Case Yung MD Complications:: None Pre-procedure Diagnosis:: Degenerative disease of lumbar spine with lumbar spondylosis and lumbar facet arthropathy Post-procedure Diagnosis:: Same Indications for Procedure:: This patient is a pleasant 62-year-old white female who we are treating for low back pain with lumbar spondylosis and lumbar facet arthropathy. She has had 2 successful rounds of medial branch blocks at L3-4 and L4-L5 bilateral. She presents for lumbar RFA today. Procedure Details:: Lumbar RFA with sedation informed consent was obtained and the risk and benefits of the procedure was explained to the patient. Patient was placed prone on the procedure table. The patient was prepped and draped in sterile fashion. Patient was sedated with Versed and fentanyl. C-arm fluoroscopy was used to view the lumbar spine. The skin and subcutaneous tissues were anesthetized using lidocaine. I placed 20- gauge RF needles into the facet joints of L4-5 and L5-S1 bilaterally. We underwent sensory stimulation. There is good sensory stimulation at 0.8 V. We underwent motor stimulation. There is no motor stimulation at 2 V. We then anesthetized these levels with lidocaine and Depo-Medrol. I used a total of 80 mg Depo-Medrol for both levels. I then burned both levels of L3-L4 and L4-L5 facet joint/medial branches bilaterally for 4 minutes at 80 ?C. Patient tolerated the procedure well with no complication. Plan and Disposition:: Will follow-up with this patient in 2 weeks. Will reevaluate symptoms at that time.
--- NOTE | 2023-09-02 14:03 | CT_ITS ---
FINAL REPORT TECHNIQUE: Axial images were obtained from the lung apex to the mid abdomen by computed tomography. This study was performed with techniques to keep radiation doses as low as reasonably achievable (ALARA). Individualized dose reduction techniques using automated exposure control or adjustment of mA and/or kV according to the patient's size were employed. CLINICAL HISTORY: H/O TOBACCO USE CURRENT SMOKER 1PPD X52 YEARS COMPARISON: 08/12/2022 FINDINGS: CHEST CT LOW DOSE CTDI vol (mGy): 2.90 DLP (mGy-cm): 103.94 There is no axillary adenopathy. There is no hilar or mediastinal adenopathy. The heart is normal in size. Again identified is advanced coronary artery plaque disease. Note is made of mild thyromegaly. There is no pericardial or pleural effusion. There is mild right lower lobe scarring. Lung window images demonstrate no suspicious infiltrate or nodule. Limited images of the upper abdomen are unremarkable. IMPRESSION: No evidence of primarily neoplasm. Lung RADS category 1. Recommend 12 month follow-up low-dose chest CT. Reviewed, Interpreted and Dictated by Prema Curarn MD Transcribed by Abbie Johnson Authenticated and [facility]
== END | disposition home or self-care (01) ==
LOC: SC.PAINP 13:37 → RAD 14:00
PROVIDERS: PCP Internal Medicine Adolescent Medicine; Visit Provider Anesthesiology
DX: M47.816 Spondylosis without myelopathy or radiculopathy, lumbar region (principal); M51.36 Other intervertebral disc degeneration, lumbar region
CPT/HCPCS: 64635; 64636; 71271; 82962; J1010; J2250; J3010

== ENCOUNTER 2023-09-18 11:08 | Emergency (ER) | payer OTHER, SELFPAY ==
[2023-09-18 11:09] VITALS: BP 115/65; PULSE 70; RESP 18; TEMP 36.6; O2SAT 94; BMI 32.1
--- NOTE | 2023-09-18 11:32 | ED_ITS ---
Discharge Plan Disposition Patient Disposition: Home, Self-Care Condition: Good Prescriptions Prescriptions: New benzonatate 100 mg capsule 100 mg PO TIDP PRN (Reason: Cough) Qty: 30 0RF methylprednisolone 4 mg Tablets,Dose Pack 4 mg PO DIRECTED 6 Days Qty: 21 0RF Rx Instructions: Take 1 pack as directed for 6 days cefdinir 300 mg capsule 300 mg PO BID Qty: 20 0RF No Action atorvastatin 40 mg tablet 40 mg PO HS 30 Days Qty: 30 escitalopram oxalate 20 mg tablet 20 mg PO DAILY bisoprolol fumarate 10 mg tablet 10 mg PO DAILY Patient Comments: TAKE ONE TABLET BY MOUTH EVERY DAY magnesium oxide 400 mg (241.3 mg magnesium) tablet 400 mg PO BID Ozempic 1 mg/dose (4 mg/3 mL) pen injector 1 mg SQ WEEKLY cetirizine [All Day Allergy (cetirizine)] 10 mg tablet 10 mg PO DAILY PRN (Reason: allergy symptoms) Qty: 30 0RF azelastine 137 mcg (0.1 %) aerosol,spray 2 spray intranasal HS 90 Days Qty: 30 2RF Rx Instructions: administer into each nostril Spiriva Respimat 2.5 mcg/actuation mist 2 inh inhalation DAILY 90 Days Qty: 4 3RF metformin 1,000 mg tablet 1,000 mg PO BID 30 Days Qty: 60 Patient Comments: aspirin 81 mg tablet,delayed release (DR/EC) 81 mg PO DAILY 90 Days Qty: 90 Patient Comments: omeprazole 20 mg capsule,delayed release(DR/EC) 20 mg PO DAILY 30 Days Qty: 30 Patient Comments: albuterol sulfate 90 mcg/actuation HFA aerosol inhaler 2 puff IH QIDP PRN (Reason: Shortness Of Breath) 25 Days Qty: 18 Patient Comments: fluticasone propionate 50 mcg/actuation spray,suspension See Rx Instructions .ROUTE .COMPLEX Qty: 16 2RF Dose Instruction: INSTILL 2 SPRAYS IN EACH NOSTRIL EVERY DAY Rx Instructions: INSTILL 2 SPRAYS IN EACH NOSTRIL EVERY DAY isosorbide mononitrate 30 MG tablet 30 mg PO BID gabapentin 100 mg capsule 200 mg PO BID ertugliflozin 15 MG tablet 15 mg PO DAILY tizanidine 4 MG tablet 4 mg PO BID Qty: 60 2RF Referrals Follow up/Referrals: Besson,Cortez, MD [Primary Care Provider] - See instructions Activity Restrictions/Add. Instructions Additional Instructions/Restrictions: Drink plenty of fluids. Take tylenol or ibuprofen for pain or fever. Take the medications as directed. Follow up with your regular doctor. GO TO THE ER FOR ANY WORSENING SYMPTOMS Clinical Impressions Clinical Impression: Sinusitis, Bronchitis Instructions Patient Instructions: Sinusitis, DI for Sinusitis Discharge ED Provider: Rahul Dillon [facility] [place] General Stated complaint: cough, runny nose, headache Time Seen by Provider: 09/18/23 11:31 History of Present Illness Provider Complaint: She states that for the past 4 days she has had worsening sinus congestion and ear pain. Related Data Home Medications Medication Instructions Recorded Confirmed albuterol sulfate 90 mcg/actuation 2 puff inhalation QIDP PRN 04/03/17 09/02/23 aerosol inhaler Shortness Of Breath 25 days ##18 aspirin 81 mg tablet,delayed 81 mg PO DAILY HEART HEALTH 90 04/03/17 09/02/23 release days #90 tabs metformin 1,000 mg tablet 1,000 mg PO BID Diabetes 30 days 04/03/17 09/02/23 #60 tabs omeprazole 20 mg capsule,delayed 20 mg PO DAILY GERD 30 days #30 04/03/17 09/02/23 release caps atorvastatin 40 mg tablet 40 mg PO HS Cholesterol 30 days 11/28/17 09/02/23 #30 tabs isosorbide mononitrate 30 mg 30 mg PO BID ANGINA 08/06/19 09/02/23 tablet,extended release 24 hr gabapentin 100 mg capsule 200 mg PO BID Pain 09/28/19 09/02/23 ertugliflozin 15 mg tablet 15 mg PO DAILY Diabetes 01/16/20 09/02/23 bisoprolol fumarate 10 mg tablet 10 mg PO DAILY Hypertension 09/10/21 09/02/23 escitalopram oxalate 20 mg tablet 20 mg PO DAILY MOOD 09/10/21 09/02/23 magnesium oxide 400 mg (241.3 mg 400 mg PO BID 12/09/22 09/02/23 magnesium) tablet semaglutide 1 mg/dose (4 mg/3 mL) 1 mg SQ WEEKLY 12/09/22 09/02/23 subcutaneous pen injector (Ozempic) Previous Rx's Medication Instructions Recorded azelastine 137 mcg (0.1 %) nasal 2 spray intranasal HS 90 days #30 06/02/23 spray mL cetirizine 10 mg tablet (All Day 10 mg PO DAILY PRN allergy 06/02/23 Allergy (cetirizine)) symptoms #30 tabs tiotropium bromide 2.5 2 inh inhalation DAILY 90 days #4 06/02/23 mcg/actuation mist for inhalation grams (Spiriva Respimat) tizanidine 4 mg tablet 4 mg PO BID muscle spasm #60 tabs 06/29/23 fluticasone propionate 50 See Rx Instructions .Route 08/19/23 mcg/actuation nasal .COMPLEX #16 grams spray,suspension benzonatate 100 mg capsule 100 mg PO TIDP PRN Cough #30 caps 09/18/23 cefdinir 300 mg capsule 300 mg PO BID #20 caps 09/18/23 methylprednisolone 4 mg tablets in 4 mg PO DIRECTED 6 days #21 tabs 09/18/23 a dose pack Allergies Allergy/AdvReac Type Severity Reaction Status Date / Time meloxicam AdvReac Verified 09/02/23 12:26 [facility] Disclaimer: The information contained in this section may have been updated after the patient was seen, as this information can be updated by other users. Medical History Allergic rhinitis COPD mixed type Pleural effusion Encounter for screening for malignant neoplasm of lung Smoking greater than 30 pack years HHD (hypertensive heart disease) CAD (coronary artery disease) Surgical History History of lumbar surgery History of tubal ligation History of colonoscopy History of cholecystectomy History of heart artery stent Family History Other Asthma COPD (chronic obstructive pulmonary disease) Cancer Diabetes Heart attack Hypertension Stroke Social History Smoking Status: Current every day smoker tobacco type: cigarettes packs per day: 1 second hand exposure: Yes alcohol intake: never substance use type: denies use current occupational status: retired and other Travel in the last 8 weeks: Inside the [place] household members: spouse housing: house current occupational exposures/hazards: No caffeine: Yes ROS Obtained: Yes All systems reviewed & no additional complaints except as documented Constitutional Constitutional: Reports poor appetite Eyes Eyes: Reports system reviewed and no additional complaints, except as documented ENT Ears, Nose, Mouth, and Throat: Reports as per HPI Cardiovascular Cardiovascular: Reports system reviewed and no additional complaints, except as documented and Denies chest pain Respiratory Respiratory: Denies shortness of breath, Denies chest congestion, Reports cough, Denies stridor and Denies wheezing Gastrointestinal Gastrointestingal: Reports system reviewed and no additional complaints, except as documented; Denies abdominal pain, diarrhea or vomiting Musculoskeletal Musculoskeletal: Reports system reviewed and no additional complaints, except as documented and Denies arthralgias Integumentary/Breasts Skin/Breast: Reports system reviewed and no additional complaints, except as documented and Denies rash Neurologic Neurologic: Denies paresthesias Allergic/Immunologic Allergic/Immunologic: Denies wheezing Physical Exam General General appearance: alert and in no apparent distress Eye Eye exam: Present normal appearance, PERRL and EOMI ENT ENT exam: Present mucous membranes moist and normal external ear exam Expanded ENT Exam External ear exam: Present normal external inspection TM/Canal exam: Bilateral TM: erythema and bulging Nose exam: Absent sinus tenderness Nasal speculum exam: Bilateral: normal Mouth exam: Present normal external inspection; Absent drooling Teeth exam: Present normal inspection Throat exam: Present tonsillar erythema and tonsillomegaly Neck Neck exam: Present normal inspection, full ROM and trachea midline; Absent tenderness, lymphadenopathy or thyromegaly Chest Chest inspection: Present normal inspection and symmetric chest wall rise; Absent tenderness or rash Respiratory Respiratory exam: Present normal lung sounds bilaterally; Absent respiratory distress, wheezes, stridor or accessory muscle use Cardiovascular Cardiovascular exam: Present regular rate, normal rhythm and normal heart sounds Abdominal Exam Abdominal exam: Present soft; Absent distention, tenderness, guarding, rebound or rigidity Extremities Exam Extremities exam: Present normal inspection, full ROM and normal capillary refill; Absent tenderness or calf tenderness Back Exam Back exam: Present normal inspection and full ROM; Absent tenderness Neurological Exam Neurological exam: Present alert and oriented X3 Psychiatric Psychiatric exam: Present normal affect and normal mood Skin Skin exam: Present warm, dry, intact and normal color Lymphatic Lymphatic Findings: no adenopathy Medical Decision Making Medical Records Medical records reviewed: No I reviewed the patient's medical records. Candelario Inquiry Pt receiving controlled substance: No
[2023-09-18 12:11] VITALS: BP 115/65; PULSE 70; RESP 18; TEMP 36.6; O2SAT 94
== END 2023-09-18 12:11 | disposition home or self-care (01) ==
PROVIDERS: Emergency Provider Nurse Practitioner Family; PCP Internal Medicine Adolescent Medicine
DX: J20.9 Acute bronchitis, unspecified (principal); J01.90 Acute sinusitis, unspecified; H92.03 Otalgia, bilateral; R51.9 Headache, unspecified; R09.81 Nasal congestion; R05.9 Cough, unspecified
CPT/HCPCS: 99204; 99212; G0463

== ENCOUNTER 2023-11-17 14:17 | Outpatient (CLI) | payer OTHER, SELFPAY ==
[2023-11-17 14:37] LABS: Basophils # 0.1 K/mm3 (0-0.2); Basophils % 1.3 % (0.1-2.0); Eosinophils # 0.2 K/mm3 (0.0-0.4); Hematocrit 33.5 % (37.0-47.0); Hemoglobin 10.3 g/dL (12.2-16.2); Lymphocytes % 34.4 % (10-50); Mean Corpuscular HGB Conc 30.9 g/dL (31.8-35.4); Mean Corpuscular Volume 84.2 fl (81-99); Mean Platelet Volume 9.4 fl (7.4-10.4); Monocytes # 0.5 K/mm3 (0.1-1.0); Monocytes % 5.6 % (1.7-9.3); Neutrophils % 56.7 % (37.0-80.0); Platelet Count 420 K/mm3 (142-424); Red Blood Count 3.98 M/mm3 (4.20-5.40); Red Cell Distribution Width 15.7 % (11.5-17.5); White Blood Count 8.8 K/mm3 (4.8-10.8)
[2023-11-17 15:19] LABS: Iron 38 ug/dL (37-170)
[2023-11-17 15:29] LABS: Total Iron Binding Capacity 421 ug/dL (265-497)
[2023-11-17 15:59] LABS: Ferritin 7.18 ng/ml (11.1-264)
== END 2023-11-17 23:59 | disposition home or self-care (01) ==
LOC: LAB 14:18
PROVIDERS: PCP Internal Medicine Adolescent Medicine; Visit Provider Internal Medicine Medical Oncology
DX: D50.9 Iron deficiency anemia, unspecified (principal)
CPT/HCPCS: 36415; 82728; 83540; 83550; 85025

== ENCOUNTER 2023-11-25 08:15 | Outpatient (CLI) | payer OTHER, SELFPAY ==
[2023-11-25 08:41] VITALS: BP 145/66; PULSE 70; RESP 18; TEMP 37.1; O2SAT 99
[2023-11-25] MEDS: 0.9 % SODIUM CHLORIDE 50 ML 999 ML IV (08:41)
[2023-11-25] MEDS: IRON SUCROSE COMPLEX 200 MG in 0.9 % SODIUM CHLORIDE 100 ML 220 MG IV (08:41)
[2023-11-25 09:20] VITALS: BP 149/69; PULSE 69; RESP 18; TEMP 37; O2SAT 98
== END 2023-11-25 09:25 | disposition home or self-care (01) ==
LOC: INF 08:16
PROVIDERS: PCP Internal Medicine Adolescent Medicine; Visit Provider Internal Medicine Medical Oncology
DX: D50.9 Iron deficiency anemia, unspecified (principal)
CPT/HCPCS: 96365; J1756

== ENCOUNTER 2023-12-02 08:17 | Outpatient (CLI) | payer OTHER, SELFPAY ==
[2023-12-02 08:31] VITALS: BP 118/59; PULSE 71; RESP 20; TEMP 36.4; O2SAT 97
[2023-12-02] MEDS: SODIUM CHLORIDE 0.9% 50ML BAG 50 ML IV (08:31)
[2023-12-02] MEDS: IRON SUCROSE COMPLEX 200 MG in 0.9 % SODIUM CHLORIDE 100 ML 220 MG IV (08:31)
[2023-12-02] MEDS: SODIUM CHLORIDE 0.9% 10ML FLUSH SYRINGE 10 ML IV (08:31)
[2023-12-02 09:10] VITALS: BP 143/75; PULSE 76; RESP 20; O2SAT 97
== END 2023-12-02 09:15 | disposition home or self-care (01) ==
LOC: INF 08:18
PROVIDERS: PCP Internal Medicine Adolescent Medicine; Visit Provider Internal Medicine Medical Oncology
DX: D50.9 Iron deficiency anemia, unspecified (principal)
CPT/HCPCS: 96365; J1756

== ENCOUNTER 2023-12-09 08:18 | Outpatient (CLI) | payer OTHER, SELFPAY ==
[2023-12-09 08:38] VITALS: BP 150/76; PULSE 69; RESP 18; TEMP 36.8; O2SAT 96
[2023-12-09] MEDS: SODIUM CHLORIDE 0.9% 50ML BAG 50 ML IV (08:38)
[2023-12-09] MEDS: SODIUM CHLORIDE 0.9% 10ML FLUSH SYRINGE 10 ML IV (08:38)
[2023-12-09] MEDS: IRON SUCROSE COMPLEX 200 MG in 0.9 % SODIUM CHLORIDE 100 ML 220 MG IV (08:40)
[2023-12-09 09:24] VITALS: BP 140/74; PULSE 73; RESP 18; O2SAT 98
== END 2023-12-09 09:24 | disposition home or self-care (01) ==
LOC: INF 08:19
PROVIDERS: PCP Internal Medicine Adolescent Medicine; Visit Provider Internal Medicine Medical Oncology
DX: D50.9 Iron deficiency anemia, unspecified (principal)
CPT/HCPCS: 96365; J1756

== ENCOUNTER 2023-12-16 08:17 | Outpatient (CLI) | payer OTHER, SELFPAY ==
[2023-12-16] MEDS: IRON SUCROSE COMPLEX 200 MG in 0.9 % SODIUM CHLORIDE 100 ML 220 MG IV (08:34)
[2023-12-16] MEDS: SODIUM CHLORIDE 0.9% 50ML BAG 50 ML IV (08:34)
[2023-12-16 08:42] VITALS: BP 135/72; PULSE 67; RESP 16; O2SAT 96
[2023-12-16 09:25] VITALS: BP 132/75; PULSE 67; RESP 18; O2SAT 96
== END 2023-12-16 09:27 | disposition home or self-care (01) ==
LOC: INF 08:18
PROVIDERS: PCP Internal Medicine Adolescent Medicine; Visit Provider Internal Medicine Medical Oncology
DX: D50.9 Iron deficiency anemia, unspecified (principal)
CPT/HCPCS: 96365; J1756

== ENCOUNTER 2023-12-23 08:26 | Outpatient (CLI) | payer OTHER, SELFPAY ==
[2023-12-23 08:43] VITALS: BP 132/69; PULSE 71; RESP 16; TEMP 36.7; O2SAT 98
[2023-12-23] MEDS: SODIUM CHLORIDE 0.9% 50ML BAG 50 ML IV (08:43)
[2023-12-23] MEDS: IRON SUCROSE COMPLEX 200 MG in 0.9 % SODIUM CHLORIDE 100 ML 220 MG IV (08:43)
[2023-12-23] MEDS: SODIUM CHLORIDE 0.9% 10ML FLUSH SYRINGE 10 ML IV (08:49)
== END 2023-12-23 09:35 | disposition home or self-care (01) ==
LOC: INF 08:27
PROVIDERS: PCP Internal Medicine Adolescent Medicine; Visit Provider Internal Medicine Medical Oncology
DX: D50.9 Iron deficiency anemia, unspecified (principal)
CPT/HCPCS: 96365; J1756

== ENCOUNTER 2023-12-28 08:17 | Outpatient (POV) | payer OTHER, SELFPAY ==
--- NOTE | 2023-12-28 08:48 | A.OFFVIS_ITS ---
[facility] Disclaimer: The information contained in this section may have been updated after the patient was seen, as this information can be updated by other users. Medical History Allergic rhinitis COPD mixed type Pleural effusion Encounter for screening for malignant neoplasm of lung Smoking greater than 30 pack years HHD (hypertensive heart disease) CAD (coronary artery disease) Surgical History History of lumbar surgery History of tubal ligation History of colonoscopy History of cholecystectomy History of heart artery stent Family History Other Asthma COPD (chronic obstructive pulmonary disease) Cancer Diabetes Heart attack Hypertension Stroke Social History (Updated 12/23/23 @ 10:20 by Barber Lance RN) Smoking Status: Current every day smoker tobacco type: cigarettes packs per day: 1 second hand exposure: Yes alcohol intake: never substance use type: denies use current occupational status: retired and other Travel in the last 8 weeks: Inside the [place] household members: spouse housing: house current occupational exposures/hazards: No caffeine: Yes PM Subjective & Objective Subjective Subjective:: Patient is a pleasant 63-year-old female who presents today for follow-up of lumbar RFA on September 02, 2023 and worsening pain. Today she rates her pain a 3 out of 10 however states the pain will get worse going at least to a 5 out of 10 with increased activity or certain positions. Patient does state that she did have approximately 70% relief following the lumbar RFA and that it is still helping. She states that her pain today is more related to her hips and buttocks area that does have a constant numbness with pain that does go into her upper thighs. Patient states this has been going on for the last few months and progressively worsened. She states it is interfering with her ability perform activities of daily living such as cooking and cleaning. Patient does state that she is interested in seeing about injections for improvement. Patient does notice significant improvement with these interventions. Patient is prescribed gabapentin from her PCP and tizanidine 4 mg twice a day from our office. Patient denies any side effects and states that she does not think she needs refills. Her Candelario has been reviewed and is appropriate. Review of Systems: General: No recent weight changes, no fever, no sleep disturbances Respiratory: No cough, no shortness of air, no recurring pulmonary infections Cardiovascular/peripheral vascular: No chest pain, no palpitations, no edema, no shortness of breath Gastrointestinal: No new onset incontinence, normal bowel movements reported Genitourinary: No new onset incontinence Musculoskeletal: Bilateral hip pain, buttocks pain Psychiatric: [Normal mood/affect] Neurological: [Denies weakness in extremities], [denies balance issues] Pain at rest (0-10 scale): 5 Objective Objective:: Physical Exam: General: Alert and oriented x3, no acute distress, pleasant and cooperative Lungs: Respirations even and unlabored, symmetrical chest expansion Eyes: PERRL Musculoskeletal: Flexion and extension of lumbar [spine] somewhat guarded secondary to pain, [antalgic gait noted] point tenderness along bilateral SIs with positive bilateral Gavin's, Manohar's, Gaenslen's, compression and distraction exam Neurological: Speech clear, no gross sensory deficit Has patient had previous pain injection?: Yes Percent improvement in pain since last injection: 70% Conservative treatment options previously tried: Home exercise plan Length of treatment: Longer than 12 weeks Meds Home Medications and Allergies Home Medications ?Medication ?Instructions ?Recorded ?Confirmed ?Type albuterol sulfate 90 mcg/actuation 2 puff inhalation QIDP PRN 04/03/17 12/23/23 History aerosol inhaler Shortness Of Breath 25 days ##18 aspirin 81 mg tablet,delayed 81 mg PO DAILY HEART HEALTH 90 04/03/17 12/23/23 History release days #90 tabs metformin 1,000 mg tablet 1,000 mg PO BID Diabetes 30 days 04/03/17 12/23/23 History #60 tabs omeprazole 20 mg capsule,delayed 20 mg PO DAILY GERD 30 days #30 04/03/17 12/23/23 History release caps atorvastatin 40 mg tablet 40 mg PO HS Cholesterol 30 days 11/28/17 12/23/23 History #30 tabs isosorbide mononitrate 30 mg 30 mg PO BID ANGINA 08/06/19 12/23/23 History tablet,extended release 24 hr gabapentin 100 mg capsule 200 mg PO BID Pain 09/28/19 12/23/23 History ertugliflozin 15 mg tablet 15 mg PO DAILY Diabetes 01/16/20 12/23/23 History bisoprolol fumarate 10 mg tablet 10 mg PO DAILY Hypertension 09/10/21 12/23/23 History escitalopram oxalate 20 mg tablet 20 mg PO DAILY MOOD 09/10/21 12/23/23 History magnesium oxide 400 mg (241.3 mg 400 mg PO BID 12/09/22 12/23/23 History magnesium) tablet semaglutide 1 mg/dose (4 mg/3 mL) 1 mg SQ WEEKLY 12/09/22 12/23/23 History subcutaneous pen injector (Ozempic) azelastine 137 mcg (0.1 %) nasal 2 spray intranasal HS 90 days #30 06/02/23 12/23/23 Rx spray mL cetirizine 10 mg tablet (All Day 10 mg PO DAILY PRN allergy 06/02/23 12/23/23 Rx Allergy (cetirizine)) symptoms #30 tabs tizanidine 4 mg tablet 4 mg PO BID muscle spasm #60 tabs 06/29/23 12/23/23 Rx benzonatate 100 mg capsule 100 mg PO TIDP PRN Cough #30 caps 09/18/23 12/23/23 Rx cefdinir 300 mg capsule 300 mg PO BID #20 caps 09/18/23 12/23/23 Rx methylprednisolone 4 mg tablets in 4 mg PO DIRECTED 6 days #21 tabs 09/18/23 12/23/23 Rx a dose pack tiotropium bromide 2.5 See Rx Instructions .Route 09/20/23 12/23/23 Rx mcg/actuation mist for inhalation .COMPLEX #4 grams (Spiriva Respimat) fluticasone propionate 50 See Rx Instructions .Route 11/23/23 12/23/23 Rx mcg/actuation nasal .COMPLEX #16 grams spray,suspension New Prescriptions to Start Prescriptions: Allergies Allergy/AdvReac Type Severity Reaction Status Date / Time meloxicam AdvReac Other Verified 12/23/23 10:20 Assessment and Plan *Assessment and plan (1) Bilateral sacroiliitis: Status: Acute Category: Medical Code(s): M46.1 - Sacroiliitis, not elsewhere classified Plan Patient is experiencing significant pain across her bilateral hips and into her upper thighs with numbness and pressure. Patient did have extreme point tenderness on her left SI and point tenderness along her right with positive bilateral Gavin's, Manohar's, Gaenslen's, compression and distraction exam. I did discuss with the patient that I do believe she would benefit from bilateral SI injections. Risk and benefits were discussed with patient and she would like to proceed forward with this plan of care. Patient has tried and failed conservative therapy including continued at home stretching exercise for longer than 12 weeks and has been experiencing this pain over the last 3 months. Patient has had these injections in the past with her last ones being February 2023 that did provide 80% relief lasting at least 6 months. Patient had improved function overall. Patient will be scheduled for bilateral SI injections under fluoroscopy. Patient has been instructed to contact the clinic with any concerns before the next appointment. Dr. Yung has reviewed this note and agrees with this plan of care. This note was dictated using voice recognition software and make contain errors or omissions. All injections are used with Lidocaine or Bupivacaine and Depo Medrol.
[2023-12-28 09:04] VITALS: BP 133/67; PULSE 83; RESP 18; O2SAT 97; BMI 31.6
== END 2023-12-28 23:59 | disposition home or self-care (01) ==
LOC: SC.PAIN 08:19
PROVIDERS: PCP Internal Medicine Adolescent Medicine; Visit Provider Nurse Practitioner Family
DX: M46.1 Sacroiliitis, not elsewhere classified (principal); F17.210 Nicotine dependence, cigarettes, uncomplicated; Z73.89 Other problems related to life management difficulty; Z79.899 Other long term (current) drug therapy
CPT/HCPCS: 99212; G0463

== ENCOUNTER 2024-01-10 09:10 | Day surgery (SDC) | payer OTHER, SELFPAY ==
[2024-01-10 09:21] VITALS: BP 161/53; PULSE 70; RESP 16; O2SAT 96; BMI 31.3
[2024-01-10] MEDS: LIDOCAINE 1% 5ML PF VIAL 5 ML (09:30)
[2024-01-10] MEDS: methylPREDNISolone ACETATE 80MG/ML VIAL 80 MG (09:30)
[2024-01-10] MEDS: BUPIVACAINE 0.25% 10ML INJ 25 MG IJ (09:30)
[2024-01-10 09:31] VITALS: BP 173/73; PULSE 70; RESP 18; O2SAT 94
[2024-01-10 09:32] VITALS: BP 173/73; PULSE 70; RESP 18; O2SAT 94
[2024-01-10 09:46] VITALS: BP 120/65; PULSE 64; RESP 16; O2SAT 94
--- NOTE | 2024-01-10 09:53 | P.PCN_ITS ---
Procedure Date: 01/10/24 Time: 09:15 Anesthesiologist:: Low Guadalupe CRNA Complications:: None Pre-procedure Diagnosis:: Bilateral sacroiliitis Post-procedure Diagnosis:: Same. Indications for Procedure:: Patient is a very pleasant 63-year-old female who comes our clinic today for bilateral sacroiliac joint injections of cortisone and local anesthetic. Patient describes low lumbar back pain off the midline bilaterally as constant, dull, aching. Patient describes having difficulty transitioning from sitting to standing. Difficulty with ambulation. Difficulty with sitting. She rates her pain 8/10. Procedure Details:: Procedure: Bilateral sacroiliac joint injections under fluoroscopy Informed consent was obtained and the risks and benefits of the procedure were explained to the patient.~ The patient was taken to the procedure room and noninvasive monitors were placed including a noninvasive blood pressure cuff and pulse oximeter.~ The patient was placed prone on the procedure table. Both hips were cleansed using Betadine as a cleansing solution. C-arm fluoroscopy was used to view the right sacroiliac joint.~ The skin and subcutaneous tissues were anesthetized using lidocaine 1.5% and a 25-gauge needle.~ After this, a 22-gauge spinal needle was inserted under fluoroscopic guidance into the inferior aspect of the right sacroiliac joint.~ Omnipaque dye was injected and good spread was seen throughout the joint.~ After this, approximately 5 mL of bupivacaine, 0.25% and Depo-Medrol, 40 mg was incrementally injected into the right sacroiliac joint. We then moved to the left sacroiliac joint.~ The skin and subcutaneous tissues were anesthetized using lidocaine 1.5% and a 25-gauge needle.~ After this, a 22- gauge spinal needle was inserted under fluoroscopic guidance into the inferior aspect of the left sacroiliac joint.~ Omnipaque dye was injected and good spread was seen throughout the joint. After this, approximately 5 mL of bupivacaine, 0.25% and Depo-Medrol, 40 mg was incrementally injected into the left sacroiliac joint.~ The patient tolerated the procedure well with no complications. The patient was observed in the Pain Clinic and then was discharged home neurologically intact. Plan and Disposition:: Patient was discharged without incident.
== END 2024-01-10 09:46 | disposition home or self-care (01) ==
PROVIDERS: PCP Internal Medicine Adolescent Medicine; Visit Provider Nurse Anesthetist, Certified Registered
DX: M46.1 Sacroiliitis, not elsewhere classified (principal)
CPT/HCPCS: 27096; G0260; J1010

== ENCOUNTER 2024-01-30 14:46 | Outpatient (POV) | payer OTHER, SELFPAY ==
[2024-01-30 15:04] VITALS: BP 130/65; PULSE 73; RESP 14; O2SAT 97; BMI 31.6
--- NOTE | 2024-01-30 15:53 | A.OFFVIS_ITS ---
[facility] Disclaimer: The information contained in this section may have been updated after the patient was seen, as this information can be updated by other users. Medical History Allergic rhinitis COPD mixed type Pleural effusion Encounter for screening for malignant neoplasm of lung Smoking greater than 30 pack years HHD (hypertensive heart disease) CAD (coronary artery disease) Surgical History History of lumbar surgery History of tubal ligation History of colonoscopy History of cholecystectomy History of heart artery stent Family History Other Asthma COPD (chronic obstructive pulmonary disease) Cancer Diabetes Heart attack Hypertension Stroke Social History Smoking Status: Current every day smoker tobacco type: cigarettes packs per day: 1 second hand exposure: Yes alcohol intake: never substance use type: denies use current occupational status: other household members: spouse housing: house current occupational exposures/hazards: No caffeine: Yes PM Subjective & Objective Subjective Subjective:: Patient is a pleasant 63-year-old female who presents today for follow-up of bilateral SI injections on 01/10/2024. Today she rates her pain a 7 out of 10. Patient says that she was doing wonderful with 90% improvement up until yesterday. Patient states that she had no fall or injury however started experiencing worsening back pain with numbness and tingling that does radiate down into her legs. Patient does have a previous history of numbness with right knee swelling.Patient does state the pain is fairly constant and does interfere with her ability perform activities of daily living such as cooking and cleaning. Patient did previously have epidurals in the past with her last 1 being in January 2023 that did provide upwards of 50% improvement lasting several months. Patient states that she is interested in additional injection therapy due to the worsening pain symptoms. Patient has tried and failed conservative therapy including continued at home stretching exercise for longer than 12 weeks. Patient is prescribed gabapentin from her primary care and tizanidine 4 mg twice a day from our office. She does not need refills. Patient states she only uses this as needed. Patient has also had in the past lumbar RFA back in August. Her Candelario has been reviewed and is appropriate. Review of Systems: General: No recent weight changes, no fever, no sleep disturbances Respiratory: No cough, no shortness of air, no recurring pulmonary infections Cardiovascular/peripheral vascular: No chest pain, no palpitations, no edema, no shortness of breath Gastrointestinal: No new onset incontinence, normal bowel movements reported Genitourinary: No new onset incontinence Musculoskeletal: Low back pain, bilateral leg pain Psychiatric: [Normal mood/affect] Neurological: [Denies weakness in extremities], [denies balance issues] Pain at rest (0-10 scale): 7 Objective Objective:: Physical Exam: General: Alert and oriented x3, no acute distress, pleasant and cooperative Lungs: Respirations even and unlabored, symmetrical chest expansion Eyes: PERRL Musculoskeletal: Flexion and extension of lumbar [spine] somewhat guarded secondary to pain, [antalgic gait noted] Neurological: Speech clear, no gross sensory deficit Has patient had previous pain injection?: Yes Percent improvement in pain since last injection: 90% Conservative treatment options previously tried: Home exercise plan Length of treatment: Longer than 12 weeks Meds Home Medications and Allergies Home Medications ?Medication ?Instructions ?Recorded ?Confirmed ?Type albuterol sulfate 90 mcg/actuation 2 puff inhalation QIDP PRN 04/03/17 01/30/24 History aerosol inhaler Shortness Of Breath 25 days ##18 aspirin 81 mg tablet,delayed 81 mg PO DAILY HEART HEALTH 90 04/03/17 01/30/24 History release days #90 tabs metformin 1,000 mg tablet 1,000 mg PO BID Diabetes 30 days 04/03/17 01/30/24 History #60 tabs omeprazole 20 mg capsule,delayed 20 mg PO DAILY GERD 30 days #30 04/03/17 01/30/24 History release caps atorvastatin 40 mg tablet 40 mg PO HS Cholesterol 30 days 11/28/17 01/30/24 History #30 tabs isosorbide mononitrate 30 mg 30 mg PO BID ANGINA 08/06/19 01/30/24 History tablet,extended release 24 hr gabapentin 100 mg capsule 200 mg PO BID Pain 09/28/19 01/30/24 History bisoprolol fumarate 10 mg tablet 10 mg PO DAILY Hypertension 09/10/21 01/30/24 History escitalopram oxalate 20 mg tablet 20 mg PO DAILY MOOD 09/10/21 01/30/24 History magnesium oxide 400 mg (241.3 mg 400 mg PO BID 12/09/22 01/30/24 History magnesium) tablet semaglutide 1 mg/dose (4 mg/3 mL) 1 mg SQ WEEKLY 12/09/22 01/30/24 History subcutaneous pen injector (Ozempic) azelastine 137 mcg (0.1 %) nasal 2 spray intranasal HS 90 days #30 06/02/23 01/30/24 Rx spray mL tiotropium bromide 2.5 See Rx Instructions .Route 01/17/24 01/30/24 Rx mcg/actuation mist for inhalation .COMPLEX #4 grams (Spiriva Respimat) tizanidine 4 mg tablet See Rx Instructions .Route 01/18/24 01/30/24 Rx .COMPLEX #60 tabs peg 3350-electrolytes 236 240 ml PO Q10M colonscopy #4,000 mL 01/30/24 01/30/24 Rx gram-22.74 gram-6.74 gram-5.86 gram solution (Golytely) New Prescriptions to Start Prescriptions: Allergies Allergy/AdvReac Type Severity Reaction Status Date / Time meloxicam AdvReac Other Verified 12/28/23 11:58 Assessment and Plan *Assessment and plan (1) Degenerative disc disease, lumbar: Status: Acute Category: Medical Code(s): M51.369 - Other intervertebral disc degeneration, lumbar region without mention of lumbar back pain or lower extremity pain (2) Lumbar radiculopathy: Status: Acute Category: Medical Code(s): M54.16 - Radiculopathy, lumbar region Plan Patient is experiencing worsening pain throughout her low back with radiating symptoms of numbness and tingling into her bilateral lower extremities. Patient did have limited range of motion of her lumbar spine during today's visit. Patient has previously had epidurals in the past however her last 1 was back in January 2023 that did provide more than 50% improvement lasting several months. I did discuss with the patient due to her worsening pain and numbness and tingling into her lower extremities that she may benefit from a repeat lumbar epidural steroid injection. Patient has tried and failed conservative therapy including continued at home stretching and exercise for longer than 12 weeks. Patient will be scheduled for an LESI L4-L5 under fluoroscopy. Patient has been instructed to contact the clinic with any concerns before the next appointment. Dr. Yung has reviewed this note and agrees with this plan of care. This note was dictated using voice recognition software and make contain errors or omissions. All injections are used with Lidocaine or Bupivacaine and Depo Medrol.
== END 2024-01-30 23:59 | disposition home or self-care (01) ==
PROVIDERS: PCP Internal Medicine Adolescent Medicine; Visit Provider Nurse Practitioner Family
DX: M51.16 Intervertebral disc disorders with radiculopathy, lumbar region (principal); F17.210 Nicotine dependence, cigarettes, uncomplicated; Z73.89 Other problems related to life management difficulty; Z79.899 Other long term (current) drug therapy
CPT/HCPCS: 99212; G0463

== ENCOUNTER 2024-02-09 09:08 | Day surgery (SDC) | payer OTHER, SELFPAY ==
[2024-02-07 12:57] VITALS: BMI 31.6
[2024-02-09 09:27] VITALS: BP 126/72; PULSE 79; RESP 16; TEMP 36.3; O2SAT 98
[2024-02-09] MEDS: LACTATED RINGERS 1000ML 1,000 ML 25 ML IV (09:37)
[2024-02-09 09:46] VITALS: O2SAT 100
--- NOTE | 2024-02-09 09:46 | P.PNANES_ITS ---
[facility] Disclaimer: The information contained in this section may have been updated after the patient was seen, as this information can be updated by other users. Medical History Allergic rhinitis COPD mixed type Pleural effusion Encounter for screening for malignant neoplasm of lung Smoking greater than 30 pack years HHD (hypertensive heart disease) CAD (coronary artery disease) Surgical History History of lumbar surgery History of tubal ligation History of colonoscopy History of cholecystectomy History of heart artery stent Family History Other Asthma COPD (chronic obstructive pulmonary disease) Cancer Diabetes Heart attack Hypertension Stroke Social History (Updated 02/09/24 @ 09:28 by Cristina Lawrence RN) Smoking Status: Current every day smoker tobacco type: cigarettes packs per day: 1 second hand exposure: Yes alcohol intake: never substance use type: denies use current occupational status: retired Travel in the last 8 weeks: None household members: spouse housing: house current occupational exposures/hazards: No caffeine: Yes [facility] Anesthesia Checklist Patient Identification Patient Identification: Arm Band Structural Data Admitted From: Home Planned Operative Procedure/s: Colonoscopy Consent for Planned Operative Procedure(s) Verified: Yes Verified Documents: Surgical Consent and History and Physical NPO Status Verified Time NPO: 00:00 Additional verifications Anesthesia Reactions: No Hx Blood Transfusions: No Blood Transfusion Reaction: No Airway Assessment Mallampati Score:: Class II C-Spine Mobility Assessed: Yes TMJ Mobility Assessed: Yes Dentition: Edentulous Neurological Assessment Level of Consciousness: Awake, Alert and Appropriate Anesthesia Plan Anesthesia Risk discussed: Yes Anesthesia Plan: Verified ASA Class: III Anesthesia Type: MAC
--- NOTE | 2024-02-09 09:50 | EXP.HP ---
History of Present Illness *Admission Date: 02/09/24 *Reason for visit:: Iron deficiency anemia and prior history of advanced adenoma *History of present illness: Mrs. Keith is a 63-year-old female who is here for diagnostic colonoscopy. She does have iron deficiency anemia and she had a prior history of a large advanced adenoma. The examination is deemed medically necessary for colonoscopy. The patient has been seen, interviewed and examined prior to the procedure by both myself and the anesthesia provider. [facility] Disclaimer: The information contained in this section may have been updated after the patient was seen, as this information can be updated by other users. Medical History Allergic rhinitis COPD mixed type Pleural effusion Encounter for screening for malignant neoplasm of lung Smoking greater than 30 pack years HHD (hypertensive heart disease) CAD (coronary artery disease) Surgical History History of lumbar surgery History of tubal ligation History of colonoscopy History of cholecystectomy History of heart artery stent Family History Other Asthma COPD (chronic obstructive pulmonary disease) Cancer Diabetes Heart attack Hypertension Stroke Social History (Updated 02/09/24 @ 09:28 by Cristina Lawrence RN) Smoking Status: Current every day smoker tobacco type: cigarettes packs per day: 1 second hand exposure: Yes alcohol intake: never substance use type: denies use current occupational status: retired Travel in the last 8 weeks: None household members: spouse housing: house current occupational exposures/hazards: No caffeine: Yes Other Medical History Have you received the Flu Vaccine for this season: Yes Have you received the Pneumonia Vaccine: Yes Review of Systems Review of Systems Review of systems (narrative): Negative *Cardiovascular Comments: Negative *Gastrointestinal Comments: Negative *Genitourinary Comments: Negative *Musculoskeletal Comments: Negative *Neurologic Comments: Negative Meds Home Medications and Allergies Home Medications ?Medication ?Instructions ?Recorded ?Confirmed ?Type albuterol sulfate 90 mcg/actuation 2 puff inhalation QIDP PRN 04/03/17 02/09/24 History aerosol inhaler Shortness Of Breath 25 days ##18 aspirin 81 mg tablet,delayed 81 mg PO DAILY HEART HEALTH 90 04/03/17 02/09/24 History release days #90 tabs metformin 1,000 mg tablet 1,000 mg PO BID Diabetes 30 days 04/03/17 02/09/24 History #60 tabs omeprazole 20 mg capsule,delayed 20 mg PO DAILY GERD 30 days #30 04/03/17 02/09/24 History release caps atorvastatin 40 mg tablet 40 mg PO HS Cholesterol 30 days 11/28/17 02/09/24 History #30 tabs isosorbide mononitrate 30 mg 30 mg PO BID ANGINA 08/06/19 02/09/24 History tablet,extended release 24 hr gabapentin 100 mg capsule 200 mg PO BID Pain 09/28/19 02/09/24 History bisoprolol fumarate 10 mg tablet 10 mg PO DAILY Hypertension 09/10/21 02/09/24 History escitalopram oxalate 20 mg tablet 20 mg PO DAILY MOOD 09/10/21 02/09/24 History magnesium oxide 400 mg (241.3 mg 400 mg PO BID 12/09/22 02/09/24 History magnesium) tablet semaglutide 1 mg/dose (4 mg/3 mL) 1 mg SQ WEEKLY 12/09/22 02/09/24 History subcutaneous pen injector (Ozempic) azelastine 137 mcg (0.1 %) nasal 2 spray intranasal HS 90 days #30 06/02/23 02/09/24 Rx spray mL tiotropium bromide 2.5 See Rx Instructions .Route 01/17/24 02/09/24 Rx mcg/actuation mist for inhalation .COMPLEX #4 grams (Spiriva Respimat) tizanidine 4 mg tablet See Rx Instructions .Route 01/18/24 02/09/24 Rx .COMPLEX #60 tabs peg 3350-electrolytes 236 240 ml PO Q10M colonscopy #4,000 mL 01/30/24 02/09/24 Rx gram-22.74 gram-6.74 gram-5.86 gram solution (Golytely) New Prescriptions to Start Prescriptions: Allergies Allergy/AdvReac Type Severity Reaction Status Date / Time meloxicam AdvReac Other Verified 02/09/24 09:22 Exam Data for Last 24 hours Vital signs and Labs for Last 24 Hours: Temp Pulse Resp BP Pulse Ox O2 Del Method O2 Flow Rate 97.4 F L 79 16 126/72 98 Nasal Cannula 5 02/09/24 09:27 02/09/24 09:27 02/09/24 09:27 02/09/24 09:27 02/09/24 09:27 02/09/24 09:46 02/09/24 09:46 I & O for Last 24 hours: Intake & Output 02/06/24 02/07/24 02/08/24 02/09/24 23:59 23:59 23:59 23:59 Weight 190 lb *Routine HEENT Exam Head: Present normocephalic Eye: Present EOMI and PERRL ENT: Present mucous membranes moist *Routine Neck Exam Neck: Present supple *Routine Respiratory Exam Respiratory: Present CTA bilaterally *Routine Cardiovascular Exam Cardiovascular: Present RRR *Routine Abdominal Exam Abdominal: Present soft and normoactive bowel sounds; Absent tenderness *Routine Rectal Exam Rectal:: deferred *Routine Genitalia Exam Genitalia:: deferred *Routine Extremities Exam Extremities: Absent cyanosis, clubbing or edema *Routine Skin Exam Skin: Present warm; Absent rash *Routine Neurological Exam Neurological: Present alert and oriented X3 Assessment and Plan *Assessment and plan (1) Iron deficiency anemia: Status: Acute Qualifiers: Iron deficiency anemia type: unspecified iron deficiency Qualified Code(s): D50.9 - Iron deficiency anemia, unspecified Category: Medical Code(s): D50.9 - Iron deficiency anemia, unspecified (2) History of adenomatous polyp of colon: Status: Acute Category: Medical Code(s): Z86.0101 - Personal history of adenomatous and serrated colon polyps Plan A/P: 1. Iron deficiency anemia with former history of advanced adenomatous polyp is the preprocedural diagnosis. The patient will be anesthetized/sedated using MAC sedation. The patient has been seen and examined. Cardiac and lung assessment prior to the examination is stable. Proceed with planned colonoscopy
--- NOTE | 2024-02-09 09:54 | HMH.PROCNOTE ---
[facility] Procedure Note Date: 02/09/24 Time: 10:12 Procedure Note:: Colonoscopy Procedure Report: Colonoscopy with cold snare polypectomy Endoscopist: Cristopher Arnold II, MD Referring physician: Cortez Gagnon M.D. Date of Procedure: February 09, 2024 Equipment: Olympus 190 variable stiffness pediatric colonoscope Sedation: MAC sedation Indication: Mrs. Keith is a 63-year-old female with iron deficiency anemia and former Hemoccult positive stools. The Hemoccult positive stools were actually in July 2019. She had more recent labs in November 2023 that showed hemoglobin 10.3 and hematocrit 33.5. It does appear that she has had some chronic microcytic anemia/iron deficiency. The patient does have a former history of a larger complex tubulovillous adenoma at 23 cm from the anal verge in March 2018 (Hakeem Valentine M.D.). She was given 2-year surveillance interval. She does get some occasional constipation. She reports no bright red rectal bleeding, melena or hematochezia. She reports no abdominal pain or weight loss. She did have EGD in February 2018 that was unremarkable. The patient is not on any anticoagulation. Procedure: Prior to the procedure, a history and physical exam was performed, and patient's medications and allergies were reviewed. The risks, benefits and alternatives of the sedation and procedure were discussed with the patient. All questions were answered and informed consent was obtained. The patient was brought to the procedure room. Patient identification and proposed procedure were verified by the physician and the nurse. The patient was placed in a left lateral decubitus position and the scope was passed under direct vision. Throughout the procedure, the patient's blood pressure, pulse, and oxygen saturations were monitored continuously. The colonoscopy was accomplished without difficulty. The patient tolerated the procedure well. Findings: On digital rectal examination there was normal rectal tone. There were no external hemorrhoids. The colonoscope was introduced through the anal canal to the rectum and advanced to the cecum. The ileocecal valve and appendiceal orifice were identified. The scope was advanced a short distance into the ileum which appeared grossly normal. The scope was then withdrawn into the colon. There were 5 polyps (cecum x 1 (4 mm), transverse x 2 (4 and 6 mm), descending x 1 (7 mm) and sigmoid x 1 (3 mm)). These were all removed via cold snare polypectomy. The cecum, ascending and transverse colon and mucosa were grossly normal. There were scattered diverticuli throughout the descending and sigmoid colon (LEFT colon). The rectum itself was normal. Upon retroflexion within the rectum there were grade 1-2 internal hemorrhoids. The preparation was excellent throughout with Kremlin Preparation Score of 9. The cecal time was 12 minutes. Impression: 1. Colonic polyps x 5 2. Left-sided diverticulosis 3. Grade 1-2 internal hemorrhoids Plan: I will follow-up the polyp histology and recommend repeat surveillance colonoscopy again in 3 to 5 years. I would encourage psyllium fiber supplementation on a maintenance basis. I would recommend repeat Hemoccult testing presently. If the patient remains Hemoccult positive I would consider EGD and possibly PillCam. I would recommend oral iron supplementation presently.
[2024-02-09 10:15] VITALS: BP 85/58; PULSE 77; RESP 18; TEMP 36.4; O2SAT 95
[2024-02-09 10:25] VITALS: BP 112/80; PULSE 79; RESP 18; O2SAT 96
[2024-02-09 10:35] VITALS: BP 120/96; PULSE 74; RESP 17; O2SAT 95
[2024-02-09 10:45] VITALS: BP 108/71; PULSE 78; RESP 18; O2SAT 97
[2024-02-10 07:51] LABS: POC Glucose,Bedside 112 (70-110)
[2024-02-10 13:11] LABS: Endomysial IgA Antibody Negative (Negative)
[2024-02-10 16:13] LABS: Deamidated Gliadin Abs, IgA 2 units (0-19); Deamidated Gliadin Abs, IgG 2 units (0-19); Tissue Transglutaminase IgA Ab <2 U/mL (0-3); Tissue Transglutaminase IgG Ab <2 U/mL (0-5)
[2024-02-15 08:42] LABS: Reticulin IgA Antibody Negative titer (Neg:<1:2.5)
== END 2024-02-09 10:50 | disposition home or self-care (01) ==
PROVIDERS: PCP Internal Medicine Adolescent Medicine; Visit Provider Internal Medicine Gastroenterology
PROC: (CPT 45385; principal; 2024-02-09 11:00)
DX: D50.9 Iron deficiency anemia, unspecified (principal); Z86.0101 Personal history of adenomatous and serrated colon polyps; K63.5 Polyp of colon; K57.30 Diverticulosis of large intestine without perforation or abscess without bleeding; K64.8 Other hemorrhoids
CPT/HCPCS: 45385; 36415; 82962; 83516; 86255; 86256; J7120

== ENCOUNTER 2024-03-23 09:24 | Outpatient (CLI) | payer OTHER, SELFPAY ==
--- NOTE | 2024-03-23 09:27 | MR_ITS ---
FINAL REPORT TECHNIQUE: Multiplanar MR without contrast CLINICAL HISTORY: LBP FINDINGS: Sagittal images show normal vertebral height. There is mild retrolisthesis of L2 on 3 and L5 on S1. Mild discogenic endplate signal changes are seen at L2-3. T11-12: Mild annular disc bulge asymmetric to the right. Tiny right lateral canal disc protrusion with probable contact of the right T12 nerve root. T12-L1: Small left paracentral disc protrusion without canal stenosis. L1-2: Mild annular disc bulge without canal stenosis. L2-3: Moderate annular disc bulge and facet overgrowth. Moderate central canal stenosis. Mild right and severe left neuroforaminal narrowing. L3-4: Moderate annular disc bulge and facet arthropathy. Moderate central canal stenosis. Moderate right and mild left neuroforaminal narrowing. L4-5: Mild annular disc bulge and mild facet arthropathy. Mild right and moderate left neuroforaminal narrowing. L5-S1: Mild annular disc bulge and mild facet arthropathy. Mild right and moderate left neuroforaminal narrowing. IMPRESSION: Multilevel degenerative changes as above. Reviewed, Interpreted and Dictated by Prema Curran MD Transcribed by Abbie Johnson Authenticated and [facility]
== END 2024-03-23 23:59 | disposition home or self-care (01) ==
LOC: RAD 09:25
PROVIDERS: PCP Internal Medicine Adolescent Medicine; Visit Provider Nurse Practitioner Family
DX: M51.369 Other intervertebral disc degeneration, lumbar region without mention of lumbar back pain or lower extremity pain (principal); M54.16 Radiculopathy, lumbar region
CPT/HCPCS: 72148

== ENCOUNTER 2024-03-26 14:28 | Outpatient (POV) | payer OTHER, SELFPAY ==
--- NOTE | 2024-03-26 15:07 | EXP.PAIN.SOA ---
[facility] Disclaimer: The information contained in this section may have been updated after the patient was seen, as this information can be updated by other users. Medical History Allergic rhinitis COPD mixed type Pleural effusion Encounter for screening for malignant neoplasm of lung Smoking greater than 30 pack years HHD (hypertensive heart disease) CAD (coronary artery disease) Surgical History History of lumbar surgery History of tubal ligation History of colonoscopy History of cholecystectomy History of heart artery stent Family History Other Asthma COPD (chronic obstructive pulmonary disease) Cancer Diabetes Heart attack Hypertension Stroke Social History (Updated 02/09/24 @ 09:28 by Cristina Lawrence RN) Smoking Status: Current every day smoker tobacco type: cigarettes packs per day: 1 second hand exposure: Yes alcohol intake: never substance use type: denies use current occupational status: retired Travel in the last 8 weeks: None household members: spouse housing: house current occupational exposures/hazards: No caffeine: Yes PM Subjective & Objective Subjective Subjective:: Patient is a pleasant 63-year-old female who presents today for worsening pain and MRI follow-up. Today she rates her pain a 6 out of 10. She denies any new trauma or injury. She does state that she is just continued to have significant pain from her low back that does radiate down into her legs with numbness and tingling. Patient does also states she has also been having some left shoulder pain and is unsure what exactly she is done to this. She states that it really seem to flareup at the same time of her back getting worse. Patient had been scheduled for an epidural however insurance denied this due to not having updated imaging. Patient does state that she would like to see about getting scheduled for the injection because the pain is significantly worse and is interfering with her ability perform activities of daily living such as cooking and cleaning. Patient has continued conservative therapy including continued at home stretching exercise for longer than 12 weeks in between injection. Patient is currently managed with gabapentin from her PCP and is doing tizanidine 4 mg twice a day from our office and was given a 2-week supply of Tylenol 3. She states that the Tylenol 3 did seem to help however she has had to use it sparingly since she only had a limited number of medication. Her Candelario has been reviewed and is appropriate. Review of Systems: General: No recent weight changes, no fever, no sleep disturbances Respiratory: No cough, no shortness of air, no recurring pulmonary infections Cardiovascular/peripheral vascular: No chest pain, no palpitations, no edema, no shortness of breath Gastrointestinal: No new onset incontinence, normal bowel movements reported Genitourinary: No new onset incontinence Musculoskeletal: Low back pain, bilateral leg pain Psychiatric: [Normal mood/affect] Neurological: [Denies weakness in extremities], [denies balance issues] Pain at rest (0-10 scale): 6 Objective Objective:: Physical Exam: General: Alert and oriented x3, no acute distress, pleasant and cooperative Lungs: Respirations even and unlabored, symmetrical chest expansion Eyes: PERRL Musculoskeletal: Flexion and extension of lumbar [spine] somewhat guarded secondary to pain, [antalgic gait noted] positive leg raise Neurological: Speech clear, no gross sensory deficit Has patient had previous pain injection?: No Conservative treatment options previously tried: Home exercise plan Length of treatment: Longer than 12 weeks Meds Home Medications and Allergies Home Medications ?Medication ?Instructions ?Recorded ?Confirmed ?Type albuterol sulfate 90 mcg/actuation 2 puff inhalation QIDP PRN 04/03/17 02/09/24 History aerosol inhaler Shortness Of Breath 25 days ##18 aspirin 81 mg tablet,delayed 81 mg PO DAILY HEART HEALTH 90 04/03/17 02/09/24 History release days #90 tabs metformin 1,000 mg tablet 1,000 mg PO BID Diabetes 30 days 04/03/17 02/09/24 History #60 tabs omeprazole 20 mg capsule,delayed 20 mg PO DAILY GERD 30 days #30 04/03/17 02/09/24 History release caps atorvastatin 40 mg tablet 40 mg PO HS Cholesterol 30 days 11/28/17 02/09/24 History #30 tabs isosorbide mononitrate 30 mg 30 mg PO BID ANGINA 08/06/19 02/09/24 History tablet,extended release 24 hr gabapentin 100 mg capsule 200 mg PO BID Pain 09/28/19 02/09/24 History bisoprolol fumarate 10 mg tablet 10 mg PO DAILY Hypertension 09/10/21 02/09/24 History escitalopram oxalate 20 mg tablet 20 mg PO DAILY MOOD 09/10/21 02/09/24 History magnesium oxide 400 mg (241.3 mg 400 mg PO BID 12/09/22 02/09/24 History magnesium) tablet semaglutide 1 mg/dose (4 mg/3 mL) 1 mg SQ WEEKLY 12/09/22 02/09/24 History subcutaneous pen injector (Ozempic) azelastine 137 mcg (0.1 %) nasal 2 spray intranasal HS 90 days #30 06/02/23 02/09/24 Rx spray mL tiotropium bromide 2.5 See Rx Instructions .Route 01/17/24 02/09/24 Rx mcg/actuation mist for inhalation .COMPLEX #4 grams (Spiriva Respimat) tizanidine 4 mg tablet See Rx Instructions .Route 01/18/24 02/09/24 Rx .COMPLEX #60 tabs peg 3350-electrolytes 236 240 ml PO Q10M colonscopy #4,000 mL 01/30/24 02/09/24 Rx gram-22.74 gram-6.74 gram-5.86 gram solution (Golytely) acetaminophen 300 mg-codeine 30 mg 1 tab PO BID PRN pain #60 tabs 02/16/24 Rx tablet naloxone 4 mg/actuation nasal spray 4 mg intranasal Q2M PRN opioid 02/23/24 Rx overdose #2 ea fluticasone propionate 50 See Rx Instructions .Route 03/13/24 Rx mcg/actuation nasal .COMPLEX #16 grams spray,suspension New Prescriptions to Start Prescriptions: Allergies Allergy/AdvReac Type Severity Reaction Status Date / Time meloxicam AdvReac Other Verified 02/09/24 09:22 Assessment and Plan *Assessment and plan (1) Degenerative disc disease, lumbar: Status: Acute Category: Medical Code(s): M51.369 - Other intervertebral disc degeneration, lumbar region without mention of lumbar back pain or lower extremity pain (2) Lumbar radiculopathy: Status: Acute Category: Medical Code(s): M54.16 - Radiculopathy, lumbar region (3) Lumbar stenosis: Status: Acute Category: Medical Code(s): M48.061 - Spinal stenosis, lumbar region without neurogenic claudication Plan Patient is experiencing significant pain throughout her low back with numbness and tingling into her lower extremities. Patient did have limited range of motion of her lumbar spine with a positive leg raise. I did review over with the patient regarding her updated MRI imaging. Patient did have more significant findings with stenosis at the L2-L3 and L3-L4 levels. I did discuss with the patient that I would like to order a lumbar epidural at the L3-L4 level. Risk and benefits were discussed with the patient and she would like to proceed forward with this plan of care. Patient has tried and failed conservative therapy including continued at home stretching exercise that was physician guided for longer than 12 weeks with no additional changes. Patient does have symptoms consistent for lumbar epidural and showing multilevel degenerative disc, disc bulge, facet arthropathy and stenosis. Patient will be scheduled for an LESI L3-L4 under fluoroscopy. I will also send an additional refill on the Tylenol 3 and change it to once a day sending in a 1 month supply Patient has been instructed to contact the clinic with any concerns before the next appointment. Dr. Yung has reviewed this note and agrees with this plan of care. This note was dictated using voice recognition software and make contain errors or omissions. All injections are used with Lidocaine, Bupivacaine and Depo Medrol. Occasionally urine drug screen is needed to verify patient's compliance with our office pain contract. This is ordered based off specific treatments related to chronic pain with the potential to abuse certain medications.
[2024-03-26 15:29] VITALS: BP 138/70; PULSE 70; RESP 18; O2SAT 96; BMI 31.6
== END 2024-03-26 23:59 | disposition home or self-care (01) ==
PROVIDERS: PCP Internal Medicine Adolescent Medicine; Visit Provider Nurse Practitioner Family
DX: M51.16 Intervertebral disc disorders with radiculopathy, lumbar region (principal); M48.061 Spinal stenosis, lumbar region without neurogenic claudication; F17.210 Nicotine dependence, cigarettes, uncomplicated; Z73.89 Other problems related to life management difficulty; Z79.899 Other long term (current) drug therapy
CPT/HCPCS: 99212; G0463

== ENCOUNTER 2024-04-03 14:18 | Day surgery (SDC) | payer OTHER, SELFPAY ==
[2024-04-03 14:29] VITALS: BP 132/70; PULSE 78; RESP 16; TEMP 36.9; O2SAT 97; BMI 31.9
[2024-04-03 14:37] VITALS: BP 173/85; PULSE 81; RESP 16; O2SAT 97
[2024-04-03 14:40] VITALS: BP 173/85; PULSE 81; RESP 16; O2SAT 97
--- NOTE | 2024-04-03 14:41 | EXP.PAIN.PRO ---
Procedure Date: 04/03/24 Time: 14:25 Anesthesiologist:: Low Guadalupe CRNA Complications:: None Pre-procedure Diagnosis:: Degenerative disc lumbar spine the levels. Lumbar radiculopathy. Lumbar postlaminectomy syndrome. Post-procedure Diagnosis:: Same. Indications for Procedure:: Patient is a very pleasant 63-year-old female who comes our clinic today for lumbar epidural steroid injection at the L3-4 level. Patient describes low lumbar back pain as constant, dull, aching. Patient also reports bilateral hip and leg radicular symptoms at times. She rates her pain 7/10. Procedure Details:: Procedure: Lumbar epidural steroid injection under fluoroscopy Informed consent was obtained and the risks and benefits of the procedure were explained to the patient. The patient was taken to the procedure room and noninvasive monitors placed, including noninvasive blood pressure cuff and pulse oximeter. The back was viewed using C-arm Fluoroscopy and prepped using Chloraprep as a cleansing solution and the L3-4 interspace was palpated. Skin and subcutaneous tissues were anesthetized using lidocaine 1.5% and a 25-gauge needle. After this, an 18-gauge Touhy epidural needle was placed into the L3-4 interspace and advanced using fluoroscopic guidance and loss of resistance to air until the epidural space was encountered. After confirmation of needle placement in the epidural space, with dye, a solution containing normal saline, 3 mL and Depo-Medrol 80 mg were incrementally injected into the lumbar epidural space. The patient tolerated the procedure well with no complications. The patient was observed in the Pain Clinic and then discharged home neurologically intact. Plan and Disposition:: Patient was discharged without incident.
[2024-04-03 14:45] VITALS: BP 139/69; PULSE 55; RESP 16; TEMP 36.6; O2SAT 97
== END 2024-04-03 14:46 | disposition home or self-care (01) ==
PROVIDERS: PCP Internal Medicine Adolescent Medicine; Visit Provider Nurse Anesthetist, Certified Registered
DX: M51.16 Intervertebral disc disorders with radiculopathy, lumbar region (principal); M96.1 Postlaminectomy syndrome, not elsewhere classified
CPT/HCPCS: 62323; J1010

== ENCOUNTER 2024-04-16 10:18 | Outpatient (POV) | payer OTHER, SELFPAY ==
[2024-04-16 10:29] VITALS: BP 148/77; PULSE 74; RESP 16; O2SAT 96; BMI 32.4
--- NOTE | 2024-04-16 10:41 | EXP.PAIN.SOA ---
[facility] Disclaimer: The information contained in this section may have been updated after the patient was seen, as this information can be updated by other users. Medical History Allergic rhinitis COPD mixed type Pleural effusion Encounter for screening for malignant neoplasm of lung Smoking greater than 30 pack years HHD (hypertensive heart disease) CAD (coronary artery disease) Surgical History History of lumbar surgery History of tubal ligation History of colonoscopy History of cholecystectomy History of heart artery stent Family History Other Asthma COPD (chronic obstructive pulmonary disease) Cancer Diabetes Heart attack Hypertension Stroke Social History (Updated 04/03/24 @ 14:29 by Nani Hall RN) Smoking Status: Current every day smoker tobacco type: cigarettes packs per day: 1 second hand exposure: Yes alcohol intake: never substance use type: denies use current occupational status: other Travel in the last 8 weeks: None household members: spouse housing: house current occupational exposures/hazards: No caffeine: Yes PM Subjective & Objective Subjective Subjective:: Patient is a pleasant 63-year-old female who presents today for follow-up of lumbar epidural steroid injection L3-L4 on 04/03/2024. Today she rates her pain a 1 out of 10. Patient states that she has had at least 98% improvement following this injection and feels like it still working well. Patient states she has been able to increase her activity with overall decreased pain and feels much more functional. She states that she does have some pain here and there but it is very manageable. Patient does also state that she has even noticed improvement in her arm. Patient states the date of the injection she had even trouble lifting it however that is resolved currently. Patient is managed with gabapentin from her primary care and has been given tizanidine 4 mg twice a day from our office in a 2 week supply of Tylenol 3 to get her to her injection. She denies any side effects. Her Candelario has been reviewed and is appropriate. Review of Systems: General: No recent weight changes, no fever, no sleep disturbances Respiratory: No cough, no shortness of air, no recurring pulmonary infections Cardiovascular/peripheral vascular: No chest pain, no palpitations, no edema, no shortness of breath Gastrointestinal: No new onset incontinence, normal bowel movements reported Genitourinary: No new onset incontinence Musculoskeletal: Low back pain Psychiatric: [Normal mood/affect] Neurological: [Denies weakness in extremities], [denies balance issues] Pain at rest (0-10 scale): 1 Objective Objective:: Physical Exam: General: Alert and oriented x3, no acute distress, pleasant and cooperative Lungs: Respirations even and unlabored, symmetrical chest expansion Eyes: PERRL Musculoskeletal: Flexion and extension of lumbar [spine] somewhat guarded secondary to pain, [antalgic gait noted] Neurological: Speech clear, no gross sensory deficit Has patient had previous pain injection?: Yes Percent improvement in pain since last injection: 98% Conservative treatment options previously tried: Home exercise plan Length of treatment: Longer than 12 weeks Meds Home Medications and Allergies Home Medications ?Medication ?Instructions ?Recorded ?Confirmed ?Type albuterol sulfate 90 mcg/actuation 2 puff inhalation QIDP PRN 04/03/17 04/16/24 History aerosol inhaler Shortness Of Breath 25 days ##18 aspirin 81 mg tablet,delayed 81 mg PO DAILY HEART HEALTH 90 04/03/17 04/16/24 History release days #90 tabs metformin 1,000 mg tablet 1,000 mg PO BID Diabetes 30 days 04/03/17 04/16/24 History #60 tabs omeprazole 20 mg capsule,delayed 20 mg PO DAILY GERD 30 days #30 04/03/17 04/16/24 History release caps atorvastatin 40 mg tablet 40 mg PO HS Cholesterol 30 days 11/28/17 04/16/24 History #30 tabs isosorbide mononitrate 30 mg 30 mg PO BID ANGINA 08/06/19 04/16/24 History tablet,extended release 24 hr gabapentin 100 mg capsule 200 mg PO BID Pain 09/28/19 04/16/24 History bisoprolol fumarate 10 mg tablet 10 mg PO DAILY Hypertension 09/10/21 04/16/24 History escitalopram oxalate 20 mg tablet 20 mg PO DAILY MOOD 09/10/21 04/16/24 History magnesium oxide 400 mg (241.3 mg 400 mg PO BID 12/09/22 04/16/24 History magnesium) tablet semaglutide 1 mg/dose (4 mg/3 mL) 1 mg SQ WEEKLY 12/09/22 04/16/24 History subcutaneous pen injector (Ozempic) azelastine 137 mcg (0.1 %) nasal 2 spray intranasal HS 90 days #30 06/02/23 04/16/24 Rx spray mL tiotropium bromide 2.5 See Rx Instructions .Route 01/17/24 04/16/24 Rx mcg/actuation mist for inhalation .COMPLEX #4 grams (Spiriva Respimat) peg 3350-electrolytes 236 240 ml PO Q10M colonscopy #4,000 mL 01/30/24 04/16/24 Rx gram-22.74 gram-6.74 gram-5.86 gram solution (Golytely) naloxone 4 mg/actuation nasal spray 4 mg intranasal Q2M PRN opioid 02/23/24 04/16/24 Rx overdose #2 ea fluticasone propionate 50 See Rx Instructions .Route 03/13/24 04/16/24 Rx mcg/actuation nasal .COMPLEX #16 grams spray,suspension acetaminophen 300 mg-codeine 30 mg 1 tab PO DAILY #30 tabs 03/26/24 04/16/24 Rx tablet tizanidine 4 mg tablet See Rx Instructions .Route 04/12/24 04/16/24 Rx .COMPLEX #60 tabs New Prescriptions to Start Prescriptions: Allergies Allergy/AdvReac Type Severity Reaction Status Date / Time meloxicam AdvReac Other Verified 04/03/24 14:33 Assessment and Plan *Assessment and plan (1) Degenerative disc disease, lumbar: Status: Acute Category: Medical Code(s): M51.369 - Other intervertebral disc degeneration, lumbar region without mention of lumbar back pain or lower extremity pain (2) Lumbar radiculopathy: Status: Acute Category: Medical Code(s): M54.16 - Radiculopathy, lumbar region (3) Lumbar stenosis: Status: Acute Category: Medical Code(s): M48.061 - Spinal stenosis, lumbar region without neurogenic claudication Plan Patient has had significant improvement and does not require any additional injection therapy at this time. Patient will return to clinic in 6 weeks for reevaluation of symptoms and plan of care.\ Patient has been instructed to contact the clinic with any concerns before the next appointment. Dr. Yung has reviewed this note and agrees with this plan of care. This note was dictated using voice recognition software and make contain errors or omissions. All injections are used with Lidocaine, Bupivacaine and Depo Medrol. Occasionally urine drug screen is needed to verify patient's compliance with our office pain contract. This is ordered based off specific treatments related to chronic pain with the potential to abuse certain medications.
== END 2024-04-16 23:59 | disposition home or self-care (01) ==
LOC: SC.PAIN 10:19
PROVIDERS: PCP Internal Medicine Adolescent Medicine; Visit Provider Nurse Practitioner Family
DX: M51.16 Intervertebral disc disorders with radiculopathy, lumbar region (principal); M48.061 Spinal stenosis, lumbar region without neurogenic claudication; F17.210 Nicotine dependence, cigarettes, uncomplicated; Z79.899 Other long term (current) drug therapy
CPT/HCPCS: 99212; G0463

== ENCOUNTER 2024-06-06 11:21 | Outpatient (CLI) | payer OTHER, SELFPAY ==
[2024-06-06 11:49] LABS: Basophils # 0.1 K/mm3 (0-0.2); Basophils % 0.9 % (0.1-2.0); Eosinophils # 0.2 K/mm3 (0.0-0.4); Eosinophils % 2.3 % (0.1-12.0); Hematocrit 33.7 % (37.0-47.0); Hemoglobin 11.1 g/dL (12.2-16.2); Lymphocytes # 2.1 K/mm3 (0.7-4.5); Lymphocytes % 27.9 % (10-50); Mean Corpuscular HGB Conc 32.9 g/dL (31.8-35.4); Mean Corpuscular Hemoglobin 29.7 pg (27.0-31.2); Mean Corpuscular Volume 90.1 fl (81-99); Mean Platelet Volume 9.9 fl (7.4-10.4); Monocytes # 0.4 K/mm3 (0.1-1.0); Monocytes % 5.4 % (1.7-9.3); Neutrophils # 4.6 K/mm3 (1.8-7.8); Neutrophils % 62.3 % (37.0-80.0); Platelet Count 307 K/mm3 (142-424); Red Blood Count 3.74 M/mm3 (4.20-5.40); Red Cell Distribution Width 13.1 % (11.5-17.5); White Blood Count 7.4 K/mm3 (4.8-10.8)
[2024-06-06 13:09] LABS: Iron 58 ug/dL (37-170)
[2024-06-06 13:45] LABS: Ferritin 8.85 ng/ml (11.1-264)
[2024-06-06 14:29] LABS: Total Iron Binding Capacity 396 ug/dL (265-497)
== END 2024-06-06 23:59 | disposition home or self-care (01) ==
LOC: LAB 11:22
PROVIDERS: PCP Internal Medicine Adolescent Medicine; Visit Provider Internal Medicine Medical Oncology
DX: D50.9 Iron deficiency anemia, unspecified (principal)
CPT/HCPCS: 36415; 82728; 83540; 83550; 85025

== ENCOUNTER 2024-06-07 13:53 | Outpatient (POV) | payer OTHER, SELFPAY ==
--- NOTE | 2024-06-07 14:19 | EXP.PAIN.SOA ---
[facility] Disclaimer: The information contained in this section may have been updated after the patient was seen, as this information can be updated by other users. Medical History Allergic rhinitis COPD mixed type Pleural effusion Encounter for screening for malignant neoplasm of lung Smoking greater than 30 pack years HHD (hypertensive heart disease) CAD (coronary artery disease) Surgical History History of lumbar surgery History of tubal ligation History of colonoscopy History of cholecystectomy History of heart artery stent Family History Other Asthma COPD (chronic obstructive pulmonary disease) Cancer Diabetes Heart attack Hypertension Stroke Social History Smoking Status: Current every day smoker tobacco type: cigarettes packs per day: 1 second hand exposure: Yes alcohol intake: never substance use type: denies use current occupational status: other Travel in the last 8 weeks: None household members: spouse housing: house current occupational exposures/hazards: No caffeine: Yes Have you lived/traveled outside [place] in past 30 days?: No Contact w/someone who lives/traveled outside US past 30 days?: No Exposure to someone with infectious disease in past 14 days?: No Do you have a fever (greater than 100.4 F or 38 C)?: No Have you tested positive for COVID-19: No Exposed to someone with COVID-19 in past 14 days?: No Do you have a sore throat?: No Do you have a cough?: No Do you have any weakness?: No Do you have any diarrhea?: No Are you experiencing any unusual bleeding?: No Do you have any muscle aches/pain?: No Do you have any abdominal pain?: No Are you experiencing loss of taste or smell?: No PM Subjective & Objective Subjective Subjective:: Patient is a pleasant 63-year-old female who presents today for worsening pain. Today she rates her pain a 8 out of 10. She states that she has not had any new injury or falls however she does feel like this pain is different. Patient is stating the pain is in her low back and primarily her left hip. She states she does have some on the right side but it is nothing like the left. She states it is constant and feels like a cramping sensation. Patient does state that pain is interfering with her ability perform activities of daily living such as cooking and cleaning. Patient does also make mention that she is also having increased neck pain with shoulder pain and numbness and tingling into both her hands. Patient does state that again the left side is the worst side. Patient denies any previous imaging related to this pain. Patient has been prescribed from our office Tylenol 3 daily and tizanidine 4 mg that she takes at night. She denies any side effects from this medication. She is on gabapentin from her primary care. She is requesting refills. Her Candelario has been reviewed and is appropriate. Review of Systems: General: No recent weight changes, no fever, no sleep disturbances Respiratory: No cough, no shortness of air, no recurring pulmonary infections Cardiovascular/peripheral vascular: No chest pain, no palpitations, no edema, no shortness of breath Gastrointestinal: No new onset incontinence, normal bowel movements reported Genitourinary: No new onset incontinence Musculoskeletal: Low back pain, bilateral hip pain, neck pain, bilateral shoulder pain, numbness tingling bilateral arms Psychiatric: [Normal mood/affect] Neurological: [Denies weakness in extremities], [denies balance issues] Pain at rest (0-10 scale): 8 Objective Objective:: Physical Exam: General: Alert and oriented x3, no acute distress, pleasant and cooperative Lungs: Respirations even and unlabored, symmetrical chest expansion Eyes: PERRL Musculoskeletal: Flexion and extension of lumbar [spine] somewhat guarded secondary to pain, [antalgic gait noted] point tenderness along bilateral SIs with positive bilateral Gavin's, Manohar's, Gaenslen's, compression and distraction exam Neurological: Speech clear, no gross sensory deficit Has patient had previous pain injection?: No Conservative treatment options previously tried: Home exercise plan Length of treatment: Longer than 12 weeks Meds Home Medications and Allergies Home Medications ?Medication ?Instructions ?Recorded ?Confirmed ?Type albuterol sulfate 90 mcg/actuation 2 puff inhalation QIDP PRN 04/03/17 06/06/24 History aerosol inhaler Shortness Of Breath 25 days ##18 aspirin 81 mg tablet,delayed 81 mg PO DAILY HEART HEALTH 90 04/03/17 06/06/24 History release days #90 tabs metformin 1,000 mg tablet 1,000 mg PO BID Diabetes 30 days 04/03/17 06/06/24 History #60 tabs omeprazole 20 mg capsule,delayed 20 mg PO DAILY GERD 30 days #30 04/03/17 06/06/24 History release caps atorvastatin 40 mg tablet 40 mg PO HS Cholesterol 30 days 11/28/17 06/06/24 History #30 tabs isosorbide mononitrate 30 mg 30 mg PO BID ANGINA 08/06/19 06/06/24 History tablet,extended release 24 hr gabapentin 100 mg capsule 200 mg PO BID Pain 09/28/19 06/06/24 History bisoprolol fumarate 10 mg tablet 10 mg PO DAILY Hypertension 09/10/21 06/06/24 History escitalopram oxalate 20 mg tablet 20 mg PO DAILY MOOD 09/10/21 06/06/24 History magnesium oxide 400 mg (241.3 mg 400 mg PO BID 12/09/22 06/06/24 History magnesium) tablet semaglutide 1 mg/dose (4 mg/3 mL) 1 mg SQ WEEKLY 12/09/22 06/06/24 History subcutaneous pen injector (Ozempic) azelastine 137 mcg (0.1 %) nasal 2 spray intranasal HS 90 days #30 06/02/23 06/06/24 Rx spray mL peg 3350-electrolytes 236 240 ml PO Q10M colonscopy #4,000 mL 01/30/24 06/06/24 Rx gram-22.74 gram-6.74 gram-5.86 gram solution (Golytely) naloxone 4 mg/actuation nasal spray 4 mg intranasal Q2M PRN opioid 02/23/24 06/06/24 Rx overdose #2 ea acetaminophen 300 mg-codeine 30 mg 1 tab PO DAILY #30 tabs 03/26/24 06/06/24 Rx tablet tizanidine 4 mg tablet See Rx Instructions .Route 04/12/24 06/06/24 Rx .COMPLEX #60 tabs tiotropium bromide 2.5 See Rx Instructions .Route 05/07/24 06/06/24 Rx mcg/actuation mist for inhalation .COMPLEX #4 grams (Spiriva Respimat) fluticasone propionate 50 See Rx Instructions .Route 06/01/24 06/06/24 Rx mcg/actuation nasal .COMPLEX #16 grams spray,suspension New Prescriptions to Start Prescriptions: Allergies Allergy/AdvReac Type Severity Reaction Status Date / Time meloxicam AdvReac Other Verified 06/06/24 10:52 Assessment and Plan *Assessment and plan (1) Bilateral sacroiliitis: Status: Acute Category: Medical Code(s): M46.1 - Sacroiliitis, not elsewhere classified (2) Bilateral shoulder pain: Status: Acute Category: Medical Code(s): M25.511 - Pain in right shoulder; M25.512 - Pain in left shoulder (3) Cervical radiculopathy: Status: Acute Category: Medical Code(s): M54.12 - Radiculopathy, cervical region (4) Neck pain: Status: Acute Category: Medical Code(s): M54.2 - Cervicalgia Plan Patient is experiencing worsening pain along the low back and bilateral hips. They did have limited range of motion of the lumbar spine along with point tenderness along bilateral SI joints and a positive bilateral Gavin's, Manohar's, Gaenslen's, compression and distraction exam. I did discuss with the patient that I do believe they would benefit from bilateral SI injections. Risk and benefits were discussed with the patient and they would like to proceed forward with this option. Patient has tried and failed conservative therapy including continued at home stretching exercise for longer than 12 weeks. Patient has had a history of chronic sacroiliitis with her last injection in January that did provide 90% improvements and states overall she has not had this pain since then. Patient states that she does feel like that those injections did provide improved function with overall decreased pain for at least 3 months. Patient is interested in additional injection therapy. She does state however that she is leaving for [place] on June 20 and was really hoping that we would be able to do something by that timeframe due to the worsening symptoms.Patient will be scheduled for bilateral SI injections under fluoroscopy. I did discuss with the patient if we were not able to get her in before she leaves out of state that we can send her to the [place] office location. Patient agrees with this plan of care. I will send in refills of her Tylenol 3 and change it to twice a day and also send in refills of the tizanidine 4 mg at bedtime. Patient will be ordered x-ray imaging of her neck and bilateral shoulders with the plan to proceed forward with MRI without contrast of her cervical spine due to her worsening neck pain. Patient agrees with this plan of care. Patient has been instructed to contact the clinic with any concerns before the next appointment. Dr. Yung has reviewed this note and agrees with this plan of care. This note was dictated using voice recognition software and make contain errors or omissions. All injections are used with Lidocaine or Bupivacaine and Depo Medrol.
--- NOTE | 2024-06-07 14:20 | XR_ITS ---
FINAL REPORT CLINICAL HISTORY: bilateral shoulder pain and neck pain. nki COMPARISON: None FINDINGS: LEFT SHOULDER: Two views show no evidence of acute displaced fracture or dislocation of the visualized bony architecture. Severe calcific tendinitis is noted. Mild acromioclavicular degenerative changes noted. IMPRESSION: Severe calcific tendinitis is present. Mild acromioclavicular degenerative change without acute bony abnormality. Reviewed, Interpreted and Dictated by Prema Curran MD Transcribed by Ngoc Reid Authenticated and [facility]
--- NOTE | 2024-06-07 14:20 | XR_ITS ---
FINAL REPORT CLINICAL HISTORY: bilateral shoulder pain and neck pain. nki COMPARISON: None FINDINGS: RIGHT SHOULDER: Two views show no evidence of acute displaced fracture or dislocation of the visualized bony architecture. There is mild degenerative change of the acromioclavicular joint. IMPRESSION: Mild acromioclavicular degenerative change without acute bony abnormality. Reviewed, Interpreted and Dictated by Prema Curran MD Transcribed by Ngoc Reid Authenticated and . [facility]
--- NOTE | 2024-06-07 14:20 | XR_ITS ---
FINAL REPORT CLINICAL HISTORY: bilateral shoulder pain and neck pain. nki COMPARISON: None FINDINGS: CERVICAL SPINE 2 views of the cervical spine were obtained. No fracture is present. Alignment is normal. No prevertebral soft tissue swelling is seen. Moderate spondylosis and degenerative disc disease are noted in the lower cervical spine, most pronounced at the C5-6 and C6-7 levels. IMPRESSION: Degenerative change as described above, without acute bony abnormality. Reviewed, Interpreted and Dictated by Prema Curran MD Transcribed by Ngoc Reid Authenticated and [facility]
[2024-06-07 14:35] VITALS: BP 140/66; BP 141/76; PULSE 72; RESP 16; O2SAT 95; BMI 31.9
== END 2024-06-07 23:59 | disposition home or self-care (01) ==
PROVIDERS: PCP Internal Medicine Adolescent Medicine; Visit Provider Nurse Practitioner Family
DX: M54.2 Cervicalgia (principal); M54.12 Radiculopathy, cervical region; M25.511 Pain in right shoulder; M25.512 Pain in left shoulder; M46.1 Sacroiliitis, not elsewhere classified; F17.210 Nicotine dependence, cigarettes, uncomplicated; Z73.89 Other problems related to life management difficulty; Z79.899 Other long term (current) drug therapy
CPT/HCPCS: 72040; 73030; 99212; G0463

== ENCOUNTER 2024-07-13 09:41 | Outpatient (CLI) | payer OTHER, SELFPAY ==
[2024-07-13] MEDS: SODIUM CHLORIDE 0.9% 50ML BAG 50 ML IV (09:55)
[2024-07-13] MEDS: IRON SUCROSE COMPLEX 200 MG in 0.9 % SODIUM CHLORIDE 100 ML 220 MG IV (09:55)
[2024-07-13 09:58] VITALS: BP 157/89; PULSE 62; RESP 18; O2SAT 97
[2024-07-13 10:43] VITALS: BP 153/81; PULSE 63; RESP 18; O2SAT 97
== END 2024-07-13 10:43 | disposition home or self-care (01) ==
LOC: INF 09:42
PROVIDERS: PCP Internal Medicine Adolescent Medicine; Visit Provider Internal Medicine Medical Oncology
DX: D50.9 Iron deficiency anemia, unspecified (principal)
CPT/HCPCS: 96365; J1756

== ENCOUNTER 2024-07-18 09:58 | Outpatient (POV) | payer OTHER, SELFPAY ==
[2024-07-18 10:28] VITALS: BP 136/74; PULSE 69; RESP 14; O2SAT 95; BMI 31.9
--- NOTE | 2024-07-18 10:32 | A.OFFVIS_ITS ---
[facility] Disclaimer: The information contained in this section may have been updated after the patient was seen, as this information can be updated by other users. Medical History Allergic rhinitis COPD mixed type Pleural effusion Encounter for screening for malignant neoplasm of lung Smoking greater than 30 pack years HHD (hypertensive heart disease) CAD (coronary artery disease) Surgical History History of lumbar surgery History of tubal ligation History of colonoscopy History of cholecystectomy History of heart artery stent Family History Other Asthma COPD (chronic obstructive pulmonary disease) Cancer Diabetes Heart attack Hypertension Stroke Social History Smoking Status: Current every day smoker tobacco type: cigarettes packs per day: 1 second hand exposure: Yes alcohol intake: never substance use type: denies use current occupational status: other Travel in the last 8 weeks?: None household members: spouse housing: house current occupational exposures/hazards: No caffeine: Yes PM Subjective & Objective Subjective Subjective:: Patient is a pleasant 63-year-old female who presents today for follow-up of her x-ray imaging including her cervical spine, and bilateral shoulder x-rays. Patient does rate her pain today at a 7 out of 10. Patient states she is experiencing pretty significant pain all throughout her left shoulder and that her low back is starting to really bother her and radiating down her leg with numbness and tingling. Patient does state the pain is interfering with her ability perform activities of daily living such as cooking and cleaning. Patient is interested in additional injection therapy. Patient states that her shoulder pain is worse than her low back pain currently and that it is a constant aching, throbbing sensation and does affect her daily. Patient states that she cannot lift her arm and is very limiting with activity and range of motion. Patient denies ever having any injections for this pain however has dealt with this pain for longer than 6 months. Patient is still taking her tizanidine 4 mg at bedtime and Tylenol 3 daily. She denies any side effects. Her Candelario has been reviewed and is appropriate. Review of Systems: General: No recent weight changes, no fever, no sleep disturbances Respiratory: No cough, no shortness of air, no recurring pulmonary infections Cardiovascular/peripheral vascular: No chest pain, no palpitations, no edema, no shortness of breath Gastrointestinal: No new onset incontinence, normal bowel movements reported Genitourinary: No new onset incontinence Musculoskeletal: Left shoulder pain, low back pain, leg numbness tingling Psychiatric: [Normal mood/affect] Neurological: [Denies weakness in extremities], [denies balance issues] Pain at rest (0-10 scale): 7 Objective Objective:: Physical Exam: General: Alert and oriented x3, no acute distress, pleasant and cooperative Lungs: Respirations even and unlabored, symmetrical chest expansion Eyes: PERRL Musculoskeletal: Flexion and extension of left shoulder somewhat guarded secondary to pain, decreased range of motion with flexion and extension Neurological: Speech clear, no gross sensory deficit Has patient had previous pain injection?: No Conservative treatment options previously tried: Home exercise plan Length of treatment: Longer than 12 weeks Meds Home Medications and Allergies Home Medications ?Medication ?Instructions ?Recorded ?Confirmed ?Type albuterol sulfate 90 mcg/actuation 2 puff inhalation QIDP PRN 04/03/17 07/18/24 History aerosol inhaler Shortness Of Breath 25 days ##18 aspirin 81 mg tablet,delayed 81 mg PO DAILY HEART HEALTH 90 04/03/17 07/18/24 History release days #90 tabs metformin 1,000 mg tablet 1,000 mg PO BID Diabetes 30 days 04/03/17 07/18/24 History #60 tabs omeprazole 20 mg capsule,delayed 20 mg PO DAILY GERD 30 days #30 04/03/17 07/18/24 History release caps atorvastatin 40 mg tablet 40 mg PO HS Cholesterol 30 days 11/28/17 07/18/24 History #30 tabs isosorbide mononitrate 30 mg 30 mg PO BID ANGINA 08/06/19 07/18/24 History tablet,extended release 24 hr gabapentin 100 mg capsule 200 mg PO BID Pain 09/28/19 07/18/24 History bisoprolol fumarate 10 mg tablet 10 mg PO DAILY Hypertension 09/10/21 07/18/24 History escitalopram oxalate 20 mg tablet 20 mg PO DAILY MOOD 09/10/21 07/18/24 History magnesium oxide 400 mg (241.3 mg 400 mg PO BID 12/09/22 07/18/24 History magnesium) tablet semaglutide 1 mg/dose (4 mg/3 mL) 1 mg SQ WEEKLY 12/09/22 07/18/24 History subcutaneous pen injector (Ozempic) azelastine 137 mcg (0.1 %) nasal 2 spray intranasal HS 90 days #30 06/02/23 07/18/24 Rx spray mL peg 3350-electrolytes 236 240 ml PO Q10M colonscopy #4,000 mL 01/30/24 07/18/24 Rx gram-22.74 gram-6.74 gram-5.86 gram solution (Golytely) naloxone 4 mg/actuation nasal spray 4 mg intranasal Q2M PRN opioid 02/23/24 07/18/24 Rx overdose #2 ea tiotropium bromide 2.5 See Rx Instructions .Route 05/07/24 07/18/24 Rx mcg/actuation mist for inhalation .COMPLEX #4 grams (Spiriva Respimat) fluticasone propionate 50 See Rx Instructions .Route 06/01/24 07/18/24 Rx mcg/actuation nasal .COMPLEX #16 grams spray,suspension acetaminophen 300 mg-codeine 30 mg 1 tab PO BID #60 tabs 06/07/24 07/18/24 Rx tablet tizanidine 4 mg tablet See Rx Instructions .Route 06/26/24 07/18/24 Rx .COMPLEX #60 tabs New Prescriptions to Start Prescriptions: Allergies Allergy/AdvReac Type Severity Reaction Status Date / Time meloxicam AdvReac Other Verified 06/06/24 10:52 Assessment and Plan *Assessment and plan (1) Chronic left shoulder pain: Status: Acute Category: Medical Code(s): M25.512 - Pain in left shoulder; G89.29 - Other chronic pain (2) Lumbar radiculopathy: Status: Acute Category: Medical Code(s): M54.16 - Radiculopathy, lumbar region (3) Lumbar stenosis: Status: Acute Category: Medical Code(s): M48.061 - Spinal stenosis, lumbar region without neurogenic claudication (4) Degenerative disc disease, lumbar: Status: Acute Category: Medical Code(s): M51.369 - Other intervertebral disc degeneration, lumbar region without mention of lumbar back pain or lower extremity pain (5) Osteoarthritis of left shoulder: Status: Acute Category: Medical Code(s): M19.012 - Primary osteoarthritis, left shoulder Plan Patient is experiencing worsening pain with very limited range of motion during today's exam of her left shoulder. I did review over her x-ray findings that did show degenerative changes and severe calcific tendinitis. Patient was reviewed over risk and benefits of a intra-articular injection and she would like to proceed forward with this plan of care. I did also discuss with the patient in future I do believe that she would benefit from a repeat lumbar epidural steroid injection. We will follow-up at her injection visit on how her low back and leg symptoms are progressing. Patient agrees with this plan of care. Patient will be scheduled for a left shoulder intra-articular injection without fluoroscopic or ultrasound guidance. Patient has not had any prior injections in this joint and has had this pain for longer than 6 months. Patient is being sent to orthopedics for evaluation of possible surgical intervention for her bilateral shoulder pain. Patient has been instructed to contact the clinic with any concerns before the next appointment. Dr. Yung has reviewed this note and agrees with this plan of care. This note was dictated using voice recognition software and make contain errors or omissions. All injections are used with Lidocaine, Bupivacaine and dexamethasone. Occasionally urine drug screen is needed to verify patient's compliance with our office pain contract. This is ordered based off specific treatments related to chronic pain with the potential to abuse certain medications.
== END 2024-07-18 23:59 | disposition home or self-care (01) ==
PROVIDERS: PCP Internal Medicine Adolescent Medicine; Visit Provider Nurse Practitioner Family
DX: M25.512 Pain in left shoulder (principal); G89.29 Other chronic pain; M48.061 Spinal stenosis, lumbar region without neurogenic claudication; M51.16 Intervertebral disc disorders with radiculopathy, lumbar region; M19.012 Primary osteoarthritis, left shoulder; F17.210 Nicotine dependence, cigarettes, uncomplicated; Z73.89 Other problems related to life management difficulty; Z79.899 Other long term (current) drug therapy
CPT/HCPCS: 99212; G0463

== ENCOUNTER 2024-07-20 08:47 | Outpatient (CLI) | payer OTHER, SELFPAY ==
[2024-07-20 09:15] VITALS: BP 121/69; PULSE 75; RESP 18; TEMP 36.8; O2SAT 99
[2024-07-20] MEDS: SODIUM CHLORIDE 0.9% 50ML BAG 50 ML IV (09:15)
[2024-07-20] MEDS: IRON SUCROSE COMPLEX 200 MG in 0.9 % SODIUM CHLORIDE 100 ML 220 MG IV (09:15)
[2024-07-20] MEDS: SODIUM CHLORIDE 0.9% 10ML FLUSH SYRINGE 10 ML IV (09:15)
[2024-07-20 09:45] VITALS: BP 125/63; PULSE 72
== END 2024-07-20 10:00 | disposition home or self-care (01) ==
LOC: INF 08:48
PROVIDERS: PCP Internal Medicine Adolescent Medicine; Visit Provider Internal Medicine Medical Oncology
DX: D50.9 Iron deficiency anemia, unspecified (principal)
CPT/HCPCS: 96365; J1756

== ENCOUNTER 2024-07-27 10:49 | Outpatient (CLI) | payer OTHER, SELFPAY ==
[2024-07-27 11:25] VITALS: BP 142/70; PULSE 66; RESP 18; O2SAT 97
[2024-07-27] MEDS: IRON SUCROSE COMPLEX 200 MG in 0.9 % SODIUM CHLORIDE 100 ML 220 MG IV (11:25)
[2024-07-27] MEDS: SODIUM CHLORIDE 0.9% 50ML BAG 50 ML IV (11:25)
[2024-07-27 12:01] VITALS: BP 152/71; PULSE 59; RESP 18; O2SAT 97
== END 2024-07-27 12:01 | disposition home or self-care (01) ==
LOC: INF 10:50
PROVIDERS: PCP Internal Medicine Adolescent Medicine; Visit Provider Internal Medicine Medical Oncology
DX: D50.9 Iron deficiency anemia, unspecified (principal)
CPT/HCPCS: 96365; J1756

== ENCOUNTER 2024-08-03 10:40 | Outpatient (CLI) | payer OTHER, SELFPAY ==
[2024-08-03 10:48] VITALS: BP 132/67; PULSE 64; RESP 18; TEMP 36.6; O2SAT 97
[2024-08-03] MEDS: SODIUM CHLORIDE 0.9% 50ML BAG 50 ML IV (10:48)
[2024-08-03] MEDS: SODIUM CHLORIDE 0.9% 10ML FLUSH SYRINGE 10 ML IV (10:49)
[2024-08-03] MEDS: IRON SUCROSE COMPLEX 200 MG in 0.9 % SODIUM CHLORIDE 100 ML 220 MG IV (10:49)
[2024-08-03 11:35] VITALS: BP 118/62; PULSE 63; RESP 18; O2SAT 97
== END 2024-08-03 11:35 | disposition home or self-care (01) ==
LOC: INF 10:41
PROVIDERS: PCP Internal Medicine Adolescent Medicine; Visit Provider Internal Medicine Medical Oncology
DX: D50.9 Iron deficiency anemia, unspecified (principal)
CPT/HCPCS: 96365; J1756

== ENCOUNTER 2024-08-10 10:00 | Outpatient (CLI) | payer OTHER, SELFPAY ==
[2024-08-10 10:08] VITALS: BP 135/66; PULSE 71; RESP 18; TEMP 36.8; O2SAT 97
[2024-08-10] MEDS: IRON SUCROSE COMPLEX 200 MG in 0.9 % SODIUM CHLORIDE 100 ML 220 MG IV (10:08)
[2024-08-10] MEDS: SODIUM CHLORIDE 0.9% 50ML BAG 50 ML IV (10:08)
[2024-08-10] MEDS: SODIUM CHLORIDE 0.9% 10ML FLUSH SYRINGE 10 ML IV (10:08)
[2024-08-10 10:55] VITALS: BP 127/67; PULSE 76; RESP 18; O2SAT 98
== END 2024-08-10 11:00 | disposition home or self-care (01) ==
LOC: INF 10:01
PROVIDERS: PCP Internal Medicine Adolescent Medicine; Visit Provider Internal Medicine Medical Oncology
DX: D50.9 Iron deficiency anemia, unspecified (principal)
CPT/HCPCS: 96365; J1756

== ENCOUNTER 2024-08-14 08:04 | Day surgery (SDC) | payer OTHER, SELFPAY ==
[2024-08-14 08:16] VITALS: BP 161/73; PULSE 66; RESP 16; TEMP 36.4; O2SAT 97; BMI 30.9
[2024-08-14] MEDS: LIDOCAINE 1% 5ML PF VIAL 5 ML (09:05)
[2024-08-14] MEDS: BUPIVACAINE 0.25% 10ML INJ 25 MG IJ (09:05)
[2024-08-14] MEDS: DEXAMETHASONE 10MG/ML 1ML VIAL 10 MG (09:11)
[2024-08-14 09:12] VITALS: BP 144/75; PULSE 70; RESP 18; O2SAT 97
[2024-08-14 09:13] VITALS: BP 133/75; BP 144/75; PULSE 69; PULSE 70; RESP 16; RESP 18; O2SAT 97; O2SAT 99
--- NOTE | 2024-08-14 09:22 | P.PCN_ITS ---
Procedure Date: 08/14/24 Time: 08:50 Anesthesiologist:: Low Guadalupe CRNA Complications:: None Pre-procedure Diagnosis:: DJD left shoulder. Chronic left shoulder pain. Post-procedure Diagnosis:: Same. Indications for Procedure:: Patient is a pleasant 63-year-old female comes our clinic today for an intra- articular left shoulder injection. Patient describes left shoulder pain as constant, dull, aching. Patient has 5/5 strength in the left arm. However, limited range of motion secondary to left shoulder pain. She rates her pain 8/10. Procedure Details:: Procedure Details: Left shoulder intra-articular injection Informed consent was obtained risk and benefits of the procedure were explained to the patient. Patient was taken to the procedure room. The Left shoulder was prepped using ChloraPrep. A 25-gauge needle was used posteriorly to inject 10 mL bupivacaine 0.25% and Depo-Medrol 40 mg. Patient tolerated procedure well with no complications. Plan and Disposition:: Patient was discharged without incident.
== END 2024-08-14 09:13 | disposition home or self-care (01) ==
LOC: SC.PAINP 08:05
PROVIDERS: PCP Internal Medicine Adolescent Medicine; Visit Provider Nurse Anesthetist, Certified Registered
DX: M19.012 Primary osteoarthritis, left shoulder (principal); M54.16 Radiculopathy, lumbar region; M48.061 Spinal stenosis, lumbar region without neurogenic claudication; M51.369 Other intervertebral disc degeneration, lumbar region without mention of lumbar back pain or lower extremity pain; G89.29 Other chronic pain; J44.89 Other specified chronic obstructive pulmonary disease; I11.9 Hypertensive heart disease without heart failure; I25.10 Atherosclerotic heart disease of native coronary artery without angina pectoris; K21.9 Gastro-esophageal reflux disease without esophagitis; E11.9 Type 2 diabetes mellitus without complications; E78.00 Pure hypercholesterolemia, unspecified; F17.210 Nicotine dependence, cigarettes, uncomplicated; Z90.49 Acquired absence of other specified parts of digestive tract; Z95.5 Presence of coronary angioplasty implant and graft; Z79.82 Long term (current) use of aspirin; Z98.51 Tubal ligation status; Z79.84 Long term (current) use of oral hypoglycemic drugs; Z79.899 Other long term (current) drug therapy; Z79.85 Long-term (current) use of injectable non-insulin antidiabetic drugs; Z88.8 Allergy status to other drugs, medicaments and biological substances
CPT/HCPCS: 20610; J0665; J1100; J2003

== ENCOUNTER 2024-08-21 13:31 | Outpatient (CLI) | payer OTHER, SELFPAY ==
--- NOTE | 2024-08-21 13:32 | CT_ITS ---
FINAL REPORT TECHNIQUE: Thin section axial images were obtained from the lung apices to the upper abdomen by computed tomography. Reformatted images were obtained and reviewed. This study was performed with techniques to keep radiation doses al low as reasonably achievable (ALARA). Individualized dose reduction techniques using automated exposure control or adjustment of mA and/or kV according to the patient's size were employed. CLINICAL HISTORY: HX OF NICOTINE. Smokes 1 ppd x53 yrs. Hx of CAD and COPD. Exposed to second hand smoke and first degree relative has had lung cancer. COMPARISON: 09/02/2023 FINDINGS: CHEST CT LOW DOSE 71-year-old female, current smoker, 62-pcuj-hwcx history. CTDI vol (mGy): 2.90 DLP (mGy-cm): 107.86 There is no axillary adenopathy. There is no mediastinal or hilar mass or adenopathy. The heart is normal in size. There is no pericardial or pleural effusion. Lung window images demonstrate no suspicious infiltrate or nodule. Limited images of the upper abdomen are unremarkable. IMPRESSION: Lung-RADS category 1. Recommend 12 month follow up low dose chest CT. Reviewed, Interpreted and Dictated by Dillan Fuentes MD Transcribed by Ngoc Reid Authenticated and [facility]
== END 2024-08-21 23:59 | disposition home or self-care (01) ==
LOC: RAD 13:31
PROVIDERS: PCP Internal Medicine Adolescent Medicine; Visit Provider Internal Medicine Adolescent Medicine
DX: Z12.2 Encounter for screening for malignant neoplasm of respiratory organs (principal); Z80.1 Family history of malignant neoplasm of trachea, bronchus and lung; F17.210 Nicotine dependence, cigarettes, uncomplicated
CPT/HCPCS: 71271

== ENCOUNTER 2024-08-29 08:33 | Outpatient (POV) | payer OTHER, SELFPAY ==
--- NOTE | 2024-08-29 09:07 | A.OFFVIS_ITS ---
[facility] Disclaimer: The information contained in this section may have been updated after the patient was seen, as this information can be updated by other users. Medical History Allergic rhinitis COPD mixed type Pleural effusion Encounter for screening for malignant neoplasm of lung Smoking greater than 30 pack years HHD (hypertensive heart disease) CAD (coronary artery disease) Surgical History History of lumbar surgery History of tubal ligation History of colonoscopy History of cholecystectomy History of heart artery stent Family History Other Asthma COPD (chronic obstructive pulmonary disease) Cancer Diabetes Heart attack Hypertension Stroke Social History Smoking Status: Current every day smoker tobacco type: cigarettes packs per day: 1 second hand exposure: Yes alcohol intake: never substance use type: denies use current occupational status: other Travel in the last 8 weeks?: None household members: spouse housing: house current occupational exposures/hazards: No caffeine: Yes PM Subjective & Objective Subjective Subjective:: Patient is a pleasant 63-year-old female who presents today for follow-up of her left intra-articular shoulder injection on 08/14/2024. Patient states this was wonderful and it was providing at least 70 to 80% relief. Patient however states since then she has recently had 2 falls while she was wearing slippers and lost her balance landing on the left shoulder. Patient states that this has aggravated her overall symptoms and it is fairly constant and interfering with her ability perform activities of daily living such as cooking and cleaning. Patient is asking if there is anything else we can possibly do. Patient is prescribed tizanidine 4 mg at bedtime and Tylenol 3 daily as needed. Patient states that she still will occasionally use these as needed due to the worsening pain. Her Candelario has been reviewed and is appropriate. Review of Systems: General: No recent weight changes, no fever, no sleep disturbances Respiratory: No cough, no shortness of air, no recurring pulmonary infections Cardiovascular/peripheral vascular: No chest pain, no palpitations, no edema, no shortness of breath Gastrointestinal: No new onset incontinence, normal bowel movements reported Genitourinary: No new onset incontinence Musculoskeletal: Left shoulder pain Psychiatric: [Normal mood/affect] Neurological: [Denies weakness in extremities], [denies balance issues] Pain at rest (0-10 scale): 5 Objective Objective:: Physical Exam: General: Alert and oriented x3, no acute distress, pleasant and cooperative Lungs: Respirations even and unlabored, symmetrical chest expansion Eyes: PERRL Musculoskeletal: Flexion and extension of left shoulder somewhat guarded secondary to pain, [antalgic gait noted] Neurological: Speech clear, no gross sensory deficit Has patient had previous pain injection?: Yes Percent improvement in pain since last injection: 70 to 80% Conservative treatment options previously tried: Home exercise plan Length of treatment: Longer than 12 weeks Meds Home Medications and Allergies Home Medications ?Medication ?Instructions ?Recorded ?Confirmed ?Type albuterol sulfate 90 mcg/actuation 2 puff inhalation Q IDP PRN 04/03/17 08/14/24 History aerosol inhaler Shortness Of Breath 25 days ##18 aspirin 81 mg tablet,delayed 81 mg PO DAILY HEART HEAL TH 90 04/03/17 08/14/24 History release days #90 tabs metformin 1,000 mg tablet 1,000 mg PO BID Diabetes 30 days 04/03/17 08/14/24 History #60 tabs omeprazole 20 mg capsule,delayed 20 mg PO DAILY GERD 3 0 days #30 04/03/17 08/14/24 History release caps atorvastatin 40 mg tablet 40 mg PO HS Cholesterol 30 d ays 11/28/17 08/14/24 History #30 tabs isosorbide mononitrate 30 mg 30 mg PO BID ANGINA 08/0508/14/24 History tablet,extended release 24 hr gabapentin 100 mg capsule 200 mg PO BID Pain 09/28/19 08/14/24 History bisoprolol fumarate 10 mg tablet 10 mg PO DAILY Hypert ension 09/10/21 08/14/24 History escitalopram oxalate 20 mg tablet 20 mg PO DAILY MOOD 09/10/21 08/14/24 History magnesium oxide 400 mg (241.3 mg 400 mg PO BID 3 08/14/24 History magnesium) tablet semaglutide 1 mg/dose (4 mg/3 mL) 1 mg SQ WEEKLY 12/0908/14/24 History subcutaneous pen injector (Ozempic) azelastine 137 mcg (0.1 %) nasal 2 spray intranasal HS 90 days #30 06/02/23 08/14/24 Rx spray mL naloxone 4 mg/actuation nasal spray 4 mg intranasal Q2 M PRN opioid 02/23/24 08/14/24 Rx overdose #2 ea tiotropium bromide 2.5 See Rx Instructions .Route 0 05/07/24 08/14/24 Rx mcg/actuation mist for inhalation .COMPLEX #4 grams (Spiriva Respimat) fluticasone propionate 50 See Rx Instructions .Route 0 06/01/24 08/14/24 Rx mcg/actuation nasal .COMPLEX #16 grams spray,suspension tizanidine 4 mg tablet See Rx Instructions .Route 0 06/26/24 08/14/24 Rx .COMPLEX #60 tabs acetaminophen 300 mg-codeine 30 mg 1 tab PO BID #60 ta bs 07/18/24 08/14/24 Rx tablet New Prescriptions to Start Prescriptions: Allergies Allergy/AdvReac Type Severity Reaction Status Date / Time meloxicam AdvReac Other Verified 08/10/24 10:37 Assessment and Plan *Assessment and plan (1) Chronic left shoulder pain: Status: Acute Category: Medical Code(s): M25.512 - Pain in left shoulder; G89.29 - Other chronic pain (2) Osteoarthritis of left shoulder: Status: Acute Category: Medical Code(s): M19.012 - Primary osteoarthritis, left shoulder Plan Patient did have significant improvement following her left intra-articular shoulder injection however due to having to recent falls she has flared up this joint. Patient did have very limited range of motion. I did discuss with her that we would not do another repeat intra-articular injection for 3 months however she may be a beneficial candidate of a suprascapular nerve block. Risk and benefits were discussed with the patient and she would like to proceed forward with this plan of care. Patient has tried and failed conservative therapy including oral medication, heat and ice, topicals, at home stretching exercise for longer than 12 weeks. Patient will be scheduled for a left suprascapular nerve block. This will be done without fluoroscopic or ultrasound guidance. Patient has been instructed to contact the clinic with any concerns before the next appointment. Dr. Yung has reviewed this note and agrees with this plan of care. This note was dictated using voice recognition software and make contain errors or omissions. All injections are used with Lidocaine, Bupivacaine and dexamethasone. Occasionally urine drug screen is needed to verify patient's compliance with our office pain contract. This is ordered based off specific treatments related to chronic pain with the potential to abuse certain medications.
[2024-08-29 09:42] VITALS: BP 136/71; PULSE 68; RESP 18; O2SAT 94; BMI 30.9
== END 2024-08-29 23:59 ==
LOC: SC.PAIN 08:34
PROVIDERS: PCP Internal Medicine Adolescent Medicine; Visit Provider Nurse Practitioner Family
DX: M19.012 Primary osteoarthritis, left shoulder (principal); Z79.899 Other long term (current) drug therapy; Z79.1 Long term (current) use of non-steroidal anti-inflammatories (NSAID)
CPT/HCPCS: 99212; G0463

== ENCOUNTER 2024-09-18 09:43 | Outpatient (CLI) | payer OTHER, SELFPAY ==
[2024-09-18 10:11] LABS: Hematocrit 37.6 % (37.0-47.0); Hemoglobin 12.3 g/dL (12.2-16.2); Immature Granulocytes % 0.3 %; Mean Corpuscular HGB Conc 32.7 g/dL (31.8-35.4); Mean Corpuscular Hemoglobin 29.3 pg (27.0-31.2); Mean Corpuscular Volume 89.5 fl (81-99); Nucleated Red Blood Cells % 0 %; Platelet Count 279 K/mm3 (142-424); Red Blood Count 4.20 M/mm3 (4.20-5.40); Red Cell Distribution Width-SD 46.5 fL; White Blood Count 7.5 K/mm3 (4.8-10.8)
[2024-09-18 10:43] LABS: Albumin Level 4.6 g/dl (3.5-5.0); Chloride 100 mmol/L (98-107); Potassium 4.6 mmoL/L (3.5-5.1); Sodium 138 mmol/L (136-145)
[2024-09-18 10:46] LABS: Alanine Aminotransferase 16 U/L (12-78); Albumin/Globulin Ratio 1.9 (1.1-1.8); Alkaline Phosphatase 76 U/L (38-126); Anion Gap 14.6 mEq/L (5-15); Aspartate Amino Transferase 21 U/L (14-36); Bilirubin,Total 0.4 mg/dl (0.2-1.3); Blood Urea Nitrogen 15 mg/dl (7-17); Carbon Dioxide 28 mmol/L (22.0-30.0); Creatinine,Serum 0.80 mg/dl (0.52-1.04); Estimated Glomerular Filt Rate 72 ml/min (>60); GFR (African American) 87 ML/MIN (>60); Globulin 2.4 g/dL (1.3-3.2); Iron 76 ug/dL (37-170); Total Protein,Serum 7.0 g/dl (6.3-8.2)
[2024-09-18 10:47] LABS: Calcium 9.6 mg/dl (8.4-10.2); Glucose 104 mg/dl (74-100)
[2024-09-18 10:56] LABS: Total Iron Binding Capacity 310 ug/dL (265-497)
[2024-09-18 11:20] LABS: Ferritin 90.8 ng/ml (11.1-264)
[2024-09-18 11:21] LABS: Thyroid Stimulating Hormone 1.01 uIU/mL (0.465-4.68)
[2024-09-18 12:19] LABS: Vitamin B12 443 pg/mL (239-931)
== END 2024-09-18 23:59 | disposition home or self-care (01) ==
LOC: LAB 09:44
PROVIDERS: PCP Internal Medicine Adolescent Medicine; Visit Provider Internal Medicine Medical Oncology
DX: D50.9 Iron deficiency anemia, unspecified (principal); D64.9 Anemia, unspecified
CPT/HCPCS: 36415; 80053; 82607; 82728; 83540; 83550; 84443; 85025

== ENCOUNTER 2024-09-18 11:30 | Day surgery (SDC) | payer OTHER, SELFPAY ==
[2024-09-18 11:35] VITALS: BP 141/69; PULSE 71; RESP 18; O2SAT 97; BMI 30.2
[2024-09-18 12:17] VITALS: BP 134/74; PULSE 69; RESP 18; O2SAT 96
--- NOTE | 2024-09-18 12:19 | P.PCN_ITS ---
Procedure Date: 09/18/24 Time: 12:00 Anesthesiologist:: Low Guadalupe CRNA Complications:: None Pre-procedure Diagnosis:: DJD left shoulder. Chronic left shoulder pain. Post-procedure Diagnosis:: Same. Indications for Procedure:: Patient is a very pleasant 63-year-old female who comes our clinic today for a left suprascapular nerve block. She has responded well in the past to intra- articular shoulder injections. However, her last one was not effective. She has 5/5 strength in the left arm. However, limited range of motion secondary to left shoulder pain. She rates her pain 6/10. Procedure Details:: Details of the procedure explained to the patient. The patient taken procedure room placed in the sitting position. The area over the left shoulder was cleaned using chlorhexidine as a cleansing solution. Using a 25-gauge inch and half needle the left suprascapular notch was identified with ease. After negative aspiration 4 cc of 1% lidocaine +4 cc of 0.25% Marcaine and 10 mg of dexamethasone was injected. Patient tolerated procedure without difficulty. There are no complications. Plan and Disposition:: Patient was discharged without incident.
[2024-09-18] MEDS: DEXAMETHASONE 10MG/ML 1ML VIAL 10 MG (12:21)
[2024-09-18] MEDS: LIDOCAINE 1% 5ML PF VIAL 5 ML (12:21)
[2024-09-18] MEDS: BUPIVACAINE 0.25% 10ML INJ 25 MG IJ (12:21)
[2024-09-18 12:22] VITALS: BP 146/63; PULSE 69; RESP 18; O2SAT 96
[2024-09-18 12:24] VITALS: BP 146/63; PULSE 69; RESP 18; O2SAT 96
== END 2024-09-18 12:17 | disposition home or self-care (01) ==
PROVIDERS: PCP Internal Medicine Adolescent Medicine; Visit Provider Nurse Anesthetist, Certified Registered
DX: G89.29 Other chronic pain (principal); M25.512 Pain in left shoulder; M19.012 Primary osteoarthritis, left shoulder; I11.9 Hypertensive heart disease without heart failure; I25.10 Atherosclerotic heart disease of native coronary artery without angina pectoris; J41.8 Mixed simple and mucopurulent chronic bronchitis; E11.9 Type 2 diabetes mellitus without complications; F17.210 Nicotine dependence, cigarettes, uncomplicated; Z88.6 Allergy status to analgesic agent; Z79.82 Long term (current) use of aspirin; Z79.84 Long term (current) use of oral hypoglycemic drugs; Z79.899 Other long term (current) drug therapy
CPT/HCPCS: 64418; J0665; J1100; J2003

== ENCOUNTER 2024-10-04 10:36 | Outpatient (POV) | payer OTHER, SELFPAY ==
--- OUTSIDE RECORDS SUMMARY | 2024-10-04 10:47 | XMS_ITS | Clinical Summary ---
Author Organization [facility] Address [address] [place] [address] Care Team Providers Care Carnival Worker Name Role Phone Cortez Gagnon MD Primary Care Provider [phone] Allergies Active Allergy Reactions Criticality Noted Date Comments Meloxicam Hives 02/01/2018 Medications omeprazole (priLOSEC) 20 MG capsule 1 capsule Daily. 8 Active metFORMIN (GLUCOPHAGE) 1000 MG tablet 1 tablet Daily With Breakfast. 8 Active atorvastatin (LIPITOR) 40 MG tablet 1 tablet Daily. 8 Active isosorbide mononitrate (IMDUR) 30 MG 24 hr tablet 1 tablet Daily. 8 Active spironolactone (ALDACTONE) 25 MG tablet Take 1 tablet by mouth Daily As Needed. Active aspirin 81 MG chewable tablet Chew 1 tablet Daily. Active acetaminophen (TYLENOL) 500 MG tablet Take 1 tablet by mouth Every 6 (Six) Hours As Needed for Mild Pain. Active STEGLATRO 15 MG tablet Take 1 tablet by mouth Every Morning. 2 9 Active gabapentin (NEURONTIN) 100 MG capsule Take 4 capsules by mouth Daily. 1 9 Active Umeclidinium-Melissa anterol (ANORO ELLIPTA IN) Inhale Daily. Acti ve Ozempic, 1 MG/DOSE, 2 MG/1.5ML solution pen-injector 1 (One) Time Per Week. 0 Active GNP MAGNESIUM OXIDE PO 400 mg. 1 Active bisoprolol (ZEBeta) 10 MG tablet Daily. 1 Active tiZANidine (ZANAFLEX) 4 MG tablet At Night As Needed. 1 Active Spiriva Respimat 2.5 MCG/ACT aerosol solution inhaler Inhale 2 puffs Daily. 4 Active escitalopram (LEXAPRO) 20 MG tablet Take 1 tablet by mouth Daily. 4 Active Encounters Date Type Department Care Team Description 09/26/2024 Telephone [facility] [address] [place] [address] [address] [place] [address] Rahul Riggs MD from Last 3 Months Family History Medical History Relation Name Comments Heart attack Brother 1 Heart disease Brother 1 Stroke Brother 1 Heart attack Brother 2 Heart disease Brother 2 Heart attack Father Heart disease Father Cancer Mother Heart attack Sister 1 Heart disease Sister 1 Heart disease Sister 2 Lymphoma Sister 2 Heart disease Sister 3 Relation Name Status Comments Brother 1 Alive Brother 2 Alive Father Mother Sister 1 Alive Sister 2 Alive Sister 3 Alive Social History Tobacco Use Types Packs/Day Years Used Date Smoking Tobacco: Every Day Cigarettes Smokeless Tobacco: Never Alcohol Use Standard Drinks/Week Comments No 0 (1 standard drink = 0.6 oz pur e alcohol) AUDIT-C Answer Date Recorded Frequency of Alcohol Consumption Never 02/01/2018 Average Number of Drinks Not on file 018 Frequency of Binge Drinking Not on file 01/06 Abuse Screen Answer Date Recorded Unsafe at Home or Work/School Not on file Feels Threatened by Someone? Not on file 02/2023 Does Anyone Keep You from Co ntacting Others or Doint Things Outside the Home? Not on file 12/16/2022 Physical Sign of Abuse Present Not on file 1 Housing Stability Answer Date Recorded Current Living Arrangements Not on file 12/05 Potentially Unsafe Housing Conditions Not on britt e 12/16/2022 Family and Community Support Answer Gregorio e Recorded Help with Day-to-Day Activities Not on file 12/16/2022 Lonely or Isolated Not on file 12/16/2022 Employment Answer Date Recorded Do you want help finding or keeping work or a [place] b? Not on file 12/16/2022 Disabilities Answer Date Recorded Concentrating, Remembering, or Making Decisions Difficulty Not on file 12/16/2022 Doing Errands Independently Difficulty Not on fi le 12/16/2022 Education Answer Date Recorded Help with school or training? Not on file Preferred Language Not on file 12/16/2022 Comments Unknown Sex and Gender Information Value Date Recorded Sex Assigned at Not on file Legal Sex Female 11:37 AM EDT Gender Identity Not on file Sexual Orientation Not on file Last Filed Vital Signs Vital Sign Reading Time Taken Comments Blood Pressure 138/72 06/16/2023 12:59 PM EDT Pulse 70 06/16/2023 12:59 PM EDT Temperature 36.6 C (97.8 F) 11/29/2019 12:55 PM EDT Respiratory Rate - - Oxygen Saturation 95% 06/16/2023 12:59 PM EDT Inhaled Oxygen Concentration - - Weight 94.1 kg (207 lb 7.3 oz) 06/28/2023 11:36 AM EDT Height 167.6 cm (5' 5.98 ) 06/28/2023 11:36 AM E DT Body Mass Index 33.5 06/28/2023 11:36 AM EDT Plan of Treatment Health Maintenance Due Date Last Done Comments Annual Gynecologic Pelvic an d Breast Exam 1959 LIPID PANEL 1959 TDAP/TD VACCINES (1 - Tdap) 11/07/1978 PAP SMEAR 11/07/1980 MAMMOGRAM 1999 COLOGUARD 11/07/2004 COLON CANCER SCREENING 5 YEA R SIGMOIDOSCOPY 11/07/2004 COLONOSCOPY 11/07/2004 COLORECTAL CANCER SCREENING 11/07/2004 CT COLONOGRAPHY 11/07/2004 FECAL OCCULT BLOOD TEST 11/07/2004 FIT Testing (1 year) 11/07/2004 ANNUAL PHYSICAL 02/01/2018 HEPATITIS C SCREENING 02/01/2018 Pneumococcal Vaccine 50+ (2 of 2 - PCV) 12/30/2020 12/31/2019 COVID-19 Vaccine (3 - 2023-2 5 season) 2023 01/10/2021, 06/07/2020 INFLUENZA VACCINE 12/05/2024 12/14/2022, , 12/05/2020, Additional history exists ZOSTER VACCINE Completed 03/24/2020, 12/31/2019 Insurance [facility] Care Teams Carnival Worker Relationship Specialty Start Date End Date Cortez Gagnon MD [address] [place] [facility] [address] [place] [id number] PCP - General Adolescent Medicine 02/01/18
--- OUTSIDE RECORDS SUMMARY | 2024-10-04 10:47 | XMS_ITS | Encounter Summary ---
Author Organization [facility] Address [address] [place] [address] Care Team Providers Care Commercial Credit Lead Name Role Phone Cortez Gagnon MD Primary Care Provider [phone] Encounter Details Date Type Department Care Team (Late st Contact Info) Description 09/26/2024 Telephone [facility] [address] [facility] [address] [place] [phone] Rahul Riggs MD [address] [facility] [address] [place] [address] Social History Tobacco Use Types Packs/Day Years [...] on file Sexual Orientation Not on file documented as of this encounter Miscellaneous Notes * Telephone Encounter - Cristina Richards RegSched Rep - 09/26/2024 9:01 AM EDT Called the number that was in pts chart. No ans, no vm documented in this encounter Plan of Treatment Not on file documented as of this encounter Visit Diagnoses Not on filedocumented in this encounter Care Teams Commercial Credit Lead Relationship Specialty Start Date End Date Cortez Gagnon MD [address] [facility] [address] [address] PCP - General Adolescent Medicine 02/01/18 documented as of this encounter
[2024-10-04 10:50] VITALS: BP 119/67; PULSE 71; RESP 14; O2SAT 97; BMI 30.2
--- NOTE | 2024-10-04 11:06 | XR_ITS ---
FINAL REPORT CLINICAL HISTORY: Chronic knee pain FINDINGS: AP, lateral and oblique views of the right knee were obtained. There is no prior exam for comparison. There is no acute osseous abnormality of the right knee. There is [id number] degenerative joint disease. The soft tissues are normal. There is no joint effusion. IMPRESSION: [id number] degenerative change without acute osseous abnormality of the right knee. Reviewed, Interpreted and Dictated by Yaa Chanel MD Transcribed by Diana Napier Authenticated and [facility]
--- NOTE | 2024-10-04 11:06 | XR_ITS ---
FINAL REPORT CLINICAL HISTORY: Knee pain FINDINGS: AP, lateral and oblique views of the left knee were obtained. There is no prior exam for comparison. There is no acute osseous abnormality of the left knee. There is mild degenerative joint disease. The soft tissues are normal. There is no joint effusion. IMPRESSION: Mild degenerative change without acute osseous abnormality of the left knee. Reviewed, Interpreted and Dictated by Yaa Chanel MD Transcribed by Diana Napier Authenticated and [facility]
--- NOTE | 2024-10-04 11:16 | A.OFFVIS_ITS ---
[facility] Disclaimer: The information contained in this section may have been updated after the patient was seen, as this information can be updated by other users. Medical History Allergic rhinitis COPD mixed type Pleural effusion Encounter for screening for malignant neoplasm of lung Smoking greater than 30 pack years HHD (hypertensive heart disease) CAD (coronary artery disease) Surgical History History of lumbar surgery History of tubal ligation History of colonoscopy History of cholecystectomy History of heart artery stent Family History Other Asthma COPD (chronic obstructive pulmonary disease) Cancer Diabetes Heart attack Hypertension Stroke Social History Smoking Status: Current every day smoker tobacco type: cigarettes packs per day: 1 second hand exposure: Yes alcohol intake: never substance use type: denies use current occupational status: other Travel in the last 8 weeks?: None household members: spouse housing: house current occupational exposures/hazards: No caffeine: Yes PM Subjective & Objective Subjective Subjective:: Patient is a pleasant 63-year-old female who presents today for follow-up of her left suprascapular nerve block on 09/18/2024. Patient does rate 99% improvement following that and rates her pain in that joint area is 0 out of 10. Patient does however state that she is starting to have increased low back pain as well as chronic knee pain. She states that her knees feel very heavy and has difficulty walking. Patient does state that the pain is interfering with her ability perform activities of daily living such as cooking and cleaning and rates that overall back pain of 5 out of 10 with the radicular symptoms of numbness and tingling. Patient does state that she would like to see about getting in for a repeat back injection. Patient did get significant relief with her last injection for this area. Patient is prescribed tizanidine 4 mg at bedtime and Tylenol 3 daily. She does state that insurance denied the Tylenol 3. She has just been using [id number] medication. Her Candelario has been reviewed and is appropriate. Review of Systems: General: No recent weight changes, no fever, no sleep disturbances Respiratory: No cough, no shortness of air, no recurring pulmonary infections Cardiovascular/peripheral vascular: No chest pain, no palpitations, no edema, no shortness of breath Gastrointestinal: No new onset incontinence, normal bowel movements reported Genitourinary: No new onset incontinence Musculoskeletal: Low back pain, leg pain, bilateral knee pain Psychiatric: [Normal mood/affect] Neurological: [Denies weakness in extremities], [denies balance issues] Pain at rest (0-10 scale): 5 Objective Objective:: Physical Exam: General: Alert and oriented x3, no acute distress, pleasant and cooperative Lungs: Respirations even and unlabored, symmetrical chest expansion Eyes: PERRL Musculoskeletal: Flexion and extension of lumbar [spine] somewhat guarded secondary to pain, [antalgic gait noted] positive leg raise Neurological: Speech clear, no gross sensory deficit Has patient had previous pain injection?: Yes Percent improvement in pain since last injection: 99% Conservative treatment options previously tried: Home exercise plan Length of treatment: Longer than 12 weeks Meds Home Medications and Allergies Home Medications ?Medication ?Instructions ?Recorded ?Confirmed ?Type albuterol sulfate 90 mcg/actuation 2 puff inhalation Q IDP PRN 04/03/17 10/04/24 History aerosol inhaler Shortness Of Breath 25 days ##18 aspirin 81 mg tablet,delayed 81 mg PO DAILY HEART HEAL TH 90 04/03/17 10/04/24 History release days #90 tabs metformin 1,000 mg tablet 1,000 mg PO BID Diabetes 30 days 04/03/17 10/04/24 History #60 tabs omeprazole 20 mg capsule,delayed 20 mg PO DAILY GERD 3 0 days #30 04/03/1710/04 History release caps atorvastatin 40 mg tablet 40 mg PO HS Cholesterol 30 d ays 11/28/17 10/04/24 History #30 tabs isosorbide mononitrate 30 mg 30 mg PO BID ANGINA 08/0510/04/24 History tablet,extended release 24 hr gabapentin 100 mg capsule 200 mg PO BID Pain 09/28/19 10/04/24 History bisoprolol fumarate 10 mg tablet 10 mg PO DAILY Hypert ension 09/10/21 10/04/24 History escitalopram oxalate 20 mg tablet 20 mg PO DAILY MOOD 09/10/21 10/04/24 History magnesium oxide 400 mg (241.3 mg 400 mg PO BID 3 10/04/24 History magnesium) tablet semaglutide 1 mg/dose (4 mg/3 mL) 1 mg SQ WEEKLY 12/0910/04/24 History subcutaneous pen injector (Ozempic) azelastine 137 mcg (0.1 %) nasal 2 spray intranasal HS 90 days #30 06/02/23 10/04/24 Rx spray mL naloxone 4 mg/actuation nasal spray 4 mg intranasal Q2 M PRN opioid 02/23/24 10/04/24 Rx overdose #2 ea fluticasone propionate 50 See Rx Instructions .Route 0 06/01/24 10/04/24 Rx mcg/actuation nasal .COMPLEX #16 grams spray,suspension tiotropium bromide 2.5 See Rx Instructions .Route 0 09/03/24 10/04/24 Rx mcg/actuation mist for inhalation .COMPLEX #4 grams (Spiriva Respimat) ertugliflozin 15 mg tablet 15 mg PO . 09/18/24 5 History (Steglatro) levocetirizine 5 mg tablet 5 mg PO . 09/18/24 10/04/24 History acetaminophen 300 mg-codeine 30 mg 1 tab PO BID #60 ta bs 09/26/24 10/04/24 Rx tablet tizanidine 4 mg tablet See Rx Instructions .Route 0 10/01/24 10/04/24 Rx .COMPLEX #60 tabs New Prescriptions to Start Prescriptions: Allergies Allergy/AdvReac Type Severity Reaction Status Date / Time meloxicam AdvReac Other Verified 09/18/24 09:09 Assessment and Plan *Assessment and plan (1) Lumbar radiculopathy: Status: Acute Category: Medical Code(s): M54.16 - Radiculopathy, lumbar region (2) Degenerative disc disease, lumbar: Status: Acute Category: Medical Code(s): M51.369 - Other intervertebral disc degeneration, lumbar region without mention of lumbar back pain or lower extremity pain Plan Patient is experiencing worsening pain in her low back with numbness and tingling into her lower extremities. Patient did have limited range of motion of her lumbar spine with a positive leg raise. I did discuss with patient that I do believe they would benefit from a lumbar epidural steroid injection. Risk and benefits were discussed with patient and the patient would like to proceed forward with this plan of care. Patient is not on any blood thinners. Patient has tried and failed conservative therapy including oral medications, heat and ice, topicals and continued at home stretching exercise for longer than 12 weeks between injections. Patient has had chronic back pain for longer than 6 months. Patient did previously have a lumbar epidural back in March that provided 98% relief and lasted longer than 6 months. We will schedule the patient for an LESI L3-L4 under fluoroscopy. Also due to her increasing knee pain I will put in x-ray orders with the plan to order additional advanced imaging in future. Patient agrees with this plan of care. Patient has been instructed to contact the clinic with any concerns before the next appointment. Dr. Yung has reviewed this note and agrees with this plan of care. This note was dictated using voice recognition software and make contain errors or omissions. All injections are used with Lidocaine, Bupivacaine and dexamethasone. Occasionally urine drug screen is needed to verify patient's compliance with our office pain contract. This is ordered based off specific treatments related to chronic pain with the potential to abuse certain medications.
== END 2024-10-04 23:59 | disposition home or self-care (01) ==
PROVIDERS: PCP Internal Medicine Adolescent Medicine; Visit Provider Nurse Practitioner Family
DX: M51.16 Intervertebral disc disorders with radiculopathy, lumbar region (principal); Z79.4 Long term (current) use of insulin; Z79.899 Other long term (current) drug therapy
CPT/HCPCS: 73562; 99212; G0463

== ENCOUNTER 2024-10-06 18:00 | Emergency (ER) | payer OTHER, SELFPAY ==
--- NOTE | 2024-10-06 18:13 | XR_ITS ---
PROCEDURE INFORMATION: Exam: XR Left Knee Exam date and time: 10/06/2024 6:23 PM Age: 63 years old Clinical indication: Pain; Knee; Left; Additional info: pop left knee, posterior pain TECHNIQUE: Imaging protocol: Radiologic exam of the left knee. Views: 4 or more views. COMPARISON: CR XR KNEE LT 3V 10/04/2024 11:09 AM FINDINGS: Bones/joints: No acute fracture or malalignment. Minimal tricompartmental osteoarthritis. No significant joint effusion. Soft tissues: Unremarkable. Vasculature: Vascular calcifications. IMPRESSION: No acute osseous findings.
--- NOTE | 2024-10-06 18:14 | HMH.EDGENADL ---
Discharge Plan Disposition Patient Disposition: Home, Self-Care Prescriptions Prescriptions: No Action atorvastatin 40 mg tablet 40 mg PO HS 30 Days Qty: 30 escitalopram oxalate 20 mg tablet 20 mg PO DAILY bisoprolol fumarate 10 mg tablet 10 mg PO DAILY Patient Comments: TAKE ONE TABLET BY MOUTH EVERY DAY magnesium oxide 400 mg (241.3 mg magnesium) tablet 400 mg PO BID Ozempic 1 mg/dose (4 mg/3 mL) pen injector 1 mg SQ WEEKLY azelastine 137 mcg (0.1 %) aerosol,spray 2 spray intranasal HS 90 Days Qty: 30 2RF Rx Instructions: administer into each nostril levocetirizine 5 mg tablet 5 mg PO . Patient Comments: TAKE ONE TABLET BY MOUTH EVERY EVENING Steglatro 15 mg tablet 15 mg PO . Patient Comments: TAKE ONE TABLET BY MOUTH EVERY MORNING metformin 1,000 mg tablet 1,000 mg PO BID 30 Days Qty: 60 Patient Comments: aspirin 81 mg tablet,delayed release (DR/EC) 81 mg PO DAILY 90 Days Qty: 90 Patient Comments: omeprazole 20 mg capsule,delayed release(DR/EC) 20 mg PO DAILY 30 Days Qty: 30 Patient Comments: albuterol sulfate 90 mcg/actuation HFA aerosol inhaler 2 puff IH QIDP PRN (Reason: Shortness Of Breath) 25 Days Qty: 18 Patient Comments: fluticasone propionate 50 mcg/actuation spray,suspension See Rx Instructions .ROUTE .COMPLEX Qty: 16 2RF Dose Instruction: INSTILL 2 SPRAYS IN EACH NOSTRIL EVERY DAY Rx Instructions: INSTILL 2 SPRAYS IN EACH NOSTRIL EVERY DAY Spiriva Respimat 2.5 mcg/actuation mist See Rx Instructions .ROUTE .COMPLEX Qty: 4 3RF Dose Instruction: INHALE 2 PUFFS BY MOUTH EVERY DAY Rx Instructions: INHALE 2 PUFFS BY MOUTH EVERY DAY tizanidine 4 mg tablet See Rx Instructions .ROUTE .COMPLEX Qty: 60 2RF Dose Instruction: TAKE ONE TABLET BY MOUTH TWICE DAILY FOR MUSCLE SPASMS MAY CAUSE DROWSINESS Rx Instructions: TAKE ONE TABLET BY MOUTH TWICE DAILY FOR MUSCLE SPASMS MAY CAUSE DROWSINESS isosorbide mononitrate 30 MG tablet 30 mg PO BID gabapentin 100 mg capsule 200 mg PO BID acetaminophen-codeine 300-30 mg tablet 1 tab PO BID Qty: 60 0RF naloxone 4 mg/actuation spray,non-aerosol 4 mg intranasal Q2M PRN (Reason: opioid overdose) Qty: 2 0RF Rx Instructions: spray 1 dose into ONE nostril; alternate nostrils w each dose until help arrives Referrals Follow up/Referrals: Ang Hagan DO [Staff Physician, Orthopedics] - See instructions Cortez Gagnon MD [Primary Care Provider, Internal Medicine] - See instructions Activity Restrictions/Add. Instructions Additional Instructions/Restrictions: Your symptoms are consistent with chronic peripheral neuropathy I recommend you follow-up with a neurologist as discussed. However regarding your injury today most likely you have a strain to the insertional sites of your hamstring on the posterior aspect of your left knee. The knee itself did not have any obvious internal derangement and I suspect that there is no significant ligamental injury however if your symptoms continue I recommend that you follow-up with Dr. Hagan for evaluation of a possible MRI. In the meantime continue to compress take Tylenol put ice on the area bear weight as tolerated. Clinical Impressions Clinical Impression: Strain of left knee, Peripheral neuropathy Print Language Print Language: Citizen Of [place] Discharge ED Provider: Danilo Garvin General Adult HPI General Chief complaint: PAIN Stated complaint: AO 10/06/24 1700 injury both knees Time Seen by Provider: 10/06/24 18:05 History of Present Illness HPI narrative: Patient is a 63-year-old female presenting today with left knee discomfort. States that she was mowing the grass got off of her riding lawnmower and attempt to get back on and felt a pop in the posterior aspect of her left knee. Has had difficulty bearing weight since that time but has been able to bear weight just with an antalgic gait. No significant swelling from historical standpoint. States that there is some pain in the posterior aspect of her thigh around her hamstring area. Related Data Home Medications ?Medication ?Instructions ?Recorded ?Confirmed albuterol sulfate 90 mcg/actuation 2 puff inhalation QIDP PRN 04/03/17 10/04/24 aerosol inhaler Shortness Of Breath 25 days ##18 aspirin 81 mg tablet,delayed 81 mg PO DAILY HEART HEALTH 90 04/03/17 10/04/24 release days #90 tabs metformin 1,000 mg tablet 1,000 mg PO BID Diabetes 30 days 01/28/18 07/31/25 #60 tabs omeprazole 20 mg capsule,delayed 20 mg PO DAILY GERD 30 days #30 04/03/17 10/04/24 release caps atorvastatin 40 mg tablet 40 mg PO HS Cholesterol 30 days 11/28/17 10/04/24 #30 tabs isosorbide mononitrate 30 mg 30 mg PO BID ANGINA 08/06/19 10/04/24 tablet,extended release 24 hr gabapentin 100 mg capsule 200 mg PO BID Pain 09/28/19 10/04/24 bisoprolol fumarate 10 mg tablet 10 mg PO DAILY Hypertension 09/10/21 10/04/24 escitalopram oxalate 20 mg tablet 20 mg PO DAILY MOOD 09/10/21 10/04/24 magnesium oxide 400 mg (241.3 mg 400 mg PO BID 12/09/22 10/04/24 magnesium) tablet semaglutide 1 mg/dose (4 mg/3 mL) 1 mg SQ WEEKLY 12/09/22 10/04/24 subcutaneous pen injector (Ozempic) ertugliflozin 15 mg tablet 15 mg PO . 09/18/24 10/04/24 (Steglatro) levocetirizine 5 mg tablet 5 mg PO . 09/18/24 10/04/24 Previous Rx's ?Medication ?Instructions ?Recorded azelastine 137 mcg (0.1 %) nasal 2 spray intranasal HS 90 days #30 06/02/23 spray mL naloxone 4 mg/actuation nasal spray 4 mg intranasal Q2M PRN opioid 02/23/24 overdose #2 ea fluticasone propionate 50 See Rx Instructions .Route 06/01/24 mcg/actuation nasal .COMPLEX #16 grams spray,suspension tiotropium bromide 2.5 See Rx Instructions .Route 09/03/24 mcg/actuation mist for inhalation .COMPLEX #4 grams (Spiriva Respimat) acetaminophen 300 mg-codeine 30 mg 1 tab PO BID #60 tabs 09/26/24 tablet tizanidine 4 mg tablet See Rx Instructions .Route 10/01/24 .COMPLEX #60 tabs Allergies Allergy/AdvReac Type Severity Reaction Status Date / Time meloxicam AdvReac Other Verified 09/18/24 09:09 [facility] Disclaimer: The information contained in this section may have been updated after the patient was seen, as this information can be updated by other users. Medical History Allergic rhinitis COPD mixed type Pleural effusion Encounter for screening for malignant neoplasm of lung Smoking greater than 30 pack years HHD (hypertensive heart disease) CAD (coronary artery disease) Surgical History History of lumbar surgery History of tubal ligation History of colonoscopy History of cholecystectomy History of heart artery stent Family History Other Asthma COPD (chronic obstructive pulmonary disease) Cancer Diabetes Heart attack Hypertension Stroke Social History Smoking Status: Current every day smoker tobacco type: cigarettes packs per day: 1 second hand exposure: Yes alcohol intake: never substance use type: denies use current occupational status: other Travel in the last 8 weeks?: None household members: spouse housing: house current occupational exposures/hazards: No caffeine: Yes Have you lived/traveled outside [place] in past 30 days?: No Contact w/someone who lives/traveled outside [place] past 30 days?: No Exposure to someone with infectious disease in past 14 days?: No Do you have a fever (greater than 100.4 F or 38 C)?: No Have you tested positive for COVID-19?: No Exposed to someone with COVID-19 in past 14 days?: No Do you have a sore throat?: No Do you have a cough?: No Do you have any weakness?: No Do you have any diarrhea?: No Are you experiencing any unusual bleeding?: No Do you have any muscle aches/pain?: No Do you have any abdominal pain?: No Are you experiencing loss of taste or smell?: No Other Medical History Have you received the Flu Vaccine for this season: Yes Have you received the Pneumonia Vaccine: Yes ROS Obtained: Yes All systems reviewed & no additional complaints except as documented Physical Exam General General appearance: alert Respiratory Respiratory exam: Present normal lung sounds bilaterally Cardiovascular Cardiovascular exam: Present regular rate Expanded Lower Extremity Exam Left: Knee exam: Present normal inspection, full ROM, tenderness (Pain and tenderness over the posterior aspect around the hamstring region as well as in her hamstring), anterior drawer sign (Normal), posterior draw sign (Normal), pain with valgus (Normal), laxity with valgus (Normal), pain with varus (Normal), laxity with varus (Normal) and knee extension intact Neurological Exam Neurological exam: Present alert and oriented X3 Medical Decision Making Medical Records Screening: Per USPSTF and CDC recommendations, given the prevalence of disease in our region, it is our hospital?s policy to screen for HIV and viral Hepatitis for all patients aged 18 and over and those with ongoing risk factors. [place]elario Inquiry Pt receiving controlled substance: No Vital Signs: 10/06/24 18:19 10/06/24 18:29 Temperature 98.2 F 98.2 F Temperature Source Oral Oral Pulse Rate 74 Pulse Rate [Right] 74 Respiratory Rate 16 16 Blood Pressure 119/62 Blood Pressure [Right Arm] 119/62 Blood Pressure Mean [Right Arm] 81 Blood Pressure Source Automatic Cuff Blood Pressure Source [Right Arm] Automatic Cuff Blood Pressure Position Supine Blood Pressure Position [Right Arm] Supine 02 Sat by Pulse Oximetry 96 96 Oxygen Delivery Method Room Air Room Air Orders (Tests/Meds): ED MEDICATIONS Discontinued Medications Generic Name Dose Route Start Last Admin Trade Name Freq PRN Reason Stop Dose Admin Acetaminophen 1,000 mg 10/06/24 18:13 10/06/24 18:30 Acetaminophen 500mg Tab PO 10/06/24 18:14 1,000 mg ONCE ONE Administration ORDERS Category Date Time Status Knee XR left 4 views [XR knee LT 4V] Stat Exams 10/06/24 18:13 Taken Medical Decision Narrative: Patient with above history and physical with pain and tenderness over the tendinous insertions of the posterior aspect of her knee apparatus consistent with most likely musculoskeletal or hamstring strain there is no effusion anterior posterior drawer normal varus valgus stress tests are normal I do not suspect significant internal derangement however she is having significant difficulty with walking we will get a x-ray and give Tylenol and reassess. After evaluating the patient the patient disclosed more information to the nurse stating that she had significant numbness in her left lower foot and that she had difficulty with dorsiflexion of the foot. I went evaluated the patient further she has significant to point discrimination all the way up to her mid thighs bilaterally and her left lower EXTR and right lower extremity. 2 points, nation in her upper extremities is normal. Patient states that she has B12 deficiencies and gets iron infusions as well and that those have caused her anemia in the past that she has also had difficulty with walking for a very long time and states that she has a difficult time knowing where her left foot is in space and has to step down on it hard. All this is consistent with chronic peripheral neuropathy that is significant and severe. I advised that she closely follow-up with neurology. Otherwise her soft touch position sense and pain sensation in that foot is normal bilaterally. She also has normal pulses so I do not think this has anything to do with her injury today however her injury may have been caused from her lack of spatial awareness with her peripheral neuropathy and she will follow-up with her neurologist regarding this. X-rays were performed which I personally interpreted which showed no evidence of any obvious fracture or dislocation. I wrapped the patient's leg with an Sae wrap and she felt much better was able to ambulate and take many steps without any significant difficulty. She refused any crutches that she states that she does not do well with them. She will follow-up with Dr. Hagan if her symptoms continue otherwise supportive care was discussed Critical Care Critical Care Time Critical Care Time: No
[2024-10-06 18:19] VITALS: BP 119/62; PULSE 74; RESP 16; TEMP 36.8; O2SAT 96; BMI 30.2
[2024-10-06 18:29] VITALS: BP 119/62; PULSE 74; RESP 16; TEMP 36.8; O2SAT 96
[2024-10-06] MEDS: ACETAMINOPHEN 500MG TAB 1000 MG PO (18:30)
[2024-10-06 18:58] VITALS: BP 123/68; PULSE 72; RESP 15; TEMP 37; O2SAT 97
== END 2024-10-06 19:02 | disposition home or self-care (01) ==
PROVIDERS: Emergency Provider Student in an Organized Health Care Education/Training Program; PCP Internal Medicine Adolescent Medicine
DX: S86.912A Strain of unspecified muscle(s) and tendon(s) at lower leg level, left leg, initial encounter (principal); G62.9 Polyneuropathy, unspecified; F17.210 Nicotine dependence, cigarettes, uncomplicated
CPT/HCPCS: 73564; 99283

== ENCOUNTER 2024-11-13 09:25 | Day surgery (SDC) | payer MEDICARE, OTHER, SELFPAY ==
[2024-11-13 09:39] VITALS: BP 134/69; PULSE 64; RESP 16; O2SAT 95; BMI 29.6
--- NOTE | 2024-11-13 09:54 | P.PCN_ITS ---
Procedure Date: 11/13/24 Time: 09:45 Anesthesiologist:: Tod Guadalupe CRNA Complications:: None Pre-procedure Diagnosis:: Degenerative disc lumbar spine multilevels. Lumbar radiculopathy. Lumbar postlaminectomy syndrome. Post-procedure Diagnosis:: Same. Indications for Procedure:: Patient is a very pleasant 64-year-old female comes our clinic today for lumbar epidural steroid injection. Patient describes low lumbar back pain as constant, dull, aching. She also reports bilateral hip and leg radicular symptoms at times. She rates her pain 7/10. Procedure Details:: Procedure: Lumbar epidural steroid injection under fluoroscopy Informed consent was obtained and the risks and benefits of the procedure were explained to the patient. The patient was taken to the procedure room and noninvasive monitors placed, including noninvasive blood pressure cuff and pulse oximeter. The back was viewed using C-arm Fluoroscopy and prepped using Chloraprep as a cleansing solution and the L3 4 interspace was palpated. Skin and subcutaneous tissues were anesthetized using lidocaine 1.5% and a 25-gauge needle. After this, an 18-gauge Touhy epidural needle was placed into the L3-4 interspace and advanced using fluoroscopic guidance and loss of resistance to air until the epidural space was encountered. After confirmation of needle placement in the epidural space, with dye, a solution containing normal saline, 3 mL and dexamethasone 10 mg were incrementally injected into the lumbar epidural space. The patient tolerated the procedure well with no complications. The patient was observed in the Pain Clinic and then discharged home n eurologically intact. Plan and Disposition:: Patient was discharged without incident.
[2024-11-13 09:57] VITALS: BP 124/76; PULSE 78; RESP 18; O2SAT 98
[2024-11-13] MEDS: LIDOCAINE 1% 5ML PF VIAL (09:57)
[2024-11-13] MEDS: DEXAMETHASONE 10MG/ML 1ML VIAL 10 MG (09:57)
[2024-11-13] MEDS: BUPIVACAINE 0.25% 10ML INJ IJ (09:57)
[2024-11-13 10:00] VITALS: BP 124/76; PULSE 78; RESP 18; O2SAT 98
[2024-11-13 10:01] VITALS: BP 113/71; PULSE 70; RESP 18; O2SAT 97
== END 2024-11-13 10:01 | disposition home or self-care (01) ==
PROVIDERS: PCP Internal Medicine Adolescent Medicine; Visit Provider Nurse Anesthetist, Certified Registered
DX: M51.16 Intervertebral disc disorders with radiculopathy, lumbar region (principal); Z87.891 Personal history of nicotine dependence
CPT/HCPCS: 62323; J0665; J1100; J2003

== ENCOUNTER 2025-01-22 09:23 | Outpatient (CLI) | payer MEDICARE, OTHER, SELFPAY ==
[2025-01-22 09:56] LABS: Hematocrit 40.8 % (37.0-47.0); Hemoglobin 13.6 g/dL (12.2-16.2); Immature Granulocytes % 0.4 %; Mean Corpuscular HGB Conc 33.3 g/dL (31.8-35.4); Mean Corpuscular Hemoglobin 30.4 pg (27.0-31.2); Mean Corpuscular Volume 91.3 fl (81-99); Nucleated Red Blood Cells % 0 %; Platelet Count 322 K/mm3 (142-424); Red Blood Count 4.47 M/mm3 (4.20-5.40); Red Cell Distribution Width-SD 41.1 fL; White Blood Count 9.8 K/mm3 (4.8-10.8)
[2025-01-22 10:36] LABS: Iron 83 ug/dL (37-170)
[2025-01-22 10:45] LABS: Total Iron Binding Capacity 359 ug/dL (265-497)
[2025-01-22 11:12] LABS: Ferritin 19.9 ng/ml (11.1-264)
== END 2025-01-22 23:59 | disposition home or self-care (01) ==
LOC: LAB 09:23
PROVIDERS: PCP Internal Medicine Adolescent Medicine; Visit Provider Internal Medicine Medical Oncology
DX: D64.9 Anemia, unspecified (principal)
CPT/HCPCS: 36415; 82728; 83540; 83550; 85025

== ENCOUNTER 2025-02-12 10:21 | Day surgery (SDC) | payer MEDICARE, OTHER, SELFPAY ==
[2025-02-12 10:35] VITALS: BP 153/78; PULSE 71; RESP 16; O2SAT 95; BMI 27.3
[2025-02-12] MEDS: LIDOCAINE 1% 5ML PF VIAL 5 ML (10:47)
[2025-02-12] MEDS: DEXAMETHASONE 10MG/ML 1ML VIAL 10 MG (10:47)
[2025-02-12] MEDS: BUPIVACAINE 0.25% 10ML INJ 25 MG IJ (10:47)
[2025-02-12 10:49] VITALS: BP 162/89; PULSE 77; RESP 18; O2SAT 97
[2025-02-12 10:50] VITALS: BP 162/89; PULSE 76; RESP 18; O2SAT 97
--- NOTE | 2025-02-12 10:55 | P.PCN_ITS ---
Procedure Date: 02/12/25 Time: 10:45 Anesthesiologist:: Tod Guadalupe CRNA Complications:: None Pre-procedure Diagnosis:: Left sacroiliitis. Left trochanteric bursitis. Post-procedure Diagnosis:: Same. Indications for Procedure:: Patient is a very pleasant 64-year-old female who comes to clinic today for a left sacroiliac joint injection of cortisone local anesthetic. Also left trochanteric bursa injection of local anesthetic and cortisone. She describes low lumbar back pain off the midline to the left. Also left lateral hip pain. She describes the pain as constant dull, aching. She rates pain 7/10. Procedure Details:: Procedure:Left trochanteric bursa injection under fluoroscopy We then moved to the left trochanteric bursa.~ C-arm fluoroscopy was used to view the left greater trochanter.~ The skin and subcutaneous tissues overlying the left greater trochanter were anesthetized using lidocaine, 1.5% and a 25- gauge needle.~ After this, a 22-gauge spinal needle was inserted and advanced until it contacted the left greater trochanter.~ Dye was injected and good spread was seen throughout the left trochanteric bursa. After this, approximately 5 mL of bupivacaine, 0.25% and dexamethasone 10 mg was incrementally injected into the left trochanteric bursa.~ The patient tolerated the procedure well with no complications. Procedure: Left sacroiliac injection under fluoroscopy Informed consent was obtained and the risk and benefits of the procedure were explained to the patient.~ The patient was taken to the procedure room and noninvasive monitors were placed including noninvasive blood pressure cuff and pulse oximeter.~ The patient was placed prone on the procedure table.~ The~ left hip was cleansed using Betadine as a cleansing solution.~ C-arm fluorosocpy was used to view the left SI joint.~ The skin and subcutaneous tissues were anesthetized using Lidocaine 1.5% and a 25-gauge needle.~ After this, a 22-gauge spinal needle was inserted under fluoroscopic guidance into the inferior aspect of the left SI joint.~ Omnipaque dye was injected and a good spread was seen throughout the joint.~ After this, approximately 5 mL of bupivacaine 0.25% and dexamethasone 10 mg was incrementally injected into the sacroiliac joint.~ The patient tolerated the procedure well with no complications.~ The patient was observed in the Pain Clinic for a period of 30-45 minutes, then discharged home neurologically intact.~ Plan and Disposition:: Patient was discharged without incident.
[2025-02-12 10:57] VITALS: BP 161/78; PULSE 74; RESP 16; O2SAT 95
== END 2025-02-12 10:57 | disposition home or self-care (01) ==
PROVIDERS: PCP Internal Medicine Adolescent Medicine; Visit Provider Nurse Anesthetist, Certified Registered
DX: M70.62 Trochanteric bursitis, left hip (principal); M46.1 Sacroiliitis, not elsewhere classified; I25.10 Atherosclerotic heart disease of native coronary artery without angina pectoris; Z90.49 Acquired absence of other specified parts of digestive tract; Z98.51 Tubal ligation status; I11.9 Hypertensive heart disease without heart failure; Z82.49 Family history of ischemic heart disease and other diseases of the circulatory system; Z87.891 Personal history of nicotine dependence; Z88.6 Allergy status to analgesic agent; Z79.899 Other long term (current) drug therapy; Z79.84 Long term (current) use of oral hypoglycemic drugs; Z79.82 Long term (current) use of aspirin; J44.9 Chronic obstructive pulmonary disease, unspecified; K21.9 Gastro-esophageal reflux disease without esophagitis
CPT/HCPCS: 20610; G0260; J0665; J1100; J2003